=== PATIENT | male | born 1940 | race Caucasian/White ===

== ENCOUNTER → 2017-03-30 | Outpatient (CLI) | payer OTHER ==
[~2017-03-30] MED LIST: AMR2 PO; ANSHCCR PR; CHOL100010 PO; CYAN10005 PO; DOCU-94 PO; ERGO500011 PO; HYDR-5688 PO; IBUP600T44 PO; INSDGIPEN SC; LISI-729 PO; METF1000 PO; ROSU5TAB PO; SULF-183 PO; WARF10TA PO; [UNRECOGNIZED DRUG - OTHER] TOP
[2017-03-30 13:08] LABS: INR 1.6 (0.9-1.1); PROTHROMBIN TIME (PATIENT) 17.9 SECONDS (9.0-12.0)
[2017-03-30 13:33] LABS: ESTIMATED AVERAGE GLUCOSE 306 mg/dl; HA1C FLAG Normal (Normal)
[2017-03-30 15:03] LABS: ALT/SGPT 21 U/L (12-78); AST/SGOT 14 U/L (15-37); BLOOD UREA NITROGEN 19 mg/dl (7-18); CALCIUM 9.4 mg/dl (8.5-10.1); CARBON DIOXIDE 25 mmol/L (21-32); CHLORIDE 106 mmol/L (98-107); CHOLESTEROL 139 mg/dl (0-200); GLUCOSE 157 mg/dl (70-99); SODIUM 139 mmol/L (136-145); TRIGLYCERIDES 167 mg/dl (0-150); VERY LOW DENSITY LIPOPROT CALC 33 mg/dl
[2017-03-30 15:17] LABS: ALKALINE PHOSPHATASE 99 U/L (45-117); CHOLESTEROL/HDL RATIO 2.5; HDL CHOLESTEROL 56 mg/dl; LDL CHOLESTEROL CALCULATED 50 mg/dl
--- NOTE | 2017-04-07 13:10 | CODING QUERY MEDICAL NECESSITY ---
CQSUPPORTING DIAGNOSIS NEEDED A supporting diagnosis is required for the test/procedure performed on this patient in order for us to be reimbursed by the patient's insurance. Please provide a supporting diagnosis for the following test/procedure listed below next to the test name along with your signature. *If there is no additional diagnosis for this patient that would support the following test/procedure please document that below next to the test/procedure. Test(s)/Procedure(s) that require a supporting diagnosis: DOS 03/30/17 VITAMIN D TEST Provider Signature: Date: Thank you Soraya Vallecillo Health Information Management Once completed, please kindly fax back to [phone] For questions please call [phone]
== END | disposition home or self-care (01) ==
LOC: C.LABPVFM 09:03
PROVIDERS: ATTEND Nurse Practitioner
DX: D68.61 Antiphospholipid syndrome (principal); E78.5 Hyperlipidemia, unspecified; E11.9 Type 2 diabetes mellitus without complications; R80.9 Proteinuria, unspecified; E55.9 Vitamin D deficiency, unspecified

== ENCOUNTER → 2017-04-02 | Outpatient (CLI) | payer OTHER ==
[~2017-04-02] MED LIST changes: +ERGO1CAP41 PO; -ERGO500011 PO
--- NOTE | 2017-04-02 10:55 | DIAGNOSTIC IMAGING REPORT ---
ABDOMEN FOR HERNIA CLINICAL HISTORY: Abdominal wall bulge. Evaluate for hernia. COMPARISON STUDY: No previous studies for comparison. TECHNIQUE: Sonography of the anterior abdominal wall was performed at site of bulge. FINDINGS: Note was made of a probable fat containing nonreducible supraumbilical hernia. This is midline in location. IMPRESSION: Probable nonreducible fat-containing supraumbilical hernia. Electronically signed by: Bayron Rodríguez M.D. 04/02/2017 10:53 AM Dictated Date/Time: 04/02/2017 10:52 AM
== END | disposition home or self-care (01) ==
LOC: C.ULTR 10:23
PROVIDERS: ATTEND Nurse Practitioner
DX: R19.00 Intra-abdominal and pelvic swelling, mass and lump, unspecified site (principal)

== ENCOUNTER → 2017-04-27 | Outpatient (CLI) | payer OTHER | END | disposition home or self-care (01) | LOC: C.PATHSPEC 11:44 | PROVIDERS: ATTEND Surgery | DX: K64.5 Perianal venous thrombosis (principal); K62.89 Other specified diseases of anus and rectum ==

== ENCOUNTER 2017-06-03 04:54 | Day surgery (SDC) | payer OTHER ==
[2017-05-20 08:10] VITALS: BMI 32.0
--- NOTE | 2017-05-20 08:45 | PAT Medication Instructions ---
Service Date May 20, 2017. Current Home Medication List Cholecalciferol (Vitamin D), 1 TAB PO QAM Cyanocobalamin (Vitamin B-12), 1,000 MCG PO QAM Ergocalciferol (Vitamin D 92289 Unit), 1 TAB PO WK Glimepiride (Glimepiride), 4 MG PO QAM Hydrocortisone (Proctosol Hc), Unknown Dose IA UD PRN for PRN Insulin Glargine (Lantus Solostar), 30 SC HS Lisinopril (Zestril), 2.5 MG PO QPM Metformin Hcl (Glucophage), 1,000 MG PO BID Rosuvastatin Calcium (Crestor), 20 MG PO QPM Warfarin Sodium (Coumadin), 10-12.5 MG PO SEE NOTES [Topical Oils], Unknown Dose TOP UD Medication Instructions For Your Scheduled Surgery - Check with surgeon/family doctor for instructions: Warfarin Sodium (Coumadin), 10-12.5 MG PO SEE NOTES - Hold the following medications 24 hours prior to surgery: [Topical Oils], Unknown Dose TOP UD - Hold the following medications 48 hours prior to surgery: Metformin Hcl (Glucophage), 1,000 MG PO BID - Hold the following medications the morning of surgery: Cholecalciferol (Vitamin D), 1 TAB PO QAM Cyanocobalamin (Vitamin B-12), 1,000 MCG PO QAM Ergocalciferol (Vitamin D 01453 Unit), 1 TAB PO WK Glimepiride (Glimepiride), 4 MG PO QAM Hydrocortisone (Proctosol Hc), Unknown Dose IA UD PRN for PRN - Hold the following medications as scheduled the night before surgery: Lisinopril (Zestril), 2.5 MG PO QPM - Take the following medications as scheduled the night before surgery: Hydrocortisone (Proctosol Hc), Unknown Dose IA UD PRN for PRN Insulin Glargine (Lantus Solostar), 30 SC HS Rosuvastatin Calcium (Crestor), 20 MG PO QPM If you have any questions please call us at [phone] or [phone] or [phone]
[2017-05-20 10:00] LABS: BASO % 0.4 %; BASO ABS # 0.02 K/uL (0-0.2); COMPLETE YES; EOS % 0.6 %; HEMATOCRIT 42.1 % (42-52); IG% 0.2 %; LYMPH % 29.6 %; LYMPH ABS # 1.39 K/uL (1.2-3.4); MEAN CELL VOLUME 90.5 fL (80-100); MEAN CORPUSCULAR HEMOGLOBIN 30.5 pg (25-34); MEAN CORPUSCULAR HGB CONC 33.7 g/dl (32-36); MEAN PLATELET VOLUME 10.3 fL (7.4-10.4); MONO % 6.8 %; NEUT % 62.4 %; PLATELET COUNT 180 K/uL (130-400); RED BLOOD COUNT 4.65 M/uL (4.7-6.1)
[2017-05-20 11:06] LABS: BUN/CREATININE RATIO 22.2 (10-20); CREATININE 0.83 mg/dl (0.60-1.40); POTASSIUM 4.5 mmol/L (3.5-5.1)
[2017-05-20 11:20] LABS: BETA-HYDROXYBUTYRATE 3.22 mg/dL (0.2-2.81)
[~2017-06-03] VITALS: Ht 188 cm; Wt 114.1 kg
[~2017-06-03 04:54] MED LIST changes: -DOCU-94 PO; -HYDR-5688 PO; -IBUP600T44 PO; -SULF-183 PO
[2017-06-03 05:50] VITALS: BP 139/69; PULSE 71; TEMP 36.8; O2SAT 95; Ht 188 cm; Wt 114.1 kg
[2017-06-03] MEDS ORDERED: LACTATED RINGER'S 1000ML 1,000 ML IV SCH ×2 (06:00)
[2017-06-03] MEDS ORDERED: CEFAZOLIN 2000 MG/60 ML D5W IV SCH (06:00)
[2017-06-03 06:12] LABS: PARTIAL THROMBOPLASTIN RATIO 0.8; PROTHROMBIN TIME (PATIENT) 10.4 SECONDS (9.0-12.0)
[2017-06-03] MEDS ORDERED: MIDAZOLAM HCL 1 MG/ML 2ML VIAL ONE (06:44)
[2017-06-03] MEDS ORDERED: FENTANYL CITRATE INJ 50 MCG/1 ML 2 ML VIAL ONE (06:44)
[2017-06-03] MEDS ORDERED: GELATIN SPONGE 12-7MM ONE (06:45)
[2017-06-03] MEDS ORDERED: BUPIVACAINE/EPINEPHRINE 0.5% MPF 1:200,000 10 ML VIAL ONE ×2 (06:45→07:37)
[2017-06-03] MEDS ORDERED: NovoLIN-R INSULIN PER UNIT CHARGE ONE (07:00)
--- NOTE | 2017-06-03 07:03 | History & Physical Bridge Note ---
H&P Re-Evaluation Bridge Note: I have examined the patient, reviewed the History & Physical and in the interval since the performance of the History & Physical I have noted the following changes of clinical significance: No changes noted
[2017-06-03] MEDS ORDERED: LIDOCAINE HCL 2% 2 ML VIAL (20MG/ML) ONE (07:38)
[2017-06-03] MEDS ORDERED: GLYCOPYRROLATE INJ 0.2 MG/ML VIAL ONE (07:38)
[2017-06-03] MEDS ORDERED: ONDANSETRON INJ 2 MG/ML 2 ML VIAL ONE (07:38)
[2017-06-03] MEDS ORDERED: PROPOFOL IV EMULSION 10 MG/ML 20 ML VIAL IV ONE (07:38)
[2017-06-03] MEDS ORDERED: EpHEDrine SULFATE 50MG/5ML SYR ONE (07:38)
[2017-06-03] MEDS ORDERED: NEOSTIGMINE METHYLSULFATE 5 MG/5 ML SYR ONE (07:38)
[2017-06-03] MEDS ORDERED: ROCURONIUM BROMIDE 10 MG/ML 5 ML VIAL IV ONE (07:38)
[2017-06-03] MEDS ORDERED: LIDOCAINE HCL 2% JELLY 30 ML TUBE EXT STA (07:41)
[2017-06-03] MEDS ORDERED: INSULIN HUMAN REGULAR PER UNIT 10 UNITS in SYRINGE 0 ML IV STA (07:56)
[2017-06-03] MEDS ORDERED: ATROPINE SULFATE 0.1 MG/ML 5ML SYR IV PRN (08:00)
[2017-06-03] MEDS ORDERED: PHENYLEPHRINE 100MCG/ML 5ML SYR IV PRN (08:00)
[2017-06-03] MEDS ORDERED: ONDANSETRON INJ 2 MG/ML 2 ML VIAL IV PRN ×2 (08:00→08:15)
[2017-06-03] MEDS ORDERED: EpHEDrine SULFATE INJ 50 MG/ML AMP IV PRN (08:00)
[2017-06-03] MEDS ORDERED: HYDROmorphone INJ 2 MG/ML SYR/VIAL IV PRN (08:00)
--- NOTE | 2017-06-03 08:04 | Medical Student: [facility] ---
Immediate Operative Summary Operative Date Jun 03, 2017. Pre-Operative Diagnosis Rectal polyp Post-Operative Diagnosis same Procedure(s) Performed Excision of rectal polyp Surgeon Dr. Parmar Mechanical Design Drafter Surgeon(s) Michael Ayala Estimated Blood Loss 10cc Findings Normal appearing colon with large polyp Specimens Rectal polyp Drains none Anesthesia general Complication(s) None Disposition Recovery Room / PACU
[2017-06-03] MEDS ORDERED: SODIUM CHLORIDE 0.9% 1000ML 1,000 ML IV SCH (08:08)
--- NOTE | 2017-06-03 08:08 | [facility] Operative Report ---
Operative Report Operative Date Jun 03, 2017. Pre-Operative Diagnosis Rectal Polyp Post-Operative Diagnosis Rectal Polyp Procedure(s) Performed Excision of Rectal Polyp / Mass Surgeon Dr Maurilio Parmar Social Services Coordinator Surgeon(s) Michael Ayala PA-C Estimated Blood Loss 10cc Findings large pedunculated rectal mass Specimens As per Surgeon A. Rectal Polyp Anesthesia LMA Complication(s) None Disposition Recovery Room / PACU Description of Procedure After informed consent was obtained the patient was taken the operating suite placed in supine position. After successful placement of a laryngeal mask airway the patient was placed in high lithotomy position. Rectal area was sterilely prepped and draped in usual fashion. There was a large pedunculated exophytic type of mass protruding around the anoderm. We began by using Marcaine with epinephrine to localize it at its base. Once we did this we took a 15 blade scalpel made an elliptical incision around it and excise it in its entirety. Was sent to pathology. Several small bleeding points were controlled using electrocautery. We then used #3 Prolene in simple interrupted fashion to close the anoderm. We injected some additional local anesthetic into the region. I did do a digital rectal exam and did not identify any additional abnormalities. There was some slightly abnormal appearing anoderm at the 11 o'clock position as well however it did not have similar appearance to the mass and did not warrant excision at this time. We irrigated the area. I used lidocaine jelly impregnated on Gelfoam and placed this into the rectal area. A dressing was applied. The patient was awaken extubated and transferred recovery in stable condition I attest to the content of the Intraoperative Record and any orders documented therein. Any exceptions are noted below.
[2017-06-03] MEDS ORDERED: HYDR-5688 PO (08:12)
[2017-06-03] MEDS ORDERED: DOCU-94 PO (08:12)
[2017-06-03] MEDS ORDERED: IBUP600T44 PO (08:12)
[2017-06-03] MEDS ORDERED: HYDROCODONE/ACETAMOPHEN 5/325MG TAB PO PRN ×2 (08:15)
[2017-06-03] MEDS ORDERED: IBUPROFEN 600 MG TAB PO PRN (08:15)
--- NOTE | 2017-06-03 08:15 | Discharge Instructions ---
Discharge Instructions Date of Service Jun 03, 2017. Visit Reason for Visit: Rectal Polyp/Mass, Diabetes Discharge Discharge Diagnosis / Problem: excision rectal mass Discharge Goals Goal(s): Decrease discomfort Activity Recommendations Activity Limitations: as noted below Shower/Bathe: no limitations Driving or Machine Use: do not drive if taking Talala Anesthesia . Post Anesthesia Instructions: If you have had General Anesthesia or IV Sedation: * Do not drive today. * Resume driving when surgeon permits. * Do not make important decisions or sign legal documents today. * Call surgeon for: 1. Temperature elevations greater than 101 degrees F. 2. Uncontrollable pain. 3. Excessive bleeding. 4. Persistent nausea and vomiting. 5. Medication intolerance (nausea, vomiting or rash). * For nausea and vomiting use only clear liquids such as: tea, soda, bouillon until nausea subsides, then gradually increase diet as tolerated. * If you have any concerns or questions, call your surgeon's office. If physician is unavailable and it is an emergency, call 911 or go to the nearest emergency room. . Instructions / Follow-Up Instructions / Follow-Up Dr. Parmar in 2 weeks, call [phone] for any questions Begin sitz baths tomorrow 3-4 times daily Diet Recommendations Recommended Home Diet: no limitations Procedures Procedures Performed: Excision of Rectal Polyp / Mass Pending Studies Studies pending at discharge: no Medical Emergencies . Who to Call and When: Medical Emergencies: If at any time you feel your situation is an emergency, please call 911 immediately. . Non-Emergent Contact Non-Emergency issues call your: Surgeon Call Non-Emergent contact if: you have a fever, temperature is above 101.5, your pain is not controlled, wound has increased pain, you have any medication questions . . "Provider Documentation" section prepared by Elio Ayala. .
--- NOTE | 2017-06-03 08:35 | Anesthesiology Progress Note ---
Anesthesia Post Op Note Date & Time Jun 03, 2017 at 08:35 Vital Signs Pain Intensity: 0 Vital Signs Past 12 Hours Date Time Temp Pulse Resp B/P (MAP) Pulse Ox O2 Delivery O2 Flow Rate FiO2 06/03/17 08:25 72 19 158/79 96 Room Air 06/03/17 08:15 71 19 152/78 99 Oxymask 10 06/03/17 08:05 82 19 158/81 100 Oxymask 10 06/03/17 07:58 36.7 76 16 167/78 99 Oxymask 10 06/03/17 05:50 36.8 71 18 139/69 (92) 95 Room Air Notes Mental Status: alert / awake / arousable, participated in evaluation Pt Amnestic to Procedure: Yes Nausea / Vomiting: adequately controlled Pain: adequately controlled Airway Patency, RR, SpO2: stable & adequate BP & HR: stable & adequate Hydration State: stable & adequate Anesthetic Complications: no major complications apparent
[2017-06-03 08:45] VITALS: BP 153/74; PULSE 66; TEMP 36.1; O2SAT 96
== END 2017-06-03 09:56 | disposition home or self-care (01) ==
LOC: C.ACU 04:54
PROVIDERS: ATTEND Surgery
DX: K62.1 Rectal polyp (principal); D68.61 Antiphospholipid syndrome; E11.9 Type 2 diabetes mellitus without complications; K43.9 Ventral hernia without obstruction or gangrene; E78.5 Hyperlipidemia, unspecified; D68.62 Lupus anticoagulant syndrome; E55.9 Vitamin D deficiency, unspecified; E66.3 Overweight; Z83.3 Family history of diabetes mellitus; Z82.49 Family history of ischemic heart disease and other diseases of the circulatory system; Z80.3 Family history of malignant neoplasm of breast; Z79.4 Long term (current) use of insulin; Z79.84 Long term (current) use of oral hypoglycemic drugs; Z79.899 Other long term (current) drug therapy; Z79.01 Long term (current) use of anticoagulants

== ENCOUNTER → 2017-11-30 | Outpatient (CLI) | payer OTHER ==
[~2017-11-30] MED LIST changes: +DOCU-94 PO; -ERGO1CAP41 PO; +ERGO500011 PO; +HYDR-5688 PO; +IBUP600T44 PO
[2017-11-30 12:38] LABS: INR 1.3 (0.9-1.1)
[2017-11-30 12:59] LABS: HEMOGLOBIN A1C 10.6 % (4.5-5.6)
[2017-11-30 13:14] LABS: BLOOD UREA NITROGEN 25 mg/dl (7-18); CALCIUM 9.1 mg/dl (8.5-10.1); CARBON DIOXIDE 26 mmol/L (21-32); CREATININE 0.97 mg/dl (0.60-1.40); GLUCOSE 265 mg/dl (70-99); POTASSIUM 4.3 mmol/L (3.5-5.1); SODIUM 136 mmol/L (136-145)
== END | disposition home or self-care (01) ==
LOC: C.LABPVFM 11:23
PROVIDERS: ATTEND Nurse Practitioner
DX: R80.9 Proteinuria, unspecified (principal); E11.65 Type 2 diabetes mellitus with hyperglycemia; D68.61 Antiphospholipid syndrome

== ENCOUNTER 2021-10-27 14:12 | Inpatient (IN) ==
[2021-10-27 18:34] LABS: Basophils # (auto) 0.01 K/uL (0-0.2); Basophils % (auto) 0.2 %; Eosinophils # (auto) 0.04 K/uL (0-0.5); Eosinophils % (auto) 0.7 %; Hemoglobin 9.7 g/dL (14.0-18.0); Immature Granulocytes # (auto) 0.01 K/uL (0.00-0.02); Immature Granulocytes % (auto) 0.2 %; Lymphocytes # (auto) 1.37 K/uL (1.2-3.4); Lymphocytes % (auto) 24.8 %; Mean Corpuscular Hemoglobin 25.9 pg (25-34); Mean Corpuscular Hgb Conc 31.3 g/dL (32-36); Mean Corpuscular Volume 82.7 fL (80-100); Monocytes # (auto) 0.49 K/uL (0.11-0.59); Monocytes % (auto) 8.9 %; Neutrophils % (auto) 65.2 %; Platelet Count 279 K/uL (130-400); RDW Coefficient of Variation 16.6 % (11.5-14.5); RDW Standard Deviation 50.2 fL (36.4-46.3); Red Blood Count 3.75 M/uL (4.7-6.1); White Blood Count 5.52 K/uL (4.8-10.8)
[2021-10-27] MEDS: SODIUM CHLORIDE 0.9% 1000ML 1,000 ML IV SCH (18:39)
[2021-10-27 18:44] LABS: INR 1.1 (0.9-1.1)
--- NOTE | 2021-10-27 18:44 | Emergency Department Note ---
History of Present Illness General Chief complaint: Fall Stated complaint: FALL WEDNESDAY, ARM PAIN, BACK PAIN, DIARRHEA Time Seen by Provider: 10/27/21 18:00 Source: patient Mode of arrival: ambulatory Limitations: no limitations History of Present Illness Provider complaint: Fall, dizziness, high blood sugar Onset (ago): day(s) 4 Maximum Pain Intensity: 2 Relieved By: + none Exacerbated By: + none Associated symptoms: + loss of appetite, + malaise and + nausea/vomiting; no chest pain, no cough, no fever/chills, no headaches or no shortness of breath Treatments prior to arrival: none This is a 81-year-old male presents emergency department complaining of dizziness and high blood sugar. Patient states that he had an accidental mechanical fall on Wednesday of last week, tripping over something in their house. Patient is uncertain how he landed, is uncertain if he struck his head, but does not believe he lost consciousness. Patient is anticoagulated due to history of blood clots per his report. He states his last INR check was 2.3. Patient states he is a diabetic, and he does not check his blood sugar regularly. He states he does take his medications as prescribed though. He states he does not always follow a diabetic diet. He states his sugars have been running in the upper 200s. He states on Wednesday at the time of the fall, when they had to call EMS to come help him stand up, they checked his blood sugar and found it to be in the upper 300s. He states he does not come to the hospital at that time. He states over the course of the weekend he had intermittent dizziness, but otherwise felt as though he was improving. He states he has had generalized soreness and achiness since the fall, particularly at his elbows and knees which he believes he hit in the fall also. He states he has an abrasion to his right knee and left elbow. Patient denies vision changes, fevers or chills, nausea or vomiting, chest pain or trouble breathing. He denies any recent change in medication. is also concerned about ongoing diarrhea over the last 2 m [facility]. She states he has 2-3 episodes a day, that to her appear bloody. Patient denies any coming abdominal pain although does states he is intermittently nauseated on almost a daily basis. No prior history of IBS or IBD. Patient states he has never had a colonoscopy. Pt seen during a time of high acuity and national emergency pandemic while wearing PPE. Home Medications Medication Instructions Recorded Confirmed Type blood sugar diagnostic (FreeStyle #10 ea 03/25/19 09/04/21 History Lite Strips) lancets 28 gauge (FreeStyle ea 09/20/19 09/04/21 History Lancets) cholecalciferol (vitamin D3) 50 2,000 units PO DAILY #30 cap 02/20/20 10/27/21 Rx mcg (2,000 unit) capsule Novolog Mix 70-30 FlexPen U-100 See Rx Instructions SQ QAM #4 box 03/21/21 10/27/21 Rx Insulin 100 unit/mL subcutaneous NS pen (insulin asp prt-insulin aspart) pen needle, diabetic 32 gauge x #200 ea 05/29/21 09/04/21 Rx 5/32" (BD Donna 2nd Gen Pen Needle) warfarin 5 mg tablet 10 mg PO DAILY #180 tab 07/10/21 10/27/21 Rx rosuvastatin 20 mg tablet (Crestor) 20 mg PO DAILY #90 tab 08/21/21 10/27/21 Rx lisinopril 2.5 mg tablet 2.5 mg PO DAILY #90 tab 10/09/21 10/27/21 Rx metformin 500 mg tablet,extended 1,000 mg PO BID #360 tab 10/10/21 10/27/21 Rx release 24 hr Allergies Allergy/AdvReac Type Severity Reaction Status Date / Time cat dander Allergy Unknown EYES WATER Verified 10/27/21 19:55 sitagliptin Allergy Unknown ? Verified 10/27/21 19:55 Dgithel-CUF-YnC Reductase Allergy Unknown LEG CRAMPS Verified 10/27/21 19:55 Inhibitor [Ochwfjo-Bne-Wdf Reductase Inhibitor] januvia tabs Allergy Hives Uncoded 10/27/21 19:55 Past Med/Surg History Medical History (Updated 10/28/21 @ 02:33 by Tali Seymour DO) Albuminuria Glaucoma Long-term (current) use of anticoagulants, INR goal 2.0-3.0 Vitamin D deficiency Surgical History History of dental surgery History of elbow surgery History of knee surgery History of rectal polypectomy Family History Father Myocardial infarction Denies family history of Ovarian cancer Prostate cancer Breast cancer Colorectal cancer Social History Smoking Status: Never smoker Second Hand Exposure: No; Hx Alcohol Use: Yes Alcohol type: wine Alcohol Intake Frequency: 2-4 x/Month Alcohol Intake Frequency Comment: Once a week Hx Substance Use: No Beliefs That Will Affect Care: None marital status: Current Living Situation: Spouse and Family current occupational status: retired Feels Safe at Home: Yes caffeine: Yes Dental Care, Regularly: Yes Physical Activity Frequency: Does not Exercise Seatbelt Use: always Sunscreen Use: Yes Review of Systems A total of 10 systems reviewed and were otherwise negative All systems reviewed & are unremarkable except as noted in HPI & below Physical Exam Vital Signs Vital Signs - 24 hr 10/27/21 14:18 10/27/21 18:18 10/27/21 21:47 Temperature 36.4 C L Temperature Source Oral Pulse Rate 91 H Pulse Rate [Left Apical] 83 85 Pulse Rhythm [Left Apical] Regular Regular Pulse Strength [Left Apical] Normal Normal Respiratory Rate 20 16 16 Respiratory Effort / Characteristics Non-Labored Non-Labored Spontaneous Respiratory Depth Normal Normal Respiratory Pattern Regular Blood Pressure 150/79 H Blood Pressure [Left Arm] 156/77 H 148/81 H Blood Pressure Mean 102 Blood Pressure Mean [Left Arm] 103 103 Blood Pressure Position [Left Arm] Lying Semi-fowlers Pulse Oximetry 94 97 98 Oxygen Delivery Method Room Air Room Air Room Air Sepsis Recent Fever Within 48 Hours No Sepsis New/Unexplained Change in Mental Status N/A Sepsis Action Taken by Nursing No Action Required 10/28/21 00:05 10/28/21 02:00 Temperature Temperature Source Pulse Rate Pulse Rate [Left Apical] 89 76 Pulse Rhythm [Left Apical] Regular Regular Pulse Strength [Left Apical] Normal Normal Respiratory Rate 18 18 Respiratory Effort / Characteristics Non-Labored Spontaneous Non-Labored Spontaneous Respiratory Depth Normal Normal Respiratory Pattern Regular Regular Blood Pressure Blood Pressure [Left Arm] 159/84 H 148/72 H Blood Pressure Mean Blood Pressure Mean [Left Arm] 109 97 Blood Pressure Position [Left Arm] Semi-fowlers Lying Pulse Oximetry 96 96 Oxygen Delivery Method Room Air Room Air Sepsis Recent Fever Within 48 Hours Sepsis New/Unexplained Change in Mental Status Sepsis Action Taken by Nursing GENERAL: alert, disheveledappearing, well nourished, no distress, non-toxic EYE EXAM: normal conjunctiva, PERRL and EOM's grossly intact OROPHARYNX: no exudate, no erythema, lips, buccal mucosa, and tongue normal and mucous membranes are moist NECK: supple, no nuchal rigidity, no adenopathy, non-tender LUNGS: Clear to auscultation. Normal chest wall mechanics, no w/r/r HEART: no murmurs, S1 normal and S2 normal ABDOMEN: abdomen soft, non-tender, normo-active bowel sounds, no masses, no rebound or guarding. BACK: Back is symmetrical on inspection and there is no deformity, no midline tenderness, no CVA tenderness. SKIN: no rashes and no bruising UPPER EXTREMITIES: upper extremities are grossly normal. FROM, nml pulses b/l. Contusion noted to left elbow and proximal forearm, no bony tenderness, full range of motion noted during testing, no crepitus, compartments soft, sensation intact. LOWER EXTREMITIES: 3+ b/l pitting edema. FROM, nml pulses b/l. Abrasion noted to the right prepatellar region, appears superficial, patient placed a Band-Aid over this area. No surrounding erythema. Patient with chronic appearing skin changes related to ongoing edema as well as persistent hyperglycemia noted bilaterally to the distal lower extremities. NEURO EXAM: Normal sensorium, cranial nerves II-XII grossly intact, normal speech, no gross weakness of arms, no gross weakness of legs. Gross sensation intact. Course Administered Medications Sodium Chloride (Nss 1000ml) 1,000 mls @ 125 mls/hr IV .Q8H MITESH Stop: 11/26/21 18:29 Last Infusion: 10/28/21 01:42 Dose: 0 mls/hr Documented by: [id number] Admin: 10/27/21 18:39 Dose: 125 mls/hr Documented by: [id number] Discontinued Medications Ioversol (Optiray 320 100ml) 93 ml IV ONCE ONE Stop: 10/27/21 19:31 Last Admin: 10/27/21 19:31 Dose: 93 ml Documented by: [id number] Medical Decision Making Differential Diagnosis Differential diagnoses include major intracranial, cervical, spinal, thoracic, abdominal, pelvic and neurologic injury. Fracture, contusion, sprain, strain, laceration, abrasions included as well. Medical Records Attestation: I reviewed the patient's medical records. Home Medications Current Medication List: was personally reviewed by me Laboratory Data Attestation: I reviewed the patient's lab results. Result diagrams: 10/27/21 18:26 10/27/21 18:26 Lab Results 10/27/21 10/27/21 10/27/21 Range/Units 14:25 14:26 18:26 WBC 5.52 (4.8-10.8) K/uL RBC 3.75 L (4.7-6.1) M/uL Hgb 9.7 L (14.0-18.0) g/dL Hct 31.0 L (42-52) % MCV 82.7 (80-100) fL MCH 25.9 (25-34) pg MCHC 31.3 L (32-36) g/dL RDW Std Deviation 50.2 H (36.4-46.3) fL RDW Coeff of Cleo 16.6 H (11.5-14.5) % Plt Count 279 (130-400) K/uL MPV 9.0 (7.4-10.4) fL Immature Gran % (Auto) 0.2 % Neut % (Auto) 65.2 % Lymph % (Auto) 24.8 % Posey % (Auto) 8.9 % Eos % (Auto) 0.7 % Baso % (Auto) 0.2 % Neut # (Auto) 3.60 (1.4-6.5) K/uL Lymph # (Auto) 1.37 (1.2-3.4) K/uL Posey # (Auto) 0.49 (0.11-0.59) K/uL Eos # (Auto) 0.04 (0-0.5) K/uL Baso # (Auto) 0.01 (0-0.2) K/uL Immature Gran # (Auto) 0.01 (0.00-0.02) K/uL PT (9.0-12.0) Seconds INR (0.9-1.1) Sodium (136-145) mmol/L Potassium (3.5-5.1) mmol/L Chloride (98-107) mmol/L Carbon Dioxide (21-32) mmol/L Anion Gap (3-11) BUN (6-23) mg/dl Creatinine (0.6-1.4) mg/dl Est Cr Clr Drug Dosing ml/min Est GFR ( Amer) ml/min Est GFR (Non-Af Amer) ml/min BUN/Creatinine Ratio (10-20) Glucose (70-99(Fasting)) mg/dl POC Glucose 325 H* 288 H (70-99) mg/dl Calcium (8.5-10.1) mg/dl Magnesium (1.7-2.4) mg/dl Total Bilirubin (0.2-1.0) mg/dl AST (13-39) U/L ALT (7-52) U/L Alkaline Phosphatase (34-104) U/L Troponin I (0-0.04) ng/ml B-Natriuretic Peptide (0-100) pg/ml Total Protein (6.0-8.3) gm/dl Albumin (3.4-5.0) gm/dl Globulin (2.5-4.0) gm/dl Albumin/Globulin Ratio (0.9-2) TSH (0.300-4.500) uIu/ml Urine Color Urine Appearance (Clear) Urine pH (4.5-7.5) Ur Specific [place] (1.000-1.030) Urine Protein (Negative) Urine Glucose (UA) (Negative) Urine Ketones (Negative) Urine Blood (Negative) Urine Nitrite (Negative) Urine Bilirubin (Negative) Urine Urobilinogen (Negative) Ur Leukocyte Esterase (Negative) Urine WBC (Auto) (0-5) /hpf Urine RBC (Auto) (0-4) /hpf U Hyaline Cast (Auto) (0-5) /lpf U Epithel Cells (Auto) (0-5) /lpf Urine Bacteria (Auto) (Negative) Ur Renal Epithelial Cell (0-5) /lpf SARS-CoV-2, RNA, NAAT (NEGATIVE) 10/27/21 10/27/21 10/27/21 Range/Units 18:26 18:26 18:26 WBC (4.8-10.8) K/uL RBC (4.7-6.1) M/uL Hgb (14.0-18.0) g/dL Hct (42-52) % MCV (80-100) fL MCH (25-34) pg MCHC (32-36) g/dL RDW Std Deviation (36.4-46.3) fL RDW Coeff of Cleo (11.5-14.5) % Plt Count (130-400) K/uL MPV (7.4-10.4) fL Immature Gran % (Auto) % Neut % (Auto) % Lymph % (Auto) % Posey % (Auto) % Eos % (Auto) % Baso % (Auto) % Neut # (Auto) (1.4-6.5) K/uL Lymph # (Auto) (1.2-3.4) K/uL Posey # (Auto) (0.11-0.59) K/uL Eos # (Auto) (0-0.5) K/uL Baso # (Auto) (0-0.2) K/uL Immature Gran # (Auto) (0.00-0.02) K/uL PT 11.0 (9.0-12.0) Seconds INR 1.1 (0.9-1.1) Sodium 137 (136-145) mmol/L Potassium 4.0 (3.5-5.1) mmol/L Chloride 104 (98-107) mmol/L Carbon Dioxide 27 (21-32) mmol/L Anion Gap 6 (3-11) BUN 22 (6-23) mg/dl Creatinine 0.79 (0.6-1.4) mg/dl Est Cr Clr Drug Dosing 104.2 ml/min Est GFR ( Amer) 99.0 ml/min Est GFR (Non-Af Amer) 85.4 ml/min BUN/Creatinine Ratio 27.8 H (10-20) Glucose 248 H (70-99(Fasting)) mg/dl POC Glucose (70-99) mg/dl Calcium 9.6 (8.5-10.1) mg/dl Magnesium 1.9 (1.7-2.4) mg/dl Total Bilirubin 0.5 (0.2-1.0) mg/dl AST 10 L (13-39) U/L ALT 11 (7-52) U/L Alkaline Phosphatase 98 (34-104) U/L Troponin I < 0.03 (0-0.04) ng/ml B-Natriuretic Peptide (0-100) pg/ml Total Protein 6.9 (6.0-8.3) gm/dl Albumin 3.8 (3.4-5.0) gm/dl Globulin 3.1 (2.5-4.0) gm/dl Albumin/Globulin Ratio 1.2 (0.9-2) TSH 1.639 (0.300-4.500) uIu/ml Urine Color Urine Appearance (Clear) Urine pH (4.5-7.5) Ur Specific [place] (1.000-1.030) Urine Protein (Negative) Urine Glucose (UA) (Negative) Urine Ketones (Negative) Urine Blood (Negative) Urine Nitrite (Negative) Urine Bilirubin (Negative) Urine Urobilinogen (Negative) Ur Leukocyte Esterase (Negative) Urine WBC (Auto) (0-5) /hpf Urine RBC (Auto) (0-4) /hpf U Hyaline Cast (Auto) (0-5) /lpf U Epithel Cells (Auto) (0-5) /lpf Urine Bacteria (Auto) (Negative) Ur Renal Epithelial Cell (0-5) /lpf SARS-CoV-2, RNA, NAAT (NEGATIVE) 10/27/21 10/27/21 10/28/21 Range/Units 19:48 20:12 00:28 WBC (4.8-10.8) K/uL RBC (4.7-6.1) M/uL Hgb (14.0-18.0) g/dL Hct (42-52) % MCV (80-100) fL MCH (25-34) pg MCHC (32-36) g/dL RDW Std Deviation (36.4-46.3) fL RDW Coeff of Cleo (11.5-14.5) % Plt Count (130-400) K/uL MPV (7.4-10.4) fL Immature Gran % (Auto) % Neut % (Auto) % Lymph % (Auto) % Posey % (Auto) % Eos % (Auto) % Baso % (Auto) % Neut # (Auto) (1.4-6.5) K/uL Lymph # (Auto) (1.2-3.4) K/uL Posey # (Auto) (0.11-0.59) K/uL Eos # (Auto) (0-0.5) K/uL Baso # (Auto) (0-0.2) K/uL Immature Gran # (Auto) (0.00-0.02) K/uL PT (9.0-12.0) Seconds INR (0.9-1.1) Sodium (136-145) mmol/L Potassium (3.5-5.1) mmol/L Chloride (98-107) mmol/L Carbon Dioxide (21-32) mmol/L Anion Gap (3-11) BUN (6-23) mg/dl Creatinine (0.6-1.4) mg/dl Est Cr Clr Drug Dosing ml/min Est GFR ( Amer) ml/min Est GFR (Non-Af Amer) ml/min BUN/Creatinine Ratio (10-20) Glucose (70-99(Fasting)) mg/dl POC Glucose (70-99) mg/dl Calcium (8.5-10.1) mg/dl Magnesium (1.7-2.4) mg/dl Total Bilirubin (0.2-1.0) mg/dl AST (13-39) U/L ALT (7-52) U/L Alkaline Phosphatase (34-104) U/L Troponin I (0-0.04) ng/ml B-Natriuretic Peptide 41 (0-100) pg/ml Total Protein (6.0-8.3) gm/dl Albumin (3.4-5.0) gm/dl Globulin (2.5-4.0) gm/dl Albumin/Globulin Ratio (0.9-2) TSH (0.300-4.500) uIu/ml Urine Color Yellow Urine Appearance Cloudy A (Clear) Urine pH 5.0 (4.5-7.5) Ur Specific [place] > 1.045 H (1.000-1.030) Urine Protein Negative (Negative) Urine Glucose (UA) 3+ H (Negative) Urine Ketones Trace H (Negative) Urine Blood Negative (Negative) Urine Nitrite Negative (Negative) Urine Bilirubin Negative (Negative) Urine Urobilinogen Negative (Negative) Ur Leukocyte Esterase Negative (Negative) Urine WBC (Auto) 5-10 H (0-5) /hpf Urine RBC (Auto) 0-4 (0-4) /hpf U Hyaline Cast (Auto) 1-5 (0-5) /lpf U Epithel Cells (Auto) >30 H (0-5) /lpf Urine Bacteria (Auto) Negative (Negative) Ur Renal Epithelial Cell 5-10 H (0-5) /lpf SARS-CoV-2, RNA, NAAT NEGATIVE (NEGATIVE) Imaging Data Radiologist's Impression: Abdomen/Pelvis CT 10/27/21 18:22 CT abd pelvis IV con only CLINICAL HISTORY: trauma, diarrhea/blood thinners TECHNIQUE: Helical axial images of the abdomen and pelvis were obtained and displayed. Automated dose lowering techniques and/or adjustment according to patient size were utilized for this exam. This exam was performed with intravenous contrast. COMPARISON: None available at the time of this dictation. FINDINGS: Lower chest: Bibasilar atelectasis versus scarring is seen. Liver: Unremarkable. No focal lesions are seen. Gallbladder and biliary tree: A large gallstone is seen. No gallbladder wall thickening is seen. No intra- or extrahepatic biliary ductal dilation. Pancreas: Unremarkable, no focal lesions. Spleen: Unremarkable. Adrenals: Unremarkable. Kidneys and ureters: Multiple cysts are seen bilaterally. Nonobstructive nephrolithiasis is seen. Bladder: Innumerable stones are seen in the bladder. Bladder wall thickening is seen. Reproductive organs: Prostatomegaly is seen. Bowel: Marked colonic wall thickening and narrowing is seen in the splenic flexure. There is increased surrounding vascularity. The appendix is normal. Lymph nodes Retroperitoneal: Unremarkable. Mesenteric: Unremarkable. Pelvic: Unremarkable. Peritoneum: Normal. Vessels: Unremarkable. Abdominal wall: Unremarkable. Bones: Sclerotic focus in the right femoral neck. Degenerative changes are seen in the spine. IMPRESSION: 1. No acute abnormalities and in particular no evidence of fracture. 2. There is wall thickening and luminal narrowing of the colon at the splenic flexure with surrounding increased vascularity. This finding is suspicious for malignancy and colonoscopy should be performed if finding this has not been previously characterized on outside imaging/endoscopy. 3. Innumerable stones in the bladder. Bladder wall thickening is likely secondary to chronic obstruction this patient with mild prostatomegaly. ACT 112: Negative or not required by law. Electronically signed by: Finn Morel M.D. 10/27/2021 8:[address] 10/27/21 18:22 CT cervical spine wo con CLINICAL HISTORY: trauma TECHNIQUE: Multidetector row helical CT of the cervical spine was performed without administration of intravenous contrast. Coronal and sagittal reformations were obtained. Automated dose lowering techniques and/or adjustment according to patient size were utilized for this exam. Comparison: None available at the time of this dictation. FINDINGS: No acute fractures or subluxations are identified. Degenerative changes are seen in the visualized spine. The alignment is normal. Soft tissues are unremarkable. IMPRESSION: Degenerative changes without evidence of acute bony injury. ACT 112: Negative or not required by law. Electronically signed by: Finn Morel M.D. 10/27/2021 7:55 PM Chest X-Ray 10/27/21 18:22 XR chest 1V portable CLINICAL HISTORY: trauma TECHNIQUE: Single frontal radiograph of the chest was obtained. Comparison: None available at the time of this dictation. FINDINGS: No lines and tubes are seen. The cardiomediastinal silhouette is normal. The lungs are clear. No evidence of pleural effusion or pneumothorax. IMPRESSION: No acute chest disease. ACT 112: Negative or not required by law. Electronically signed by: Finn Morel M.D. 10/27/2021 6:[address] 10/27/21 18:22 CT head/brain wo con CLINICAL HISTORY: trauma Technique: Contiguous axial CT images of the head were acquired from the base of the skull to the vertex without intravenous contrast administration. Images were viewed in brain, subdural and bone windows. Automated dose lowering techniques and/or adjustment according to patient size were utilized for this exam. Comparison: None available at the time of this dictation. Findings: Areas of decreased attenuation are present in the periventricular and subcortical white matter bilaterally consistent with small vessel ischemic d isease. Generalized cerebral atrophy with commensurate enlargement of the ventricles, sulci, and cisterns is also present. There is no acute intracranial hemorrhage or evidence of acute territorial infarction. No shift of the midline structures, mass effect, or extra-axial abnormalities are shown. Atherosclerotic calcifications are present in the intracranial segments of the internal carotid arteries. Imaged portions of the paranasal sinuses and mastoid air cells are clear. The orbits appear normal. There are no acute fractures of the calvaria or scalp swelling. Impression: No acute intracranial hemorrhage, no evidence of acute territorial infarction or other acute intracranial disease process. ACT 112: Negative or not required by law. Electronically signed by: Finn Morel M.D. 10/27/2021 7:56 PM Pelvis X-Ray 10/27/21 18:22 XR pelvis 1-2V routine CLINICAL HISTORY: trauma TECHNIQUE: A single frontal view of the pelvis was obtained. Comparison: None available at the time of this dictation. FINDINGS: There is no evidence of acute fracture or dislocation. The bones are anatomically aligned. Degenerative changes are seen in the pelvis and hip joints. The soft tissues are unremarkable. IMPRESSION: Degenerative changes without evidence of acute bony injury. ACT 112: Negative or not required by law. Electronically signed by: Finn Morel M.D. 10/27/2021 7:02 PM Ultrasound venous bilateral lower extremities: Negative bilateral lower extremity venous duplex ultrasound. There is no evidence of DVT. Radiologist: Elvin Feliciano MD ECG Data Attestation: I personally reviewed and interpreted this ECG as follows: Indication: + weakness Rate (beats per minute): 82 Rhythm: + normal sinus ECG Intervals/blocks: + IVCD and + Normal QT ECG Bandon: + Left axis deviation ECG ST segments: + Nonspecific ST abnormalities MDM Narrative This is a 81-year-old male who presents due to concern for weakness and dizziness following a fall on Wednesday. Patient is anticoagulated, initial concern for occult traumatic injury despite delayed presentation. Patient was afebrile and hemodynamically stable on exam. Labs drawn and sent and patient sent for CT and x-ray imaging. Patient found to have anemia, new compared to prior. Patient denied noticing any blood loss, denied melena. Patient did ad cody to the diarrhea over the last 2 months. at bedside states she believes there is blood as she states she has intermittently seen a brown/red tint when cleaning the bathroom or helping the patient clean himself up. Patient's also concerned about worsening lower extremity edema, decreasing ambulation, and hyperglycemia recently. Patient does admit to ongoing hyperglycemia and states some of it may be from not checking his sugar regularly. No evidence of DKA despite hyperglycemia noted here. CT of the abdomen pelvis was added to initial trauma studies and patient found to have colonic mass which I feel likely explains the diarrhea, and given use of anticoagulation even if intermittently could have had accompanying bleeding which may explain the new anemia. Patient's anemia likely contributing to his weakness and dizziness even in light of the recent fall. I did discuss all results at bedside with the patient. His INR was subtherapeutic, after additional bedside discussion he was sent for lower extremity Dopplers which were negative for DVT. Given no reported chest pain, palpitations, shortness of breath, I did not pursue CT angiography to rule out PE. Additional anticoagulation deferred to hospitalist team. I did spend extensive time at bedside with the patient and his discussing all results and need for additional monitoring and treatment. Patient initially declined additional inpatient management however after additional discussion he was in agreement. Patient remained hemodynamically stable while in the ER. An order was placed for continuous cardiac monitoring. The monitor shows a rate of _80_ with _normal sinus__ rhythm. Impression & Plan Generalized weakness, CHI (closed head injury), Anemia, Colonic mass, Diarrhea, Noncompliance, Dizziness, Hyperglycemia Discharge Plan Visit Data Chief Complaint: Fall Stated Complaint: fall, ARM PAIN, BACK PAIN, DIARRHEA ED Provider: Tali Seymour Discharge Problem: Generalized weakness, CHI (closed head injury), Anemia, Colonic mass, Diarrhea, Noncompliance, Dizziness, Hyperglycemia Forms Stand Alone Forms: [facility] Prescriptions Prescriptions: No Action cholecalciferol (vitamin D3) 50 mcg (2,000 unit) capsule 2,000 units PO DAILY Qty: 30 RF: 5 Novolog Mix 70-30FlexPen U-100 100 unit/mL (70-30) insulin pen See Rx Instructions SQ QAM Qty: 4 RF: 4 (DME) pen needle, diabetic [BD Donna 2nd Gen Pen Needle] 32 gauge x 5/32" needle See Dose Instructions .ROUTE .MEDSUPPLY Qty: 200 RF: 3 warfarin 5 mg tablet 10 mg PO DAILY Qty: 180 RF: 3 rosuvastatin [Crestor] 20 mg tablet 20 mg PO DAILY Qty: 90 RF: 3 lisinopril 2.5 mg tablet 2.5 mg PO DAILY Qty: 90 RF: 3 metformin 500 mg tablet extended release 24 hr 1,000 mg PO BID Qty: 360 RF: 3 (DME) lancets [FreeStyle Lancets] 28 gauge misc See Dose Instructions .ROUTE .MEDSUPPLY RF: 0 (DME) FreeStyle Lite Strips strip See Dose Instructions .ROUTE .MEDSUPPLY Qty: 10 RF: 0 Referrals Referrals: Elizabeth Alvarenga CRNP [Primary Care Provider] -
[2021-10-27 18:59] LABS: Alanine Aminotransferase 11 U/L (7-52); Albumin Globulin Ratio 1.2 (0.9-2); Albumin Level 3.8 gm/dl (3.4-5.0); Alkaline Phosphatase 98 U/L (34-104); Anion Gap 6 (3-11); Aspartate Aminotransferase 10 U/L (13-39); BUN Creatinine Ratio 27.8 (10-20); Bilirubin,Total 0.5 mg/dl (0.2-1.0); Blood Urea Nitrogen 22 mg/dl (6-23); Calcium 9.6 mg/dl (8.5-10.1); Carbon Dioxide 27 mmol/L (21-32); Chloride 104 mmol/L (98-107); Creatinine Clr Calc Pharmacy 104.2 ml/min; Est GFR (Non-African American) 85.4 ml/min; Globulin 3.1 gm/dl (2.5-4.0); Glucose 248 mg/dl (70-99(Fasting)); Magnesium 1.9 mg/dl (1.7-2.4); Sodium 137 mmol/L (136-145); Total Protein 6.9 gm/dl (6.0-8.3)
--- NOTE | 2021-10-27 19:00 | XRay Report ---
XR chest 1V portable CLINICAL HISTORY: trauma TECHNIQUE: Single frontal radiograph of the chest was obtained. Comparison: None available at the time of this dictation. FINDINGS: No lines and tubes are seen. The cardiomediastinal silhouette is normal. The lungs are clear. No evid ence of pleural effusion or pneumothorax. IMPRESSION: No acute chest disease. ACT 112: Negative or not required by law. Electronically signed by: Finn Morel M.D. 10/27/2021 6:58 PM
[2021-10-27 19:01] LABS: Troponin I < 0.03 ng/ml (0-0.04)
--- NOTE | 2021-10-27 19:04 | XRay Report ---
XR pelvis 1-2V routine CLINICAL HISTORY: trauma TECHNIQUE: A single frontal view of the pelvis was obtained. Comparison: None available at the time of this dictation. FINDINGS: There is no evidence of acute fracture or dislocation. The bones are anatomically aligned. Degenerati ve changes are seen in the pelvis and hip joints. The soft tissues are unremarkable. IMPRESSION: Degenerative changes without evidence of acute bony injury. ACT 112: Negative or not required by law. Electronically signed by: Finn Morel M.D. 10/27/2021 7:02 PM
[2021-10-27] MEDS ORDERED: OPTIRAY 320 100ml IV ONE (19:30)
--- NOTE | 2021-10-27 19:56 | CT Scan Report ---
CT cervical spine wo con CLINICAL HISTORY: trauma TECHNIQUE: Multidetector row helical CT of the cervical spine was performed without administration of intravenous contrast. Coronal and sagittal reformations were obtained. Automated dose lowering techn iques and/or adjustment according to patient size were utilized for this exam. Comparison: None available at the time of this dictation. FINDINGS: No acute fractures or subluxations are identified. Degenerative changes are seen in the visualized sp ine. The alignment is normal. Soft tissues are unremarkable. IMPRESSION: Degenerative changes without evidence of acute bony injury. ACT 112: Negative or not required by law. Electronically signed by: Finn Morel M.D. 10/27/2021 7:55 PM
--- NOTE | 2021-10-27 19:58 | CT Scan Report ---
CT head/brain wo con CLINICAL HISTORY: trauma Technique: Contiguous axial CT images of the head were acquired from the base of the skull to the maxwell my without intravenous contrast administration. Images were viewed in brain, subdural and bone [facility]. Automated dose lowering techniques and/or adjustment according to patient size were utilized for this exam. Comparison: None available at the time of this dictation. Findings: Areas of decreased attenuation are present in the periventricular and subcortical white matter bilate rally consistent with small vessel ischemic disease. Generalized cerebral atrophy with commensurate e nlargement of the ventricles, sulci, and cisterns is also present. There is no acute intracranial hem orrhage or evidence of acute territorial infarction. No shift of the midline structures, mass effect, or extra-axial abnormalities are shown. Atherosclerotic calcifications are present in the intracran ial segments of the internal carotid arteries. Imaged portions of the paranasal sinuses and mastoid air cells are clear. The orbits appear normal. There are no acute fractures of the calvaria or scalp swelling. Impression: No acute intracranial hemorrhage, no evidence of acute territorial infarction or other acute intracra nial disease process. ACT 112: Negative or not required by law. Electronically signed by: Finn Morel M.D. 10/27/2021 7:56 PM
[2021-10-27 20:25] LABS: Appearance Urine Cloudy (Clear); Bacteria Urine Automated Negative (Negative); Bilirubin Urine Negative (Negative); Blood Urine Negative (Negative); Color Urine Yellow; Epithelial Cell Urine Auto >30 /lpf (0-5); Glucose Urine UA 3+ (Negative); Ketones Urine Trace (Negative); Leukocyte Esterase Urine Negative (Negative); Nitrite Urine Negative (Negative); Protein Urine Negative (Negative); RBC Urine Automated 0-4 /hpf (0-4); Specific Gravity Urine > 1.045 (1.000-1.030); Urobilinogen Urine Negative (Negative)
--- NOTE | 2021-10-27 20:29 | CT Scan Report ---
CT abd pelvis IV con only CLINICAL HISTORY: trauma, diarrhea/blood thinners TECHNIQUE: Helical axial images of the abdomen and pelvis were obtained and displayed. Automated dose lowering techniques and/or adjustment according to patient size were utilized for this exam. This e xam was performed with intravenous contrast. COMPARISON: None available at the time of this dictation. FINDINGS: Lower chest: Bibasilar atelectasis versus scarring is seen. Liver: Unremarkable. No focal lesions are seen. Gallbladder and biliary tree: A large gallstone is seen. No gallbladder wall thickening is seen. No i ntra- or extrahepatic biliary ductal dilation. Pancreas: Unremarkable, no focal lesions. Spleen: Unremarkable. Adrenals: Unremarkable. Kidneys and ureters: Multiple cysts are seen bilaterally. Nonobstructive nephrolithiasis is seen. Bladder: Innumerable stones are seen in the bladder. Bladder wall thickening is seen. Reproductive organs: Prostatomegaly is seen. Bowel: Marked colonic wall thickening and narrowing is seen in the splenic flexure. There is increase d surrounding vascularity. The appendix is normal. Lymph nodes Retroperitoneal: Unremarkable. Mesenteric: Unremarkable. Pelvic: Unremarkable. Peritoneum: Normal. Vessels: Unremarkable. Abdominal wall: Unremarkable. Bones: Sclerotic focus in the right femoral neck. Degenerative changes are seen in the spine. IMPRESSION: 1. No acute abnormalities and in particular no evidence of fracture. 2. There is wall thickening and luminal narrowing of the colon at the splenic flexure with surroundi ng increased vascularity. This finding is suspicious for malignancy and colonoscopy should be perform ed if finding this has not been previously characterized on outside imaging/endoscopy. 3. Innumerable stones in the bladder. Bladder wall thickening is likely secondary to chronic obstruc tion this patient with mild prostatomegaly. ACT 112: Negative or not required by law. Electronically signed by: Finn Morel M.D. 10/27/2021 8:27 PM
--- NOTE | 2021-10-27 23:40 | History & Physical Report ---
Date of Service October 27, 2021 Assessment & Plan (1) Fall: Plan: 81 y/o M w/ PMHx of DM2, venous insufficiency, BPH, HLD, antiphospholipid ab syndrome on Coumadin, noncompliant w/ INRs who presents w/p fall 3 days ago in context of weeks of weakness/fatigue likely secondary to blood loss anemia (Hb 13s->9s in 1 year). Considered near-syncope vs ambulatory disfunction. Does not fit triad of NPH. No gross focal abnormalities on neuro exam. - XR pelvis, CT head and neck w/o acute findings - Monitor on telemetry. Check orthostatics. Most likely has generalized weakness/fatigue from the anemia 2/2 possible colon malignancy. "There is wall thickening and luminal narrowing of the colon at the splenic flexure with surrounding increased vascularity. This finding is suspicious for malignancy and colonoscopy should be performed if finding this has not been previously characterized on outside imaging/endoscopy." Consult GI PT/OT evals (2) Type II diabetes mellitus, uncontrolled: Plan: Check A1c in AM. Lantus + SSI. (3) BPH (benign prostatic hyperplasia): Plan: Not on medication (4) Hypertension: Plan: Continue home lisinopril (5) Hyperlipidemia: Plan: Continue home regimen (6) Antiphospholipid syndrome: Plan: Hold home warfarin. INR 1.1 at admission. Plan: FEN: NPO ppx: hold home warfarin code: conditional. No cpr/defib. Yes to pressors and intubation. 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 States that his baseline health is decent. He usually takes his dog out on walks. He has had more difficulty keeping up and has been more wobbly. Uses walker and crutches at baseline. Decreased appetite x 2 wks. He slipped and ran into an indoor pet gate, knocking it over. He was unable to get up after. His and daughter were in the other room. His last fall was 6 months ago. He endorses gait instability and imbalance x months. Denies room spinning or near syncope. Denies unintentional wt loss. Denies bloody or black stool. Denies family hx of colon cancer. Father had leukemia. Mother had thyroid problems. States forgets to take his warfarin every few days. Lives w/ and daughter. He had dental last work, stopped 2 days a week ago. States he resume it after. Denies incontinence. Just has difficulty getting to bathroom on time w/ decreased mobility. Denies hx of stroke or [place]. Never smoker. 1 glass of wine a night. Has had covid. Allergies Allergy/AdvReac Type Severity Reaction Status Date / Time sitagliptin Allergy Unknown Hives - Verified 10/28/21 11:37 Januvia cat dander AdvReac Mild EYES WATER Verified 10/28/21 11:37 Zzshagl-BRE-QuD Reductase AdvReac Mild LEG CRAMPS Verified 10/28/21 11:37 Inhibitor [Eonsebw-Jly-Cew Reductase Inhibitor] Home Medications Medication Instructions Recorded Confirmed Type blood sugar diagnostic (FreeStyle #10 ea 03/25/19 09/04/21 History Lite Strips) lancets 28 gauge (FreeStyle ea 09/20/19 09/04/21 History Lancets) cholecalciferol (vitamin D3) 50 2,000 units PO DAILY #30 cap 02/20/20 10/27/21 Rx mcg (2,000 unit) capsule Novolog Mix 70-30 FlexPen U-100 See Rx Instructions SQ QAM #4 box 03/21/21 10/27/21 Rx Insulin 100 unit/mL subcutaneous NS pen (insulin asp prt-insulin aspart) pen needle, diabetic 32 gauge x #200 ea 05/29/21 09/04/21 Rx 5/32" (BD Donna 2nd Gen Pen Needle) warfarin 5 mg tablet 10 mg PO DAILY #180 tab 07/10/21 10/27/21 Rx rosuvastatin 20 mg tablet (Crestor) 20 mg PO DAILY #90 tab 08/21/21 10/27/21 Rx lisinopril 2.5 mg tablet 2.5 mg PO DAILY #90 tab 10/09/21 10/27/21 Rx metformin 500 mg tablet,extended 1,000 mg PO BID #360 tab 10/10/21 10/27/21 Rx release 24 hr Past Med/Surg History Medical History Abnormal CT scan, colon Albuminuria Anemia Antiphospholipid syndrome on coumadin, not compliant with INR CHI (closed head injury) Colonic mass Diabetic ulcer of right great toe Generalized weakness Glaucoma Hyperlipidemia Hypertension Long-term (current) use of anticoagulants, INR goal 2.0-3.0 Lower extremity edema Noncompliance Type II diabetes mellitus, uncontrolled Venous ulcer Vitamin D deficiency Surgical History History of dental surgery History of elbow surgery History of knee surgery History of rectal polypectomy Family History Father Myocardial infarction Denies family history of Ovarian cancer Prostate cancer Breast cancer Colorectal cancer Social History Smoking Status: Never smoker Second Hand Exposure: No; Do You Dip or Chew Tobacco: No; Hx Alcohol Use: Yes Alcohol type: beer, wine and hard liquor Alcohol Intake Frequency: 2-4 x/Month Alcohol Intake Frequency Comment: Once a week Hx Substance Use: No Preferred Language: Lao Communication Ability: Effective [place] Required: No Beliefs That Will Affect Care: None marital status: Current Living Situation: Spouse current occupational status: retired Feels Safe at Home: Yes Safety Concerns: Feels Safe At This Time caffeine: Yes Dental Care, Regularly: Yes Physical Activity Frequency: Does not Exercise Seatbelt Use: always Sunscreen Use: Yes Assistive Devices: Walker Review of Systems Review of Systems: All systems reviewed & are unremarkable except as noted in HPI & below Constitutional: Denies fever, chills, weight change Eyes: Denies blurry vision, vision changes ENT: Denies sore throat, Cardiovascular: Denies chest pain, palpitations Respiratory: Denies shortness of breath, cough Gastrointestinal: Denies abdominal pain, nausea, vomiting, constipation, diarrhea, bloody/black stool Genitourinary: Denies urinary symptoms including dysuria Musculoskeletal: Denies weakness. + chronic knee pains Neurological: Denies headache, numbness, tingling, focal weakness Physical Exam Physical Exam: General: Grossly A&O. NAD. Cooperative. HEENT: Atraumatic, normocephalic. EOMI. PERRL. MMM. Oropharynx wnl. Pulm: CTAB. -wheezes, -rales, -rhonchi. No respiratory distress. Cardiac: RRR, -mrg. Radial pulses intact and symmetrical. Abdominal: Nontender, soft, obese. Integ: Bilat LE venous stasis, lymphadematous appearing lower extrem Results & Data Results & Data ([facility]) Vital Signs (Past 12 Hours) Vital Signs vitals reviewed Temp Pulse Pulse Resp BP BP Pulse Ox 10/27/21 21:47 85 16 148/81 H 98 10/27/21 18:18 83 16 156/77 H 97 10/27/21 14:18 36.4 C L 91 H 20 150/79 H 94 Laboratory Results Wbc 5.52. Hb (11/2020) 13.6->9.7. INR 3.7 (03/2021) -> 1.5 (09/18/21) -> 1.1. CMP reviewed. BSG 288. Trop <0.03x1. UA w/ SG >1.045, 3+ glucose, trace ketones, 5- 10 wbc, >30 epithelial cells, 5-10 renal epithelial cells. 10/27/21 18:26 10/27/21 18:26 Cardiac Enzymes 10/27/21 10/27/21 Range/Units 18:26 19:48 AST 10 L (13-39) U/L Troponin I < 0.03 (0-0.04) ng/ml B-Natriuretic Peptide 41 (0-100) pg/ml Coagulation 10/27/21 10/27/21 Range/Units 18:26 19:48 PT 11.0 (9.0-12.0) Seconds B-Natriuretic Peptide 41 (0-100) pg/ml CBC 10/27/21 Range/Units 18:26 WBC 5.52 (4.8-10.8) K/uL RBC 3.75 L (4.7-6.1) M/uL Hgb 9.7 L (14.0-18.0) g/dL Hct 31.0 L (42-52) % Plt Count 279 (130-400) K/uL Neut # (Auto) 3.60 (1.4-6.5) K/uL Lymph # (Auto) 1.37 (1.2-3.4) K/uL [place]ee # (Auto) 0.49 (0.11-0.59) K/uL Eos # (Auto) 0.04 (0-0.5) K/uL Baso # (Auto) 0.01 (0-0.2) K/uL Comprehensive Metabolic Panel 10/27/21 Range/Units 18:26 Sodium 137 (136-145) mmol/L Potassium 4.0 (3.5-5.1) mmol/L Chloride 104 (98-107) mmol/L Carbon Dioxide 27 (21-32) mmol/L BUN 22 (6-23) mg/dl Creatinine 0.79 (0.6-1.4) mg/dl Glucose 248 H (70-99(Fasting)) mg/dl Calcium 9.6 (8.5-10.1) mg/dl AST 10 L (13-39) U/L ALT 11 (7-52) U/L Alkaline Phosphatase 98 (34-104) U/L Total Protein 6.9 (6.0-8.3) gm/dl Albumin 3.8 (3.4-5.0) gm/dl Intake and Output 10/27/21 10/27/21 10/28/21 14:59 22:59 06:59 Other: Weight 119.6 kg Weight Measurement Method Built in [facility] Patient Weight 10/28/21 06:59 Weight 119.6 kg Diagnostic Findings Abdomen/Pelvis CT 10/27/21 18:22 CT abd pelvis IV con only CLINICAL HISTORY: trauma, diarrhea/blood thinners TECHNIQUE: Helical axial images of the abdomen and pelvis were obtained and displayed. Automated dose lowering techniques and/or adjustment according to patient size were utilized for this exam. This exam was performed with intravenous contrast. COMPARISON: None available at the time of this dictation. FINDINGS: Lower chest: Bibasilar atelectasis versus scarring is seen. Liver: Unremarkable. No focal lesions are seen. Gallbladder and biliary tree: A large gallstone is seen. No gallbladder wall thickening is seen. No intra- or extrahepatic biliary ductal dilation. Pancreas: Unremarkable, no focal lesions. Spleen: Unremarkable. Adrenals: Unremarkable. Kidneys and ureters: Multiple cysts are seen bilaterally. Nonobstructive nephrolithiasis is seen. Bladder: Innumerable stones are seen in the bladder. Bladder wall thickening is seen. Reproductive organs: Prostatomegaly is seen. Bowel: Marked colonic wall thickening and narrowing is seen in the splenic flexure. There is increased surrounding vascularity. The appendix is normal. Lymph nodes Retroperitoneal: Unremarkable. Mesenteric: Unremarkable. Pelvic: Unremarkable. Peritoneum: Normal. Vessels: Unremarkable. Abdominal wall: Unremarkable. Bones: Sclerotic focus in the right femoral neck. Degenerative changes are seen in the spine. IMPRESSION: 1. No acute abnormalities and in particular no evidence of fracture. 2. There is wall thickening and luminal narrowing of the colon at the splenic flexure with surrounding increased vascularity. This finding is suspicious for malignancy and colonoscopy should be performed if finding this has not been previously characterized on outside imaging/endoscopy. 3. Innumerable stones in the bladder. Bladder wall thickening is likely secondary to chronic obstruction this patient with mild prostatomegaly. ACT 112: Negative or not required by law. Electronically signed by: Finn Morel M.D. 10/27/2021 8:[address] 10/27/21 18:22 CT cervical spine wo con CLINICAL HISTORY: trauma TECHNIQUE: Multidetector row helical CT of the cervical spine was performed without administration of intravenous contrast. Coronal and sagittal reformations were obtained. Automated dose lowering techniques and/or adjustment according to patient size were utilized for this exam. Comparison: None available at the time of this dictation. FINDINGS: No acute fractures or subluxations are identified. Degenerative changes are seen in the visualized spine. The alignment is normal. Soft tissues are unremarkable. IMPRESSION: Degenerative changes without evidence of acute bony injury. ACT 112: Negative or not required by law. Electronically signed by: Finn Morel M.D. 10/27/2021 7:55 PM Chest X-Ray 10/27/21 18:22 XR chest 1V portable CLINICAL HISTORY: trauma TECHNIQUE: Single frontal radiograph of the chest was obtained. Comparison: None available at the time of this dictation. FINDINGS: No lines and tubes are seen. The cardiomediastinal silhouette is normal. The lungs are clear. No evidence of pleural effusion or pneumothorax. IMPRESSION: No acute chest disease. ACT 112: Negative or not required by law. Electronically signed by: Finn Morel M.D. 10/27/2021 6:[address] 10/27/21 18:22 CT head/brain wo con CLINICAL HISTORY: trauma Technique: Contiguous axial CT images of the head were acquired from the base of the skull to the vertex without intravenous contrast administration. Images were viewed in brain, subdural and bone windows. Automated dose lowering techniques and/or adjustment according to patient size were utilized for this exam. Comparison: None available at the time of this dictation. Findings: Areas of decreased attenuation are present in the periventricular and subcortical white matter bilaterally consistent with small vessel ischemic disease. Generalized cerebral atrophy with commensurate enlargement of the ventricles, sulci, and cisterns is also present. There is no acute intracranial hemorrhage or evidence of acute territorial infarction. No shift of the midline structures, mass effect, or extra-axial abnormalities are shown. Atherosclerotic calcifications are present in the intracranial segments of the internal carotid arteries. Imaged portions of the paranasal sinuses and mastoid air cells are clear. The orbits appear normal. There are no acute fractures of the calvaria or scalp swelling. Impression: No acute intracranial hemorrhage, no evidence of acute territorial infarction or other acute intracranial disease process. ACT 112: Negative or not required by law. Electronically signed by: Finn Morel M.D. 10/27/2021 7:56 PM Pelvis X-Ray 10/27/21 18:22 XR pelvis 1-2V routine CLINICAL HISTORY: trauma TECHNIQUE: A single frontal view of the pelvis was obtained. Comparison: None available at the time of this dictation. FINDINGS: There is no evidence of acute fracture or dislocation. The bones are anatomically aligned. Degenerative changes are seen in the pelvis and hip joints. The soft tissues are unremarkable. IMPRESSION: Degenerative changes without evidence of acute bony injury. ACT 112: Negative or not required by law. Electronically signed by: Finn Morel M.D. 10/27/2021 7:02 PM ECG Additional Comments: ecg per my interpretation. NSR 82. When compared 05/20/17 ecg, LAFB and LVH not new. Code Status & VTE Plan Code Status conditional. No CPR/defib. VTE Prophylaxis Plan VTE Prophylaxis will be ordered: Yes Supervising Physician Co-Signing Physician Notes During face to face encounter with patient, I obtained a history and physical examination. I discussed plan of care with Dr. Velasquez and patient. Patient had a fall and is found to be anemia with a possible GI mass. Patient will be seen by GI for a possible scope. will monitor hemoglobin Resident Activity Tracking Resident Involvement: Resident Care Provided Care Provided: Adult Hospital Medicine
[2021-10-28] MEDS ORDERED: INSULIN GLARGINE SOLOSTAR 100 UNITS/ML 3 ML PEN SC STA (01:47)
[2021-10-28] MEDS ORDERED: GLUCOSE 40% GEL 15 GM TUBE PO PRN ×2 (02:00→03:36)
[2021-10-28] MEDS ORDERED: GLUCAGON FOR INJ 1 MG VIAL IM PRN (02:00)
[2021-10-28] MEDS ORDERED: DEXTROSE 50% 50 ML SYRINGE IV PRN ×2 (02:00→03:36)
[2021-10-28] MEDS ORDERED: GLUCOSE 10 TABS/TUBE PO PRN ×2 (02:00→03:36)
[2021-10-28] MEDS ORDERED: CARBOHYDRATES FOR HYPOGLYCEMIA PO PRN ×2 (02:00→03:36)
[2021-10-28] MEDS: SODIUM CHLORIDE 0.9% 1000ML 1,000 ML IV SCH (03:15)
[2021-10-28] MEDS ORDERED: ONDANSETRON INJ 2 MG/ML 2 ML VIAL IV PRN (03:36)
[2021-10-28] MEDS ORDERED: ACETAMINOPHEN 325 MG TAB PO PRN (03:36)
[2021-10-28] MEDS ORDERED: POLYETHYLENE (MIRALAX) 17 GM PACK PO PRN (03:36)
[2021-10-28] MEDS ORDERED: MELATONIN 3 MG TAB PO PRN (03:36)
[2021-10-28] MEDS ORDERED: GLUCAGON FOR INJ 1 MG VIAL SQ PRN (03:36)
[2021-10-28 06:14] LABS: Basophils # (auto) 0.01 K/uL (0-0.2); Basophils % (auto) 0.2 %; Eosinophils # (auto) 0.05 K/uL (0-0.5); Eosinophils % (auto) 1.1 %; Hematocrit (blood only) 29.2 % (42-52); Hemoglobin 9.2 g/dL (14.0-18.0); Immature Granulocytes # (auto) 0.01 K/uL (0.00-0.02); Immature Granulocytes % (auto) 0.2 %; Lymphocytes # (auto) 1.48 K/uL (1.2-3.4); Mean Corpuscular Hgb Conc 31.5 g/dL (32-36); Mean Corpuscular Volume 82.5 fL (80-100); Monocytes # (auto) 0.49 K/uL (0.11-0.59); Monocytes % (auto) 10.6 %; Neutrophils # (auto) 2.58 K/uL (1.4-6.5); Neutrophils % (auto) 55.9 %; Platelet Count 249 K/uL (130-400); RDW Coefficient of Variation 16.4 % (11.5-14.5); RDW Standard Deviation 49.5 fL (36.4-46.3); Red Blood Count 3.54 M/uL (4.7-6.1); White Blood Count 4.62 K/uL (4.8-10.8)
[2021-10-28 06:32] LABS: Albumin Globulin Ratio 1.2 (0.9-2); Albumin Level 3.2 gm/dl (3.4-5.0); BUN Creatinine Ratio 23.9 (10-20); Bilirubin,Total 0.6 mg/dl (0.2-1.0); Calcium 8.8 mg/dl (8.5-10.1); Creatinine Clr Calc Pharmacy 122.9 ml/min; Est GFR (African American) 105.9 ml/min; Est GFR (Non-African American) 91.4 ml/min; Globulin 2.7 gm/dl (2.5-4.0); Magnesium 1.7 mg/dl (1.7-2.4); Potassium 3.6 mmol/L (3.5-5.1); Total Protein 5.9 gm/dl (6.0-8.3)
--- NOTE | 2021-10-28 07:25 | Ultrasound Report ---
ULTRASOUND BILATERAL LOWER EXTREMITY VENOUS CLINICAL HISTORY: Lower extremity edema. COMPARISON STUDY: No priors. TECHNIQUE: Real-time, grayscale, and color Doppler sonography of the deep veins of the right and left lower extremity was performed from the inguinal crease to the calf. Compression and augmentation wer e utilized. FINDINGS: There is no sonographic evidence of deep venous thrombosis identified in the right or left lower extremity. The common femoral, superficial femoral, and popliteal veins are patent and normally compressible bilaterally. The greater saphenous vein and the profunda femoris vein at the junction w ith the common femoral vein are clear in both legs. The visualized calf veins are patent bilaterally. IMPRESSION: There is no sonographic evidence of deep venous thrombosis identified in the right or lef t lower extremity. ACT 112: Negative or not required by law. Electronically signed by: Frank Weeks M.D. 10/28/2021 7:24 AM
[2021-10-28] MEDS ORDERED: INSULIN ASPART PER UNIT SC SCH ×2 (07:30→12:00)
[2021-10-28] MEDS ORDERED: Nursing to Pharmacy Communication SCH (08:45)
[2021-10-28] MEDS: INSULIN GLARGINE SOLOSTAR 100 UNITS/ML 3 ML PEN SC SCH ×2 (09:56→21:05)
--- NOTE | 2021-10-28 10:50 | Gastrointestinal Consultation ---
Date of Consultation October 28, 2021 Assessment & Plan (1) Abnormal CT scan, colon: (2) Anemia: -Liquid diet today. -Bowel prep ordered. Keep NPO after midnight with exception of bowel prep. -Colonoscopy tomorrow. -Continue to monitor H/H. 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 He presented to the ED after falling 3 days ago but acknowledges a progression of weakness over several weeks. He notes that 3 months ago, he developed an abrupt change in his bowel habits and began experiencing diarrhea. He notes that he has diarrhea 1-2 times daily. he denies gross bleeding. He reports lack of appetite. He denies a personal history of GI issues. He has never had an EGD or colonoscopy. He notes that he is unaware of any family history of GI malignancy. He has not experienced any unintentional weight loss. In the ED, he was noted to be anemic. H/H is 9.2/29.2. A CT scan of the abdomen pelvis shows wall thickening and luminal narrowing of the colon at the splenic flexure with surrounding increased vascularity concerning for malignancy. Allergies Allergy/AdvReac Type Severity Reaction Status Date / Time sitagliptin Allergy Unknown Hives - Verified 10/28/21 11:37 Januvia cat dander AdvReac Mild EYES WATER Verified 10/28/21 11:37 Tqurjfg-KOQ-RmM Reductase AdvReac Mild LEG CRAMPS Verified 10/28/21 11:37 Inhibitor [Icrpczv-Ndz-Bvt Reductase Inhibitor] Home Medications Medication Instructions Recorded Confirmed Type blood sugar diagnostic (FreeStyle #10 ea 03/25/19 09/04/21 History Lite Strips) lancets 28 gauge (FreeStyle ea 09/20/19 09/04/21 History Lancets) cholecalciferol (vitamin D3) 50 2,000 units PO DAILY #30 cap 02/20/20 10/27/21 Rx mcg (2,000 unit) capsule Novolog Mix 70-30 FlexPen U-100 See Rx Instructions SQ QAM #4 box 03/21/21 10/27/21 Rx Insulin 100 unit/mL subcutaneous NS pen (insulin asp prt-insulin aspart) pen needle, diabetic 32 gauge x #200 ea 05/29/21 09/04/21 Rx 5/32" (BD Donna 2nd Gen Pen Needle) warfarin 5 mg tablet 10 mg PO DAILY #180 tab 07/10/21 10/27/21 Rx rosuvastatin 20 mg tablet (Crestor) 20 mg PO DAILY #90 tab 08/21/21 10/27/21 Rx lisinopril 2.5 mg tablet 2.5 mg PO DAILY #90 tab 10/09/21 10/27/21 Rx metformin 500 mg tablet,extended 1,000 mg PO BID #360 tab 10/10/21 10/27/21 Rx release 24 hr Patient History Medical History (Updated 10/29/21 @ 14:17 by Serina Jones MD) Abnormal CT scan, colon Albuminuria Anemia Antiphospholipid syndrome on coumadin, not compliant with INR CHI (closed head injury) Colonic mass Diabetic ulcer of right great toe Generalized weakness Glaucoma Hyperlipidemia Hypertension Long-term (current) use of anticoagulants, INR goal 2.0-3.0 Lower extremity edema Noncompliance Type II diabetes mellitus, uncontrolled Venous ulcer Vitamin D deficiency Surgical History History of dental surgery History of elbow surgery History of knee surgery History of rectal polypectomy Family History Father Myocardial infarction Denies family history of Ovarian cancer Prostate cancer Breast cancer Colorectal cancer Social History Smoking Status: Never smoker Second Hand Exposure: No; Do You Dip or Chew Tobacco: No; Hx Alcohol Use: Yes Alcohol type: beer, wine and hard liquor Alcohol Intake Frequency: 2-4 x/Month Alcohol Intake Frequency Comment: Once a week Hx Substance Use: No Preferred Language: Italian Communication Ability: Effective Barrel Builder Required: No Beliefs That Will Affect Care: None marital status: Current Living Situation: Spouse current occupational status: retired Feels Safe at Home: Yes Safety Concerns: Feels Safe At This Time caffeine: Yes Dental Care, Regularly: Yes Physical Activity Frequency: Does not Exercise Seatbelt Use: always Sunscreen Use: Yes Assistive Devices: Glasses and Walker Review of Systems Constitutional: + weakness; no fever, no chills and no weight loss Respiratory: no cough and no dyspnea Cardiovascular: no chest pain Gastrointestinal: + change in bowel habits and + diarrhea/loose stools; no abdominal pain and no blood in stools Integumentary: no problem reported Psychiatric: no problem reported Physical Exam Constitutional: well developed Respiratory: normal respiratory effort Cardiovascular: Rate/Rhythm: regular rate and regular rhythm Gastrointestinal (Abdomen): normal bowel sounds, soft, nontender, no he patosplenomegaly Musculoskeletal: Head/Neck/Chest: normocephalic Psychiatric: Orientation: alert and oriented x 3 Results & Data ([facility]) Vital Signs (Past 12 Hours) Vital Signs Temp Pulse Pulse Resp BP BP Pulse Ox 10/28/21 09:12 36.4 C L 76 13 145/69 H 96 10/28/21 07:41 36.4 C L 76 20 145/69 H 97 10/28/21 04:38 83 18 144/65 H 96 10/28/21 04:04 10/28/21 04:03 73 18 144/65 H 96 10/28/21 02:00 76 18 148/72 H 96 10/28/21 00:05 89 18 159/84 H 96 Pulse Ox 10/28/21 09:12 10/28/21 07:41 10/28/21 04:38 10/28/21 04:04 96 10/28/21 04:03 10/28/21 02:00 10/28/21 00:05 PG Care Time/CCT Total # of Minutes Spent Total Time Spent with Patient: Total time spent is greater than 50% in coordination of care (as documented) at patient's floor/unit and/or counseling patient: Coding Level of Care Code 71618 Initial Inpt Care Lvl [address] scan, colon R93.3 Anemia D64.9 Anemia type: unspecified type (1) Anemia Anemia type: unspecified type Qualified Code(s): D64.9 - Anemia, unspecified
--- NOTE | 2021-10-28 12:12 | Electrocardiogram Report ---
Test Reason : Blood Pressure : / mmHG Vent. Rate : 082 BPM Atrial Rate : 082 BPM P-R Int : 182 ms QRS Dur : 124 ms QT Int : 376 ms P-R-T Axes : 026 -52 073 degrees QTc Int : 439 ms Normal sinus rhythm Left anterior fascicular block Left ventricular hypertrophy with QRS widening Abnormal ECG When compared with ECG of 20-MAY-2017 08:56, Minimal criteria for Septal infarct are no longer Present Confirmed by Han Dorman ([id number]) on 10/28/2021 12:12:07 PM Referred By: REFERRED SELF Confirmed By:Seth Dorman
[2021-10-28] MEDS: lisinopril 2.5 MG TAB PO SCH (12:29)
[2021-10-28] MEDS: ROSUVASTATIN CALCIUM 20 MG TAB PO SCH (12:30)
[2021-10-28 13:20] LABS: Estimated Average Glucose 243 mg/dl; Hemoglobin A1C 10.1 % (4.5-5.6)
[2021-10-28] MEDS ORDERED: SODIUM CHLORIDE 0.9% 1000ML 1,000 ML IV SCH (14:30)
--- NOTE | 2021-10-28 17:05 | Hospitalist Progress Note ---
Date of Service October 28, 2021 Assessment & Plan (1) Fall: Plan: 81 y/o M w/ PMHx of DM2, venous insufficiency, BPH, HLD, antiphospholipid ab syndrome on Coumadin, noncompliant w/ INRs who presents w/p fall 3 days ago in context of weeks of weakness/fatigue likely secondary to blood loss anemia (Hb 13s->9s in 1 year). Fall -Neuro exam normal, pelvic x-ray, CT head/neck without acute findings -Etiology unclear at this time. Orthostatic versus arrhythmia versus decompensation versus blood loss anemia secondary to colonic malignancy (found on imaging prior to admission) * Admitted to [facility] telemetry, will monitor for arrhythmia/atrial fibrillation * Colonoscopy scheduled for tomorrow; patient already made n.p.o. at midnight. Await report, follow recs Type 2 diabetes -A1c of 10.2, suggesting poorly controlled diabetes * Lantus for basal, plus sliding scale bolus insulin at mealtime * Trend daily BMP, monitor sugars Hypertension * Home lisinopril Antiphospholipid syndrome -Patient INR on admission 1.1 (therapeutic range of 2-3); patient admitted to holding warfarin due to upcoming dental procedure in 2 days time * In light of impending colonoscopy, continue to hold warfarin until after colonoscopy (no need for heparin drip) Dispo: [facility] telemetry Code: Conditional code (no chest compressions or cardiac defibrillation; otherwise open to resuscitation including use of pressors FEN/GI: N.p.o. at midnight DVT Prophylaxis: Holding warfarin due to INR 1.1 on admission (2) Type II diabetes mellitus, uncontrolled: (3) BPH (benign prostatic hyperplasia): (4) Hypertension: (5) Hyperlipidemia: (6) Antiphospholipid syndrome: Admission and Anticipated Discharge Date Admission Date: October 27, 2021 Supervising Physician Co-Signing Physician Notes Patient seen and examined with PGY-1 Dr. Coon. Agree with history, exam findings, assessment, and plan of care as outlined. In brief, Mr. Fernandez is a 81 year old male with history of DM2, HLD, antiphospholipid syndrome with history of prior PE admitted with weakness resulting in a fall. is at the bedside this afternoon. He is overall feeling a bit better. No chest pain or dyspnea. No dizziness. VS and nursing notes reviewed. Well appearing. Heart with regular rate and rhythm. +1 pitting edema to the mid-kumar. Lungs are clear to auscultation. Skin of the lower extremities with chronic venous stasis changes and mild erythema over the anterior shins that is slightly tender. Tender in the bilateral calves. Labs and imaging reviewed. 1. Weakness, fall. Unclear etiology, but possibly due to dehydration, orthostasis, new anemia. PT/OT. 2. New colon malignancy seen on CT Abd/Pelvis. Plan for colonoscopy tomorrow. 3. DM. Lantus 10U + ssi. A1C 10.1%. 4. Antiphospholipid syndrome with hx of PE. Anticoagulated with coumadin. INR on admission 1.1. Historically non-adherent with anticoagulation. 5. Anemia, normocytic. Hgb 9.2. Given colon mass, will check iron studies to evaluate for iron deficiency. 6. HTN. Continue home lisinopril. Dispo: pending colonoscopy and PT/OT evalShawna Tee is a 81-year-old male with a history of type 2 diabetes, venous insufficiency (managed foot and ankle clinic), BPH not on medication, hyperlipidemia, antiphospholipid syndrome currently on Coumadin. He presents to the emergency room following a fall. According to the patient, he was walking in the kitchen when his legs gave out. ROS + lightheadedness (which had increased over the past couple of weeks), leg weakness. After falling, he called EMS but then declined to come to the emergency room. After some time it passed, he then decided to come in. Neuro exam was normal, pelvic x-ray, CT head neck without acute findings. Patient also has history of noncompliance with warfarin medication. He stopped taking his warfarin prior to dental procedure , 10/30/2021 because he was advised by his dentist to do so. He did not seek or receive any input from his PCP. Review of Systems Review of Systems: All systems reviewed & are unremarkable except as noted in HPI & below Physical Exam Constitutional: WD/WN, vitals as above Respiratory: normal respiratory effort, lungs clear to auscultation Cardiovascular: RRR, no murmur, no edema Gastrointestinal (Abdomen): normal bowel sounds, soft, nontender, no hepatosplenomegaly Skin: Bilateral venous stasis skin changes of lower extremities. No open ulcers seen on exam. Pitting edema observed in patient's left lower extremity (greater than right) Results & Data Results & Data ([facility]) Vital Signs (Past 12 Hours) Vital Signs Temp Pulse Pulse Resp BP Pulse Ox 10/28/21 15:30 36.6 C 88 18 151/69 H 98 10/28/21 11:02 36.6 C 71 17 146/65 H 95 10/28/21 09:12 36.4 C L 76 13 145/69 H 96 10/28/21 07:41 36.4 C L 76 20 145/69 H 97 Resident Activity Tracking Resident Involvement: Resident Care Provided Care Provided: Adult Hospital Medicine
[2021-10-28] MEDS: INSULIN ASPART PER UNIT SC SCH ×2 (17:24→21:04)
[2021-10-28] MEDS: LAVAGE SOLUTION 4000ML PO SCH (19:30)
[2021-10-29] MEDS: LAVAGE SOLUTION 4000ML PO SCH (02:46)
--- NOTE | 2021-10-29 06:57 | Hospitalist Progress Note ---
Date of Service October 29, 2021 Assessment & Plan (1) Fall: Plan: 81 y/o M w/ PMHx of DM2, BPH, HLD, antiphospholipid syndrome on Coumadin, admitted for weakness and fall, and suspected GI bleed with suspicion for colon cancer on CT. Colon mass, anemia: - Admission CTAP showed bowel wall thickening and narrowing at the splenic flexure with increased vascularity consistent with malignancy. - Hgb on admission 9.7, relatively significant drop from 13.6 on labwork in 11/2020. Has been relatively stable since admission. - Suspect that patient's colon malignancy may have been leading to small amount of bleeding for quite some time, precipitating anemia. - Also noted on labwork this admission to have low iron and ferritin levels. Venofer 400mg IV x1 given 10/29 for iron deficiency, also likely due to blood loss. - Unfortunately despite bowel prep overnight, patient's colonoscopy was unable to be completed today due to poor visualization. Biopsies of polypoid rectal mass were collected. - Will again be on clear liquid diet today, NPO at midnight, with repeat prep this evening. Colonoscopy tomorrow. Fall: - Presented following fall at home after several days of progressive weakness, with no recollection of fall from patient, therefore unclear if he had syncopal event vs. mechanical fall. - Fall suspected to be secondary to blood loss vs. deconditioning and poor PO intake vs. orthostatic. - Neuro exam normal, pelvic x-ray, CT head/neck without acute findings. - No labwork to suggest a metabolic encephalopathy or infection leading to confusion and fall. - No evidence on telemetry of arrhythmia as cause of fall. - Echo performed this admission without significant valvular pathology, no evidence of CHF. DM2: - A1c 10.1. Patient is on 70-30 insulin and metformin 1000mg BID at home. - Defer home medications in favor of basal/bolus insulin. - Patient admits to dietary indiscretion leading to poorly controlled diabetes. - Diabetic education to be performed while patient admitted, with further discussion with PCP when discharged. - DM2 diet when not NPO. Antiphospholipid syndrome: - History of, on warfarin. - INR 1.1 on admission; patient had been holding for several days due to upcoming dental procedure. - Continue to hold warfarin in the setting of colonoscopy tomorrow. Will resume anticoagulation as able based on results of colonoscopy. Hypertension: - Continue home lisinopril. Code Status: Conditional Code; amenable to intubation and mechanical ventilation, use of pressure support, but refuses chest compressions or defibrillation FEN: NPO at midnight DVT ppx: Heparin 5000u SQ now, then hold for procedure in AM. Revisit anticoagulation following procedure tomorrow. Holding warfarin at this time. Dispo: Med/Surg with Telemetry (2) Type II diabetes mellitus, uncontrolled: (3) BPH (benign prostatic hyperplasia): (4) Hypertension: (5) Hyperlipidemia: (6) Antiphospholipid syndrome: Admission and Anticipated Discharge Date Admission Date: October 27, 2021 Supervising Physician Co-Signing Physician Notes Patient seen and examined with PGY-3 Dr. Thakkar. Agree with history, exam findings, assessment, and plan of care as outlined. In brief, Mr. Fernandez is a 81 year old male with history of DM2, HLD, antiphospholipid syndrome with history of prior PE admitted with weakness resulting in a fall. Was having clear bowel movements overnight after drinking the prep. There is still some liquid left in the GoLytely bottle. Otherwise feeling well. VS and nursing notes reviewed. Well appearing. Heart with regular rate and rhythm. +1 pitting edema to the mid-kumar. Lungs are clear to auscultation. Skin of the lower extremities with chronic venous stasis changes and mild erythema over the anterior shins that is slightly tender. Tender in the bilateral calves. Labs and imaging reviewed. 1. Weakness, fall. Unclear etiology, but possibly due to dehydration, orth ostasis, new anemia. PT/OT. 2. New colon malignancy seen on CT Abd/Pelvis. Inadequate prep for colonoscopy today resulting in poor visualizations. There was a polypoid lesion seen in the rectum today. Repeat prep tonight and will try again for colonoscopy tomorrow. 3. DM. Lantus 10U + ssi. A1C 10.1%. Appreciate DM educator recommendations. 4. Antiphospholipid syndrome with hx of PE. Anticoagulated with coumadin. INR on admission 1.1. Historically non-adherent with anticoagulation. 5. Anemia, normocytic. Hgb 9.2. Given colon mass, will check iron studies to evaluate for iron deficiency. 6. HTN. Continue home lisinopril. Dispo: pending repeat colonoscopy and PT/OT eval. Subjective Patient with several bowel movements overnight on bowel prep. Was able to finish most of the bowel prep (about 1.5 inches of liquid left in container). No abdominal pain. No fevers or chills. No other complaints. Review of Systems Review of Systems: All systems reviewed & are unremarkable except as noted in HPI & below Constitutional: no fever, no chills and no malaise Respiratory: no cough and no dyspnea Cardiovascular: no chest pain, no palpitations and no edema Gastrointestinal: + diarrhea/loose stools; no abdominal pain and no constipation Physical Exam Constitutional: WD/WN, vitals as above Respiratory: normal respiratory effort, lungs clear to auscultation Cardiovascular: RRR, no murmur, no edema Gastrointestinal (Abdomen): normal bowel sounds, soft, nontender, no hepatosplenomegaly Skin: Bilateral venous stasis skin changes of lower extremities Some erythema bilaterall lower extremities but not suggestive of cellulitis No open wounds Results & Data Results & Data ([facility]) Vital Signs (Past 12 Hours) Vital Signs Temp Pulse Pulse Resp BP BP Pulse Ox 10/29/21 02:42 36.7 C 94 H 18 185/88 H 96 10/29/21 00:40 81 10/28/21 23:08 36.7 C 75 18 157/91 H 96 Resident Activity Tracking Resident Involvement: Resident Care Provided Care Provided: Adult Hospital Medicine
[2021-10-29 06:58] LABS: Basophils # (auto) 0.02 K/uL (0-0.2); Basophils % (auto) 0.5 %; Eosinophils # (auto) 0.04 K/uL (0-0.5); Hematocrit (blood only) 29.5 % (42-52); Lymphocytes # (auto) 1.13 K/uL (1.2-3.4); Lymphocytes % (auto) 28.6 %; Mean Corpuscular Hemoglobin 25.4 pg (25-34); Mean Corpuscular Hgb Conc 30.5 g/dL (32-36); Mean Corpuscular Volume 83.3 fL (80-100); Mean Platelet Volume 9.2 fL (7.4-10.4); Monocytes # (auto) 0.36 K/uL (0.11-0.59); Monocytes % (auto) 9.1 %; Neutrophils % (auto) 60.8 %; Platelet Count 263 K/uL (130-400); RDW Coefficient of Variation 16.6 % (11.5-14.5); RDW Standard Deviation 50.5 fL (36.4-46.3); Red Blood Count 3.54 M/uL (4.7-6.1); White Blood Count 3.95 K/uL (4.8-10.8)
[2021-10-29] MEDS ORDERED: Nursing to Pharmacy Communication SCH ×2 (07:15→16:30)
[2021-10-29 07:22] LABS: BUN Creatinine Ratio 12.3 (10-20); Calcium 8.6 mg/dl (8.5-10.1); Creatinine Clr Calc Pharmacy 126.9 ml/min; Est GFR (African American) 107.2 ml/min; Est GFR (Non-African American) 92.5 ml/min; Potassium 4.2 mmol/L (3.5-5.1)
[2021-10-29 07:34] LABS: Ferritin 6.7 ng/ml (8-388)
[2021-10-29] MEDS: INSULIN GLARGINE SOLOSTAR 100 UNITS/ML 3 ML PEN SC SCH ×2 (08:27→20:39)
[2021-10-29] MEDS: ROSUVASTATIN CALCIUM 20 MG TAB PO SCH (08:28)
[2021-10-29] MEDS: lisinopril 2.5 MG TAB PO SCH (08:28)
[2021-10-29] MEDS ORDERED: IRON SUCROSE 400 MG in SODIUM CHLORIDE 0.9% 250 ML IV ONE (08:30)
--- NOTE | 2021-10-29 09:28 | XCELERA ---
[id number]
[2021-10-29] MEDS ORDERED: INSULIN ASPART PER UNIT SC SCH (12:00)
--- NOTE | 2021-10-29 12:35 | Anesthesiology Consultation ---
Date of Service October 29, 2021 Assessment & Plan (1) Encounter for pre-operative examination: History Surgery Operation Date: 10/29/21 15:30 Proposed Procedures p Colonoscopy Dr. Glenroy Askew Case, Height/Weight Height: 6 ft 2 in Weight: 120.1 kg Allergies Allergy/AdvReac Type Severity Reaction Status Date / Time sitagliptin Allergy Unknown Hives - Verified 10/28/21 11:37 Januvia cat dander AdvReac Mild EYES WATER Verified 10/28/21 11:37 Pexkrzt-DTG-IoL Reductase AdvReac Mild LEG CRAMPS Verified 10/28/21 11:37 Inhibitor [Erchqtd-Jzz-Ubh Reductase Inhibitor] Medications Home Medications Medication Instructions Recorded Confirmed Last Taken blood sugar diagnostic (FreeStyle #10 ea 03/25/19 09/04/21 Unknown Lite Strips) lancets 28 gauge (FreeStyle ea 09/20/19 09/04/21 Unknown Lancets) cholecalciferol (vitamin D3) 50 2,000 units PO DAILY #30 cap 02/20/20 10/27/21 Unknown mcg (2,000 unit) capsule Novolog Mix 70-30 FlexPen U-100 See Rx Instructions SQ QAM #4 box 03/21/21 10/27/21 Unknown Insulin 100 unit/mL subcutaneous NS pen (insulin asp prt-insulin aspart) pen needle, diabetic 32 gauge x #200 ea 05/29/21 09/04/21 Unknown 5/32" (BD Donna 2nd Gen Pen Needle) warfarin 5 mg tablet 10 mg PO DAILY #180 tab 07/10/21 10/27/21 Unknown rosuvastatin 20 mg tablet (Crestor) 20 mg PO DAILY #90 tab 08/21/21 10/27/21 Unknown lisinopril 2.5 mg tablet 2.5 mg PO DAILY #90 tab 10/09/21 10/27/21 Unknown metformin 500 mg tablet,extended 1,000 mg PO BID #360 tab 10/10/21 10/27/21 Unknown release 24 hr Active Medications Generic Name Dose Route Start Last Admin Trade Name Freq PRN Reason Stop Dose Admin Insulin Aspart 0 units 10/29/21 12:00 10/29/21 12:02 Insulin Aspart Per Unit SC 11/28/21 11:59 2 units Q6 MITESH Administration Insulin Glargine 10 units 10/28/21 09:00 10/29/21 08:27 Insulin Glargine Solostar 100 Units/Ml 3 Ml Pen SC 11/27/21 08:59 5 units BID MITESH Administration Lisinopril 2.5 mg 10/28/21 09:00 10/29/21 08:28 Lisinopril 2.5 Mg Tab PO 11/27/21 08:59 2.5 mg DAILY MITESH Administration Rosuvastatin Calcium 20 mg 10/28/21 09:00 10/29/21 08:28 Rosuvastatin Calcium 20 Mg Tab PO 11/27/21 08:59 20 mg DAILY MITESH Administration Past Medical History Medical History (Updated 10/29/21 @ 14:17 by Serina Jones MD) Abnormal CT scan, colon Albuminuria Anemia Antiphospholipid syndrome on coumadin, not compliant with INR CHI (closed head injury) Colonic mass Diabetic ulcer of right great toe Generalized weakness Glaucoma Hyperlipidemia Hypertension Long-term (current) use of anticoagulants, INR goal 2.0-3.0 Lower extremity edema Noncompliance Type II diabetes mellitus, uncontrolled Venous ulcer Vitamin D deficiency Past Family History Family History Father Myocardial infarction Denies family history of Ovarian cancer Prostate cancer Breast cancer Colorectal cancer Past Surgical History Surgical History History of dental surgery History of elbow surgery History of knee surgery History of rectal polypectomy Social History Smoking Status: Never smoker Do You Dip or Chew Tobacco: No Hx Alcohol Use: Yes Alcohol type: beer, wine and hard liquor alcohol intake frequency: holidays/special occasions only Hx Substance Use: No Physical Exam Vital Signs Last Vital Signs Temp 36.6 C 10/29/21 10:00 Pulse 74 10/29/21 11:09 Resp 20 10/29/21 10:00 BP 161/71 H 10/29/21 10:00 Pulse Ox 96 10/29/21 10:00 Testing Laboratory Results 10/29/21 06:23 10/29/21 06:23 PT 11.0 Seconds (9.0-12.0) 10/27/21 18:26 INR 1.1 (0.9-1.1) 10/27/21 18:26 Hemoglobin A1c 10.1 % (4.5-5.6) H 10/28/21 05:54 Urine Color Yellow 10/27/21 20:12 Urine Appearance Cloudy (Clear) A 10/27/21 20:12 Urine pH 5.0 (4.5-7.5) 10/27/21 20:12 Ur Specific Perry > 1.045 (1.000-1.030) H 10/27/21 20:12 Urine Protein Negative (Negative) 10/27/21 20:12 Urine Glucose (UA) 3+ (Negative) H 10/27/21 20:12 Urine Ketones Trace (Negative) H 10/27/21 20:12 Urine Nitrite Negative (Negative) 10/27/21 20:12 Ur Leukocyte Esterase Negative (Negative) 10/27/21 20:12 Urine WBC (Auto) 5-10 /hpf (0-5) H 10/27/21 20:12 Urine RBC (Auto) 0-4 /hpf (0-4) 10/27/21 20:12 U Hyaline Cast (Auto) 1-5 /lpf (0-5) 10/27/21 20:12 U Epithel Cells (Auto) >30 /lpf (0-5) H 10/27/21 20:12 Urine Bacteria (Auto) Negative (Negative) 10/27/21 20:12 10/29/21 10/29/21 11:22 07:31 POC Glucose 182 H 171 H Electrocardiogram Date: 10/27/21 Normal sinus rhythm Left anterior fascicular block Left ventricular hypertrophy with QRS widening Abnormal ECG When compared with ECG of 20-MAY-2017 08:56, Minimal criteria for Septal infarct are no longer Present Confirmed by Han Dorman ([id number]) on 10/28/2021 12:12:07 PM
[2021-10-29] MEDS ORDERED: LIDOCAINE 2% 2 ML VIAL/AMP(20MG/ML) INFIL ONE (14:50)
[2021-10-29] MEDS ORDERED: PROPOFOL IV EMULSION 10 MG/ML 20 ML VIAL IV ONE (14:50)
--- NOTE | 2021-10-29 15:34 | Gastroenterology Progress Note ---
Date of Service October 29, 2021 Assessment & Plan (1) Abnormal CT of the abdomen: (2) Anemia: Plan: Proceed with colonoscopy Admission and Anticipated Discharge Date Admission Date: October 27, 2021 Subjective Doing "OK" at present. Did not take all of his bowel prep, however, nursing reports he is having clear BM's. He denies any fevers, chills, nausea, vomiting, or abdominal pain. He tolerated clear liquids overnight. Review of Systems Constitutional: as per Subjective / HPI Eyes: as per Subjective / HPI Ear, Nose, Mouth, Throat: as per Subjective / HPI Respiratory: as per Subjective / HPI Cardiovascular: as per Subjective / HPI Gastrointestinal: as per Subjective / HPI Musculoskeletal: as per Subjective / HPI Integumentary: as per Subjective / HPI Neurologic: as per Subjective / HPI Psychiatric: as per Subjective / HPI Endocrine: as per Subjective / HPI Hematologic / Lymphatic: as per Subjective / HPI Allergy / Immunological: as per Subjective / HPI Physical Exam Constitutional: WD/WN, vitals as above Respiratory: normal respiratory effort, lungs clear to auscultation Cardiovascular: RRR, no murmur, no edema Gastrointestinal (Abdomen): normal bowel sounds, soft, nontender, no hepatosplenomegaly Results & Data Results & Data ([facility]) Vital Signs (Past 12 Hours) Vital Signs Temp Pulse Pulse Resp BP Pulse Ox 10/29/21 11:09 74 10/29/21 10:00 36.6 C 70 20 161/71 H 96 10/29/21 07:00 36.3 C L 76 20 153/66 H 98 PG Care Time/CCT Total # of Minutes Spent Total Time Spent with Patient: Total time spent is greater than 50% in coordination of care (as documented) at patient's floor/unit and/or counseling patient: Coding Level of Care Code None Diagnoses Abnormal CT of the abdomen R93.5 Anemia D64.9 Anemia type: unspecified type (1) Anemia Anemia type: unspecified type Qualified Code(s): D64.9 - Anemia, unspecified
--- NOTE | 2021-10-29 16:10 | GI REPORT ---
Patient Name: Randal Fernandez Procedure Date: 10/29/2021 3:04 PM Date of : 1940 Admit Type: Inpatient Age: 81 Gender: Male Attending MD: Ibrahima Tim DO Procedure: Colonoscopy Providers: Ibrahima Tim DO Referring MD: Mekhi Thrasher M.D. Indications: Abnormal CT of the GI tract Medicines: Monitored Anesthesia Care Complications: No immediate complications. Estimated Blood Loss: Estimated blood loss: none. Procedure: Pre-Anesthesia Assessment: - Prior to the procedure, a History and Physical was performed, and patient medications and allergies were reviewed. The patient's tolerance of previous anesthesia was also reviewed. The risks and benefits of the procedure and the sedation options and risks were discussed with the patient. All questions were answered, and informed consent was obtained. Prior Anticoagulants: The patient has taken Coumadin (warfarin), last dose was 2 days prior to procedure. ASA Grade Assessment: III - A patient with severe systemic disease. After reviewing the risks and benefits, the patient was deemed in satisfactory condition to undergo the procedure. After I obtained informed consent, the scope was passed under direct vision. Throughout the procedure, the patient's blood pressure, pulse, and oxygen saturations were monitored continuously. The Colonoscope was introduced through the anus with the intention of advancing to the ileum. The scope was advanced to the descending colon before the procedure was aborted. Medications were given. The colonoscopy was performed without difficulty. The patient tolerated the procedure well. The quality of the bowel preparation was inadequate. No anatomical landmarks were photographed. Findings: The perianal and digital rectal examinations were normal. Copious quantities of semi-solid stool was found in the rectum, in the sigmoid colon and in the descending colon, precluding visualization. Lavage of the area was performed using copious amounts of normal saline, resulting in incomplete clearance with continued poor visualization. A polypoid lesion was found in the rectum. The lesion was polypoid. No bleeding was present. Impression: - Preparation of the colon was inadequate. - Stool in the rectum, in the sigmoid colon and in the descending colon. - Polypoid lesion in the rectum. - No specimens collected. Recommendation: - [facility] care. - Clear liquid diet today. - NPO after bowel prep tonight. - Repeat colonoscopy tomorrow because the bowel preparation was poor. Ibrahima Askew Case, DO 10/29/2021 4:10:14 PM This report has been signed electronically. Note Initiated On: 10/29/2021 3:04 PM Number of Addenda: 0 I attest to the content of the Intraoperative Record and orders documented therein, exceptions below {[id number]}
--- NOTE | 2021-10-29 16:24 | Anesthesiology Progress Note ---
Date of Service October 29, 2021 Anesthesia Post Procedure Vital Signs Vital Signs: Temp Pulse Pulse Resp BP BP Pulse Ox 10/29/21 16:15 67 16 139/65 98 10/29/21 16:00 68 16 123/67 98 10/29/21 11:09 74 10/29/21 10:00 97.9 F 70 20 161/71 H 96 10/29/21 07:00 97.3 F L 76 20 153/66 H 98 10/29/21 02:42 98.1 F 94 H 18 185/88 H 96 10/29/21 00:40 81 10/28/21 23:08 98.1 F 75 18 157/91 H 96 10/28/21 18:39 98.4 F 79 20 152/62 H 94 10/28/21 17:39 72 Transfer of Care Handoff Completed per policy Notes Mental Status: alert / awake / arousable and participated in evaluation Patient Amnestic to Procedure: Yes Nausea / Vomiting: adequately controlled Pain: adequately controlled Airway Patency, RR, SpO2: stable & adequate BP & HR: stable & adequate Hydration State: stable & adequate Anesthetic Complications: no major complications apparent and Pt Satisfied with anesthetic care
[2021-10-29] MEDS ORDERED: HEPARIN SOD 5,000 UNIT/0.5 ML VIAL SQ ONE (17:00)
[2021-10-29] MEDS: INSULIN ASPART PER UNIT SC SCH ×2 (17:45→20:39)
[2021-10-29] MEDS ORDERED: POLYETHYLENE (MIRALAX) 17 GM PACK PO ONE (19:00)
[2021-10-30 06:13] LABS: Hematocrit (blood only) 30.6 % (42-52); Hemoglobin 9.5 g/dL (14.0-18.0)
[2021-10-30 06:47] LABS: BUN Creatinine Ratio 5.9 (10-20); Calcium 8.7 mg/dl (8.5-10.1); Est GFR (African American) 105.3 ml/min; Est GFR (Non-African American) 90.8 ml/min; Potassium 3.4 mmol/L (3.5-5.1)
--- NOTE | 2021-10-30 06:58 | Hospitalist Progress Note ---
Date of Service October 30, 2021 Assessment & Plan (1) Fall: Plan: 81 y/o M w/ PMHx of DM2, BPH, HLD, antiphospholipid syndrome on Coumadin, admitted for weakness and fall, and suspected GI bleed with suspicion for colon cancer on CT. Colon mass, anemia: - Admission CTAP showed bowel wall thickening and narrowing at the splenic flexure with increased vascularity consistent with malignancy. - Hgb on admission 9.7, relatively significant drop from 13.6 on labwork in 11/2020. Has been relatively stable since admission. - Suspect that patient's colon malignancy may have been leading to small amount of bleeding for quite some time, precipitating anemia. - Also noted on labwork this admission to have low iron and ferritin levels. Venofer 400mg IV x1 given 10/29 for iron deficiency, also likely due to blood loss. - Colonoscopy performed 10/29; inadequate prep. Rectal mass biopsied. Repeat colonoscopy 10/30 showed partially obstructive circumferential splenic flexure mass with area of oozing. Recommendation by GI made for colorectal surgery at tertiary center. - [facility] center physician Dr. Balbuena (colorectal surgery) recommended evaluation first by general surgeons here, and if continues to be stable can discharge with close follow up by [facility] physician Dr. Martinez here in [place]. Will place consult to Dr. Gutierrez with general surgery, and further clarify plan with GI. Fall: - Presented following fall at home after several days of progressive weakness, with no recollection of fall from patient, therefore unclear if he had syncopal event vs. mechanical fall. - Fall suspected to be secondary to blood loss vs. deconditioning and poor PO intake. - Neuro exam normal, pelvic x-ray, CT head/neck without acute findings. - No labwork to suggest a metabolic encephalopathy or infection leading to confusion and fall. - No evidence on telemetry of arrhythmia as cause of fall. - Echo performed this admission without significant valvular pathology, no evidence of CHF. - PT/OT to evaluate patient while admitted. DM2: - A1c 10.1. Patient is on 70-30 insulin and metformin 1000mg BID at home. - Defer home medications in favor of basal/bolus insulin. - Patient admits to dietary indiscretion leading to poorly controlled diabetes. - Diabetic education to be performed while patient admitted, with further discussion with PCP when ultimately discharged. - DM2 diet when not NPO. Antiphospholipid syndrome: - History of, on warfarin. - INR 1.1 on admission; patient had been holding for several days due to upcoming dental procedure. - Continue to hold warfarin in the setting of colonoscopy. Heparin 5000u SQ q12h. Hypertension: - Continue home lisinopril. Code Status: Conditional Code; amenable to intubation and mechanical ventilation, use of pressure support, but refuses chest compressions or defibrillation FEN: clear liquid diet, DM2 appropriate DVT ppx: Heparin 5000u SQ q12h Dispo: Med/Surg with Telemetry (2) Type II diabetes mellitus, uncontrolled: (3) BPH (benign prostatic hyperplasia): (4) Hypertension: (5) Hyperlipidemia: (6) Antiphospholipid syndrome: Admission and Anticipated Discharge Date Admission Date: October 27, 2021 Supervising Physician Co-Signing Physician Notes Patient seen and examined with PGY-3 Dr. Thakkar. Agree with history, exam findings, assessment, and plan of care as outlined. In brief, Mr. Fernandez is a 81 year old male with history of DM2, HLD, antiphospholipid syndrome with history of prior PE admitted with weakness resulting in a fall. Did repeat GoLytely, but reports that stools still had solid pieces to it last night and into this morning; however clear bowel movements prior to colonoscopy this afternoon. After colonoscopy, we visited with the patient and his at the bedside to discuss the colonoscopy results. Discussed that the mass is obstructing and causing stricture of the large intestine. No abdominal pain. No nausea or vomiting. VS and nursing notes reviewed. Well appearing. Heart with regular rate and rhythm. +1 pitting edema to the mid-kumar. Lungs are clear to auscultation. Skin of the lower extremities with chronic venous stasis changes and mild erythema over the anterior shins that is slightly tender. Labs and imaging reviewed. 1. Weakness, fall. Unclear etiology, but possibly due to dehydration, orthostasis, new anemia. PT/OT. 2. New colon malignancy seen on CT Abd/Pelvis. Inadequate prep for colonoscopy yesterday. Todays colonoscopy showing infiltrative, partially obstructing mass at the splenic flexure; circumferential mass causing stenosis of the large intestine. Also noted to have a 60mm polypoid lesion in the rectum. Dr. Thakkar discussed the case with Dr. Balbuena as GI had indicated that patient needed to be transferred to tertiary facility with colorectal NOW. Suggested that if patient is not acutely obstructed that general surgery here can evaluate the patient. Referral placed to general surgery. Appreciate recommendations. If patient can be seen as an outpatient, he can follow up with Dr. Martinez when he is here on Fridays at the [facility] colonnade office. 3. DM. Lantus 10U + ssi. A1C 10.1%. Appreciate DM educator recommendations. 4. Antiphospholipid syndrome with hx of PE. Anticoagulated with coumadin. INR on admission 1.1. Historically non-adherent with anticoagulation. 5. Iron deficiency anemia, normocytic. Hgb 9.2. Likely secondary to slow bleed from colon mass. Ferritin 6; iron 23. S/p Venofer yesterday. 6. HTN. Continue home lisinopril. Dispo: Pending transfer to tertiary facility. Subjective Patient with several episodes of diarrhea overnight, becoming clearer in the late morning. For colonoscopy later today. No complaints of abdominal pain, shortness of breath, chest pain. Feels that his lower extremities are less swollen today. Review of Systems Constitutional: no fever, no chills and no malaise Respiratory: no cough and no dyspnea Cardiovascular: no chest pain, no palpitations and no edema Gastrointestinal: + diarrhea/loose stools; no abdominal pain and no constipation Physical Exam Constitutional: WD/WN, vitals as above Respiratory: normal respiratory effort, lungs clear to auscultation Cardiovascular: RRR, no murmur, no edema Gastrointestinal (Abdomen): normal bowel sounds, soft, nontender, no hepatosplenomegaly Results & Data Results & Data ([facility]) Vital Signs (Past 12 Hours) Vital Signs Temp Pulse Pulse Resp BP Pulse Ox 10/30/21 03:32 36.7 C 93 H 16 183/83 H 97 10/29/21 23:41 36.8 C 83 18 167/73 H 95 10/29/21 22:20 82 Resident Activity Tracking Resident Involvement: Resident Care Provided Care Provided: Adult Hospital Medicine
--- NOTE | 2021-10-30 07:00 | Anesthesiology Consultation ---
Date of Service October 30, 2021 Assessment & Plan (1) Encounter for pre-operative examination: Chart Review Chart Review: towel sewer initiated History Surgery Operation Date: 10/29/21 15:30 Proposed Procedures p Colonoscopy Dr. [place] Askew Case, DO Operation Date: 10/30/21 16:00 Proposed Procedures p Colonoscopy Dr. [place] Askew Case, DO Height/Weight Height: 6 ft 2 in Weight: 117.4 kg Allergies Allergy/AdvReac Type Severity Reaction Status Date / Time sitagliptin Allergy Unknown Hives - Verified 10/28/21 11:37 Januvia cat dander AdvReac Mild EYES WATER Verified 10/28/21 11:37 Hurvinq-XRD-YzB Reductase AdvReac Mild LEG CRAMPS Verified 10/28/21 11:37 Inhibitor [Ywxdemo-Zef-Ltb Reductase Inhibitor] Medications Home Medications Medication Instructions Recorded Confirmed Last Taken blood sugar diagnostic (FreeStyle #10 ea 03/25/19 09/04/21 Unknown Lite Strips) lancets 28 gauge (FreeStyle ea 09/20/19 09/04/21 Unknown Lancets) cholecalciferol (vitamin D3) 50 2,000 units PO DAILY #30 cap 02/20/20 10/27/21 Unknown mcg (2,000 unit) capsule Novolog Mix 70-30 FlexPen U-100 See Rx Instructions SQ QAM #4 box 03/21/21 10/27/21 Unknown Insulin 100 unit/mL subcutaneous NS pen (insulin asp prt-insulin aspart) pen needle, diabetic 32 gauge x #200 ea 05/29/21 09/04/21 Unknown 32" (BD Donna 2nd Gen Pen Needle) warfarin 5 mg tablet 10 mg PO DAILY #180 tab 07/10/21 10/27/21 Unknown rosuvastatin 20 mg tablet (Crestor) 20 mg PO DAILY #90 tab 08/21/21 10/27/21 Unknown lisinopril 2.5 mg tablet 2.5 mg PO DAILY #90 tab 10/09/21 10/27/21 Unknown metformin 500 mg tablet,extended 1,000 mg PO BID #360 tab 10/10/21 10/27/21 Unknown release 24 hr Active Medications Generic Name Dose Route Start Last Admin Trade Name Freq PRN Reason Stop Dose Admin Insulin Aspart 0 units 10/29/21 16:30 10/29/21 20:39 Insulin Aspart Per Unit SC 11/28/21 16:29 2 units ACHS MITESH Administration Insulin Glargine 10 units 10/28/21 09:00 10/29/21 20:39 Insulin Glargine Solostar 100 Units/Ml 3 Ml Pen SC 11/27/21 08:59 10 units BID MITESH Administration Lisinopril 2.5 mg 10/28/21 09:00 10/29/21 08:28 Lisinopril 2.5 Mg Tab PO 11/27/21 08:59 2.5 mg DAILY MITESH Administration Rosuvastatin Calcium 20 mg 10/28/21 09:00 10/29/21 08:28 Rosuvastatin Calcium 20 Mg Tab PO 11/27/21 08:59 20 mg DAILY MITESH Administration NPO Date Last Intake of Fluids: 10/29/21 Time Last Intake of Fluids: 13:30 Last Intake of Fluids Comment: Sip of prep Date Last Intake of Solids: 10/28/21 Time Last Intake of Solids: 22:00 Past Medical History Medical History Abnormal CT scan, colon Albuminuria Anemia Antiphospholipid syndrome on coumadin, not compliant with INR CHI (closed head injury) Colonic mass Diabetic ulcer of right great toe Generalized weakness Glaucoma Hyperlipidemia Hypertension Long-term (current) use of anticoagulants, INR goal 2.0-3.0 Lower extremity edema Noncompliance Type II diabetes mellitus, uncontrolled Venous ulcer Vitamin D deficiency Past Family History Family History Father Myocardial infarction Denies family history of Ovarian cancer Prostate cancer Breast cancer Colorectal cancer Past Surgical History Surgical History History of dental surgery History of elbow surgery History of knee surgery History of rectal polypectomy Social History Smoking Status: Never smoker Do You Dip or Chew Tobacco: No Hx Alcohol Use: Yes Alcohol type: beer, wine and hard liquor alcohol intake frequency: holidays/special occasions only Hx Substance Use: No Physical Exam Vital Signs Last Vital Signs Temp 98.1 F 10/30/21 03:32 Pulse 93 H 10/30/21 03:32 Resp 16 10/30/21 03:32 BP 183/83 H 10/30/21 03:32 Pulse Ox 97 10/30/21 03:32 Testing Laboratory Results 10/30/21 05:56 10/30/21 05:56 PT 11.0 Seconds (9.0-12.0) 10/27/21 18: INR 1.1 (0.9-1.1) 10/27/21 18: Hemoglobin A1c 10.1 % (4.5-5.6) H 10/28/21 05:54 Urine Color Yellow 10/27/21 20:12 Urine Appearance Cloudy (Clear) A 10/27/21 20:12 Urine pH 5.0 (4.5-7.5) 10/27/21 20:12 Ur Specific [place] > 1.045 (1.000-1.030) H 10/27/21 20:12 Urine Protein Negative (Negative) 10/27/21 20:12 Urine Glucose (UA) 3+ (Negative) H 10/27/21 20:12 Urine Ketones Trace (Negative) H 10/27/21 20:12 Urine Nitrite Negative (Negative) 10/27/21 20:12 Ur Leukocyte Esterase Negative (Negative) 10/27/21 20:12 Urine WBC (Auto) 5-10 /hpf (0-5) H 10/27/21 20:12 Urine RBC (Auto) 0-4 /hpf (0-4) 10/27/21 20:12 U Hyaline Cast (Auto) 1-5 /lpf (0-5) 10/27/21 20:12 U Epithel Cells (Auto) >30 /lpf (0-5) H 10/27/21 20:12 Urine Bacteria (Auto) Negative (Negative) 10/27/21 20:12 10/30/21 10/30/21 10/29/21 05:33 00:30 20:07 POC Glucose 105 H 110 H 188 H Electrocardiogram Date: 10/27/21 Normal sinus rhythm Left anterior fascicular block Left ventricular hypertrophy with QRS widening Abnormal ECG When compared with ECG of 20-MAY-2017 08:56, Minimal criteria for Septal infarct are no longer Present Confirmed by Han Dorman ([id number]) on 10/28/2021 12:12:07 PM
[2021-10-30] MEDS ORDERED: Nursing to Pharmacy Communication SCH ×2 (07:15→17:15)
[2021-10-30] MEDS: INSULIN GLARGINE SOLOSTAR 100 UNITS/ML 3 ML PEN SC SCH ×2 (08:38→20:24)
[2021-10-30] MEDS: lisinopril 2.5 MG TAB PO SCH (08:39)
[2021-10-30] MEDS: ROSUVASTATIN CALCIUM 20 MG TAB PO SCH (08:39)
--- NOTE | 2021-10-30 11:19 | History & Physical Bridge Note ---
Date of Service October 30, 2021 History & Physical Bridge Note I have examined the patient, reviewed the History & Physical and in the interval since the performance of the History & Physical I have noted the following changes of clinical significance: no changes noted with the exception that patient and RN report he is having clear-yellow bowel movements without formed stools. Keep NPO & Proceed with colonoscopy second attempt today in effort to evaluate abnormal findings on abdominal CT scan. Supervising Physician Co-Signing Physician Notes Agree with OWEN Walls as above Abd: Soft, NT, ND, +BS Proceed with colonoscopy today Further recommendations to follow
--- NOTE | 2021-10-30 11:35 | Billing Data ---
Date of Service October 27, 2021 Coding Level of Care Code 15438 Initial Inpt Care Lvl 3
[2021-10-30] MEDS ORDERED: INSULIN ASPART PER UNIT SC SCH (12:00)
[2021-10-30] MEDS ORDERED: LIDOCAINE 2% 2 ML VIAL/AMP(20MG/ML) INFIL ONE (16:22)
[2021-10-30] MEDS ORDERED: ENDOSCOPIC MARKER 5 ML SYR TOP ONE (16:22)
[2021-10-30] MEDS ORDERED: PROPOFOL IV EMULSION 10 MG/ML 20 ML VIAL IV ONE (16:22)
--- NOTE | 2021-10-30 16:34 | GI REPORT ---
Patient Name: Randal Fernandez Procedure Date: 10/30/2021 3:58 PM Date of : 1940 Admit Type: Inpatient Age: 81 Gender: Male Attending MD: Ibrahima Tim DO Procedure: Colonoscopy Providers: Ibrahima Tim DO Referring MD: Danyel Castrejon Indications: Abnormal CT of the GI tract Medicines: Monitored Anesthesia Care Complications: No immediate complications. Estimated Blood Loss: Estimated blood loss: none. Procedure: Pre-Anesthesia Assessment: - Prior to the procedure, a History and Physical was performed, and patient medications and allergies were reviewed. The patient's tolerance of previous anesthesia was also reviewed. The risks and benefits of the procedure and the sedation options and risks were discussed with the patient. All questions were answered, and informed consent was obtained. Prior Anticoagulants: The patient has taken Coumadin (warfarin), last dose was 3 days prior to procedure. ASA Grade Assessment: III - A patient with severe systemic disease. After reviewing the risks and benefits, the patient was deemed in satisfactory condition to undergo the procedure. After I obtained informed consent, the scope was passed under direct vision. Throughout the procedure, the patient's blood pressure, pulse, and oxygen saturations were monitored continuously. The Colonoscope was introduced through the anus with the intention of advancing to the ileum. The scope was advanced to the hepatic flexure before the procedure was aborted. Medications were given. The colonoscopy was performed without difficulty. The patient tolerated the procedure well. The quality of the bowel preparation was poor. The rectum was photographed. Findings: The perianal and digital rectal examinations were normal. An infiltrative partially obstructing large mass was found at the splenic flexure. The mass was circumferential and stenosis limited passage of scope beyond this lesion. Oozing was present. Biopsies were taken with a cold forceps for histology. Area was tattooed with an injection of 5 mL of Jennifer ink at the distal margin. A 60 mm polypoid lesion was found in the rectum. The lesion was multi-lobulated. No bleeding was present. Biopsies were taken with a cold forceps for histology. Non-bleeding internal hemorrhoids were found during retroflexion. The hemorrhoids were small. Impression: - Preparation of the colon was poor. 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 Biopsied. Tattooed. - Likely benign polypoid lesion in the rectum. Biopsied. - Non-bleeding internal hemorrhoids. Recommendation: - [facility] to [facility] for [facility] care. - Clear liquid diet. - Recommend Transfer to facility with a colo-rectal surgeon now. - Await pathology results. Ibrahima GShawna Tim, DO 10/30/2021 4:33:52 PM This report has been signed electronically. Note Initiated On: 10/30/2021 3:58 PM Number of Addenda: 0 I attest to the content of the Intraoperative Record and orders documented therein, exceptions below {[id number]}
--- NOTE | 2021-10-30 16:46 | Anesthesiology Progress Note ---
Date of Service October 30, 2021 Anesthesia Post Procedure Vital Signs Vital Signs: Temp Pulse Pulse Resp BP BP Pulse Ox 10/30/21 16:32 76 12 144/64 H 99 10/30/21 15:41 36.4 C L 82 18 182/91 H 97 10/30/21 15:00 36.5 C 80 20 167/75 H 98 10/30/21 11:00 36.6 C 80 20 157/69 H 96 10/30/21 08:00 80 10/30/21 07:00 36.7 C 108 H 20 125/72 95 10/30/21 03:32 36.7 C 93 H 16 183/83 H 97 10/29/21 23:41 36.8 C 83 18 167/73 H 95 10/29/21 22:20 82 Transfer of Care Handoff Completed per policy Notes Mental Status: alert / awake / arousable Patient Amnestic to Procedure: Yes Nausea / Vomiting: adequately controlled Pain: adequately controlled Airway Patency, RR, SpO2: stable & adequate BP & HR: stable & adequate Hydration State: stable & adequate Anesthetic Complications: no major complications apparent
[2021-10-30] MEDS: INSULIN ASPART PER UNIT SC SCH ×2 (17:57→20:29)
[2021-10-30] MEDS: HEPARIN SOD 5,000 UNIT/0.5 ML VIAL SQ SCH (20:25)
--- NOTE | 2021-10-31 01:18 | Communication Note ---
Date of Service: October 31, 2021 Informed about new fever to 38.8C. No previous fever this admission. I examined patient. Subjectively denies all complaints. Lung exam CTAB. Chronic stasis dermattitis of BLE does not appear erythematous. Ordering cbc, cxr, cxr, UA, blood cultures. No hypoxia or tachypnea at this time. DVT on differential but less likely given neg venous dopplers on 10/27/21.
[2021-10-31 02:25] LABS: Basophils # (auto) 0.01 K/uL (0-0.2); Basophils % (auto) 0.2 %; Eosinophils # (auto) 0.01 K/uL (0-0.5); Eosinophils % (auto) 0.2 %; Hematocrit (blood only) 28.8 % (42-52); Hemoglobin 9.1 g/dL (14.0-18.0); Immature Granulocytes # (auto) 0.01 K/uL (0.00-0.02); Immature Granulocytes % (auto) 0.2 %; Lymphocytes # (auto) 0.62 K/uL (1.2-3.4); Mean Corpuscular Hemoglobin 26.1 pg (25-34); Mean Corpuscular Hgb Conc 31.6 g/dL (32-36); Mean Corpuscular Volume 82.5 fL (80-100); Monocytes # (auto) 0.25 K/uL (0.11-0.59); Monocytes % (auto) 5.2 %; Neutrophils # (auto) 3.87 K/uL (1.4-6.5); Neutrophils % (auto) 81.2 %; Platelet Count 246 K/uL (130-400); RDW Standard Deviation 50.9 fL (36.4-46.3); Red Blood Count 3.49 M/uL (4.7-6.1); White Blood Count 4.77 K/uL (4.8-10.8)
[2021-10-31 02:44] LABS: Albumin Globulin Ratio 1.2 (0.9-2); Albumin Level 3.1 gm/dl (3.4-5.0); BUN Creatinine Ratio 6.6 (10-20); Bilirubin,Total 0.7 mg/dl (0.2-1.0); Calcium 8.4 mg/dl (8.5-10.1); Creatinine Clr Calc Pharmacy 133.7 ml/min; Est GFR (African American) 110.1 ml/min; Globulin 2.5 gm/dl (2.5-4.0); Total Protein 5.6 gm/dl (6.0-8.3)
[2021-10-31] MEDS ORDERED: POTASSIUM CHLORIDE CRTAB 20 MEQ TABCR PO STA (03:59)
--- NOTE | 2021-10-31 06:55 | XRay Report ---
XR chest 1V portable HISTORY: 81 years-old Male r/o source of infection for fever acute fever COMPARISON: Chest radiograph 10/27/2021 TECHNIQUE: Portable AP view of the chest FINDINGS: The cardiomediastinal and hilar silhouettes are within normal limits. No pneumothorax, large pleural effusion or overt pulmonary edema. Degenerative changes of the shoulders and spine. Minimal subsegmen maya bibasilar atelectasis. IMPRESSION: No acute process. ACT 112: Negative or not required by law. The above report was generated using voice recognition software. It may contain grammatical, syntax o r spelling errors. Electronically signed by: Moreno Nettles M.D. 10/31/2021 6:53 AM
--- NOTE | 2021-10-31 06:59 | Hospitalist Progress Note ---
Date of Service October 31, 2021 Assessment & Plan (1) Fall: Plan: 81 y/o M w/ PMHx of DM2, BPH, HLD, antiphospholipid syndrome on Coumadin, admitted for weakness and fall, and suspected GI bleed with suspicion for colon cancer on CT. Colon mass, anemia: - Admission CTAP showed bowel wall thickening and narrowing at the splenic flexure with increased vascularity consistent with malignancy. - Hgb on admission 9.7, relatively significant drop from 13.6 on labwork in 11/2020. Has been relatively stable since admission. - Suspect that patient's colon malignancy may have been leading to small amount of bleeding for quite some time, precipitating anemia. - Also noted on labwork this admission to have low iron and ferritin levels. Venofer 400mg IV x1 given 10/29 for iron deficiency, also likely due to blood loss. - Colonoscopy performed 10/29; inadequate prep. Rectal mass biopsied. Repeat colonoscopy 10/30 showed partially obstructive circumferential splenic flexure mass with area of oozing. Recommendation by GI made for colorectal surgery at tertiary center. - [facility] physician Dr. Balbuena (colorectal surgery) recommended evaluation first by general surgeons here, and if continues to be stable can discharge with close follow up by [facility] physician Dr. Martinez here in [place]. Will place consult to Dr. Gutierrez with general surgery, and further clarify plan with GI. - Transfer to [facility] colorectal surgery initiated; bed available at [facility], patient to be transferred tomorrow morning via ambulance. Fall: - Presented following fall at home after several days of progressive weakness, with no recollection of fall from patient, therefore unclear if he had syncopal event vs. mechanical fall. - Fall suspected to be secondary to blood loss vs. deconditioning and poor PO intake. - Neuro exam normal, pelvic x-ray, CT head/neck without acute findings. - No labwork to suggest a metabolic encephalopathy or infection leading to confusion and fall. - No evidence on telemetry of arrhythmia as cause of fall. - Echo performed this admission without significant valvular pathology, no evidence of CHF. - PT/OT to evaluate patient while admitted. DM2: - A1c 10.1. Patient is on 70-30 insulin and metformin 1000mg BID at home. - Defer home medications in favor of basal/bolus insulin. - Patient admits to dietary indiscretion leading to poorly controlled diabetes. - Diabetic education to be performed while patient admitted, with further discussion with PCP when ultimately discharged. - DM2 diet when not NPO. Antiphospholipid syndrome: - History of, on warfarin. - INR 1.1 on admission; patient had been holding for several days due to upcoming dental procedure. - Continue to hold warfarin in the setting of colonoscopy. Heparin 5000u SQ q12h. Hypertension: - Continue home lisinopril. Code Status: Conditional Code; amenable to intubation and mechanical ventilation, use of pressure support, but refuses chest compressions or defibrillation FEN: clear liquid diet, DM2 appropriate DVT ppx: Heparin 5000u SQ q12h Dispo: Med/Surg with Telemetry (2) Type II diabetes mellitus, uncontrolled: (3) BPH (benign prostatic hyperplasia): (4) Hypertension: (5) Hyperlipidemia: (6) Antiphospholipid syndrome: Admission and Anticipated Discharge Date Admission Date: October 27, 2021 Supervising Physician Co-Signing Physician Notes Attending attestation Pt seen and examined in concert with Dr. Coon. In agreement with the documented findings as noted in the resident documentation with any exceptions or additions as noted here. Patient resting comfortably in chair at bedside with decrease in overall weakness. On examination, S1/S2 nl RRR no MCG. CTAB. Abd mildly TTP diffusely without guarding w/ nl BS. VS, nursing notes, labs and imaging reviewed. Multiple colon masses concerning for malignancy - GI & surgery consultation - colonoscopy results concerning for malignancy and rec'd transition to tertiary service for further management. 40 minutes spent in coversation with the attending (Dr. Sepulveda) regarding further evaluation and management for transfer. On request, obtain repeat CT abd/pelv and follow up for transfer. Febrile - culture obtained overnight and pending. Start pip/tazo for coverage and follow up CT for ?perforation. Else see resident documentation as noted. Subjective Patient had 2 febrile episodes overnight, at 38.8, 38.5 C. Patient has been afebrile since then. Patient was unaware. Has no subjective complaints. Archie simpson is aware that he will likely be transferred over to either [facility] or another tertiary center for continued care. Review of Systems Review of Systems: All systems reviewed & are unremarkable except as noted in HPI & below Physical Exam Constitutional: WD/WN, vitals as above Respiratory: normal respiratory effort, lungs clear to auscultation Cardiovascular: RRR, no murmur, no edema Gastrointestinal (Abdomen): normal bowel sounds, soft, nontender, no hepatosplenomegaly Skin: Bilateral, advanced stage venous stasis changes observable at patient's lower extremities. No open ulcers or oozing. Results & Data Results & Data ([facility]) Vital Signs (Past 12 Hours) Vital Signs Temp Pulse Pulse Resp BP Pulse Ox 10/31/21 03:20 37.7 C H 85 18 127/60 94 10/30/21 23:48 38.8 C H 10/30/21 23:14 85 10/30/21 22:32 38.5 C H 89 18 158/73 H 96 10/30/21 20:02 178/71 H 10/30/21 19:23 37.1 C 81 18 171/72 H 96 Resident Activity Tracking Resident Involvement: Resident Care Provided Care Provided: Adult Hospital Medicine
[2021-10-31 07:38] LABS: Appearance Urine Clear (Clear); Bacteria Urine Automated Negative (Negative); Bilirubin Urine Negative (Negative); Blood Urine 1+ (Negative); Cast Urine Automated 0 /lpf (0-5); Color Urine Yellow; Epithelial Cell Urine Auto 20-30 /lpf (0-5); Glucose Urine UA Trace (Negative); Ketones Urine 3+ (Negative); Leukocyte Esterase Urine Negative (Negative); Nitrite Urine Negative (Negative); Protein Urine Negative (Negative); Specific Gravity Urine 1.015 (1.000-1.030); Urobilinogen Urine Negative (Negative); pH Urine 5.5 (4.5-7.5)
[2021-10-31] MEDS: lisinopril 2.5 MG TAB PO SCH (08:46)
[2021-10-31] MEDS: INSULIN GLARGINE SOLOSTAR 100 UNITS/ML 3 ML PEN SC SCH ×2 (08:47→22:34)
[2021-10-31] MEDS: ROSUVASTATIN CALCIUM 20 MG TAB PO SCH (08:47)
[2021-10-31] MEDS: INSULIN ASPART PER UNIT SC SCH ×4 (08:54→22:32)
[2021-10-31] MEDS: HEPARIN SOD 5,000 UNIT/0.5 ML VIAL SQ SCH ×2 (09:00→22:33)
[2021-10-31] MEDS ORDERED: OPTIRAY 320 100ml IV ONE (09:38)
--- NOTE | 2021-10-31 09:56 | CT Scan Report ---
CT SCAN OF THE CHEST WITH IV CONTRAST CLINICAL HISTORY: Colonic mass COMPARISON STUDY: Chest x-ray dated 10/31/2021. TECHNIQUE: Following the IV administration of 95 cc of Optiray 320, CT scan of the thorax was perform ed from the thoracic inlet to the upper abdomen. Images are reviewed in the axial, sagittal, and nigel nal planes. IV contrast was administered without complication. A dose lowering technique was utilize d adhering to the principles of ALARA. CT DOSE: 538.51 mGy.cm FINDINGS: Thyroid: Imaged portions of the thyroid gland are normal in size and attenuation. Thoracic aorta: The thoracic aorta is normal in caliber and demonstrates 4-vessel variant arch anatom y. No dissection is seen. Pulmonary vasculature: The pulmonary trunk is dilated, measuring 3.8 cm in diameter. This suggests pu lmonary artery hypertension. There are no filling defects identified in the central pulmonary vessels to indicate pulmonary embolus. Note that this examination was not protocoled for evaluation of the p ulmonary arteries. Heart: The heart is top normal in size noting trace pericardial effusion. The coronary arteries are d ensely calcified. Lungs and pleural spaces: There is no airspace consolidation typical for pneumonia or pleural effusio n. The trachea and central airways are clear. Scattered calcified granulomas are observed. There is b ibasilar scarring/atelectasis Mediastinum: There is no mediastinal lymphadenopathy. Estrella: Clear. Axillae: There is no axillary lymphadenopathy. Upper abdomen: Partially visualized upper abdominal viscera is within normal limits. Skeletal structures: The skeletal structures are osteopenic. Mild degenerative change is seen through out the thoracic spine. Arthritic change is noted in the shoulders. No lytic or blastic bony lesions are identified. There are healed left-sided rib fractures. IMPRESSION: 1. There is no evidence of intrathoracic metastatic disease. 2. No airspace consolidation or pleural effusion is identified. 3. Additional findings as above. ACT 112: Negative or not required by law. Electronically signed by: Frank Weeks M.D. 10/31/2021 9:55 AM
[2021-10-31] MEDS ORDERED: PIPERACILL/TAZOBAC CONSULT ACTIVE PRN (11:12)
--- NOTE | 2021-10-31 11:16 | Surgery Consultation ---
Date of Consultation October 31, 2021 Assessment & Plan (1) Abnormal CT of the abdomen: (2) Anemia: (3) Colonic mass: 81 myke-old male who presented to hospital s/p fall and found to be anemic with abnormal CT scan of abdomen and pelvis showing possible splenic flexure mass. Underwent colonoscopy which showed partially obstructing splenic flexure mass as well as rectal polyp/mass. Biopsies are pending. CEA elevated at [address] of chest showing no evidence of metastatic disease. Plan: Dr. Gutierrez discussed colonoscopy findings showing mass in splenic flexure as well as rectal mass . Discussed once biopsies are resulted, can develop a course of action/treatment plan. Given that he has two separate areas of concern (splenic flexure and rectum) he would likely require intervention by colorectal surgeon. He could follow-up with [facility] as an outpatient in next week or two. Advance diet as tolerated Continue current medical management Thank you for the consultation, please call with any questions/concerns. Dr. Gutierrez has seen and examined pt, agrees with above. Supervising Physician Co-Signing Physician Notes I have seen and examined the patient personally. I agree with the history, physical, assessment and plan. In brief at this is a 81-year-old gentleman who presents after a fall. He was noted on CT scan to have a thickening and possible mass in his splenic flexure. Colonoscopy demonstrates a large mass/ polyp in his rectum as well as a partially obstructing lesion in his splenic flexure. He has never had a colonoscopy in the past. He is having bowel movements. Pathology is pending on the 2 lesions. He is not obstructed at this time. We will plan for discharge and follow-up as an outpatient with colorectal surgery given the presence of 2 synchronous lesions including a very low rectal lesion. History of Present Illness Reason for Consultation: Splenix flexure mass Requesting Physician: Cate Garcia DO Attending Physician: Matteo Crandall MD History of Present Illness Randal is a 81 year-old male who presented to hospital s/p [facility] and was found to be anemic with a CT scan showing concern for a splenic flexure mass. He u nderwent colonoscopy yesterday by Dr. Tim which showed partially obstructing splenic flexure mass as well as rectal polyp/mass. Biopsies are pending. CT scan of the chest was ordered this am as well as CEA. Colorectal surgery at [facility] was consulted however recommended general surgery evaluation now and if stable, close outpatient follow-up. Randal states he has had liquid stools for some time prior to admission. States he did not notice any blood in stools or black stools. No unintentional weight loss, fever, chills, abdominal pain. Never had a colonoscopy before. States he is feeling well this am. Had a bowel movement and tolerated diet. No abdominal pain today. No nausea or vomiting. Allergies Allergy/AdvReac Type Severity Reaction Status Date / Time sitagliptin Allergy Unknown Hives - Verified 10/30/21 15:45 Januvia cat dander AdvReac Mild EYES WATER Verified 10/30/21 15:45 [id number] Reductase AdvReac Mild LEG CRAMPS Verified 10/30/21 15:45 Inhibitor [Dhicylf-Pqz-Vkd Reductase Inhibitor] Home Medications Medication Instructions Recorded Confirmed Type blood sugar diagnostic (FreeStyle #10 ea 03/25/19 09/04/21 History Lite Strips) lancets 28 gauge (FreeStyle ea 09/20/19 09/04/21 History Lancets) cholecalciferol (vitamin D3) 50 2,000 units PO DAILY #30 cap 02/20/20 10/27/21 Rx mcg (2,000 unit) capsule Novolog Mix 70-30 FlexPen U-100 See Rx Instructions SQ QAM #4 box 03/21/21 10/27/21 Rx Insulin 100 unit/mL subcutaneous NS pen (insulin asp prt-insulin aspart) pen needle, diabetic 32 gauge x #200 ea 05/29/21 09/04/21 Rx 5/32" (BD Donna 2nd Gen Pen Needle) warfarin 5 mg tablet 10 mg PO DAILY #180 tab 07/10/21 10/27/21 Rx rosuvastatin 20 mg tablet (Crestor) 20 mg PO DAILY #90 tab 08/21/21 10/27/21 Rx lisinopril 2.5 mg tablet 2.5 mg PO DAILY #90 tab 10/09/21 10/27/21 Rx metformin 500 mg tablet,extended 1,000 mg PO BID #360 tab 10/10/21 10/27/21 Rx release 24 hr Patient History Medical History (Updated 10/31/21 @ 11:22 by Elma Healy PA-C) Abnormal CT scan, colon Albuminuria Anemia Antiphospholipid syndrome on coumadin, not compliant with INR CHI (closed head injury) Colonic mass Diabetic ulcer of right great toe Generalized weakness Glaucoma Hyperlipidemia Hypertension Long-term (current) use of anticoagulants, INR goal 2.0-3.0 Lower extremity edema Noncompliance Type II diabetes mellitus, uncontrolled Venous ulcer Vitamin D deficiency Surgical History History of dental surgery History of elbow surgery History of knee surgery History of rectal polypectomy Family History Father Myocardial infarction Denies family history of Ovarian cancer Prostate cancer Breast cancer Colorectal cancer Social History Smoking Status: Never smoker Second Hand Exposure: No; Do You Dip or Chew Tobacco: No; Hx Alcohol Use: Yes Alcohol type: beer, wine and hard liquor Alcohol Intake Frequency: 2-4 x/Month Alcohol Intake Frequency Comment: Once a week Hx Substance Use: No Preferred Language: Swazi Communication Ability: Effective Cyber Security Required: No Beliefs That Will Affect Care: None marital status: Current Living Situation: Spouse current occupational status: retired Feels Safe at Home: Yes Safety Concerns: Feels Safe At This Time caffeine: Yes Dental Care, Regularly: Yes Physical Activity Frequency: Does not Exercise Seatbelt Use: always Sunscreen Use: Yes Assistive Devices: Walker Review of Systems Review of Systems: All systems reviewed & are unremarkable except as noted in HPI & below Physical Exam Constitutional: WD/WN, vitals as above no acute distress and not ill appearing Neck: normal visual inspection and trachea midline Respiratory: normal respiratory effort, lungs clear to auscultation Cardiovascular: RRR, no murmur, no edema Gastrointestinal (Abdomen): Inspection/Auscultation: abdomen normal to inspe ction; abdomen not distended Percussion/Palpation: abdomen soft and + hernia (umbilical hernia, reducible); abdomen nontender, no guarding and abdomen not rigid Skin: no rashes, warm and dry Psychiatric: A+Ox3, euthymic affect Results & Data ([facility]) Vital Signs (Past 12 Hours) Vital Signs Temp Pulse Pulse Resp BP BP Pulse Ox 10/31/21 11:00 36.8 C 76 20 104/65 95 10/31/21 07:50 73 10/31/21 07:00 36.8 C 71 20 130/64 96 10/31/21 03:20 37.7 C H 85 18 127/60 94 10/30/21 23:48 38.8 C H Laboratory Results 10/31/21 10/31/21 10/31/21 Range/Units 08:28 07:38 07:25 WBC (4.8-10.8) K/uL RBC (4.7-6.1) M/uL Hgb (14.0-18.0) g/dL Hct (42-52) % MCV (80-100) fL MCH (25-34) pg MCHC (32-36) g/dL RDW Std Deviation (36.4-46.3) fL RDW Coeff of Cleo (11.5-14.5) % Plt Count (130-400) K/uL MPV (7.4-10.4) fL Immature Gran % (Auto) % Neut % (Auto) % Lymph % (Auto) % [place] % (Auto) % Eos % (Auto) % Baso % (Auto) % Neut # (Auto) (1.4-6.5) K/uL Lymph # (Auto) (1.2-3.4) K/uL [place] # (Auto) (0.11-0.59) K/uL Eos # (Auto) (0-0.5) K/uL Baso # (Auto) (0-0.2) K/uL Immature Gran # (Auto) (0.00-0.02) K/uL Sodium (136-145) mmol/L Potassium (3.5-5.1) mmol/L Chloride (98-107) mmol/L Carbon Dioxide (21-32) mmol/L Anion Gap (3-11) BUN (6-23) mg/dl Creatinine (0.6-1.4) mg/dl Est Cr Clr Drug Dosing ml/min Est GFR ( Amer) ml/min Est GFR (Non-Af Amer) ml/min BUN/Creatinine Ratio (10-20) Glucose (70-99(Fasting)) mg/dl POC Glucose 138 H (70-99) mg/dl Calcium (8.5-10.1) mg/dl Total Bilirubin (0.2-1.0) mg/dl AST (13-39) U/L ALT (7-52) U/L Alkaline Phosphatase (34-104) U/L Total Protein (6.0-8.3) gm/dl Albumin (3.4-5.0) gm/dl Globulin (2.5-4.0) gm/dl Albumin/Globulin Ratio (0.9-2) Carcinoembryonic Ag 4.6 H (0-2.5) ng/ml Urine Color Yellow Urine Appearance Clear (Clear) Urine pH 5.5 (4.5-7.5) Ur Specific Henry 1.015 (1.000-1.030) Urine Protein Negative (Negative) Urine Glucose (UA) Trace H (Negative) Urine Ketones 3+ H (Negative) Urine Blood 1+ H (Negative) Urine Nitrite Negative (Negative) Urine Bilirubin Negative (Negative) Urine Urobilinogen Negative (Negative) Ur Leukocyte Esterase Negative (Negative) Urine WBC (Auto) 1-5 (0-5) /hpf Urine RBC (Auto) 10-30 H (0-4) /hpf U Hyaline Cast (Auto) 0 (0-5) /lpf U Epithel Cells (Auto) 20-30 H (0-5) /lpf Urine Bacteria (Auto) Negative (Negative) Urine Crystals Not Reportable 10/31/21 10/31/21 10/30/21 Range/Units 02:10 02:10 20:00 WBC 4.77 L (4.8-10.8) K/uL RBC 3.49 L (4.7-6.1) M/uL Hgb 9.1 L (14.0-18.0) g/dL Hct 28.8 L (42-52) % MCV 82.5 (80-100) fL MCH 26.1 (25-34) pg MCHC 31.6 L (32-36) g/dL RDW Std Deviation 50.9 H (36.4-46.3) fL RDW Coeff of Cleo 17.0 H (11.5-14.5) % Plt Count 246 (130-400) K/uL MPV 9.0 (7.4-10.4) fL Immature Gran % (Auto) 0.2 % Neut % (Auto) 81.2 % Lymph % (Auto) 13.0 % [place] % (Auto) 5.2 % Eos % (Auto) 0.2 % Baso % (Auto) 0.2 % Neut # (Auto) 3.87 (1.4-6.5) K/uL Lymph # (Auto) 0.62 L (1.2-3.4) K/uL [place] # (Auto) 0.25 (0.11-0.59) K/uL Eos # (Auto) 0.01 (0-0.5) K/uL Baso # (Auto) 0.01 (0-0.2) K/uL Immature Gran # (Auto) 0.01 (0.00-0.02) K/uL Sodium 138 (136-145) mmol/L Potassium 3.0 L (3.5-5.1) mmol/L Chloride 107 (98-107) mmol/L Carbon Dioxide 24 (21-32) mmol/L Anion Gap 7 (3-11) BUN 4 L (6-23) mg/dl Creatinine 0.61 (0.6-1.4) mg/dl Est Cr Clr Drug Dosing 133.7 ml/min Est GFR ( Amer) 110.1 ml/min Est GFR (Non-Af Amer) 95.0 ml/min BUN/Creatinine Ratio 6.6 L (10-20) Glucose 146 H (70-99(Fasting)) mg/dl POC Glucose 186 H (70-99) mg/dl Calcium 8.4 L (8.5-10.1) mg/dl Total Bilirubin 0.7 (0.2-1.0) mg/dl AST 10 L (13-39) U/L ALT 8 (7-52) U/L Alkaline Phosphatase 90 (34-104) U/L Total Protein 5.6 L (6.0-8.3) gm/dl Albumin 3.1 L (3.4-5.0) gm/dl Globulin 2.5 (2.5-4.0) gm/dl Albumin/Globulin Ratio 1.2 (0.9-2) Carcinoembryonic Ag (0-2.5) ng/ml Urine Color Urine Appearance (Clear) Urine pH (4.5-7.5) Ur Specific Henry (1.000-1.030) Urine Protein (Negative) Urine Glucose (UA) (Negative) Urine Ketones (Negative) Urine Blood (Negative) Urine Nitrite (Negative) Urine Bilirubin (Negative) Urine Urobilinogen (Negative) Ur Leukocyte Esterase (Negative) Urine WBC (Auto) (0-5) /hpf Urine RBC (Auto) (0-4) /hpf U Hyaline Cast (Auto) (0-5) /lpf U Epithel Cells (Auto) (0-5) /lpf Urine Bacteria (Auto) (Negative) Urine Crystals 10/30/21 10/30/21 Range/Units 17:48 11:26 WBC (4.8-10.8) K/uL RBC (4.7-6.1) M/uL Hgb (14.0-18.0) g/dL Hct (42-52) % MCV (80-100) fL MCH (25-34) pg MCHC (32-36) g/dL RDW Std Deviation (36.4-46.3) fL RDW Coeff of Cleo (11.5-14.5) % Plt Count (130-400) K/uL MPV (7.4-10.4) fL Immature Gran % (Auto) % Neut % (Auto) % Lymph % (Auto) % [place] % (Auto) % Eos % (Auto) % Baso % (Auto) % Neut # (Auto) (1.4-6.5) K/uL Lymph # (Auto) (1.2-3.4) K/uL [place] # (Auto) (0.11-0.59) K/uL Eos # (Auto) (0-0.5) K/uL Baso # (Auto) (0-0.2) K/uL Immature Gran # (Auto) (0.00-0.02) K/uL Sodium (136-145) mmol/L Potassium (3.5-5.1) mmol/L Chloride (98-107) mmol/L Carbon Dioxide (21-32) mmol/L Anion Gap (3-11) BUN (6-23) mg/dl Creatinine (0.6-1.4) mg/dl Est Cr Clr Drug Dosing ml/min Est GFR ( Amer) ml/min Est GFR (Non-Af Amer) ml/min BUN/Creatinine Ratio (10-20) Glucose (70-99(Fasting)) mg/dl POC Glucose 135 H 127 H (70-99) mg/dl Calcium (8.5-10.1) mg/dl Total Bilirubin (0.2-1.0) mg/dl AST (13-39) U/L ALT (7-52) U/L Alkaline Phosphatase (34-104) U/L Total Protein (6.0-8.3) gm/dl Albumin (3.4-5.0) gm/dl Globulin (2.5-4.0) gm/dl Albumin/Globulin Ratio (0.9-2) Carcinoembryonic Ag (0-2.5) ng/ml Urine Color Urine Appearance (Clear) Urine pH (4.5-7.5) Ur Specific Henry (1.000-1.030) Urine Protein (Negative) Urine Glucose (UA) (Negative) Urine Ketones (Negative) Urine Blood (Negative) Urine Nitrite (Negative) Urine Bilirubin (Negative) Urine Urobilinogen (Negative) Ur Leukocyte Esterase (Negative) Urine WBC (Auto) (0-5) /hpf Urine RBC (Auto) (0-4) /hpf U Hyaline Cast (Auto) (0-5) /lpf U Epithel Cells (Auto) (0-5) /lpf Urine Bacteria (Auto) (Negative) Urine Crystals Diagnostic Findings CT abd pelvis IV con only CLINICAL HISTORY: trauma, diarrhea/blood thinners TECHNIQUE: Helical axial images of the abdomen and pelvis were obtained and displayed. Automated dose lowering techniques and/or adjustment according to patient size were utilized for this exam. This exam was performed with intravenous contrast. COMPARISON: None available at the time of this dictation. FINDINGS: Lower chest: Bibasilar atelectasis versus scarring is seen. Liver: Unremarkable. No focal lesions are seen. Gallbladder and biliary tree: A large gallstone is seen. No gallbladder wall thickening is seen. No intra- or extrahepatic biliary ductal dilation. Pancreas: Unremarkable, no focal lesions. Spleen: Unremarkable. Adrenals: Unremarkable. Kidneys and ureters: Multiple cysts are seen bilaterally. Nonobstructive nephrolithiasis is seen. Bladder: Innumerable stones are seen in the bladder. Bladder wall thickening is seen. Reproductive organs: Prostatomegaly is seen. Bowel: Marked colonic wall thickening and narrowing is seen in the splenic flexure. There is increased surrounding vascularity. The appendix is normal. Lymph nodes Retroperitoneal: Unremarkable. Mesenteric: Unremarkable. Pelvic: Unremarkable. Peritoneum: Normal. Vessels: Unremarkable. Abdominal wall: Unremarkable. Bones: Sclerotic focus in the right femoral neck. Degenerative changes are seen in the spine. IMPRESSION: 1. No acute abnormalities and in particular no evidence of fracture. 2. There is wall thickening and luminal narrowing of the colon at the splenic flexure with surrounding increased vascularity. This finding is suspicious for malignancy and colonoscopy should be performed if finding this has not been previously characterized on outside imaging/endoscopy. 3. Innumerable stones in the bladder. Bladder wall thickening is likely secondary to chronic obstruction this patient with mild prostatomegaly. T SCAN OF THE CHEST WITH IV CONTRAST CLINICAL HISTORY: Colonic mass COMPARISON STUDY: Chest x-ray dated 10/31/2021. TECHNIQUE: Following the IV administration of 95 cc of Optiray 320, CT scan of the thorax was performed from the thoracic inlet to the upper abdomen. Images are reviewed in the axial, sagittal, and coronal planes. IV contrast was admin istered without complication. A dose lowering technique was utilized adhering to the principles of ALARA. CT DOSE: 538.51 mGy.cm FINDINGS: Thyroid: Imaged portions of the thyroid gland are normal in size and attenuation. Thoracic aorta: The thoracic aorta is normal in caliber and demonstrates 4- vessel variant arch anatomy. No dissection is seen. Pulmonary vasculature: The pulmonary trunk is dilated, measuring 3.8 cm in diameter. This suggests pulmonary artery hypertension. There are no filling defects identified in the central pulmonary vessels to indicate pulmonary embolus. Note that this examination was not protocoled for evaluation of the pulmonary arteries. Heart: The heart is top normal in size noting trace pericardial effusion. The coronary arteries are densely calcified. Lungs and pleural spaces: There is no airspace consolidation typical for pneumonia or pleural effusion. The trachea and central airways are clear. Scattered calcified granulomas are observed. There is bibasilar scarring/atelectasis Mediastinum: There is no mediastinal lymphadenopathy. Estrella: Clear. Axillae: There is no axillary lymphadenopathy. Upper abdomen: Partially visualized upper abdominal viscera is within normal limits. Skeletal structures: The skeletal structures are osteopenic. Mild degenerative change is seen throughout the thoracic spine. Arthritic change is noted in the shoulders. No lytic or blastic bony lesions are identified. There are healed left-sided rib fractures. IMPRESSION: 1. There is no evidence of intrathoracic metastatic disease. 2. No airspace consolidation or pleural effusion is identified. 3. Additional findings as above. Addendum October 31, 2021 11:55 (1) Anemia Anemia type: unspecified type Qualified Code(s): D64.9 - Anemia, unspecified
[2021-10-31] MEDS ORDERED: PIPERACILLIN/TAZOBACTAM 4.5 GM in DEXTROSE 5% 100 ML IV ONE (11:30)
[2021-10-31] MEDS ORDERED: POTASSIUM CHLORIDE CRTAB 20 MEQ TABCR PO ONE (12:00)
--- NOTE | 2021-10-31 16:27 | CT Scan Report ---
CT abd pelvis wo con CLINICAL HISTORY: rectal mass, eval for bowel perf TECHNIQUE: Helical axial images of the abdomen and pelvis were obtained. Automated dose lowering tech niques and/or adjustment according to patient size were utilized for this exam. This exam was perfor med without intravenous contrast. COMPARISON: Comparison is made to CT abdomen pelvis 10/27/2019 FINDINGS: Lower chest: Bibasilar atelectasis versus scarring is seen. Liver: Unremarkable. No focal lesions are seen. Gallbladder and biliary tree: A large gallstone is seen without evidence of cholecystitis. No intra- or extrahepatic biliary ductal dilation. Pancreas: Unremarkable, no focal lesions. Spleen: Splenule is incidentally noted. Adrenals: Unremarkable. Kidneys and ureters: Previously noted renal cysts are stable. Bladder: Numerous bladder diverticula are seen. Reproductive organs: Prostatomegaly is seen. Bowel: Soft tissue density is seen in the mid rectum. Again noted is narrowing and bowel wall thicken ing in the splenic flexure with increased vascularity. Lymph nodes Retroperitoneal: Unremarkable. Mesenteric: Unremarkable. Pelvic: Unremarkable. Peritoneum: Normal. Vessels: Atherosclerotic calcifications are seen. Abdominal wall: Unremarkable. Bones: Degenerative changes in the visualized spine. IMPRESSION: 1. No evidence of pneumoperitoneum. 2. Wall thickening and luminal narrowing of the colon at the splenic flexure with increased surround ing vascularity. Finding is suspicious for malignancy. 3. Rectal soft tissue density is seen concerning for malignancy. 4. Bladder trabeculations likely due to chronic outlet obstruction. ACT 112: Negative or not required by law. Electronically signed by: Finn Morel M.D. 10/31/2021 4:26 PM
[2021-10-31] MEDS: PIPERACILLIN/TAZOBACTAM 3.375 GM in DEXTROSE 5% 100 ML IV SCH (17:23)
[2021-11-01] MEDS: PIPERACILLIN/TAZOBACTAM 3.375 GM in DEXTROSE 5% 100 ML IV SCH ×2 (01:59→09:42)
--- NOTE | 2021-11-01 07:44 | Discharge Summary ---
Date of Service November 01, 2021 Admission HPI Per Admitting Provider 81 y/o M w/ PMHx of DM2 (metformin and insulin 40u BID 70/30), venous insuficiency, BPH, HLD, antiphospholipid ab syndrome w/ DVTs and PEs on Coumadin, noncomplaint w/ INRs who presents w/ fall 3 days ago in context of weeks of increased weakness/fatigue. States that his baseline health is decent. He usually takes his dog out on walks. He has had more difficulty keeping up and has been more wobbly. Uses walker and crutches at baseline. Decreased appetite x 2 wks. He slipped and ran into an indoor pet gate, knocking it over. He was unable to get up after. His and daughter were in the other room. His last f all was 6 months ago. He endorses gait instability and imbalance x months. Denies room spinning or near syncope. Denies unintentional wt loss. Denies bloody or black stool. Denies family hx of colon cancer. Father had leukemia. Mother had thyroid problems. States forgets to take his warfarin every few days. Lives w/ and daughter. He had dental last work, stopped 2 days a week ago. States he resume it after. Denies incontinence. Just has difficulty getting to bathroom on time w/ decreased mobility. Denies hx of stroke or AL. Never smoker. 1 glass of wine a night. Has had covid. Admission Exam Per Admitting Provider General: Grossly A&O. NAD. Cooperative. HEENT: Atraumatic, normocephalic. EOMI. PERRL. MMM. Oropharynx wnl. Pulm: CTAB. -wheezes, -rales, -rhonchi. No respiratory distress. Cardiac: RRR, -mrg. Radial pulses intact and symmetrical. Abdominal: Nontender, soft, obese. Integ: Bilat LE venous stasis, lymphadematous appearing lower extrem Principal Diagnosis Colon Mass with Anemia Discharge Exam Constitutional WD/WN, vitals as above + obese, cooperative and comfortable Eyes PERRL, conjunctivae normal, anicteric sclerae ENMT external ear and nose normal, oropharynx normal Neck trachea midline, no thyromegaly Respiratory normal respiratory effort, lungs clear to auscultation Cardiovascular Rate/Rhythm: regular rate and regular rhythm Heart Sounds: normal S1 and normal S2; no gallop, no murmur and no cardiac rub Extremities: + edema (+1 pitting edema up to knees b/l, improved) Chest (Breasts) Chest: normal inspection of chest Gastrointestinal (Abdomen) Inspection/Auscultation: abdomen normal to inspection, + abdomen distended and normal bowel sounds Percussion/Palpation: abdomen soft; abdomen nontender Musculoskeletal no cyanosis or clubbing, extremities motor strength 5/5 Skin no rashes, warm and dry Psychiatric A+Ox3, euthymic affect Discharge Data Allergies Allergy/AdvReac Type Severity Reaction Status Date / Time sitagliptin Allergy Unknown Hives - Verified 10/30/21 15:45 Januvia cat dander AdvReac Mild EYES WATER Verified 10/30/21 15:45 [id number] Reductase AdvReac Mild LEG CRAMPS Verified 10/30/21 15:45 Inhibitor [Wjomzve-Zrr-Syk Reductase Inhibitor] Consultations 10/27/21 23:42 ED Decision to Admit Stat 10/28/21 07:51 Consult Gastroenterology Routine 10/30/21 18:10 Consult General Surgery Routine 10/31/21 18:04 Burn CD for patient Routine Procedures Performed Operation Date: 10/29/21 15:30 Actual Procedures p Colonoscopy - Ibrahima Celine. Case, DO Operation Date: 10/30/21 16:00 Actual Procedures p Colonoscopy Biopsy Cytology - Birahima G. Case, DO Ordered Studies 10/27/21 18:22 CT abd pelvis IV con only Stat CT cervical spine wo con Stat CT head/brain wo con Stat 10/27/21 20:02 US venous doppler LE BI Urgent 10/31/21 08:21 CT chest diagnostic w con Routine 10/31/21 15:56 CT abd pelvis wo con Stat Diabetes Follow up Diabetes Follow-up Needed for HgbA1c >9% Hospital Course (1) Fall: 81 y/o M w/ PMHx of DM2, BPH, HLD, antiphospholipid syndrome on Coumadin, admitted for weakness and fall, and suspected GI bleed with suspicion for colon cancer on CT. Colon mass, anemia: - Admission CTAP showed bowel wall thickening and narrowing at the splenic flexure with increased vascularity consistent with malignancy. - Hgb on admission 9.7, relatively significant drop from 13.6 on labwork in 11/2020. Has been relatively stable since admission. - Suspect that patient's colon malignancy may have been leading to small amount of bleeding for quite some time, precipitating anemia. - Also noted on labwork this admission to have low iron and ferritin levels. Venofer 400mg IV x1 given 10/29 for iron deficiency, also likely due to blood loss. - Colonoscopy performed 10/29; inadequate prep. Rectal mass biopsied. Repeat colonoscopy 10/30 showed partially obstructive circumferential splenic flexure mass with area of oozing. Recommendation by GI made for colorectal surgery at tertiary center. - [facility] physician Dr. Balbuena (colorectal surgery) recommended evaluation first by general surgeons here, and if continues to be stable can discharge with close follow up by [facility] physician Dr. Martinez here in [place]. Will place consult to Dr. Gutierrez with general surgery, and further clarify plan with GI. Fall: - Presented following fall at home after several days of progressive weakness, with no recollection of fall from patient, therefore unclear if he had syncopal event vs. mechanical fall. - Fall suspected to be secondary to blood loss vs. deconditioning and poor PO intake. - Neuro exam normal, pelvic x-ray, CT head/neck without acute findings. - No labwork to suggest a metabolic encephalopathy or infection leading to confusion and fall. - No evidence on telemetry of arrhythmia as cause of fall. - Echo performed this admission without significant valvular pathology, no evidence of CHF. - PT/OT to evaluate patient while admitted. DM2: - A1c 10.1. Patient is on 70-30 insulin and metformin 1000mg BID at home. - Defer home medications in favor of basal/bolus insulin. - Patient admits to dietary indiscretion leading to poorly controlled diabetes. - Diabetic education to be performed while patient admitted, with further discussion with PCP when ultimately discharged. - DM2 diet when not NPO. Antiphospholipid syndrome: - History of, on warfarin. - INR 1.1 on admission; patient had been holding for several days due to upcoming dental procedure. - Continue to hold warfarin in the setting of colonoscopy. Heparin 5000u SQ q12h. Hypertension: - Continuehome lisinopril. (2) Type II diabetes mellitus, uncontrolled: (3) BPH (benign prostatic hyperplasia): (4) Hypertension: (5) Hyperlipidemia: (6) Antiphospholipid syndrome: Total Time Total Time Spent Total Time Spent (In Minutes): see attending attestation Discharge Plan Discharge Items Patient Disposition: Transfer Acute Care Hospital Reason For Visit: ANEMIA / FALL Discharge Diagnosis: Colon Mass with Anemia Activity: Per Instructions section Non-emergency contact: Primary Care Provider Call non-emergency contact if: you have any medication questions, your symptoms worsen and you have a fever Follow-up/Referrals: Elizabeth Alvarenga CRNP [Primary Care Provider] - Diet: Carb Consistent or DM2 Addtl Attending Provider Instructions: 81 y/o M w/ PMHx of DM2, BPH, HLD, antiphospholipid syndrome on Coumadin, admitted for weakness and fall, and suspected GI bleed with suspicion for colon cancer on CT. Colon mass, anemia: - Admission CTAP showed bowel wall thickening and narrowing at the splenic flexure with increased vascularity consistent with malignancy. - Hgb on admission 9.7, relatively significant drop from 13.6 on labwork in 11/2020. Has been relatively stable since admission. - Suspect that patient's colon malignancy may have been leading to small amount of bleeding for quite some time, precipitating anemia. - Also noted on labwork this admission to have low iron and ferritin levels. Venofer 400mg IV x1 given 10/29 for iron deficiency, also likely due to blood loss. - Colonoscopy performed 10/29; inadequate prep. Rectal mass biopsied. Repeat colonoscopy 10/30 showed partially obstructive circumferential splenic flexure mass with area of oozing. Recommendation by GI made for colorectal surgery at tertiary center. - [facility] [facility] physician Dr. Balbuena (colorectal surgery) recommended evaluation first by general surgeons here, and if continues to be stable can discharge with close follow up by [facility] physician Dr. Martinez here in [place]. Will place consult to Dr. Gutierrez with general surgery, and further clarify plan with GI. Fall: - Presented following fall at home after several days of progressive weakness, with no recollection of fall from patient, therefore unclear if he had syncopal event vs. mechanical fall. - Fall suspected to be secondary to blood loss vs. deconditioning and poor PO intake. - Neuro exam normal, pelvic x-ray, CT head/neck without acute findings. - No labwork to suggest a metabolic encephalopathy or infection leading to confusion and fall. - No evidence on telemetry of arrhythmia as cause of fall. - Echo performed this admission without significant valvular pathology, no evidence of CHF. - PT/OT to evaluate patient while admitted. DM2: - A1c 10.1. Patient is on 70-30 insulin and metformin 1000mg BID at home. - Defer home medications in favor of basal/bolus insulin. - Patient admits to dietary indiscretion leading to poorly controlled diabetes. - Diabetic education to be performed while patient admitted, with further discussion with PCP when ultimately discharged. - DM2 diet when not NPO. Antiphospholipid syndrome: - History of, on warfarin. - INR 1.1 on admission; patient had been holding for several days due to upcoming dental procedure. - Continue to hold warfarin in the setting of colonoscopy. Heparin 5000u SQ q12h. Hypertension: - Continuehome lisinopril. Pending Studies at Discharge: Yes (colon mass pathology) Stand-Alone Forms: My [facility] Skilled Items Patient informed of condition?: Yes DNR: No Discharge Level of Care: Other Communicable Disease: No Discharge Prognosis: Stable Lines: None Urinary Catheter: No Medications and DC Order Prescriptions: Continued cholecalciferol (vitamin D3) 50 mcg (2,000 unit) capsule 2,000 units PO DAILY Qty: 30 RF: 5 Novolog Mix 70-30FlexPen U-100 100 unit/mL (70-30) insulin pen See Rx Instructions SQ QAM Qty: 4 RF: 4 (DME) pen needle, diabetic [BD Donna 2nd Gen Pen Needle] 32 gauge x 5/32" needle See Dose Instructions .ROUTE .MEDSUPPLY Qty: 200 RF: 3 warfarin 5 mg tablet 10 mg PO DAILY Qty: 180 RF: 3 rosuvastatin [Crestor] 20 mg tablet 20 mg PO DAILY Qty: 90 RF: 3 lisinopril 2.5 mg tablet 2.5 mg PO DAILY Qty: 90 RF: 3 metformin 500 mg tablet extended release 24 hr 1,000 mg PO BID Qty: 360 RF: 3 (DME) lancets [FreeStyle Lancets] 28 gauge misc See Dose Instructions .ROUTE .MEDSUPPLY RF: 0 (DME) FreeStyle Lite Strips strip See Dose Instructions .ROUTE .MEDSUPPLY Qty: 10 RF: 0 Discharge Orders: Discharge Order (Routine); Ordered 11/01/21 Ordered By: Annabella Melton/Other Patient Handouts: High Blood Sugar (Hyperglycemia), Hypoglycemia (Low Blood Sugar), Managing Type 2 Diabetes Admission Data Admit Date/Time: 10/27/21 23:56 Attending Provider: Matteo Crandall Admit Provider: Mekhi Thrasher Primary Care Provider: Elizabeth Alvarenga Other Providers: Mekhi Thrasher ; Samy Cervantes ; [facility] ; Chris Gutierrez Supervising Physician Co-Signing Physician Notes Attending attestation Pt seen and examined in concert with Dr. Azevedo. In agreement with the documented findings as noted in the resident documentation with any exceptions or additions as noted here. Continued improvement in abdominal fullness and weakness. Afebrile overnight. On examination, S1/S2 nl RRR no MCG. CTAB. Abd mildly TTP more on the left upper and lower quadrants without guarding w/ nl BS. VS, nursing notes, labs and imaging reviewed. Multiple colon masses concerning for malignancy - GI & surgery consultation - colonoscopy results concerning for malignancy and rec'd transition to tertiary service for further management. Repeat CT without perforation apparent. CEA as noted. Continue IV abx and monitoring for fevers, cultures pending from 10/31 at time of transfer handed over to accepting facility. Continue zofran Else see resident documentation as noted. Total attending time spent on this patient's case on the day of transfer: 35 minutes. Resident Activity Tracking Resident Involvement: Resident Care Provided Care Provided: Adult Hospital Medicine
[2021-11-01 08:03] LABS: BUN Creatinine Ratio 8.1 (10-20); Calcium 8.4 mg/dl (8.5-10.1); Creatinine Clr Calc Pharmacy 109.1 ml/min; Est GFR (African American) 101.7 ml/min; Est GFR (Non-African American) 87.7 ml/min; Potassium 3.3 mmol/L (3.5-5.1)
[2021-11-01] MEDS: INSULIN GLARGINE SOLOSTAR 100 UNITS/ML 3 ML PEN SC SCH (08:39)
[2021-11-01] MEDS: INSULIN ASPART PER UNIT SC SCH (08:39)
[2021-11-01] MEDS: ROSUVASTATIN CALCIUM 20 MG TAB PO SCH (08:40)
[2021-11-01] MEDS: lisinopril 2.5 MG TAB PO SCH (08:40)
[2021-11-01] MEDS: HEPARIN SOD 5,000 UNIT/0.5 ML VIAL SQ SCH (08:40)
== END 2021-11-01 11:21 | disposition short-term general hospital (02) | DRG 375 ==
LOC: ED 14:12 → SUATTDRO 23:56 → EDINP 23:56 → 2N 10-28 14:58
DX: D50.9 Iron deficiency anemia, unspecified; Z86.718 Personal history of other venous thrombosis and embolism; I87.2 Venous insufficiency (chronic) (peripheral); Y92.009 Unspecified place in unspecified non-institutional (private) residence as the place of occurrence of the external cause; Z79.4 Long term (current) use of insulin; W19.XXXA Unspecified fall, initial encounter; C18.5 Malignant neoplasm of splenic flexure; K92.2 Gastrointestinal hemorrhage, unspecified; Z86.711 Personal history of pulmonary embolism; I10 Essential (primary) hypertension; Z88.8 Allergy status to other drugs, medicaments and biological substances; N40.0 Benign prostatic hyperplasia without lower urinary tract symptoms; E78.5 Hyperlipidemia, unspecified; E11.9 Type 2 diabetes mellitus without complications; Z79.01 Long term (current) use of anticoagulants; D68.61 Antiphospholipid syndrome

== ENCOUNTER 2022-08-25 09:51 | Inpatient (IN) ==
[2022-08-25 10:21] LABS: Basophils # (auto) 0.01 K/uL (0-0.2); Basophils % (auto) 0.2 %; Hematocrit (blood only) 34.7 % (40.1-51.0); Hemoglobin 11.8 g/dl (14.0-18.0); Immature Granulocytes # (auto) 0.01 K/uL (0.00-0.02); Immature Granulocytes % (auto) 0.2 %; Lymphocytes # (auto) 0.32 K/uL (1.2-3.4); Lymphocytes % (auto) 7.6 %; Mean Platelet Volume 9.4 fL (9.4-12.4); Monocytes # (auto) 0.39 K/uL (0.24-0.82); Monocytes % (auto) 9.2 %; Neutrophils % (auto) 82.8 %; Platelet Count 128 K/uL (130-400); White Blood Count 4.23 K/ul (4.8-10.8)
--- NOTE | 2022-08-25 10:22 | Emergency Department Note ---
Impression & Plan COVID-19, Long-term (current) use of anticoagulants, INR goal 2.0-3.0, Type II diabetes mellitus, uncontrolled, Weakness, Breathlessness, Leg swelling ED Provider Note Provider: Elvin Pate MD DATE OF SERVICE: 08/25/2022 CHIEF COMPLAINT: Leg swelling, shortness of breath HISTORY OF PRESENT ILLNESS: Patient is a 82-year-old gentleman past medical history of type 2 diabetes, hypertension, hyperlipidemia, colon cancer with ostomy, PAD, PE currently on anticoagulation, and UTI presenting here today via ambulance from his home. Reports that for some time at least a year or 2 is had some swelling in his legs. Reported this morning increased shortness of breath. Not significant hypoxic upon arrival. Denies any chest pain or abdominal pain. Patient states he does have some resolving bruising on his left arm he believes from a fall several weeks ago. Patient denies new falls. Patient states he does have a little bit of runny nose and slight cough. Patient denies any significant danyelle pain and states his ostomy seems to be working okay. REVIEW OF SYSTEMS: A total of 10 review of systems was obtained and negative except as stated above in the HPI. PAST MEDICAL HISTORY: As noted above MEDICATIONS: Reviewed home medications SOCIAL HISTORY: Non-smoker, lives at home with PHYSICAL EXAM: GENERAL: alert and oriented in no acute distress on stretcher Head: normocephalic and atraumatic EYES: No injection, discharge or icterus. NECK: Trachea midline. Supple. ENT: Mucous membranes pink and moist. LUNGS: Airway patent. No retractions. Breath sounds clear with diminished bases. HEART: Regular rate and rhythm. Left upper chest port present. ABDOMEN: Soft and non-tender, without guarding or rebound. SKIN: Acyanotic, warm, dry some healing contusion noted to left upper arm. EXTREMITIES: 1-2+ swelling of the lower extremities with compression stockings i n place upon arrival. NEUROLOGICAL: No aphasia. No facial droop or slurred speech. EK bpm sinus rhythm with right bundle branch block and left anterior fascicular block. No acute ST segment elevation with a QTC of 448. CONTINUOUS CARDIAC MONITORING: was ordered and showed a heart rate of 70s-80s bpm in sinus rhythm with right bundle branch Patient's laboratory studies and imaging reviewed. Differential includes Reactive airway disease, pneumonia, pneumothorax, COPD, CHF, infections, cardiac ischemia, pulmonary embolism, musculoskeletal, gastrointestinal, as well as other pathologies. IMPRESSION/MEDICAL DECISION MAKING: Patient reports some chronic swelling of his lower legs. Is anticoagulated with history of VTE thus lower suspicion for recurrence of this today. Not signifi cant hypoxic or tachycardic upon arrival. Does report some shortness of breath as well as some mild cold symptoms. COVID influenza RSV test sent. Chest x-ray obtained. Labs including BNP to be sent. Blood work with minimal anemia and slight leukopenia. No severe electrolyte abnormality with a normal creatinine however slightly low magnesium at 1.6. Troponin not elevated but slightly increased from previous at 16.9 today still in the normal range. No significant evidence of bilirubin or AST ALT elevation and doubt hepatitis. BNP is elevated today at 242. Chest x-ray per radiology shows cardiomegaly but no significant pulmonary edema/effusion/pneumonia/pneumothorax. Negative for influenza and RSV but positive for COVID likely explains his symptoms. Discussed with the patient. A ttempted to contact his at listed phone numbers without answer. Patient states has been feeling more short of breath and weak with ambulation. Prior vaccination for COVID reported. Not significantly hypoxic at this point but in shared decision-making will trial a small dose of Lasix to see if this may help given some of the swelling but he feels that he would not do well at home feeling as short of breath as he gets with movement and his weakness. Discussed with hospitalist. DIAGNOSIS: COVID-19, leg swelling, shortness of breath, weakness DISPOSITION: Hospitalist will evaluate Patient was agreeable with this plan. Past Med/Surg History Medical History Adenocarcinoma, colon hx Anemia iron deficiency-on po supplementation by PCP, 01/2022 pre-op H&H: Antiphospholipid syndrome on anticoagulation, follows with [facility] BPH (benign prostatic hyperplasia) Carotid artery calcification 10/[address] Coronary artery calcification dense calcification per 10/[address] Glaucoma hx History of transesophageal echocardiography ([facility]) Hyperlipidemia Lower extremity edema Lung granuloma scattered calcified granulomas on 10/[address] Lymphedema Pulmonary embolism 1994 > Lovenox Type II diabetes mellitus, uncontrolled A1c 6.1% 01/23/22 UTI symptoms c/o foul odor, cloudy urine. PCP aware and ordered UA. Pt plans to provide urine sample 08/18/22 @ [facility]. Surgical History H/O colectomy History of colonoscopy History of colostomy present History of dental surgery History of elbow surgery right History of knee surgery bilat > arthroscopic History of rectal polypectomy Hx of lymph node biopsy Port-A-Cath in place (01/27/22) Insertion Access Port with Fluoro, Left Subclavian (Left) - Junior Bae, Family History Father Myocardial infarction Diabetes Aunt Breast cancer Mother Cancer Diabetes Denies family history of Ovarian cancer Prostate cancer Colorectal cancer Social History Smoking Status: Never smoker Second Hand Exposure: Yes (as a child); Hx Alcohol Use: Yes Alcohol type: wine Alcohol Intake Frequency: 2-4 x/Month Alcohol Intake Frequency Comment: Once a week Hx Substance Use: No Preferred Language: Jamaican Communication Ability: Effective Visual Impairment: No Limitations [employer] Maintenance Required: No Beliefs That Will Affect Care: None marital status: Current Living Situation: Spouse current occupational status: retired How many Children do You have: 3 Feels Safe at Home: Yes caffeine: Yes during the past year weight has: remained stable Dental Care, Regularly: Yes Physical Activity Frequency: Does not Exercise Seatbelt Use: always Sunscreen Use: Yes Assistive Devices: Glasses and Walker Allergies Allergies Allergy/AdvReac Type Severity Reaction Status Date / Time sitagliptin Allergy Intermediate Hives - Verified 08/20/22 08:28 Januvia cat dander Allergy Mild EYES WATER Verified 08/20/22 08:28 [id number]-[id number] Reductase AdvReac Intermediate LEG CRAMPS Verified 08/20/22 08:28 Inhibitor [Vibyfgl-Gko-Lej Reductase Inhibitor] Home Meds Home Medications Medication Instructions Recorded Confirmed lancets 28 gauge (FreeStyle 09/20/19 08/13/22 Lancets) multivitamin (Daily Multi-Vitamin 1 tab PO QAM 12/11/21 08/20/22 tablet) calcium carb-magnesium oxide-vit 1 tab PO QAM 01/23/22 08/20/22 D3 400 mg-167 mg-133 unit tablet (Calcium Magnesium + D) metformin 500 mg tablet,extended 1,000 mg PO BID 01/23/22 08/20/22 release 24 hr rosuvastatin 20 mg tablet (Crestor) 20 mg PO QAM 01/23/22 08/20/22 ferrous sulfate 325 mg (65 mg 325 mg PO BID 04/14/22 08/20/22 iron) tablet (Feosol) filgrastim-sndz 480 mcg/0.8 mL See Rx Instructions .Route .COMPLEX 05/11/22 injection syringe (Zarxio) insulin aspar prot-insulin aspart See Rx Instructions .Route .COMPLEX 08/13/22 08/20/22 100 unit/mL (70-30) subcutaneous pen (Novolog Mix 70-30FlexPen U-100) Previous Rx's Medication Instructions Recorded pen needle, diabetic 32 gauge x #200 ea 05/29/2132" (BD Donna 2nd Gen Pen Needle) miscellaneous medical supply #3,840 mL 12/12/21 blood sugar diagnostic (FreeStyle #100 ea 01/01/22 Lite Strips) enoxaparin 40 mg/0.4 mL 40 mg (0.4 mL) subcut QAM #30 08/19/22 subcutaneous syringe (Lovenox) syringes nitrofurantoin 100 mg PO BID #14 caps 08/19/22 monohydrate/macrocrystals 100 mg capsule (Macrobid) Results & Data (ED) Vital Signs Vital Signs - 24 hr 08/25/22 10:27 08/25/22 10:27 08/25/22 10:27 Temperature 37.4 C Temperature Source Oral Pulse Rate 82 Pulse Rate from SpO2 Sensor Respiratory Rate 18 Respiratory Effort / Characteristics Non-Labored Spontaneous Non-Labored Spontaneous Respiratory Depth Normal Normal Respiratory Pattern Regular Blood Pressure 165/71 H Blood Pressure Mean 102 Pulse Oximetry 94 96 Oxygen Delivery Method Room Air Room Air Room Air Sepsis Recent Fever Within 48 Hours No Sepsis New/Unexplained Change in Mental Status N/A Sepsis Action Taken by Nursing No Action Required 08/25/22 10:03 08/25/22 10:30 08/25/22 11:00 Temperature Temperature Source Pulse Rate 86 83 79 Pulse Rate from SpO2 Sensor 87 84 80 Respiratory Rate 19 21 17 Respiratory Effort / Characteristics Respiratory Depth Respiratory Pattern Blood Pressure Blood Pressure Mean Pulse Oximetry 95 96 86 L Oxygen Delivery Method Sepsis Recent Fever Within 48 Hours Sepsis New/Unexplained Change in Mental Status Sepsis Action Taken by Nursing 08/25/22 11:30 08/25/22 10:11 Temperature Temperature Source Pulse Rate 79 Pulse Rate from SpO2 Sensor Respiratory Rate 18 Respiratory Effort / Characteristics Respiratory Depth Respiratory Pattern Blood Pressure 165/71 H Blood Pressure Mean 102 Pulse Oximetry 94 95 Oxygen Delivery Method Room Air Sepsis Recent Fever Within 48 Hours Sepsis New/Unexplained Change in Mental Status Sepsis Action Taken by Nursing Laboratory Data Result diagrams: 08/25/22 10:10 08/25/22 10:10 Lab Results 08/25/22 08/25/22 08/25/22 Range/Units 10:10 10:10 10:10 WBC 4.23 L (4.8-10.8) K/ul RBC 3.52 L (4.63-6.08) M/uL Hgb 11.8 L (14.0-18.0) g/dl Hct 34.7 L (40.1-51.0) % MCV 98.6 (80.0-100.0) fL MCH 33.5 (25.0-34.0) pg MCHC 34.0 (32.0-36.0) g/dL RDW Std Deviation 46.5 H (36.4-46.3) fL RDW Coeff of Cleo 12.9 (11.5-14.5) % Plt Count 128 L (130-400) K/uL MPV 9.4 (9.4-12.4) fL Immature Gran % (Auto) 0.2 % Neut % (Auto) 82.8 % Lymph % (Auto) 7.6 % Bowman % (Auto) 9.2 % Eos % (Auto) 0.0 % Baso % (Auto) 0.2 % Neut # (Auto) 3.50 (1.4-6.5) K/uL Lymph # (Auto) 0.32 L (1.2-3.4) K/uL Bowman # (Auto) 0.39 (0.24-0.82) K/uL Eos # (Auto) 0.00 (0-0.50) K/uL Baso # (Auto) 0.01 (0-0.2) K/uL Immature Gran # (Auto) 0.01 (0.00-0.02) K/uL PT 11.4 (9.0-12.0) Seconds INR 1.1 (0.9-1.1) APTT 26.2 (21.0-31.0) Seconds PTT Ratio 1.0 Sodium 135 L (136-145) mmol/L Potassium 4.0 (3.5-5.1) mmol/L Chloride 102 (98-107) mmol/L Carbon Dioxide 25 (21-32) mmol/L Anion Gap 8 (3-11) BUN 17 (6-23) mg/dl Creatinine 0.80 (0.6-1.4) mg/dl Est Cr Clr Drug Dosing 97.7 ml/min Est GFR ( Amer) 97.8 ml/min Est GFR (Non-Af Amer) 84.4 ml/min BUN/Creatinine Ratio 21.3 H (10-20) Glucose 288 H (70-99(Fasting)) mg/dl Calcium 9.7 (8.5-10.1) mg/dl Magnesium 1.6 L (1.7-2.4) mg/dl Total Bilirubin 0.9 (0.2-1.0) mg/dl AST 14 (13-39) U/L ALT 11 (7-52) U/L Alkaline Phosphatase 151 H (34-104) U/L Troponin I High Sens 16.9 D (0-20) pg/ml C-Reactive Protein (0-0.5) mg/dl B-Natriuretic Peptide (0-100) pg/ml Total Protein 6.7 (6.0-8.3) gm/dl Albumin 3.6 (3.4-5.0) gm/dl Globulin 3.1 (2.5-4.0) gm/dl Albumin/Globulin Ratio 1.2 (0.9-2) SARS-CoV-2 (PCR) (Negative) Influenza Type A (PCR) (Neg) Influenza Type B (PCR) (Neg) RSV (RT-PCR) (Neg) 08/25/22 08/25/22 08/25/22 Range/Units 10:10 10:10 10:10 WBC (4.8-10.8) K/ul RBC (4.63-6.08) M/uL Hgb (14.0-18.0) g/dl Hct (40.1-51.0) % MCV (80.0-100.0) fL MCH (25.0-34.0) pg MCHC (32.0-36.0) g/dL RDW Std Deviation (36.4-46.3) fL RDW Coeff of Cleo (11.5-14.5) % Plt Count (130-400) K/uL MPV (9.4-12.4) fL Immature Gran % (Auto) % Neut % (Auto) % Lymph % (Auto) % Bowman % (Auto) % Eos % (Auto) % Baso % (Auto) % Neut # (Auto) (1.4-6.5) K/uL Lymph # (Auto) (1.2-3.4) K/uL Bowman # (Auto) (0.24-0.82) K/uL Eos # (Auto) (0-0.50) K/uL Baso # (Auto) (0-0.2) K/uL Immature Gran # (Auto) (0.00-0.02) K/uL PT (9.0-12.0) Seconds INR (0.9-1.1) APTT (21.0-31.0) Seconds PTT Ratio Sodium (136-145) mmol/L Potassium (3.5-5.1) mmol/L Chloride (98-107) mmol/L Carbon Dioxide (21-32) mmol/L Anion Gap (3-11) BUN (6-23) mg/dl Creatinine (0.6-1.4) mg/dl Est Cr Clr Drug Dosing ml/min Est GFR ( Amer) ml/min Est GFR (Non-Af Amer) ml/min BUN/Creatinine Ratio (10-20) Glucose (70-99(Fasting)) mg/dl Calcium (8.5-10.1) mg/dl Magnesium (1.7-2.4) mg/dl Total Bilirubin (0.2-1.0) mg/dl AST (13-39) U/L ALT (7-52) U/L Alkaline Phosphatase (34-104) U/L Troponin I High Sens (0-20) pg/ml C-Reactive Protein 1.40 H (0-0.5) mg/dl B-Natriuretic Peptide 242 H (0-100) pg/ml Total Protein (6.0-8.3) gm/dl Albumin (3.4-5.0) gm/dl Globulin (2.5-4.0) gm/dl Albumin/Globulin Ratio (0.9-2) SARS-CoV-2 (PCR) POSITIVE A* (Negative) Influenza Type A (PCR) Negative (Neg) Influenza Type B (PCR) Negative (Neg) RSV (RT-PCR) Negative (Neg) Administered Medications Discontinued Medications Furosemide (Furosemide Inj 20 Mg/2 Ml Vial) 20 mg IV ONE ONE Stop: 08/25/22 11:40 Last Admin: 08/25/22 11:58 Dose: 20 mg Documented By: [facility] Imaging Data Radiologist's Impression: Chest X-Ray 08/25/22 10:11 SINGLE VIEW CHEST CLINICAL HISTORY: Dyspnea. FINDINGS: 2 AP, portable, upright chest radiographs are compared to chest x-ray and chest CT dated 08/10/2022. The examination is degraded by portable technique and patient rotation. A left subclavian central venous infusion port is unchanged in position. The heart is enlarged noting atherosclerotic calcification of the thoracic aorta. The pulmonary vasculature is noncongested. There is bibasilar scarring/atelectasis. No airspace consolidation or large pleural effusion is identified. No pneumothorax is seen. The skeletal structures are osteopenic. The bony thorax is grossly intact. IMPRESSION: Cardiomegaly with no acute cardiopulmonary abnormality. ACT 112: Negative or not required by law. Electronically signed by: Frank Weeks M.D. 08/25/2022 10:52 AM Discharge Plan Visit Data Chief Complaint: Shortness of Breath/Dyspnea Stated Complaint: SOB, LOWER LEG EDEMA ED Provider: Elvin Pate Discharge Problem: COVID-19, Long-term (current) use of anticoagulants, INR goal 2.0-3.0, Type II diabetes mellitus, uncontrolled, Weakness, Breathlessness, Leg swelling Patient Disposition: Being Evaluated by Hospitalist Forms Stand Alone Forms: My [facility] Prescriptions Prescriptions: No Action Zarxio 480 mcg/0.8 mL syringe See Rx Instructions .ROUTE .COMPLEX Rx Instructions: Receives at [facility] PRN blood counts; (DME) pen needle, diabetic [BD Donna 2nd Gen Pen Needle] 32 gauge x 5/32" needle See Dose Instructions .ROUTE .MEDSUPPLY Qty: 200 3RF Dose Instruction: As directed Rx Instructions: use 2 daily (DME) miscellaneous medical supply Liquid See Rx Instructions .Route Qty: 3840 0RF Rx Instructions: Ca 600 mg, Mag 300 mg, D3 500- 1 teaspoon daily (DME) FreeStyle Lite Strips Strip See Dose Instructions .ROUTE .MEDSUPPLY Qty: 100 5RF Rx Instructions: TEST THREE TIMES DAILY; DX CODE- E11.8 ferrous sulfate [Feosol] 325 mg (65 mg iron) tablet 325 mg PO BID nitrofurantoin monohyd/m-cryst [Macrobid] 100 mg capsule 100 mg PO BID Qty: 14 0RF Rx Instructions: must administer with a meal/food enoxaparin [Lovenox] 40 mg/0.4 mL syringe 40 mg subcut QAM Qty: 30 2RF Rx Instructions: 40mg sq per [facility] subcut daily (DME) lancets [FreeStyle Lancets] 28 gauge misc See Dose Instructions .ROUTE .MEDSUPPLY Dose Instruction: As directed Rx Instructions: test BID insulin asp prt-insulin aspart [Novolog Mix 70-30FlexPen U-100] 100 unit/mL (70-30) insulin pen See Rx Instructions .ROUTE .COMPLEX Label Comments: 15 units Rx Instructions: TAKES 40 UNITS QAM, THEN 35 UNITS QPM. multivitamin [Daily Multi-Vitamin] Tablet 1 tab PO QAM metformin 500 mg tablet extended release 24 hr 1,000 mg PO BID rosuvastatin [Crestor] 20 mg tablet 20 mg PO QAM Calcium Magnesium + D 400-167-133 mg-mg-unit Tablet 1 tab PO QAM Referrals Referrals: Elizabeth Alvarenga CRNP [Primary Care Provider] -
[2022-08-25 10:38] LABS: Mean Corpuscular Hemoglobin 33.5 pg (25.0-34.0); Mean Corpuscular Volume 98.6 fL (80.0-100.0); RDW Coefficient of Variation 12.9 % (11.5-14.5); RDW Standard Deviation 46.5 fL (36.4-46.3); Red Blood Count 3.52 M/uL (4.63-6.08)
[2022-08-25 10:39] LABS: INR 1.1 (0.9-1.1); Partial Thromboplastin Time 26.2 Seconds (21.0-31.0); Prothrombin Time 11.4 Seconds (9.0-12.0)
[2022-08-25 10:48] LABS: Albumin Globulin Ratio 1.2 (0.9-2); Albumin Level 3.6 gm/dl (3.4-5.0); BUN Creatinine Ratio 21.3 (10-20); Bilirubin,Total 0.9 mg/dl (0.2-1.0); Calcium 9.7 mg/dl (8.5-10.1); Creatinine Clr Calc Pharmacy 97.7 ml/min; Est GFR (African American) 97.8 ml/min; Est GFR (Non-African American) 84.4 ml/min; Globulin 3.1 gm/dl (2.5-4.0); Magnesium 1.6 mg/dl (1.7-2.4); Total Protein 6.7 gm/dl (6.0-8.3)
[2022-08-25 10:53] LABS: Troponin I High Sensitivity 16.9 pg/ml (0-20)
--- NOTE | 2022-08-25 10:54 | XRay Report ---
SINGLE VIEW CHEST CLINICAL HISTORY: Dyspnea. FINDINGS: 2 AP, portable, upright chest radiographs are compared to chest x-ray and chest CT dated . The examination is degraded by portable technique and patient rotation. A left subclavian c entral venous infusion port is unchanged in position. The heart is enlarged noting atherosclerotic ca lcification of the thoracic aorta. The pulmonary vasculature is noncongested. There is bibasilar scar ring/atelectasis. No airspace consolidation or large pleural effusion is identified. No pneumothorax is seen. The skeletal structures are osteopenic. The bony thorax is grossly intact. IMPRESSION: Cardiomegaly with no acute cardiopulmonary abnormality. ACT 112: Negative or not required by law. Electronically signed by: Frank Weeks M.D. 08/25/2022 10:52 AM
[2022-08-25 11:03] LABS: Influenza A virus by PCR Negative (Neg); Influenza B virus by PCR Negative (Neg); RSV by PCR Negative (Neg)
[2022-08-25 11:09] LABS: SARS CoV2 RNA(COVID-19)Cepheid POSITIVE (Negative)
[2022-08-25] MEDS ORDERED: FUROSEMIDE INJ 20 MG/2 ML VIAL IV ONE (11:39)
--- NOTE | 2022-08-25 12:06 | History & Physical Report ---
Date of Service August 25, 2022 Assessment & Plan (1) COVID-19: Plan: - Day # 3 of weakness and fatigue with SANCHEZ developing this morning. - Has received vaccinations plus boosters. - 86% on RA with activity, otherwise has been > 92% on RA, therefore will start IV steroids daily, however will hold off on remdesivir on admit but can add on during admission if felt to be warranted. - Supportive care. - Isolation precautions. 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 - Weight based basal/bolus insulin ordered with [employer] [facility]. - Will consult pharmacy for glycemic management assistance while he is on IV steroids for COVID. (3) Anemia: Plan: - Continue iron supplementation. (4) Antiphospholipid syndrome: Plan: - History of, however per heme/onc his workup is negative. - On Lovenox 40 mg daily, to eventually be placed back on Coumadin after chemo is finished. - Reaching out to [facility] clinic regarding need to increase Lovenox dose--> continue Lovenox 40mg daily. (5) History of colon cancer: Plan: - Diagnosed October of this year, s/p resection and chemo. (6) Venous insufficiency: Plan: - Legs minimally swollen, equal b/l; continue elevating legs and encouraging compression stockings. History of Present Illness Chief Complaint: weakness, shortness of breath x 1 day Primary Care Provider: TORO Devlin Randal Fernandez is an 82-year-old male with a past medical history significant for colon cancer s/p ostomy and chemo, antiphospholipid syndrome, DM2, BPH, hyperlipidemia, as well as iron deficiency anemia who presents from home due to weakness and shortness of breath. 3 days ago, he noted feeling more fatigued and generally weak than usual, and this morning he noticed with minimal activity he was feeling significantly short of breath. He is feeling so weak that he has fallen once and has had several near episodes of falling due to bilateral lower extremity weakness. No reported fever, chills, or cough. Upon presentation to the ED, he has been moderately hypertensive, initially SPO2 >95% on room air, however he did desat to 86% on room air while ambulating the room. He is COVID-positive. Labs remarkable for pancytopenia secondary to likely to both COVID and chemotherapy. CRP 1.40, BNP 242. Magnesium 1.6. Allergies Allergy/AdvReac Type Severity Reaction Status Date / Time sitagliptin Allergy Intermediate Hives - Verified 08/20/22 08:28 Januvia cat dander Allergy Mild EYES WATER Verified 08/20/22 08:28 Vfratxw-REU-PqB Reductase AdvReac Intermediate LEG CRAMPS Verified 08/20/22 08:28 Inhibitor [Xzzalzm-Wlw-Lor Reductase Inhibitor] Home Medications Medication Instructions Recorded Confirmed Type lancets 28 gauge (FreeStyle 09/20/19 08/13/22 History Lancets) pen needle, diabetic 32 gauge x #200 ea 05/29/21 08/13/22 Rx 5/32" (BD Donna 2nd Gen Pen Needle) multivitamin (Daily Multi-Vitamin 1 tab PO QAM 12/11/21 08/20/22 History tablet) miscellaneous medical supply #3,840 mL 12/12/21 08/13/22 Rx blood sugar diagnostic (FreeStyle #100 ea 01/01/22 08/13/22 Rx Lite Strips) calcium carb-magnesium oxide-vit 1 tab PO QAM 01/23/22 08/20/22 History D3 400 mg-167 mg-133 unit tablet (Calcium Magnesium + D) metformin 500 mg tablet,extended 1,000 mg PO BID 01/23/22 08/20/22 History release 24 hr rosuvastatin 20 mg tablet (Crestor) 20 mg PO QAM 01/23/22 08/20/22 History ferrous sulfate 325 mg (65 mg 325 mg PO BID 04/14/22 08/20/22 History iron) tablet (Feosol) filgrastim-sndz 480 mcg/0.8 mL See Rx Instructions .Route .COMPLEX 05/11/22 08/20/22 History injection syringe (Zarxio) insulin aspar prot-insulin aspart See Rx Instructions .Route .COMPLEX 08/13/22 08/20/22 History 100 unit/mL (70-30) subcutaneous pen (Novolog Mix 70-30FlexPen U-100) enoxaparin 40 mg/0.4 mL 40 mg (0.4 mL) subcut QAM #30 08/19/22 08/20/22 Rx subcutaneous syringe (Lovenox) syringes nitrofurantoin 100 mg PO BID #14 caps 08/19/22 08/20/22 Rx monohydrate/macrocrystals 100 mg capsule (Macrobid) Past Med/Surg History Medical History Adenocarcinoma, colon hx Anemia iron deficiency-on po supplementation by PCP, 01/2022 pre-op H&H: Antiphospholipid syndrome on anticoagulation, follows with [facility] BPH (benign prostatic hyperplasia) Carotid artery calcification 10/[address] Coronary artery calcification dense calcification per 10/[address] Glaucoma hx History of transesophageal echocardiography ([facility]) Hyperlipidemia Lower extremity edema Lung granuloma scattered calcified granulomas on 10/[address] Lymphedema Pulmonary embolism 1994 > Lovenox Type II diabetes mellitus, uncontrolled A1c 6.1% 01/23/22 UTI symptoms c/o foul odor, cloudy urine. PCP aware and ordered UA. Pt plans to provide urine sample 08/18/22 @ [facility]. Surgical History H/O colectomy History of colonoscopy History of colostomy present History of dental surgery History of elbow surgery right History of knee surgery bilat > arthroscopic History of rectal polypectomy Hx of lymph node biopsy Port-A-Cath in place (01/27/22) Insertion Access Port with Fluoro, Left Subclavian (Left) - Junior Bae, DO Family History Father Myocardial infarction Diabetes Aunt Breast cancer Mother Cancer Diabetes Denies family history of Ovarian cancer Prostate cancer Colorectal cancer Social History Smoking Status: Never smoker Second Hand Exposure: No; Do You Dip or Chew Tobacco: No; Hx Alcohol Use: Yes Alcohol type: wine Alcohol Intake Frequency: 2-4 x/Month Alcohol Intake Frequency Comment: Once a week Hx Substance Use: No Preferred Language: Botswanan Communication Ability: Effective Visual Impairment: No 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: No Beliefs That Will Affect Care: None marital status: Current Living Situation: Spouse and Family Current Living Situation Comment: lives with and daughter current occupational status: retired How many Children do You have: 3 Other Information That Helps Us Care for You: No Feels Safe at Home: Yes Safety Concerns: Feels Safe At This Time caffeine: Yes during the past year weight has: remained stable Dental Care, Regularly: Yes Physical Activity Frequency: Does not Exercise Seatbelt Use: always Sunscreen Use: Yes Assistive Devices: Glasses and Walker Review of Systems Review of Systems: Constitutional: weakness, fatigue x 3 days; No fever/chills, myalgias, anorexia, night sweats Eyes: No diplopia, no worsening or blurred vision ENT: normal hearing, no trouble swallowing Respiratory: sob with exertion x 1 day; no cough, dyspnea at rest Cardiovascular: No chest pain, tightness or palpitations Abdomen: No pain, nausea, vomiting, diarrhea or constipation : Denies dysuria, hematuria, increased urgency/frequency, urinary retention Musculoskeletal: No joint pain, calf pain, swelling Neurologic: No weakness, numbness/tingling, or balance problems Psychiatric: No anxiety or depression Skin: No rash or itch Physical Exam Physical Exam: General: awake, alert, no apparent distress Head: Normocephalic, atraumatic ENT: PERRL, EOMI, no pharyngeal exudate, mucous membranes moist Chest: Clear to auscultation, on room air, no adventitious breath sounds Cardiac: Regular rate and rhythm, no murmur, no JVD, normal peripheral pulses, good capillary refill Abdominal: NABS x 4 quadrants, soft, nontender to palpation, no rebound, guarding or tenderness Extremities: Normal inspection, no peripheral edema or erythema, calfs nontender to palpation Psych: Normal mood and affect Neuro: AAO x 3, strength intact bilaterally and rated 5/5, no motor deficits, speech is clear, no peripheral sensory deficits Skin: no rash or erythema Results & Data Results & Data ([facility]) Vital Signs (Past 12 Hours) Vital Signs Temp Pulse Resp BP Pulse Ox O2 Del Method 08/25/22 10:11 95 Room Air 08/25/22 11:30 79 18 165/71 H 94 08/25/22 11:00 79 17 86 L 08/25/22 10:30 83 21 96 08/25/22 10:03 86 19 95 08/25/22 10:27 96 Room Air 08/25/22 10:27 Room Air 08/25/22 10:27 37.4 C 82 18 165/71 H 94 Room Air Laboratory Results Abnormal lab results 11/22/22 11/22/22 11/22/22 Range/Units 10:10 10:10 10:10 WBC 4.23 L (4.8-10.8) K/ul RBC 3.52 L (4.63-6.08) M/uL Hgb 11.8 L (14.0-18.0) g/dl Hct 34.7 L (40.1-51.0) % RDW Std Deviation 46.5 H (36.4-46.3) fL Plt Count 128 L (130-400) K/uL Lymph # (Auto) 0.32 L (1.2-3.4) K/uL Sodium 135 L (136-145) mmol/L BUN/Creatinine Ratio 21.3 H (10-20) Glucose 288 H (70-99(Fasting)) mg/dl Magnesium 1.6 L (1.7-2.4) mg/dl Alkaline Phosphatase 151 H (34-104) U/L B-Natriuretic Peptide 242 H (0-100) pg/ml SARS-CoV-2 (PCR) (Negative) 08/25/22 Range/Units 10:10 WBC (4.8-10.8) K/ul RBC (4.63-6.08) M/uL Hgb (14.0-18.0) g/dl Hct (40.1-51.0) % RDW Std Deviation (36.4-46.3) fL Plt Count (130-400) K/uL Lymph # (Auto) (1.2-3.4) K/uL Sodium (136-145) mmol/L BUN/Creatinine Ratio (10-20) Glucose (70-99(Fasting)) mg/dl Magnesium (1.7-2.4) mg/dl Alkaline Phosphatase (34-104) U/L B-Natriuretic Peptide (0-100) pg/ml SARS-CoV-2 (PCR) POSITIVE A* (Negative) Diagnostic Findings Chest X-Ray 08/25/22 10:11 SINGLE VIEW CHEST CLINICAL HISTORY: Dyspnea. FINDINGS: 2 AP, portable, upright chest radiographs are compared to chest x-ray and chest CT dated 08/10/2022. The examination is degraded by portable technique and patient rotation. A left subclavian central venous infusion port is unchanged in position. The heart is enlarged noting atherosclerotic calcification of the thoracic aorta. The pulmonary vasculature is noncongested. There is bibasilar scarring/atelectasis. No airspace consolidation or large pleural effusion is identified. No pneumothorax is seen. The skeletal structures are osteopenic. The bony thorax is grossly intact. IMPRESSION: Cardiomegaly with no acute cardiopulmonary abnormality. ACT 112: Negative or not required by law. Electronically signed by: Frank Weeks M.D. 08/25/2022 10:52 AM Code Status & VTE Plan Code Status DNR/DNI. Supervising Physician Co-Signing Physician Notes Patient seen and examined, chart reviewed, case discussed with Mey Ozuna and I agree with the assessment and plan as above except as otherwise noted Labs and images reviewed Randal is a 82-year-old male with past medical history of hyperlipidemia, colon cancer s/p revision with ostomy, type 2 diabetes, PAD, PE on Lovenox anticoagulation, recurrent UTI who presented with shortness of breath, fatigue, sinus congestion, cough, and inability to ambulate at home. In ER he desats easily to mid 80s with exertion, then gradually returns to 90s with rest. is initially recommended for admission due to comorbidity and hypoxia. CXR shows no acute findings, no leukocytosis, hemoglobin 11.8 from baseline of 12.7, sodium 135, potassium 4.0, magnesium 1.6, normal high- sensitivity troponin, elevated BNP of 242, and a positive COVID test. EKG is normal sinus rhythm, QTC 448. At bedside patient feels that he is fatigued and very weak, is not comfortable with return home as he cannot ambulate and is very weak and easily short of breath. At time of bedside assessment 9094 on room air, symmetrical chest rise without wheezing, pulses regular. Discussed steroid/remdesivir. Patient with desaturation with activity, normal on room air borderline oxygen requirements. We will start steroids at this time. If patient develops hypoxia at rest/nasal cannula oxygen requirement start remdesivir at that time, creatinine 0.8/creatinine clearance 97 without transaminitis on admission. PT/OT consulted, CM consulted. BNP mildly elevated, Lasix 20 mg daily to promote dry status. Patient with history of PE and cancer undergoing chemotherapy. Warfarin was switched to Lovenox due to interactions with chemotherapy. He is not a DOAC candidate due to equivocal antiphospholipid syndrome testing. Of note has been on 40 mg of Lovenox daily rather than a 1-1.5mpk dose, review of last heme-onc anticoagulation notes reference the intention to switch back to warfarin after chemo with INR of 23. Will verify dosing with coagulation clinic. Otherwise management of chronic medical issues as above, pharmacy consulted for glycemic management with type 2 diabetes and additional steroid use PG Care Time/CCT Total # of Minutes Spent Total Time Spent with Patient: Total time spent is greater than 50% in coordination of care (as documented) at patient's floor/unit and/or counseling patient: Coding Level of Care Code 12308 Initial Inpt Care Lvl 3 Diagnoses COVID-19 U07.1 Type II diabetes mellitus, uncontrolled E11.65 Anemia D64.9 Anemia type: unspecified type Antiphospholipid syndrome D68.61 History of colon cancer Z85.038 Venous insufficiency I87.2 (1) Anemia Anemia type: unspecified type Qualified Code(s): D64.9 - Anemia, unspecified
[2022-08-25] MEDS ORDERED: dexAMETHasone 6 MG in SYRINGE 0 ML IV ONE (13:30)
[2022-08-25] MEDS ORDERED: POLYETHYLENE (MIRALAX) 17 GM PACK PO PRN (15:07)
[2022-08-25] MEDS ORDERED: DEXTROSE 50% 50 ML SYRINGE IV PRN (15:07)
[2022-08-25] MEDS ORDERED: GLUCAGON FOR INJ 1 MG VIAL SQ PRN (15:07)
[2022-08-25] MEDS ORDERED: GLUCOSE 40% GEL 15 GM TUBE PO PRN (15:07)
[2022-08-25] MEDS ORDERED: PHARMACY GLYCEMIC MGMT CONSULT PRN (15:07)
[2022-08-25] MEDS ORDERED: CARBOHYDRATES FOR HYPOGLYCEMIA PO PRN (15:07)
[2022-08-25] MEDS ORDERED: GLUCOSE 10 TAB/TUBE PO PRN (15:07)
[2022-08-25] MEDS ORDERED: ONDANSETRON INJ 2 MG/ML 2 ML VIAL IV PRN (15:07)
[2022-08-25] MEDS ORDERED: ACETAMINOPHEN 325 MG TAB PO PRN (15:07)
[2022-08-25] MEDS: INSULIN ASPART PER UNIT SC SCH ×3 (17:28→23:41)
[2022-08-25 17:30] LABS: Appearance Urine Clear (Clear); Bacteria Urine Automated Negative (Negative); Bilirubin Urine Negative (Negative); Blood Urine 1+ (Negative); Color Urine Yellow; Glucose Urine UA 1+ (Negative); Ketones Urine Negative (Negative); Leukocyte Esterase Urine Negative (Negative); Nitrite Urine Negative (Negative); Protein Urine Negative (Negative); RBC Urine Automated 0-4 /hpf (0-4); Specific Gravity Urine 1.013 (1.000-1.030); Urobilinogen Urine Negative (Negative)
[2022-08-25] MEDS: MAGNESIUM SULFATE / D5W 1 GM/100 ML BAG IV SCH ×2 (18:52→21:19)
[2022-08-25] MEDS ORDERED: LANTUS PER UNIT CHARGE SQ SCH ×2 (21:00)
[2022-08-25] MEDS: FERROUS SULFATE 325 MG TAB PO SCH (21:23)
[2022-08-26] MEDS: INSULIN ASPART PER UNIT SC SCH ×5 (04:21→21:07)
[2022-08-26 07:47] LABS: Basophils # (auto) 0.01 K/uL (0-0.2); Basophils % (auto) 0.3 %; Hematocrit (blood only) 34.7 % (40.1-51.0); Hemoglobin 11.9 g/dl (14.0-18.0); Immature Granulocytes # (auto) 0.01 K/uL (0.00-0.02); Immature Granulocytes % (auto) 0.3 %; Lymphocytes # (auto) 0.64 K/uL (1.2-3.4); Lymphocytes % (auto) 21.1 %; Mean Corpuscular Hemoglobin 33.3 pg (25.0-34.0); Mean Corpuscular Hgb Conc 34.3 g/dL (32.0-36.0); Mean Corpuscular Volume 97.2 fL (80.0-100.0); Mean Platelet Volume 9.4 fL (9.4-12.4); Monocytes # (auto) 0.48 K/uL (0.24-0.82); Monocytes % (auto) 15.8 %; Neutrophils % (auto) 62.5 %; Platelet Count 138 K/uL (130-400); RDW Coefficient of Variation 12.6 % (11.5-14.5); RDW Standard Deviation 45.4 fL (36.4-46.3); Red Blood Count 3.57 M/uL (4.63-6.08); White Blood Count 3.04 K/ul (4.8-10.8)
[2022-08-26 08:03] LABS: Prothrombin Time 10.7 Seconds (9.0-12.0)
[2022-08-26 08:04] LABS: Estimated Average Glucose 214 mg/dl; Hemoglobin A1C 9.1 % (4.5-5.6)
[2022-08-26 08:09] LABS: BUN Creatinine Ratio 23.9 (10-20); Calcium 9.6 mg/dl (8.5-10.1); Creatinine Clr Calc Pharmacy 112.9 ml/min; Est GFR (African American) 105.2 ml/min; Est GFR (Non-African American) 90.8 ml/min; Magnesium 2.1 mg/dl (1.7-2.4); Potassium 3.5 mmol/L (3.5-5.1)
--- NOTE | 2022-08-26 08:41 | Pharmacy Report ---
Pharmacy Glycemic Short Note 2 - Date of Service August 26, 2022 - Glycemic Short BSG Results (Last 24 hours): 08/25/22 08/25/22 08/25/22 10:10 17:00 17:02 Glucose 288 H POC Glucose 269 H 280 H 08/25/22 08/25/22 08/25/22 20:34 20:36 23:35 Glucose POC Glucose 312 H* 307 H* 294 H 08/26/22 08/26/22 08/26/22 04:16 06:46 07:50 Glucose 155 H POC Glucose 199 H 146 H OUTPATIENT ANTIDIABETIC REGIMEN: * Novolog 70/30 - 40 units SC qAM, 35 units SC qPM * Metformin 1000 mg PO BIDM HbA1c: 9.3% (08/18/22) ASSESSMENT: * DF is a 82 year old male with uncontrolled T2DM, admitted for worsening weakness/fatigue secondary to COVID-19 * Ordered dexamethasone 6 mg IV daily * BSGs elevated last evening, likely related to IV steroids in ED * Trended down nicely overnight (294 -> 199 ->146 mg/dL) * Will give basal to cover steroids and tighten Novolog parameters further PLAN FOR INPATIENT GLYCEMIC CONTROL: * Hold outpatient oral diabetes medications * Basal insulin * Lantus 35 units SQ daily with dexamethasone today * Lantus 0-15 units SC HS (see protocol text) * Bolus insulin * NovoLog per scale ACHS or Q6hrs while NPO * Goal Range: Low 110 mg/dL - High 140 mg/dL * Correction Factor: 15 mg/dL/unit * Nutritional / Prandial insulin per carb ratio of 1 unit per 5 grams CHO consumed
[2022-08-26] MEDS: FERROUS SULFATE 325 MG TAB PO SCH ×2 (08:50→19:45)
[2022-08-26] MEDS: ENOXAPARIN INJ 40 MG/0.4 ML SYR SQ SCH (08:50)
[2022-08-26] MEDS: ROSUVASTATIN CALCIUM 20 MG TAB PO SCH (08:50)
[2022-08-26] MEDS: FUROSEMIDE INJ 20 MG/2 ML VIAL IV SCH (08:51)
[2022-08-26] MEDS: dexAMETHasone 6 MG in SYRINGE 0 ML IV SCH (08:52)
[2022-08-26] MEDS ORDERED: [UNRECOGNIZED DRUG - OTHER] PO SCH (09:00)
[2022-08-26] MEDS ORDERED: LANTUS PER UNIT CHARGE SQ SCH ×2 (09:00→21:00)
--- NOTE | 2022-08-26 22:06 | Hospitalist Progress Note ---
Date of Service August 26, 2022 Assessment & Plan (1) COVID-19: Plan: - Day # 4 of weakness and fatigue with SANCHEZ developing on morning of admission. - Has received vaccinations plus boosters. - 86% on RA with activity, otherwise has been > 92% on RA, therefore will start IV steroids daily, however will hold off on remdesivir on admit but can add on during admission if felt to be warranted. -Will monitor inflammatory markers, patient does feel better on 08/26 -will have PT?OT re-eval tomorrow. - Supportive care. - Isolation precautions. 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 - Weight based basal/bolus insulin ordered with [employer]. - Will consult pharmacy for glycemic management assistance while he is on IV steroids for COVID. (3) Anemia: Plan: - Continue iron supplementation. (4) Antiphospholipid syndrome: Plan: - History of, however per heme/onc his workup is negative. - On Lovenox 40 mg daily, to eventually be placed back on Coumadin after chemo is finished. - Reaching out to AC clinic regarding need to increase Lovenox dose--> continue Lovenox 40mg daily. (5) History of colon cancer: Plan: - Diagnosed October of this year, s/p resection and chemo. (6) Venous insufficiency: Plan: - Legs minimally swollen, equal b/l; continue elevating legs and encouraging compression stockings. Admission and Anticipated Discharge Date Admission Date: August 25, 2022 Subjective 82 yo male reports feeling better. He continues to feel weak in his lower extremities, however he states that he is feeling stronger. Review of Systems Review of Systems: All systems reviewed & are unremarkable except as noted in HPI & below Physical Exam Physical Exam: General: awake, alert, no apparent distress Head: Normocephalic, atraumatic ENT: PERRL, EOMI, no pharyngeal exudate, mucous membranes moist Chest: Clear to auscultation, on room air, no adventitious breath sounds Cardiac: Regular rate and rhythm, no murmur, no JVD, normal peripheral pulses, good capillary refill Abdominal: NABS x 4 quadrants, soft, nontender to palpation, no rebound, guarding or tenderness Extremities: Normal inspection, no peripheral edema or erythema, calfs nontender to palpation Psych: Normal mood and affect Neuro: AAO x 3, strength intact bilaterally and rated 5/5, no motor deficits, speech is clear, no peripheral sensory deficits Skin: no rash or erythema Results & Data Results & Data ([facility]) Vital Signs (Past 12 Hours) Vital Signs Temp Pulse Resp BP Pulse Ox Pulse Ox Pulse Ox 08/26/22 20:00 08/26/22 19:46 36.5 C 61 18 172/73 H 97 08/26/22 16:30 36.5 C 77 20 149/78 H 97 08/26/22 10:27 96 98 O2 Del Method 08/26/22 20:00 Room Air 08/26/22 19:46 Room Air 08/26/22 16:30 Room Air 08/26/22 10:27 PG Care Time/CCT Total # of Minutes Spent Total Time Spent with Patient: Total time spent is greater than 50% in coordination of care (as documented) at patient's floor/unit and/or counseling patient: Coding Level of Care Code 79612 Subseq Hosp Care Lvl 3 Diagnoses COVID-19 U07.1 Type II diabetes mellitus, uncontrolled E11.65 Anemia D64.9 Anemia type: unspecified type Antiphospholipid syndrome D68.61 History of colon cancer Z85.038 Venous insufficiency I87.2 (1) Anemia Anemia type: unspecified type Qualified Code(s): D64.9 - Anemia, unspecified
--- NOTE | 2022-08-26 23:55 | Electrocardiogram Report ---
Test Reason : Blood Pressure : / mmHG Vent. Rate : 082 BPM Atrial Rate : 082 BPM P-R Int : 190 ms QRS Dur : 132 ms QT Int : 384 ms P-R-T Axes : 050 -52 063 degrees QTc Int : 448 ms Normal sinus rhythm Right bundle branch block Left anterior fascicular block Bifascicular block Cannot rule out Septal infarct , age undetermined Abnormal ECG When compared with ECG of 25-AUG-2022 10:20, Premature ventricular complexes are no longer Present Confirmed by Marcos Shoemaker ([id number]) on 08/26/2022 11:55:18 PM Referred By: REFERRED SELF Confirmed By:Marcos Shoemaker
[2022-08-27 06:25] LABS: Hematocrit (blood only) 35.3 % (40.1-51.0); Hemoglobin 12.2 g/dl (14.0-18.0); Mean Corpuscular Hemoglobin 33.4 pg (25.0-34.0); Mean Corpuscular Hgb Conc 34.6 g/dL (32.0-36.0); Mean Corpuscular Volume 96.7 fL (80.0-100.0); Mean Platelet Volume 9.4 fL (9.4-12.4); Platelet Count 144 K/uL (130-400); RDW Coefficient of Variation 12.3 % (11.5-14.5); RDW Standard Deviation 44.2 fL (36.4-46.3); Red Blood Count 3.65 M/uL (4.63-6.08); White Blood Count 3.83 K/ul (4.8-10.8)
[2022-08-27 06:45] LABS: BUN Creatinine Ratio 28.4 (10-20); C Reactive Protein 0.99 mg/dl (0-0.5); Calcium 9.4 mg/dl (8.5-10.1); Creatinine Clr Calc Pharmacy 111.9 ml/min; Est GFR (African American) 105.2 ml/min; Est GFR (Non-African American) 90.8 ml/min; Potassium 3.4 mmol/L (3.5-5.1)
[2022-08-27] MEDS: INSULIN ASPART PER UNIT SC SCH ×4 (08:52→20:16)
[2022-08-27] MEDS: LANTUS PER UNIT CHARGE SQ SCH (08:53)
[2022-08-27] MEDS: dexAMETHasone 6 MG in SYRINGE 0 ML IV SCH (09:02)
[2022-08-27] MEDS: FUROSEMIDE INJ 20 MG/2 ML VIAL IV SCH (09:04)
[2022-08-27] MEDS: ENOXAPARIN INJ 40 MG/0.4 ML SYR SQ SCH (09:07)
[2022-08-27] MEDS: ROSUVASTATIN CALCIUM 20 MG TAB PO SCH (09:07)
[2022-08-27] MEDS: FERROUS SULFATE 325 MG TAB PO SCH ×2 (09:07→20:24)
[2022-08-27] MEDS ORDERED: LANTUS PER UNIT CHARGE SQ SCH (21:00)
--- NOTE | 2022-08-27 21:40 | Hospitalist Progress Note ---
Date of Service August 27, 2022 Assessment & Plan (1) COVID-19: Plan: - Day # 5 of weakness and fatigue with SANCHEZ developing on morning of admission. - Has received vaccinations plus boosters. - 86% on RA with activity, otherwise has been > 92% on RA, therefore will start IV steroids daily, however will hold off on remdesivir on admit but can add on during admission if felt to be warranted. -Will monitor inflammatory markers, patient does feel better on 08/27 -slightly stronger, has no new complaints. -PT?OT seeing patient, still is relatively weak. - Supportive care. - Isolation precautions. 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 - Weight based basal/bolus insulin ordered with [facility]. - Will consult pharmacy for glycemic management assistance while he is on IV steroids for COVID. (3) Anemia: Plan: - Continue iron supplementation. (4) Antiphospholipid syndrome: Plan: - History of, however per heme/onc his workup is negative. - On Lovenox 40 mg daily, to eventually be placed back on Coumadin after chemo is finished. - Reaching out to AC clinic regarding need to increase Lovenox dose--> continue Lovenox 40mg daily. (5) History of colon cancer: Plan: - Diagnosed October of this year, s/p resection and chemo. (6) Venous insufficiency: Plan: - Legs minimally swollen, equal b/l; continue elevating legs and encouraging compression stockings. Admission and Anticipated Discharge Date Admission Date: August 25, 2022 Subjective 82 yo male reports feeling slightly stronger. He has no new complaints. He has no new complaints. Review of Systems Review of Systems: All systems reviewed & are unremarkable except as noted in HPI & below Physical Exam Physical Exam: General: awake, alert, no apparent distress Head: Normocephalic, atraumatic ENT: PERRL, EOMI, no pharyngeal exudate, mucous membranes moist Chest: Clear to auscultation, on room air, no adventitious breath sounds Cardiac: Regular rate and rhythm, no murmur, no JVD, normal peripheral pulses, good capillary refill Abdominal: NABS x 4 quadrants, soft, nontender to palpation, no rebound, guarding or tenderness Extremities: Normal inspection, no peripheral edema or erythema, calfs nontender to palpation Psych: Normal mood and affect Neuro: AAO x 3, strength intact bilaterally and rated 5/5, no motor deficits, speech is clear, no peripheral sensory deficits Skin: no rash or erythema Results & Data Results & Data ([facility]) Vital Signs (Past 12 Hours) Vital Signs Temp Pulse Resp BP Pulse Ox O2 Del Method 08/27/22 20:48 Room Air 08/27/22 16:34 36.5 C 55 L 18 142/64 H 94 Room Air PG Care Time/CCT Total # of Minutes Spent Total Time Spent with Patient: Total time spent is greater than 50% in coordination of care (as documented) at patient's floor/unit and/or counseling patient: Coding Level of Care Code 47838 Subseq Hosp Care Lvl 2 Diagnoses COVID-19 U07.1 Type II diabetes mellitus, uncontrolled E11.65 Anemia D64.9 Anemia type: unspecified type Antiphospholipid syndrome D68.61 History of colon cancer Z85.038 Venous insufficiency I87.2 Time Spent (min) 25 (1) Anemia Anemia type: unspecified type Qualified Code(s): D64.9 - Anemia, unspecified
[2022-08-28] MEDS: INSULIN ASPART PER UNIT SC SCH ×4 (09:11→21:14)
[2022-08-28] MEDS: FERROUS SULFATE 325 MG TAB PO SCH ×2 (09:17→21:19)
[2022-08-28] MEDS: ROSUVASTATIN CALCIUM 20 MG TAB PO SCH (09:17)
[2022-08-28] MEDS: dexAMETHasone 6 MG in SYRINGE 0 ML IV SCH (09:18)
[2022-08-28] MEDS: ENOXAPARIN INJ 40 MG/0.4 ML SYR SQ SCH (09:18)
[2022-08-28] MEDS: FUROSEMIDE INJ 20 MG/2 ML VIAL IV SCH (09:20)
[2022-08-28] MEDS: LANTUS PER UNIT CHARGE SQ SCH (09:32)
[2022-08-28] MEDS: HEPARIN 100 UNIT/ML 5ML FLUSH FLUSH PRN (09:40)
[2022-08-28 11:44] LABS: BUN Creatinine Ratio 23.5 (10-20); Calcium 9.6 mg/dl (8.5-10.1); Creatinine Clr Calc Pharmacy 92.6 ml/min; Est GFR (African American) 97.3 ml/min; Est GFR (Non-African American) 83.9 ml/min; Magnesium 1.7 mg/dl (1.7-2.4); Potassium 3.1 mmol/L (3.5-5.1)
--- NOTE | 2022-08-28 12:19 | Pharmacy Report ---
Pharmacy Glycemic Short Note 2 - Date of Service August 28, 2022 - Glycemic Short BSG Results (Last 24 hours): 08/27/22 08/27/22 08/28/22 16:07 20:13 08:26 Glucose POC Glucose 139 H 116 H 112 H 08/28/22 10:47 Glucose 178 H POC Glucose OUTPATIENT ANTIDIABETIC REGIMEN: * Novolog 70/30 - 40 units SC qAM, 35 units SC qPM * Metformin 1000 mg PO BIDM * HbA1c: 9.3% (08/18/22) ASSESSMENT: 08/28: * Randal received a total of 90 units of insulin yesterday, 40 units of basal + 50 units of bolus. BSGs were: [phone] mg/dL. * Fasting BSG was 112 mg/dL this AM. * No changes necessary today. 08/26: * LEE is a 82 year old male with uncontrolled T2DM, admitted for worsening weakness/fatigue secondary to COVID-19 * Ordered dexamethasone 6 mg IV daily * BSGs elevated last evening, likely related to IV steroids in ED * Trended down nicely overnight (294 -> 199 ->146 mg/dL) * Will give basal to cover steroids and tighten Novolog parameters further PLAN FOR INPATIENT GLYCEMIC CONTROL: * Hold outpatient oral diabetes medications * Basal insulin * Lantus 40 units SC daily (to be given with dexamethasone) * Bolus insulin * NovoLog per scale ACHS or Q6hrs while NPO * Goal Range: Low 110 mg/dL - High 140 mg/dL * Correction Factor: 10 mg/dL/unit * Nutritional / Prandial insulin per carb ratio of 1 unit per 3 grams CHO consumed
[2022-08-28] MEDS ORDERED: POTASSIUM CHLORIDE CRTAB 20 MEQ TABCR PO STA (19:23)
--- NOTE | 2022-08-28 21:44 | Hospitalist Progress Note ---
Date of Service August 28, 2022 Assessment & Plan (1) COVID-19: Plan: - Day # 6 of weakness and fatigue with SANCHEZ developing on morning of admission. - Has received vaccinations plus boosters. - 86% on RA with activity, otherwise has been > 92% on RA, therefore will start IV steroids daily, however will hold off on remdesivir on admit but can add on during admission if felt to be warranted. -Will monitor inflammatory markers, patient does feel better on 08/27 -slightly stronger, has no new complaints. -PTOT seeing patient, still is relatively weak, appears to require rehab. - Supportive care. - Isolation precautions. 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 - Weight based basal/bolus insulin ordered with [employer] ACHS. - Will consult pharmacy for glycemic management assistance while he is on IV steroids for COVID. (3) Anemia: Plan: - Continue iron supplementation. (4) Antiphospholipid syndrome: Plan: - History of, however per heme/onc his workup is negative. - On Lovenox 40 mg daily, to eventually be placed back on Coumadin after chemo is finished. - Reaching out to [facility] clinic regarding need to increase Lovenox dose--> continue Lovenox 40mg daily. (5) History of colon cancer: Plan: - Diagnosed October of this year, s/p resection and chemo. (6) Venous insufficiency: Plan: - Legs minimally swollen, equal b/l; continue elevating legs and encouraging compression stockings. Admission and Anticipated Discharge Date Admission Date: August 25, 2022 Subjective Patient reports feeling slightly stronger but still not back to his baseline. Review of Systems Review of Systems: All systems reviewed & are unremarkable except as noted in HPI & below Physical Exam Physical Exam: General: awake, alert, no apparent distress Head: Normocephalic, atraumatic ENT: PERRL, EOMI, no pharyngeal exudate, mucous membranes moist Chest: Clear to auscultation, on room air, no adventitious breath sounds Cardiac: Regular rate and rhythm, no murmur, no JVD, normal peripheral pulses, good capillary refill Abdominal: NABS x 4 quadrants, soft, nontender to palpation, no rebound, guarding or tenderness Extremities: Normal inspection, no peripheral edema or erythema, calfs nontender to palpation Psych: Normal mood and affect Neuro: AAO x 3, strength intact bilaterally and rated 5/5, no motor deficits, speech is clear, no peripheral sensory deficits Skin: no rash or erythema Results & Data Results & Data ([facility]) Vital Signs (Past 12 Hours) Vital Signs Temp Pulse Resp BP Pulse Ox O2 Del Method 08/28/22 21:10 36.5 C 58 L 18 163/83 H 96 Room Air 08/28/22 20:00 Room Air 08/28/22 16:32 36.5 C 62 18 134/74 96 Room Air PG Care Time/CCT Total # of Minutes Spent Total Time Spent with Patient: Total time spent is greater than 50% in coordination of care (as documented) at patient's floor/unit and/or counseling patient: Coding Level of Care Code 29992 Subseq Hosp Care Lvl 2 Diagnoses COVID-19 U07.1 Type II diabetes mellitus, uncontrolled E11.65 Anemia D64.9 Anemia type: unspecified type Antiphospholipid syndrome D68.61 History of colon cancer Z85.038 Venous insufficiency I87.2 (1) Anemia Anemia type: unspecified type Qualified Code(s): D64.9 - Anemia, unspecified
[2022-08-29] MEDS: LANTUS PER UNIT CHARGE SQ SCH (09:19)
[2022-08-29] MEDS: INSULIN ASPART PER UNIT SC SCH ×4 (09:19→21:25)
[2022-08-29] MEDS: ENOXAPARIN INJ 40 MG/0.4 ML SYR SQ SCH (09:28)
[2022-08-29] MEDS: dexAMETHasone 6 MG in SYRINGE 0 ML IV SCH (09:30)
[2022-08-29] MEDS: ROSUVASTATIN CALCIUM 20 MG TAB PO SCH (09:30)
[2022-08-29] MEDS: FERROUS SULFATE 325 MG TAB PO SCH ×2 (09:30→21:35)
[2022-08-29] MEDS: FUROSEMIDE INJ 20 MG/2 ML VIAL IV SCH (09:50)
[2022-08-29] MEDS: HEPARIN 100 UNIT/ML 5ML FLUSH FLUSH PRN (09:51)
[2022-08-29] MEDS ORDERED: POTASSIUM CHLORIDE CRTAB 20 MEQ TABCR PO STA (15:29)
--- NOTE | 2022-08-29 22:18 | Hospitalist Progress Note ---
Date of Service August 29, 2022 Assessment & Plan (1) COVID-19: Plan: - Day # 6 of weakness and fatigue with SANCHEZ developing on morning of admission. - Has received vaccinations plus boosters. - 86% on RA with activity, otherwise has been > 92% on RA, therefore will start IV steroids daily, however will hold off on remdesivir on admit but can add on during admission if felt to be warranted. -Will monitor inflammatory markers, patient does feel better on 08/27 -slightly stronger, has no new complaints. -PTOT seeing patient, still is relatively weak, appears to require rehab, awaiting placement. - Supportive care. - Isolation precautions. 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 - Weight based basal/bolus insulin ordered with [employer] ACHS. - Will consult pharmacy for glycemic management assistance while he is on IV steroids for COVID. (3) Anemia: Plan: - Continue iron supplementation. (4) Antiphospholipid syndrome: Plan: - History of, however per heme/onc his workup is negative. - On Lovenox 40 mg daily, to eventually be placed back on Coumadin after chemo is finished. - Reaching out to [facility] clinic regarding need to increase Lovenox dose--> continue Lovenox 40mg daily. (5) History of colon cancer: Plan: - Diagnosed October of this year, s/p resection and chemo. (6) Venous insufficiency: Plan: - Legs minimally swollen, equal b/l; continue elevating legs and encouraging compression stockings. Admission and Anticipated Discharge Date Admission Date: August 25, 2022 Subjective 82 yo male reports no new symptoms. Still feels weak. at bedside and updated. Review of Systems Review of Systems: All systems reviewed & are unremarkable except as noted in HPI & below Physical Exam Physical Exam: General: awake, alert, no apparent distress Head: Normocephalic, atraumatic ENT: PERRL, EOMI, no pharyngeal exudate, mucous membranes moist Chest: Clear to auscultation, on room air, no adventitious breath sounds Cardiac: Regular rate and rhythm, no murmur, no JVD, normal peripheral pulses, good capillary refill Abdominal: NABS x 4 quadrants, soft, nontender to palpation, no rebound, guarding or tenderness Extremities: Normal inspection, no peripheral edema or erythema, calfs nontender to palpation Psych: Normal mood and affect Neuro: AAO x 3, strength intact bilaterally and rated 5/5, no motor deficits, speech is clear, no peripheral sensory deficits Skin: no rash or erythema Results & Data Results & Data ([facility] [place]) Vital Signs (Past 12 Hours) Vital Signs Temp Pulse Resp BP Pulse Ox O2 Del Method 08/29/22 21:04 36.6 C 61 18 120/69 95 Room Air 08/29/22 17:19 36.3 C L 62 16 147/73 H 97 Room Air PG Care Time/CCT Total # of Minutes Spent Total Time Spent with Patient: Total time spent is greater than 50% in coordination of care (as documented) at patient's floor/unit and/or counseling patient: Coding Level of Care Code 71258 Subseq Hosp Care Lvl 2 Diagnoses COVID-19 U07.1 Type II diabetes mellitus, uncontrolled E11.65 Anemia D64.9 Anemia type: unspecified type Antiphospholipid syndrome D68.61 History of colon cancer Z85.038 Venous insufficiency I87.2 Time Spent (min) 25 (1) Anemia Anemia type: unspecified type Qualified Code(s): D64.9 - Anemia, unspecified
[2022-08-30 06:16] LABS: Hematocrit (blood only) 36.5 % (40.1-51.0); Hemoglobin 12.4 g/dl (14.0-18.0); Mean Corpuscular Volume 97.1 fL (80.0-100.0); Mean Platelet Volume 9.5 fL (9.4-12.4); Platelet Count 160 K/uL (130-400); RDW Coefficient of Variation 12.3 % (11.5-14.5); RDW Standard Deviation 43.6 fL (36.4-46.3); Red Blood Count 3.76 M/uL (4.63-6.08); White Blood Count 5.33 K/ul (4.8-10.8)
[2022-08-30 06:35] LABS: Anion Gap 5 (3-11); BUN Creatinine Ratio 24.4 (10-20); Blood Urea Nitrogen 19 mg/dl (6-23); C Reactive Protein < 0.50 mg/dl (0-0.5); Calcium 9.3 mg/dl (8.5-10.1); Carbon Dioxide 28 mmol/L (21-32); Chloride 103 mmol/L (98-107); Creatinine Clr Calc Pharmacy 96.2 ml/min; Est GFR (African American) 98.8 ml/min; Est GFR (Non-African American) 85.3 ml/min; Glucose 92 mg/dl (70-99(Fasting)); Potassium 3.8 mmol/L (3.5-5.1); Sodium 136 mmol/L (136-145)
[2022-08-30] MEDS: INSULIN ASPART PER UNIT SC SCH ×4 (09:44→20:55)
[2022-08-30] MEDS: LANTUS PER UNIT CHARGE SQ SCH (09:45)
[2022-08-30] MEDS: dexAMETHasone 6 MG in SYRINGE 0 ML IV SCH (09:51)
[2022-08-30] MEDS: ENOXAPARIN INJ 40 MG/0.4 ML SYR SQ SCH (09:52)
[2022-08-30] MEDS: FERROUS SULFATE 325 MG TAB PO SCH ×2 (09:52→20:36)
[2022-08-30] MEDS: FUROSEMIDE INJ 20 MG/2 ML VIAL IV SCH (09:53)
[2022-08-30] MEDS: ROSUVASTATIN CALCIUM 20 MG TAB PO SCH (09:53)
[2022-08-30] MEDS: HEPARIN 100 UNIT/ML 5ML FLUSH FLUSH PRN (10:07)
--- NOTE | 2022-08-30 18:55 | Hospitalist Progress Note ---
Date of Service August 30, 2022 Assessment & Plan (1) COVID-19: Plan: - Day # 6 of weakness and fatigue with shortness of breath on exertion developing on admission. - Has received vaccinations plus boosters. - 86% on RA with activity, otherwise has been > 92% on RA, therefore IV dexamethasone initially given, however will hold off on remdesivir on admit but can add on during admission if felt to be warranted. - Supportive care. - Isolation precautions. Due to negative chest x-ray, CRP and oxygen saturations of 96% on room air the risk of dexamethasone outweighs benefit for continued administration. He is already had his dose for today. We will discontinue dexamethasone tomorrow. 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 - Appreciate pharmacy glycemic management -updated pharmacy that he will be coming off dexamethasone tomorrow. (3) Anemia: Plan: - Continue iron supplementation. (4) Antiphospholipid syndrome: Plan: - History of, however per heme/onc his workup is negative. - On Lovenox 40 mg daily, to eventually be placed back on Coumadin after chemo is finished. (5) History of colon cancer: Plan: - Diagnosed October of this year, s/p resection and chemo. (6) Venous insufficiency: Plan: - Legs minimally swollen, equal b/l; continue elevating legs and encouraging compression stockings. Plan VTE prophylaxis -Lovenox 40 mg subcu daily Diet - type 2 diabetes Disposition - medically stable for discharge pending placement at this time Admission and Anticipated Discharge Date Admission Date: August 25, 2022 Subjective Dry cough persists. No loss of taste or smell. Eating and drinking well. He reports normal bowel movements. No shortness of breath. Medically stable for discharge awaiting placement this time. Called his for routine update around 7pm but no answer at this time. Review of Systems 2 Review of Systems: All systems reviewed & are unremarkable except as noted in Subjective Physical Exam Constitutional: WD/WN, vitals as above Respiratory: normal respiratory effort, lungs clear to auscultation Cardiovascular: Rate/Rhythm: regular rate and regular rhythm Extremities: + pedal edema (1+ pitting pre-tibial) Gastrointestinal (Abdomen): normal bowel sounds, soft, nontender, no hepatosplenomegaly Skin: no rashes, warm and dry Psychiatric: A+Ox3, euthymic affect Results & Data Results & Data ([facility]) Vital Signs (Past 12 Hours) Vital Signs Temp Pulse Resp BP Pulse Ox O2 Del Method 08/30/22 15:36 36.4 C L 67 18 117/70 96 Room Air 08/30/22 07:15 Room Air 08/30/22 07:19 36.5 C 57 L 18 159/77 H 96 Room Air PG Care Time/CCT Total # of Minutes Spent Total Time Spent with Patient: Total time spent is greater than 50% in coordination of care (as documented) at patient's floor/unit and/or counseling patient: Coding Level of Care Code 32697 Subseq Hosp Care Lvl 2 Diagnoses COVID-19 U07.1 Type II diabetes mellitus, uncontrolled E11.65 Anemia D64.9 Anemia type: unspecified type Antiphospholipid syndrome D68.61 History of colon cancer Z85.038 Venous insufficiency I87.2 (1) Anemia Anemia type: unspecified type Qualified Code(s): D64.9 - Anemia, unspecified
[2022-08-31] MEDS: ROSUVASTATIN CALCIUM 20 MG TAB PO SCH (09:52)
[2022-08-31] MEDS: ENOXAPARIN INJ 40 MG/0.4 ML SYR SQ SCH (09:52)
[2022-08-31] MEDS: FUROSEMIDE 20 MG TAB PO SCH (09:53)
[2022-08-31] MEDS: FERROUS SULFATE 325 MG TAB PO SCH ×2 (09:53→20:45)
[2022-08-31] MEDS: INSULIN ASPART PER UNIT SC SCH ×4 (10:12→21:03)
[2022-08-31] MEDS: LANTUS PER UNIT CHARGE SQ SCH (10:13)
--- NOTE | 2022-08-31 10:31 | Pharmacy Report ---
Pharmacy Glycemic Short Note 2 - Date of Service August 31, 2022 - Glycemic Short BSG Results (Last 24 hours): 08/30/22 08/30/22 08/30/22 12:51 17:48 20:34 POC Glucose 185 H 177 H 219 H 08/31/22 08:55 POC Glucose 87 OUTPATIENT ANTIDIABETIC REGIMEN: * Novolog 70/30 - 40 units SC qAM, 35 units SC qPM * Metformin 1000 mg PO BIDM * HbA1c: 9.3% (08/18/22) ASSESSMENT: 08/31: * Patient received total of 87 units of insulin yesterday, of which 35 units were basal * Fasting BSG 87 mg/dL, dexamethasone discontinued yesterday. Last dose yesterday AM. Anticipate effects of steroid to be wearing off today therefore will scale back on insulin * Plan to decrease basal ~30-40% and loosen CF/Cr this AM 08/28: * Randal received a total of 90 units of insulin yesterday, 40 units of basal + 50 units of bolus. BSGs were: [phone] mg/dL. * Fasting BSG was 112 mg/dL this AM. * No changes necessary today. 08/26: * DF is a 82 year old male with uncontrolled T2DM, admitted for worsening weakness/fatigue secondary to COVID-19 * Ordered dexamethasone 6 mg IV daily * BSGs elevated last evening, likely related to IV steroids in ED * Trended down nicely overnight (294 -> 199 ->146 mg/dL) * Will give basal to cover steroids and tighten Novolog parameters further PLAN FOR INPATIENT GLYCEMIC CONTROL: * Hold outpatient oral diabetes medications * Basal insulin * Lantus 20-25 units daily depending on BSG value * Bolus insulin * NovoLog per scale ACHS or Q6hrs while NPO * Goal Range: Low 110 mg/dL - High 140 mg/dL * Correction Factor: 15 mg/dL/unit * Nutritional / Prandial insulin per carb ratio of 1 unit per 5 grams CHO consumed
--- NOTE | 2022-08-31 19:35 | Hospitalist Progress Note ---
Date of Service August 31, 2022 Assessment & Plan (1) COVID-19: Plan: - Day # 6 of weakness and fatigue with shortness of breath on exertion developing on admission. - Has received vaccinations plus boosters. - 86% on RA with activity, otherwise has been > 92% on RA, therefore IV dexamethasone initially given, however will hold off on remdesivir on admit but can add on during admission if felt to be warranted. - Supportive care. - Isolation precautions. Due to negative chest x-ray, CRP and oxygen saturations of 96% on room air the risk of dexamethasone outweighs benefit for continued administration. Dexamethasone now discontinued and appears to be doing well of this. 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 - Appreciate pharmacy glycemic management (3) Anemia: Plan: - Continue iron supplementation. (4) Antiphospholipid syndrome: Plan: - History of, however per heme/onc his workup is negative. - On Lovenox 40 mg daily, to eventually be placed back on Coumadin after chemo is finished. (5) History of colon cancer: Plan: - Diagnosed October of this year, s/p resection and chemo. (6) Venous insufficiency: Plan: - Legs minimally swollen, equal b/l; continue elevating legs and encouraging compression stockings. Plan VTE prophylaxis -Lovenox 40 mg subcu daily Diet - type 2 diabetes Disposition - medically stable for discharge pending placement at this time Admission and Anticipated Discharge Date Admission Date: August 25, 2022 Subjective No significant change in symptoms. He reports doing well off the dexamethasone. Medically stable for discharge pending insurance authorization and Review of Systems Review of Systems: All systems reviewed & are unremarkable except as noted in Subjective Physical Exam Constitutional: WD/WN, vitals as above Respiratory: normal respiratory effort Cardiovascular: Extremities: + pedal edema (1+ pitting pre-tibial) Gastrointestinal (Abdomen): normal bowel sounds, soft, nontender, no hepatosplenomegaly Skin: no rashes, warm and dry Psychiatric: A+Ox3, euthymic affect Results & Data Results & Data ([facility]) Vital Signs (Past 12 Hours) Vital Signs Temp Pulse Resp BP Pulse Ox O2 Del Method 08/31/22 18:07 36.4 C L 68 16 138/71 98 Room Air 08/31/22 09:35 Room Air 08/31/22 09:31 36.3 C L 62 16 144/71 H 98 Room Air PG Care Time/CCT Total # of Minutes Spent Total Time Spent with Patient: Total time spent is greater than 50% in coordination of care (as documented) at patient's floor/unit and/or counseling patient: Coding Level of Care Code 45333 Subseq Hosp Care Lvl 1 Diagnoses COVID-19 U07.1 Type II diabetes mellitus, uncontrolled E11.65 Anemia D64.9 Anemia type: unspecified type Antiphospholipid syndrome D68.61 History of colon cancer Z85.038 Venous insufficiency I87.2 (1) Anemia Anemia type: unspecified type Qualified Code(s): D64.9 - Anemia, unspecified
[2022-09-01] MEDS: FUROSEMIDE 20 MG TAB PO SCH (09:03)
[2022-09-01] MEDS: ROSUVASTATIN CALCIUM 20 MG TAB PO SCH (09:03)
[2022-09-01] MEDS: FERROUS SULFATE 325 MG TAB PO SCH ×2 (09:04→20:15)
[2022-09-01] MEDS: ENOXAPARIN INJ 40 MG/0.4 ML SYR SQ SCH (09:05)
[2022-09-01] MEDS: LANTUS PER UNIT CHARGE SQ SCH (09:16)
[2022-09-01] MEDS: INSULIN ASPART PER UNIT SC SCH ×4 (09:16→21:16)
--- NOTE | 2022-09-01 12:52 | Pharmacy Report ---
Pharmacy Glycemic Short Note 2 - Date of Service September 01, 2022 - Glycemic Short BSG Results (Last 24 hours): 08/31/22 08/31/22 08/31/22 12:59 18:03 20:28 POC Glucose 142 H 105 H 153 H 09/01/22 09/01/22 08:09 12:32 POC Glucose 104 H 181 H OUTPATIENT ANTIDIABETIC REGIMEN: * Novolog 70/30 - 40 units SC qAM, 35 units SC qPM * Metformin 1000 mg PO BIDM * HbA1c: 9.3% (08/18/22) ASSESSMENT: 09/01: * BSGs [phone]/dL. Fasting BSG below goal range this AM. Patient received 20 units of basal and 26 units of bolus insulin yesterday. * Tolerating diet and steroids discontinued. * Will reduce Lantus ~10% starting tomorrow AM. Novolog loosened to 20/7. 08/31: * Patient received total of 87 units of insulin yesterday, of which 35 units were basal * Fasting BSG 87 mg/dL, dexamethasone discontinued yesterday. Last dose yesterday AM. Anticipate effects of steroid to be wearing off today therefore will scale back on insulin * Plan to decrease basal ~30-40% and loosen CF/Cr this AM 08/28: * Randal received a total of 90 units of insulin yesterday, 40 units of basal + 50 units of bolus. BSGs were: [phone] mg/dL. * Fasting BSG was 112 mg/dL this AM. * No changes necessary today. 08/26: * DF is a 82 year old male with uncontrolled T2DM, admitted for worsening weakness/fatigue secondary to COVID-19 * Ordered dexamethasone 6 mg IV daily * BSGs elevated last evening, likely related to IV steroids in ED * Trended down nicely overnight (294 -> 199 ->146 mg/dL) * Will give basal to cover steroids and tighten Novolog parameters further PLAN FOR INPATIENT GLYCEMIC CONTROL: * Hold outpatient oral diabetes medications * Basal insulin * Lantus 18 units daily * Bolus insulin * NovoLog per scale ACHS or Q6hrs while NPO * Goal Range: Low 110 mg/dL - High 140 mg/dL * Correction Factor: 20 mg/dL/unit * Nutritional / Prandial insulin per carb ratio of 1 unit per 7 grams CHO consumed
--- NOTE | 2022-09-01 18:29 | Hospitalist Progress Note ---
Date of Service September 01, 2022 Assessment & Plan (1) COVID-19: Plan: - Day # 6 of weakness and fatigue with shortness of breath on exertion developing on admission. - Has received vaccinations plus boosters. - 86% on RA with activity, otherwise has been > 92% on RA, therefore IV dexamethasone initially given - Supportive care. - Isolation precautions. Due to negative chest x-ray, CRP and oxygen saturations of 96% on room air the risk of dexamethasone outweighs benefit for continued administration. Dexamethasone now discontinued and appears to be doing well of this. Stop Lasix as I suspect this is what is causing his dizziness. B12 with a.m. labs since he has anemia, peripheral neuropathy and difficulty balancing. 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 - Appreciate pharmacy glycemic management (3) Anemia: Plan: - Continue iron supplementation. (4) Antiphospholipid syndrome: Plan: - History of, however per heme/onc his workup is negative. - On Lovenox 40 mg daily, to eventually be placed back on Coumadin after chemo is finished. (5) History of colon cancer: Plan: - Diagnosed October of this year, s/p resection and chemo. (6) Venous insufficiency: Plan: - Legs minimally swollen, equal b/l; continue elevating legs and encouraging compression stockings. Plan VTE prophylaxis -Lovenox 40 mg subcu daily Diet - type 2 diabetes Disposition - medically stable for discharge pending placement at this time Admission and Anticipated Discharge Date Admission Date: August 25, 2022 Subjective Reports feeling dizzy today. He describes this as a lightheadedness on standing. He did not have this prior to COVID. He is also having difficulty with his balance but no vertigo. Review of Systems Review of Systems: All systems reviewed & are unremarkable except as noted in Subjective Physical Exam Constitutional: WD/WN, vitals as above Respiratory: normal respiratory effort, lungs clear to auscultation normal respiratory effort Cardiovascular: Rate/Rhythm: regular rate and regular rhythm Extremities: + pedal edema (1+ pitting pre-tibial) Gastrointestinal (Abdomen): normal bowel sounds, soft, nontender, no hepatosplenomegaly Skin: no rashes, warm and dry Psychiatric: A+Ox3, euthymic affect Results & Data Results & Data ([facility]) Vital Signs (Past 12 Hours) Vital Signs Temp Pulse Resp BP Pulse Ox O2 Del Method O2 Flow Rate 09/01/22 14:50 36.9 C 70 16 107/65 92 Nasal Cannula 3 09/01/22 09:00 Room Air 09/01/22 08:11 36.6 C 64 16 137/71 98 Room Air PG Care Time/CCT Total # of Minutes Spent Total Time Spent with Patient: Total time spent is greater than 50% in coordination of care (as documented) at patient's floor/unit and/or counseling patient: Coding Level of Care Code 32975 Subseq Hosp Care Lvl 1 Diagnoses COVID-19 U07.1 Type II diabetes mellitus, uncontrolled E11.65 Anemia D64.9 Anemia type: unspecified type Antiphospholipid syndrome D68.61 History of colon cancer Z85.038 Venous insufficiency I87.2 (1) Anemia Anemia type: unspecified type Qualified Code(s): D64.9 - Anemia, unspecified
[2022-09-02] MEDS ORDERED: LANTUS PER UNIT CHARGE SQ SCH (09:00)
[2022-09-02] MEDS: INSULIN ASPART PER UNIT SC SCH ×4 (09:45→21:36)
[2022-09-02] MEDS: FERROUS SULFATE 325 MG TAB PO SCH ×2 (09:57→21:36)
[2022-09-02] MEDS: ROSUVASTATIN CALCIUM 20 MG TAB PO SCH (09:57)
[2022-09-02] MEDS: ENOXAPARIN INJ 40 MG/0.4 ML SYR SQ SCH (09:57)
--- NOTE | 2022-09-02 11:18 | Pharmacy Report ---
Pharmacy Glycemic Short Note 2 - Date of Service September 02, 2022 - Glycemic Short BSG Results (Last 24 hours): 09/01/22 09/01/22 09/01/22 12:32 17:27 20:22 POC Glucose 181 H 164 H 217 H 09/02/22 08:27 POC Glucose 133 H OUTPATIENT ANTIDIABETIC REGIMEN: * Novolog 70/30 - 40 units SC qAM, 35 units SC qPM * Metformin 1000 mg PO BIDM * HbA1c: 9.3% (08/18/22) ASSESSMENT: 09/02: * BSGs 164-217mg/dL and fasting BSG 133mg/dL this AM. Patient received 20units of basal and 26units of bolus insulin yesterday. * Tolerating diet, other stressors stable * Novolog tightened for improved prandial coverage. 09/01: * BSGs [phone]/dL. Fasting BSG below goal range this AM. Patient received 20 units of basal and 26 units of bolus insulin yesterday. * Tolerating diet and steroids discontinued. * Will reduce Lantus ~10% starting tomorrow AM. Novolog loosened to 20/7. 08/31: * Patient received total of 87 units of insulin yesterday, of which 35 units were basal * Fasting BSG 87 mg/dL, dexamethasone discontinued yesterday. Last dose yesterday AM. Anticipate effects of steroid to be wearing off today therefore will scale back on insulin * Plan to decrease basal ~30-40% and loosen CF/Cr this AM 08/28: * Randal received a total of 90 units of insulin yesterday, 40 units of basal + 50 units of bolus. BSGs were: 099-560-007-116 mg/dL. * Fasting BSG was 112 mg/dL this AM. * No changes necessary today. 08/26: * DF is a 82 year old male with uncontrolled T2DM, admitted for worsening weakness/fatigue secondary to COVID-19 * Ordered dexamethasone 6 mg IV daily * BSGs elevated last evening, likely related to IV steroids in ED * Trended down nicely overnight (294 -> 199 ->146 mg/dL) * Will give basal to cover steroids and tighten Novolog parameters further PLAN FOR INPATIENT GLYCEMIC CONTROL: * Hold outpatient oral diabetes medications * Basal insulin * Lantus 20 units daily * Bolus insulin * NovoLog per scale ACHS or Q6hrs while NPO * Goal Range: Low 110 mg/dL - High 140 mg/dL * Correction Factor: 15 mg/dL/unit * Nutritional / Prandial insulin per carb ratio of 1 unit per 5 grams CHO consumed
[2022-09-02 13:49] LABS: BUN Creatinine Ratio 24.4 (10-20); Calcium 9.4 mg/dl (8.5-10.1); Creatinine Clr Calc Pharmacy 91.5 ml/min; Est GFR (African American) 96.8 ml/min; Est GFR (Non-African American) 83.5 ml/min
[2022-09-02] MEDS: HEPARIN 100 UNIT/ML 5ML FLUSH FLUSH PRN (14:03)
--- NOTE | 2022-09-02 18:15 | Hospitalist Progress Note ---
Date of Service September 02, 2022 Assessment & Plan (1) COVID-19: Plan: - Day # 6 of weakness and fatigue with shortness of breath on exertion developing on admission. - Has received vaccinations plus boosters. - 86% on RA with activity, otherwise has been > 92% on RA, therefore IV dexamethasone initially given - Supportive care. - Isolation precautions. Due to negative chest x-ray, CRP and oxygen saturations of 96% on room air the risk of dexamethasone outweighs benefit for continued administration. Dexamethasone now discontinued and appears to be doing well of this. Lasix discontinued which has resolved his dizziness. B12 with a.m. 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 - Appreciate pharmacy glycemic management (3) Anemia: Plan: - Continue iron supplementation. (4) Antiphospholipid syndrome: Plan: - History of, however per heme/onc his workup is negative. - On Lovenox 40 mg daily, to eventually be placed back on Coumadin after chemo is finished. (5) History of colon cancer: Plan: - Diagnosed October of this year, s/p resection and chemo. (6) Venous insufficiency: Plan: - Legs minimally swollen, equal b/l; continue elevating legs and encouraging compression stockings. Plan VTE prophylaxis -Lovenox 40 mg subcu daily Diet - type 2 diabetes Disposition - medically stable for discharge pending placement at this time Admission and Anticipated Discharge Date Admission Date: August 25, 2022 Subjective Dizziness resolved after stopping Lasix. No other acute concerns or questions at this time. Review of Systems Review of Systems: All systems reviewed & are unremarkable except as noted in Subjective Physical Exam Constitutional: WD/WN, vitals as above Respiratory: normal respiratory effort, lungs clear to auscultation normal respiratory effort Cardiovascular: Rate/Rhythm: regular rate and regular rhythm Extremities: + pedal edema (1+ pitting pre-tibial) Gastrointestinal (Abdomen): normal bowel sounds, soft, nontender, no hepatosplenomegaly Psychiatric: A+Ox3, euthymic affect Results & Data Results & Data ([facility]) Vital Signs (Past 12 Hours) Vital Signs Temp Pulse Resp BP Pulse Ox O2 Del Method 09/02/22 16:00 36.4 C L 69 16 125/74 98 Room Air 09/02/22 09:45 Room Air 09/02/22 08:30 36.6 C 66 16 143/80 H 96 Room Air PG Care Time/CCT Total # of Minutes Spent Total Time Spent with Patient: Total time spent is greater than 50% in coordination of care (as documented) at patient's floor/unit and/or counseling patient: Coding Level of Care Code 25455 Subseq Hosp Care Lvl 1 Diagnoses COVID-19 U07.1 Type II diabetes mellitus, uncontrolled E11.65 Anemia D64.9 Anemia type: unspecified type Antiphospholipid syndrome D68.61 History of colon cancer Z85.038 Venous insufficiency I87.2 (1) Anemia Anemia type: unspecified type Qualified Code(s): D64.9 - Anemia, unspecified
[2022-09-03] MEDS: FERROUS SULFATE 325 MG TAB PO SCH ×2 (09:29→20:23)
[2022-09-03] MEDS: ENOXAPARIN INJ 40 MG/0.4 ML SYR SQ SCH (09:29)
[2022-09-03] MEDS: ROSUVASTATIN CALCIUM 20 MG TAB PO SCH (09:29)
[2022-09-03] MEDS: INSULIN ASPART PER UNIT SC SCH ×4 (09:36→20:33)
[2022-09-03] MEDS: LANTUS PER UNIT CHARGE SQ SCH (09:37)
--- NOTE | 2022-09-03 19:49 | Hospitalist Progress Note ---
Date of Service September 03, 2022 Assessment & Plan (1) COVID-19: Plan: - Day # 6 of weakness and fatigue with shortness of breath on exertion developing on admission. - Has received vaccinations plus boosters. - 86% on RA with activity, otherwise has been > 92% on RA, therefore IV dexamethasone initially given - Supportive care. - Isolation precautions. Due to negative chest x-ray, CRP and oxygen saturations of 96% on room air the risk of dexamethasone outweighs benefit for continued administration. Dexamethasone now discontinued and appears to be doing well of this. Lasix discontinued which has resolved his dizziness. B12 is not low Tested since he has anemia, peripheral neuropathy and difficulty balancing awaiting placement. 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 - Appreciate pharmacy glycemic management (3) Anemia: Plan: - Continue iron supplementation. (4) Antiphospholipid syndrome: Plan: - History of, however per heme/onc his workup is negative. - On Lovenox 40 mg daily, to eventually be placed back on Coumadin after chemo is finished. (5) History of colon cancer: Plan: - Diagnosed October of this year, s/p resection and chemo. (6) Venous insufficiency: Plan: - Legs minimally swollen, equal b/l; continue elevating legs and encouraging compression stockings. Plan VTE prophylaxis -Lovenox 40 mg subcu daily Diet - type 2 diabetes Disposition - medically stable for discharge pending placement at this time Admission and Anticipated Discharge Date Admission Date: August 25, 2022 Subjective 82 yo male reports no new symptoms. Review of Systems Review of Systems: All systems reviewed & are unremarkable except as noted in HPI & below Physical Exam Physical Exam: General: awake, alert, no apparent distress Head: Normocephalic, atraumatic ENT: PERRL, EOMI, no pharyngeal exudate, mucous membranes moist Chest: Clear to auscultation, on room air, no adventitious breath sounds Cardiac: Regular rate and rhythm, no murmur, no JVD, normal peripheral pulses, good capillary refill Abdominal: NABS x 4 quadrants, soft, nontender to palpation, no rebound, guarding or tenderness Extremities: Normal inspection, no peripheral edema or erythema, calfs nontender to palpation Psych: Normal mood and affect Neuro: AAO x 3, strength intact bilaterally and rated 5/5, no motor deficits, speech is clear, no peripheral sensory deficits Skin: no rash or erythema Results & Data Results & Data ([facility]) Vital Signs (Past 12 Hours) Vital Signs Temp Pulse Resp BP Pulse Ox O2 Del Method 09/03/22 09:26 36.6 C 66 18 154/70 H 97 Room Air PG Care Time/CCT Total # of Minutes Spent Total Time Spent with Patient: Total time spent is greater than 50% in coordination of care (as documented) at patient's floor/unit and/or counseling patient: Coding Level of Care Code 51062 Subseq Hosp Care Lvl 2 Diagnoses COVID-19 U07.1 Type II diabetes mellitus, uncontrolled E11.65 Anemia D64.9 Anemia type: unspecified type Antiphospholipid syndrome D68.61 History of colon cancer Z85.038 Venous insufficiency I87.2 Time Spent (min) 25 (1) Anemia Anemia type: unspecified type Qualified Code(s): D64.9 - Anemia, unspecified
[2022-09-04] MEDS: FERROUS SULFATE 325 MG TAB PO SCH (08:49)
[2022-09-04] MEDS: ENOXAPARIN INJ 40 MG/0.4 ML SYR SQ SCH (08:49)
[2022-09-04] MEDS: ROSUVASTATIN CALCIUM 20 MG TAB PO SCH (08:49)
[2022-09-04 09:05] LABS: Hemoglobin 13.2 g/dl (14.0-18.0); Mean Corpuscular Hemoglobin 33.2 pg (25.0-34.0); Mean Corpuscular Hgb Conc 33.8 g/dL (32.0-36.0); Mean Corpuscular Volume 98.2 fL (80.0-100.0); Platelet Count 140 K/uL (130-400); RDW Coefficient of Variation 12.6 % (11.5-14.5); RDW Standard Deviation 45.7 fL (36.4-46.3); Red Blood Count 3.97 M/uL (4.63-6.08)
[2022-09-04] MEDS: INSULIN ASPART PER UNIT SC SCH (09:14)
[2022-09-04] MEDS: LANTUS PER UNIT CHARGE SQ SCH (09:14)
[2022-09-04 09:33] LABS: BUN Creatinine Ratio 18.8 (10-20); Calcium 9.7 mg/dl (8.5-10.1); Creatinine Clr Calc Pharmacy 93.8 ml/min; Est GFR (African American) 97.8 ml/min; Est GFR (Non-African American) 84.4 ml/min; Potassium 4.1 mmol/L (3.5-5.1)
--- NOTE | 2022-09-10 16:26 | Coding Query ---
CODING QUERY FOR UNCONTROLLED DIABETES To promote full compliance with coding requirements relating to patient care, provider participation is requested in all cases of streetcar starter uncertainty. Please assist us with the question(s) below: Coding Question: The term uncontrolled Diabetes was used throughout the record. To be able to code this diagnosis properly, could you please clarify the diagnosis below: ( ) Uncontrolled Diabetes meaning hypoglycemia (x ) Uncontrolled Diabetes meaning hyperglycemia ( ) Other (please specify) Principal Diagnosis: "that condition established after study, to be chiefly responsible for occasioning the admission of the patient to the hospital for care." Co-Existing Principal Diagnosis: "when two or more diagnoses equally meet the criteria for principal diagnosis as determined by the circumstances of admission, diagnostic work up, and/or therapy provided, and the Alphabetic Index, Tabular List, or another coding guideline does not provide sequencing direction, any one of the diagnoses may be sequenced first." "When the physician has documented what appears to be a current diagnosis in the body of the record, but has not included the diagnosis in the final diagnostic statement, the physician should be asked whether the diagnosis should be added." (Source Coding Clinic 2 QTR90. p3-4) CIELO
--- NOTE | 2022-09-10 21:57 | Discharge Summary ---
Date of Service September 04, 2022 Admission HPI Per Admitting Provider Randal Fernandez is an 82-year-old male with a past medical history significant for colon cancer s/p ostomy and chemo, antiphospholipid syndrome, DM2, BPH, hyperlipidemia, as well as iron deficiency anemia who presents from home due to weakness and shortness of breath. 3 days ago, he noted feeling more fatigued and generally weak than usual, and this morning he noticed with minimal activity he was feeling significantly short of breath. He is feeling so weak that he has fallen once and has had several near episodes of falling due to bilateral lower extremity weakness. No reported fever, chills, or cough. Upon presentation to the ED, he has been moderately hypertensive, initially SPO2 >95% on room air, however he did desat to 86% on room air while ambulating the room. He is COVID-positive. Labs remarkable for pancytopenia secondary to likely to both COVID and chemotherapy. CRP 1.40, BNP 242. Magnesium 1.6. Principal Diagnosis COVID 19 Discharge Exam General: awake, alert, no apparent distress Head: Normocephalic, atraumatic ENT: PERRL, EOMI, no pharyngeal exudate, mucous membranes moist Chest: Clear to auscultation, on room air, no adventitious breath sounds Cardiac: Regular rate and rhythm, no murmur, no JVD, normal peripheral pulses, good capillary refill Abdominal: NABS x 4 quadrants, soft, nontender to palpation, no rebound, guarding or tenderness Extremities: Normal inspection, no peripheral edema or erythema, calfs nontender to palpation Psych: Normal mood and affect Neuro: AAO x 3, strength intact bilaterally and rated 5/5, no motor deficits, speech is clear, no peripheral sensory deficits Skin: no rash or erythema Discharge Data Allergies Allergy/AdvReac Type Severity Reaction Status Date / Time sitagliptin Allergy Intermediate Hives - Verified 08/20/22 08:28 Januvia cat dander Allergy Mild EYES WATER Verified 08/20/22 08:28 Vrsvkch-XVL-MfJ Reductase AdvReac Intermediate LEG CRAMPS Verified 08/20/22 08:28 Inhibitor [Mqtjalg-Sdx-Ekg Reductase Inhibitor] Consultations 08/25/22 11:56 ED Decision to Admit Stat Diabetes Follow up Diabetes Follow-up Needed for HgbA1c >9% Hospital Course (1) COVID-19: - admitted with weakness and fatigue with shortness of breath on exertion developing on admission. - Has received vaccinations plus boosters. - 86% on RA with activity, otherwise has been > 92% on RA, therefore IV dexamethasone initially given - Supportive care. - Isolation precautions. Due to negative chest x-ray, CRP and oxygen saturations of 96% on room air the risk of dexamethasone outweighs benefit for continued administration. Dexamethasone now discontinued and appears to be doing well of this. Lasix discontinued which has resolved his dizziness. 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 - Appreciate pharmacy glycemic management (3) Anemia: - Continue iron supplementation. (4) Antiphospholipid syndrome: - History of, however per heme/onc his workup is negative. - On Lovenox 40 mg daily, to eventually be placed back on Coumadin after chemo is finished. (5) History of colon cancer: - Diagnosed October of this year, s/p resection and chemo. (6) Venous insufficiency: - Legs minimally swollen, equal b/l; continue elevating legs and encouraging compression stockings. Plan VTE prophylaxis -Lovenox 40 mg subcu daily Diet - type 2 diabetes Disposition - medically stable for discharge pending placement at this time Total Time Total Time Spent Total Time Spent (In Minutes): 35 Discharge Plan Discharge Items Patient Disposition: Transfer Jail Fac Reason For Visit: COVID Discharge Diagnosis: COVID Activity: Resume your previous activity Non-emergency contact: Primary Care Provider Call non-emergency contact if: you have any medication questions Follow-up/Referrals: Elizabeth Alvarenga CRNP [Primary Care Provider] - Diet: Carb Consistent or DM2 Addtl Attending Provider Instructions: You were diagnosed with wekaness after having COVID 19. Will recommend rehab to get your strength back up. If no improvement, may consider stopping rosuvastatin Pending Studies at Discharge: No Stand-Alone Forms: My [facility] Skilled Items Patient informed of condition?: Yes DNR: Yes Discharge Level of Care: Acute rehab Communicable Disease: No Discharge Prognosis: Stable Lines: None Urinary Catheter: No Medications and DC Order Prescriptions: Continued Zarxio 480 mcg/0.8 mL syringe See Rx Instructions .ROUTE .COMPLEX Rx Instructions: Receives at [facility] PRN blood counts; (DME) pen needle, diabetic [BD Donna 2nd Gen Pen Needle] 32 gauge x 5/32" needle See Dose Instructions .ROUTE .MEDSUPPLY Qty: 200 3RF Dose Instruction: As directed Rx Instructions: use 2 daily (DME) miscellaneous medical supply Liquid See Rx Instructions .Route Qty: 3840 0RF Rx Instructions: Ca 600 mg, Mag 300 mg, D3 500- 1 teaspoon daily (DME) FreeStyle Lite Strips Strip See Dose Instructions .ROUTE .MEDSUPPLY Qty: 100 5RF Rx Instructions: TEST THREE TIMES DAILY; DX CODE- E11.8 ferrous sulfate [Feosol] 325 mg (65 mg iron) tablet 325 mg PO BID enoxaparin [Lovenox] 40 mg/0.4 mL syringe 40 mg subcut QAM Qty: 30 2RF Rx Instructions: 40mg sq per [facility] subcut daily (DME) lancets [FreeStyle Lancets] 28 gauge misc See Dose Instructions .ROUTE .MEDSUPPLY Dose Instruction: As directed Rx Instructions: test BID insulin asp prt-insulin aspart [Novolog Mix 70-30FlexPen U-100] 100 unit/mL (70-30) insulin pen See Rx Instructions .ROUTE .COMPLEX Label Comments: 15 units Rx Instructions: TAKES 40 UNITS QAM, THEN 35 UNITS QPM. multivitamin [Daily Multi-Vitamin] Tablet 1 tab PO QAM metformin 500 mg tablet extended release 24 hr 1,000 mg PO BID rosuvastatin [Crestor] 20 mg tablet 20 mg PO QAM Calcium Magnesium + D 400-167-133 mg-mg-unit Tablet 1 tab PO QAM Discontinued nitrofurantoin monohyd/m-cryst [Macrobid] 100 mg capsule 100 mg PO BID Qty: 14 0RF Rx Instructions: must administer with a meal/food Discharge Orders: Discharge Order (Routine); Ordered 09/04/22 Ordered By: Mekhi Thrasher Admission Data Admit Date/Time: 08/25/22 12:40 Attending Provider: Mekhi Thrasher Admit Provider: Chacorta Malloy Primary Care Provider: Elizabeth Alvarenga Other Providers: Arielle Duke Other Interventions: Discharge Summary Assessment (RN) Last Done: 09/04/22 11:38 Coding Level of Care Code D/C DAY MANAGEMENT >30 MINS Diagnoses COVID-19 U07.1 Type II diabetes mellitus, uncontrolled E11.65 Anemia D64.9 Anemia type: unspecified type Antiphospholipid syndrome D68.61 History of colon cancer Z85.038 Venous insufficiency I87.2
== END 2022-09-04 13:15 | DRG 177 ==
LOC: ED 09:51 → SUATTDRO 12:40 → 2S 12:40 → 3N 08-27 22:38

== ENCOUNTER 2024-03-24 11:13 | Inpatient (IN) ==
[2024-03-24 12:33] LABS: Basophils # (auto) 0.04 K/uL (0.00-0.20); Basophils % (auto) 0.6 %; Eosinophils # (auto) 0.05 K/uL (0.00-0.50); Eosinophils % (auto) 0.8 %; Hematocrit (blood only) 33.2 % (42.0-52.0); Hemoglobin 10.9 g/dl (14.0-18.0); Immature Granulocytes # (auto) 0.01 K/uL (0.01-0.20); Immature Granulocytes % (auto) 0.2 %; Lymphocytes # (auto) 1.23 K/uL (1.20-3.40); Mean Corpuscular Hemoglobin 30.3 pg (25.0-34.0); Mean Corpuscular Hgb Conc 32.8 g/dL (32.0-36.0); Mean Corpuscular Volume 92.2 fL (80.0-100.0); Mean Platelet Volume 9.5 fL (9.4-12.4); Monocytes # (auto) 0.49 K/uL (0.11-0.59); Monocytes % (auto) 7.6 %; Neutrophils # (auto) 4.65 K/uL (1.40-6.50); Neutrophils % (auto) 71.8 %; Platelet Count 205 K/uL (130-400); RDW Coefficient of Variation 14.6 % (11.5-14.5); RDW Standard Deviation 49.2 fL (36.4-46.3); White Blood Count 6.47 K/ul (4.8-10.8)
[2024-03-24 13:30] LABS: Anion Gap 6 (3-11); Calcium 9.8 mg/dl (8.6-10.3); Carbon Dioxide 28 mmol/L (21-32); Chloride 104 mmol/L (98-107); Sodium 138 mmol/L (136-145)
[2024-03-24 13:36] LABS: BUN Creatinine Ratio 22.2 (10-20); Blood Urea Nitrogen 20 mg/dl (6-23); Est GFR (African American) 91.9 ml/min; Est GFR (Non-African American) 79.3 ml/min; Glucose 127 mg/dl (70-99(Fasting))
--- NOTE | 2024-03-24 14:10 | History & Physical Report ---
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 Significant asymmetric left leg swelling, erythema extending past previously marked borders, and small amount of streaking which does not extend past the knee. Anterior small laceration with clear/slightly cloudy discharge. S ignificantly tender to palpation, warm to touch. CBC daily. CRP added and trended Does not appear septic at bedside MRSA nares pending -Transitioned to Rocephin/Flagyl/daptomycin on admission. No history of pseudomonal or resistant infections. Hold statin while on daptomycin. Surface culture at laceration with cloudy discharge taken at time of admission CRP trended Doppler negative for DVT (2) Type II diabetes mellitus, uncontrolled: Plan: Type II DM Metformin held Goal BSG 197668 Type II DM diet Patient is on 70/30 insulin at home, transitioned to Lantus/aspart basal bolus while inpatient (3) Antiphospholipid syndrome: Plan: History of antiphospholipid syndrome and past VTE Continue warfarin, goal INR 23. INR trended daily. INR ordered on admission Patient was scheduled to transition to Lovenox bridge in 5 days in anti cipation of his polyp removal (4) BPH (benign prostatic hyperplasia): Plan: BPH with LUTS Continue Flomax (5) History of rectal polypectomy: Plan: Pending precancerous polyp removal - Hx of prior malignant polyp removal. Patient is pending a rectal precancerous polyp removal at tertiary care 04/03. This has been delayed twice, and patient hopes that his cellulitis that this will not further delay this appointment. No acute change in management Plan DVT prophylaxis: Anticoagulated Diet: DM Disposition: Medical surgical CODE STATUS: Full code History of Present Illness Primary Care Provider: TORO Devlin seen at the bedside with his family present. He has a history of chronic venous stasis but has had increasing throbbing left lower extremity leg discomfort, swelling, and spreading erythema of his left lower extremity.He did see his PCP 2 days ago, erythema started spreading and worsening after his walker slipped and he had a large contusion on his left anterior kumar. He is anticoagulated on warfarin. He reports his pain is 24/10 and increases rapidly even with soft touch or any palpation. Has had some clear/mixed cloudy fluid like drainage from the laceration. He was prescribed Bactrim/Keflex as an outpatient, has been taking this in the last day but has had expansion of the erythema past is marked borders and increased pain so returned to the ER. He denies fever/chills/sweats. Has some neuropathy at baseline but otherwise has not had sensory change. No chest pain or chest pressure. Left lower leg does not have a throbbing painful sensation for the last day. Medical History: Reviewed Medications: Reviewed Surgical History: Reviewed Family history: Reviewed Allergies: Reviewed Social History: REviewed Code Status: Full Allergies Allergy/AdvReac Type Severity Reaction Status Date / Time sitagliptin Allergy Intermediate Hives - Verified 03/23/24 15:02 Januvia cat dander Allergy Mild EYES WATER Verified 03/23/24 15:02 Lkvzfvl-GYS-YsW Reductase AdvReac Intermediate LEG CRAMPS Verified 03/23/24 15:02 Inhibitor [Gurwhnw-Ewo-Tip Reductase Inhibitor] Home Medications Medication Instructions Recorded Confirmed Type multivitamin (Daily Multi-Vitamin 1 tab PO QAM 12/11/21 03/23/24 History tablet) miscellaneous medical supply #3,840 mL 12/12/21 03/23/24 Rx ferrous sulfate 325 mg (65 mg 325 mg PO BID 04/14/22 03/23/24 History iron) tablet (Feosol) magnesium citrate 100 mg tablet 100 mg PO DAILY 09/30/22 03/23/24 History miscellaneous medical supply 1 ea miscellaneous .COMPLEX #1 ea 12/18/22 03/23/24 Rx rosuvastatin 20 mg tablet (Crestor) 20 mg PO QAM #90 tabs 10/13/23 03/23/24 Rx metformin 500 mg tablet,extended 1,000 mg (2 x 500 mg) PO BID #360 11/15/23 Rx release 24 hr tabs pen needle, diabetic 32 gauge x #200 ea 11/18/23 03/23/24 Rx 5/32" (BD Donna 2nd Gen Pen Needle) insulin aspar prot-insulin aspart 25 - 30 unit subcut BID 12/08/23 03/23/24 History 100 unit/mL (70-30) subcutaneous pen (Novolog Mix 70-30FlexPen U-100) [facility] 12/23/23 03/23/24 Rx Ultra Test strips) blood-glucose meter (OneTouch #1 ea 12/23/23 03/23/24 Rx Ultra2 Meter) tamsulosin 0.4 mg capsule (Flomax) 0.4 mg PO QAM #90 caps 02/17/24 03/23/24 Rx lancets 33 gauge (OneTouch Delica #100 ea 02/21/24 03/23/24 Rx Plus Lancet) enoxaparin 40 mg/0.4 mL 40 mg subcut QAM 02/22/24 03/23/24 History subcutaneous syringe (Lovenox) warfarin 5 mg tablet See Rx Instructions PO UD #180 tabs 02/22/24 03/23/24 Rx cephalexin 500 mg capsule 500 mg PO QID 10 days #40 caps 03/23/24 03/23/24 Rx furosemide 20 mg tablet 20 mg PO DAILY #30 tabs 03/23/24 03/23/24 Rx sulfamethoxazole 800 1 tab PO BID #14 tabs 03/23/24 03/23/24 Rx mg-trimethoprim 160 mg tablet (Bactrim DS) Past Med/Surg History Problem List (Updated 03/24/24 @ 14:09 by Chacorta Malloy MD) History of [place]pect[place] [facility] [place]monary [place] 1994>currently on warfarin Cellulitis in diabetic foot Fall (Acute) Epistaxis due to trauma (Acute) Contusion of left lower extremity (Acute) Serum calcium elevated Adequate anticoagulation on anticoagulant therapy Leg swelling (Acute) Weakness (Acute) Leg weakness, bilateral History of colon cancer 10/25, L colectomy [facility] [place] Antithrombotic therapy prescribed during current visit Arthritis H/O colectomy 11/25 Dizziness (Acute) Type II diabetes mellitus, uncontrolled (Acute) Arthritis of knee, right Obese Vitamin D deficiency (Chronic) Port-A-Cath in place (01/27/22) Insertion Access Port with Fluoro, Left Subclavian (Left) - Junior Bae, DO Unsteady gait Venous insufficiency BPH (benign prostatic hyperplasia) Hypertension denies Diabetic peripheral neuropathy (Chronic) Long-term (current) use of anticoagulants, INR goal 2.0-3.0 (Chronic) Adenocarcinoma, colon hx- s/p colostomy Lymphedema Antiphospholipid syndrome (Chronic) on warfarin, follows with [facility] Hyperlipidemia Anemia iron deficiency-on po supplementation Glaucoma (Acute) hx Medical History Hx of insect bite Type II diabetes mellitus Lung granuloma Carotid artery calcification Coronary artery calcification Pulmonary embolism Lower extremity edema Surgical History Hx of left cataract extraction History of removal of Port-a-Cath (10/19/23) Hx of tooth extraction History of transesophageal echocardiography (ASHLEY) History of colostomy History of colonoscopy Hx of lymph node biopsy H/O colectomy History of rectal polypectomy History of knee surgery History of elbow surgery History of dental surgery Family History Father Myocardial infarction Diabetes Aunt Breast cancer Mother Cancer Diabetes Denies family history of Ovarian cancer Prostate cancer Colorectal cancer Social History (Updated 03/23/24 @ 15:06 by Kylee Sommers LPN) Smoking Status: Never smoker Second Hand Exposure: Yes (hx as child); Do You Dip or Chew Tobacco: No; Hx Alcohol Use: Yes Alcohol type: wine Alcohol Intake Frequency: 2-4 x/Month Alcohol Intake Frequency Comment: Once a week Hx Substance Use: No Preferred Language: Tuvaluan Communication Ability: Effective Visual Impairment: No Limitations Hearing Ability: Normal Financial Manager Required: No Beliefs That Will Affect Care: None marital status: Current Living Situation: Spouse and Family Current Living Situation Comment: lives with and daughter current occupational status: retired How many Children do You have: 3 Feels Safe at Home: Yes Childhood Exposure to Second-Hand Smoke: Yes Diet: diabetic and regular caffeine: Yes during the past year weight has: remained stable Dental Care, Regularly: Yes Physical Activity Frequency: Does not Exercise Seatbelt Use: always Sunscreen Use: Yes Do you think of yourself as: straight/heterosexual Gender Identity: Male Assistive Devices: Glasses and Walker Physical Exam Physical Exam: General: A&Ox3. NAD. Cooperative. HEENT: Atraumatic, normocephalic. Pulm: CTAB A&P. -wheezes, -rales, -rhonchi. Symmetrical chest rise. No increased work of breathing. No respiratory distress. Cardiac: RRR, -mrg. Radial pulses intact and symmetrical. 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 Significant asymmetric left leg swelling, erythema extending past previously marked borders, and small amount of streaking which does not extend past the knee. Anterior small laceration with clear/slightly cloudy discharge. Significantly tender to palpation, warm to touch. Results & Data Results & Data Vital Signs (Past 12 Hours) Vital Signs Temp Pulse Pulse Resp BP BP Pulse Ox 03/24/24 13:00 74 20 140/68 96 03/24/24 11:17 36.5 C 82 20 118/63 96 O2 Del Method 03/24/24 13:00 Room Air 03/24/24 11:17 Room Air PG Care Time/CCT Total # of Minutes Spent Total Time Spent with Patient: Total time spent is greater than 50% in coordination of care (as documented) at patient's floor/unit and/or counseling patient: Coding Level of Care Code 44550 INT INP/OBS CARE 3/75MIN Diagnoses Cellulitis in diabetic foot E11.628; L03.119 Uncontrolled type 2 diabetes mellitus with hyperglycemia E11.65 Glycemic state: with hyperglycemia Antiphospholipid syndrome D68.61 BPH (benign prostatic hyperplasia) N40.0 History of rectal polypectomy Z98.890; Z87.19 (2) Type II diabetes mellitus, uncontrolled Glycemic state: with hyperglycemia Qualified Code(s): E11.65 - Type 2 diabetes mellitus with hyperglycemia
[2024-03-24] MEDS ORDERED: GLUCAGON FOR INJ 1 MG VIAL SQ PRN (14:20)
[2024-03-24] MEDS ORDERED: GLUCOSE 40% GEL 15 GM TUBE PO PRN (14:20)
[2024-03-24] MEDS ORDERED: DEXTROSE 50% 50 ML SYRINGE IV PRN (14:20)
[2024-03-24] MEDS ORDERED: GLUCOSE 10 TAB/TUBE PO PRN (14:20)
[2024-03-24] MEDS ORDERED: CARBOHYDRATES FOR HYPOGLYCEMIA PO PRN (14:20)
--- NOTE | 2024-03-24 14:39 | Emergency Department Note ---
Impression & Plan Diabetic foot ulcer, Type II diabetes mellitus, uncontrolled, Lymphedema ED Provider Note NAME: KATE CORTES AGE: 84 SEX: M : 1940 ARRIVES VIA: Walk-In INFORMANT: Patient, ED PROVIDER(S): Mikaela Dawn MD CHIEF COMPLAINT: Left lower extremity infection HPI: This is a 84-year-old male with history of diabetes, lymphedema presenting for left lower extremity infection. Patient was seen by his PCP and given antibiotics. Patient took 1 dose and then presented to the ER for suspected worsening infection. Patient woke up with a new darker streak to his lateral left lower extremity. He had DVT studies done yesterday which revealed no DVT. Otherwise no new fevers, chills, nausea or vomiting. Patient's leg has been weeping clear fluid as well as yellow/green as well. ROS: See above HPI for pertinent positives & negatives. A total of 10 systems reviewed and were otherwise negative. PHYSICAL EXAMINATION: General: resting comfortably in no acute distress Head: Normocephalic and atraumatic Eyes: Normal inspection, extraocular muscles intact Ear, nose, throat: Normal external exam Neck: Normal range of motion Respiratory: lungs clear to auscultation bilaterally Cardiovascular: Regular rate/rhythm, no murmur GI: soft, nontender, no guarding or rebound Extremities: Chronic lymphedema, right excoriation/swelling to the anterior kumar, lateral lower extremity Neuro: The patient awake and alert, appropriately conversive, no focal deficits, symmetric faces Skin: Warm, dry, and intact MEDICAL DECISION MAKING: This is an 84-year-old male history of diabetes and lymphedema presents for lower extremity swelling. Concern for infection clinically. Patient does have a marking from PCPs office. His redness is generally within the borders with somewhat outside of this as well. He is only 1 dose of antibiotics. He does have significant lymphedema, weeping. -Blood reviewed showing leukocytosis, slight anemia. No significant electrolyte disturbances. -Due to extensive wounds, the patient may benefit from inpatient admission with IV antibiotics. -Discussed care with Dr. Malloy for admission Differential diagnosis: Lymphedema, cellulitis, DVT, CHF Past Med/Surg History Problem List (Updated 03/25/24 @ 15:03 by Mikaela Dawn MD) Lymphedema (Acute) Diabetic foot ulcer (Acute) History of rectal polypectomy [facility] Pulmonary embolism 1994>currently on warfarin Cellulitis in diabetic foot Fall (Acute) Epistaxis due to trauma (Acute) Contusion of left lower extremity (Acute) Serum calcium elevated Adequate anticoagulation on anticoagulant therapy Leg swelling (Acute) Weakness (Acute) Leg weakness, bilateral History of colon cancer 10/25, L colectomy [facility] [place] 11/25 Antithrombotic therapy prescribed during current visit Arthritis H/O colectomy 11/25 Dizziness (Acute) Type II diabetes mellitus, uncontrolled (Acute) Arthritis of knee, right Obese Vitamin D deficiency (Chronic) Port-A-Cath in place (01/27/22) Insertion Access Port with Fluoro, Left Subclavian (Left) - Junior Bae, DO Unsteady gait Venous insufficiency BPH (benign prostatic hyperplasia) Hypertension denies Diabetic peripheral neuropathy (Chronic) Long-term (current) use of anticoagulants, INR goal 2.0-3.0 (Chronic) Adenocarcinoma, colon hx- s/p colostomy Lymphedema Antiphospholipid syndrome (Chronic) on warfarin, follows with [facility] Hyperlipidemia Anemia iron deficiency-on po supplementation Glaucoma (Acute) hx Medical History Hx of insect bite Type II diabetes mellitus Lung granuloma Carotid artery calcification Coronary artery calcification Pulmonary embolism Lower extremity edema Surgical History Hx of left cataract extraction History of removal of Port-a-Cath (10/19/23) Hx of tooth extraction History of transesophageal echocardiography (ASHLEY) History of colostomy History of colonoscopy Hx of lymph node biopsy H/O colectomy History of rectal polypectomy History of knee surgery History of elbow surgery History of dental surgery Family History Father Myocardial infarction Diabetes Aunt Breast cancer Mother Cancer Diabetes Denies family history of Ovarian cancer Prostate cancer Colorectal cancer Social History (Updated 03/23/24 @ 15:06 by Kylee Sommers LPN) Smoking Status: Never smoker Second Hand Exposure: Yes (hx as child); Do You Dip or Chew Tobacco: No; Hx Alcohol Use: Yes Alcohol type: wine Alcohol Intake Frequency: 2-4 x/Month Alcohol Intake Frequency Comment: Once a week Hx Substance Use: No Preferred Language: Vietnamese Communication Ability: Effective Visual Impairment: No Limitations Hearing Ability: Normal Carry Out Clerk Required: No Beliefs That Will Affect Care: None marital status: Current Living Situation: Spouse and Family Current Living Situation Comment: lives with and daughter current occupational status: retired How many Children do You have: 3 Feels Safe at Home: Yes Childhood Exposure to Second-Hand Smoke: Yes Diet: diabetic and regular caffeine: Yes during the past year weight has: remained stable Dental Care, Regularly: Yes Physical Activity Frequency: Does not Exercise Seatbelt Use: always Sunscreen Use: Yes Do you think of yourself as: straight/heterosexual Gender Identity: Male Assistive Devices: Glasses and Walker Allergies Allergies Allergy/AdvReac Type Severity Reaction Status Date / Time sitagliptin Allergy Intermediate Hives - Verified 03/23/24 15:02 Januvia cat dander Allergy Mild EYES WATER Verified 03/23/24 15:02 Srulwlj-PZJ-QeW Reductase AdvReac Intermediate LEG CRAMPS Verified 03/23/24 15:02 Inhibitor [Wqcpybe-Oxb-Iyq Reductase Inhibitor] Home Meds Home Medications Medication Instructions Recorded Confirmed multivitamin (Daily Multi-Vitamin 1 tab PO QAM 12/11/21 03/24/24 tablet) ferrous sulfate 325 mg (65 mg 325 mg PO BID 04/14/22 03/24/24 iron) tablet (Feosol) magnesium citrate 100 mg tablet 100 mg PO DAILY 09/30/22 03/24/24 insulin aspar prot-insulin aspart 25 - 30 unit subcut BID 12/08/23 03/24/24 100 unit/mL (70-30) subcutaneous pen (Novolog Mix 70-30FlexPen U-100) enoxaparin 40 mg/0.4 mL 40 mg subcut QAM 02/22/24 03/24/24 subcutaneous syringe (Lovenox) warfarin 5 mg tablet 10 mg PO UD 03/24/24 03/24/24 Previous Rx's Medication Instructions Recorded miscellaneous medical supply #3,840 mL 12/12/21 miscellaneous medical supply 1 ea miscellaneous .COMPLEX #1 ea 12/18/22 rosuvastatin 20 mg tablet (Crestor) 20 mg PO QAM #90 tabs 10/13/23 metformin 500 mg tablet,extended 1,000 mg (2 x 500 mg) PO BID #360 02/12/24 release 24 hr tabs pen needle, diabetic 32 gauge x #200 ea 11/18/23 5/32" (BD Donna 2nd Gen Pen Needle) blood sugar diagnostic (OneTouch #100 ea 12/23/23 Ultra Test strips) blood-glucose meter (OneTouch #1 ea 12/23/23 Ultra2 Meter) tamsulosin 0.4 mg capsule (Flomax) 0.4 mg PO QAM #90 caps 02/17/24 lancets 33 gauge (OneTouch Delica #100 ea 02/21/24 Plus Lancet) cephalexin 500 mg capsule 500 mg PO QID 10 days #40 caps 03/23/24 furosemide 20 mg tablet 20 mg PO DAILY #30 tabs 03/23/24 sulfamethoxazole 800 1 tab PO BID #14 tabs 03/23/24 mg-trimethoprim 160 mg tablet (Bactrim DS) Results & Data (ED) Vital Signs Vital Signs - 24 hr 03/24/24 11:17 03/24/24 13:00 Temperature 36.5 C Temperature Source Temporal Artery Scan Pulse Rate 82 Pulse Rate [Right Finger] 74 Pulse Rhythm Regular Pulse Rhythm [Right Finger] Regular Pulse Strength Normal Pulse Strength [Right Finger] Normal Respiratory Rate 20 20 Respiratory Effort / Characteristics Non-Labored Spontaneous Non-Labored Respiratory Depth Normal Normal Respiratory Pattern Regular Blood Pressure 118/63 Blood Pressure [Right Arm] 140/68 Blood Pressure Mean 81 Blood Pressure Mean [Right Arm] 92 Blood Pressure Position Sitting Blood Pressure Position [Right Arm] Lying Pulse Oximetry 96 96 Oxygen Delivery Method Room Air Room Air Sepsis Recent Fever Within 48 Hours No Sepsis New/Unexplained Change in Mental Status N/A Sepsis Action Taken by Nursing No Action Required Laboratory Data 03/25/24 07:49 03/25/24 07:49 Lab Results 03/24/24 Range/Units 12:15 WBC 6.47 (4.8-10.8) K/ul RBC 3.60 L (4.70-6.10) M/uL Hgb 10.9 L (14.0-18.0) g/dl Hct 33.2 L (42.0-52.0) % MCV 92.2 (80.0-100.0) fL MCH 30.3 (25.0-34.0) pg MCHC 32.8 (32.0-36.0) g/dL RDW Std Deviation 49.2 H (36.4-46.3) fL RDW Coeff of Cleo 14.6 H (11.5-14.5) % Plt Count 205 (130-400) K/uL MPV 9.5 (9.4-12.4) fL Immature Gran % (Auto) 0.2 % Neut % (Auto) 71.8 % Lymph % (Auto) 19.0 % Payette % (Auto) 7.6 % Eos % (Auto) 0.8 % Baso % (Auto) 0.6 % Neut # (Auto) 4.65 (1.40-6.50) K/uL Lymph # (Auto) 1.23 (1.20-3.40) K/uL Payette # (Auto) 0.49 (0.11-0.59) K/uL Eos # (Auto) 0.05 (0.00-0.50) K/uL Baso # (Auto) 0.04 (0.00-0.20) K/uL Immature Gran # (Auto) 0.01 (0.01-0.20) K/uL PT 14.0 H (9.0-12.0) Seconds INR 1.3 H (0.9-1.1) Sodium 138 (136-145) mmol/L Potassium 4.0 (3.5-5.1) mmol/L Chloride 104 (98-107) mmol/L Carbon Dioxide 28 (21-32) mmol/L Anion Gap 6 (3-11) BUN 20 (6-23) mg/dl Creatinine 0.90 (0.6-1.4) mg/dl Est Cr Clr Drug Dosing Not Reportable Est GFR ( Amer) 91.9 ml/min Est GFR (Non-Af Amer) 79.3 ml/min BUN/Creatinine Ratio 22.2 H (10-20) Glucose 127 H (70-99(Fasting)) mg/dl Calcium 9.8 (8.6-10.3) mg/dl C-Reactive Protein 2.91 H (0-0.5) mg/dl Administered Medications Ferrous Sulfate (Ferrous Sulfate 325 Mg Tab) 325 mg PO BID MITESH Stop: 04/23/24 20:59 Last Admin: 03/25/24 08:47 Dose: 325 mg Documented By: MARY LOU Admin: 03/24/24 21:22 Dose: 325 mg Documented By: MINE Furosemide (Furosemide 20 Mg Tab) 20 mg PO DAILY MITESH Stop: 04/24/24 08:59 Last Admin: 03/25/24 08:46 Dose: 20 mg Documented By: MARY LOU Cefepime HCl 2,000 mg/ Syringe 20 mls @ 5 mls/min IV Q12H MITESH; Protocol Stop: 04/01/24 11:59 Last Admin: 03/25/24 13:03 Dose: 5 mls/min Documented By: MARY LOU Insulin Aspart (Insulin Aspart Per Unit Charge) 0 units SC ACHS MITESH Stop: 04/23/24 16:29 Last Admin: 03/25/24 13:02 Dose: 7 units Documented By: MARY LOU Co-signed By: MILLER Admin: 03/25/24 08:52 Dose: 7 units Documented By: MARY LOU Co-signed By: GRETCHEN Admin: 03/24/24 22:22 Dose: 2 units Documented By: MINE Co-signed By: CHRISTIANO Admin: 03/24/24 18:47 Dose: 4 units Documented By: ALTHEA Co-signed By: ABIMBOLA Insulin Glargine (Lantus Per Unit Charge) 15 units SQ BID MITESH Stop: 04/23/24 20:59 Last Admin: 03/25/24 08:52 Dose: 15 units Documented By: MARY LOU Co-signed By: GRETCHEN Admin: 03/24/24 22:23 Dose: 15 units Documented By: MINE Co-signed By: CHRISTIANO Tamsulosin HCl (Tamsulosin Hcl 0.4 Mg Cap) 0.4 mg PO QAM [facility] Stop: 04/24/24 08:59 Last Admin: 03/25/24 08:46 Dose: 0.4 mg Documented By: MARY LOU Discontinued Medications Daptomycin 400 mg/ Syringe 8 mls @ 4 mls/min IV Q24H MITESH; Protocol Stop: 03/31/24 15:59 Last Admin: 03/24/24 16:23 Dose: 4 mls/min Documented By: DESHAWN Ceftriaxone Sodium (Rocephin) 2,000 mg in 50 mls @ 100 mls/hr IV Q24H MITESH Stop: 03/31/24 14:59 Last Infusion: 03/24/24 16:15 Dose: Infused Documented By: Admin: 03/24/24 15:45 Dose: 100 mls/hr Documented By: DESHAWN Metronidazole (Flagyl) 500 mg in 100 mls @ 100 mls/hr IV Q8H [facility]; Protocol Stop: 03/25/24 10:00 Last Infusion: 03/25/24 07:54 Dose: Infused Documented By: MARY LOU Admin: 03/25/24 06:16 Dose: 100 mls/hr Documented By: Infusion: 03/25/24 00:06 Dose: Infused Documented By: Admin: 03/24/24 22:45 Dose: 100 mls/hr Documented By: Infusion: 03/24/24 18:43 Dose: Infused Documented By: Admin: 03/24/24 16:27 Dose: 100 mls/hr Documented By: DESHAWN Warfarin Sodium (Warfarin Sod 2.5 Mg Tab) 12.5 mg PO NOW ONE Stop: 03/24/24 16:01 Last Admin: 03/24/24 16:32 Dose: 12.5 mg Documented By: DESHAWN Discharge Plan Visit Data Chief Complaint: Referred by Doctor Stated Complaint: REF BY PCP, LOWER LEFT LEG INJURY WORSENING ED Provider: Mikaela Dawn Discharge Problem: Diabetic foot ulcer, Type II diabetes mellitus, uncontrolled, Lymphedema Patient Disposition: Admitted As Inpatient Discharge Instructions Interventions: ED Discharge Assessment Last Done: 03/24/24 18:12
[2024-03-24] MEDS ORDERED: Patient's HEIGHT &/or WEIGHT Needed SCH (14:45)
[2024-03-24 15:11] LABS: INR 1.3 (0.9-1.1)
[2024-03-24] MEDS: cefTRIAXone SODIUM 2,000 MG/50 ML BAG IV SCH (15:45)
[2024-03-24] MEDS: DAPTOmycin 400 MG in SYRINGE 0 ML IV SCH (16:23)
[2024-03-24] MEDS: metroNIDAZOLE 500 MG/100 ML BAG IV SCH (16:27)
[2024-03-24] MEDS: WARFARIN SOD 2.5 MG TAB PO ONE (16:32)
[2024-03-24] MEDS ORDERED: WARFARIN SOD 5 MG TAB PO SCH (18:16)
[2024-03-24] MEDS ORDERED: POLYETHYLENE (MIRALAX) 17 GM PACK PO PRN (18:16)
[2024-03-24] MEDS: INSULIN ASPART PER UNIT CHARGE SC SCH (18:47)
[2024-03-24] MEDS: FERROUS SULFATE 325 MG TAB PO SCH (21:22)
[2024-03-24] MEDS: LANTUS PER UNIT CHARGE SQ SCH (22:23)
[2024-03-25 08:30] LABS: Basophils # (auto) 0.03 K/uL (0.00-0.20); Basophils % (auto) 0.5 %; Eosinophils # (auto) 0.04 K/uL (0.00-0.50); Eosinophils % (auto) 0.7 %; Hematocrit (blood only) 31.7 % (42.0-52.0); Hemoglobin 10.4 g/dl (14.0-18.0); Immature Granulocytes # (auto) 0.01 K/uL (0.01-0.20); Immature Granulocytes % (auto) 0.2 %; Lymphocytes # (auto) 1.13 K/uL (1.20-3.40); Lymphocytes % (auto) 20.4 %; Mean Corpuscular Hemoglobin 30.4 pg (25.0-34.0); Mean Corpuscular Hgb Conc 32.8 g/dL (32.0-36.0); Mean Corpuscular Volume 92.7 fL (80.0-100.0); Mean Platelet Volume 9.3 fL (9.4-12.4); Monocytes # (auto) 0.45 K/uL (0.11-0.59); Monocytes % (auto) 8.1 %; Neutrophils # (auto) 3.87 K/uL (1.40-6.50); Neutrophils % (auto) 70.1 %; Platelet Count 191 K/uL (130-400); RDW Coefficient of Variation 14.6 % (11.5-14.5); RDW Standard Deviation 49.4 fL (36.4-46.3); Red Blood Count 3.42 M/uL (4.70-6.10); White Blood Count 5.53 K/ul (4.8-10.8)
[2024-03-25 08:37] LABS: BUN Creatinine Ratio 18.2 (10-20); Calcium 9.2 mg/dl (8.6-10.3); Creatinine Clr Calc Pharmacy 89.9 ml/min; Est GFR (African American) 92.7 ml/min; Potassium 4.1 mmol/L (3.5-5.1)
[2024-03-25 08:45] LABS: INR 1.7 (0.9-1.1); Prothrombin Time 17.7 Seconds (9.0-12.0)
[2024-03-25] MEDS: FUROSEMIDE 20 MG TAB PO SCH (08:46)
[2024-03-25] MEDS: TAMSULOSIN HCL 0.4 MG CAP PO SCH (08:46)
[2024-03-25 09:34] LABS: C Reactive Protein 3.56 mg/dl (0-0.5)
[2024-03-25] MEDS: CEFEPIME 2,000 MG in SYRINGE 0 ML IV SCH (13:03)
[2024-03-25] MEDS: metroNIDAZOLE 500 MG/100 ML BAG IV SCH (15:21)
[2024-03-25] MEDS: WARFARIN SOD 10 MG TAB PO SCH (16:25)
--- NOTE | 2024-03-25 17:50 | Hospitalist Progress Note ---
Date of Service March 25, 2024 Assessment & Plan (1) Cellulitis in diabetic foot: Plan: Left lower extremity diabetic cellulitis. Did not appear septic on admission. Keflex/Bactrim for 1 day prior to admission Bilateral lower extremity swelling/chronic venous stasis with ichthyosis. LLE swelling, erythema improving now within marked borders, weeping, anterior hematoma. Warm to touch, tender to palpation. CRP elevated at 3.56 Doppler negative for DVT MRSA nares negative Antibiotic regimen updated to cefepime and Flagyl. Once ready for discharge, can downgrade to cefdinir. Surface culture LLE - preliminarily negative (2) Type II diabetes mellitus, uncontrolled: Plan: Metformin held Goal BSG 490019 Patient is on 70/30 insulin at home, transitioned to Lantus/aspart basal bolus while inpatient (3) Antiphospholipid syndrome: Plan: History of antiphospholipid syndrome and past VTE Continue warfarin, goal INR 23. INR trended daily. Patient was scheduled to transition to Lovenox bridge in 5 days in anticipation of his polyp removal (4) BPH (benign prostatic hyperplasia): Plan: Continue Flomax (5) History of rectal polypectomy: Plan: Pending precancerous polyp removal - Hx of prior malignant polyp removal. Patient is pending a rectal precancerous polyp removal at [facility] 04/03. This has been delayed twice, and patient hopes that his cellulitis that this will not further delay this appointment. No acute change in management Plan Discontinued daptomycin and ceftriaxone Started cefepime Resumed statin DVT prophylaxis: Anticoagulated CODE STATUS: Full code Admission and Anticipated Discharge Date Admission Date: March 24, 2024 Subjective Patient seen and evaluated at bedside. He reports that his leg feels better compared to yesterday. He reports continued tenderness of the left lower extremity. No additional complaints at this time. Physical Exam Physical Exam: General: No acute distress, nondiaphoretic, well-developed, well-nourished. 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 Asymmetric left leg swelling. LLE warm to touch, weeping, erythematous but within previously marked borders. LLE anterior hematoma. LLE significantly tender to touch. Cardiac: Regular rate and rhythm without murmurs gallops or rubs. Pulm: Clear to auscultation bilaterally without wheezes, rales or rhonchi. No respiratory distress. Neuro: A&O x3. No focal neurological deficits. Results & Data Results & Data Vital Signs (Past 12 Hours) Vital Signs Temp Pulse Resp BP Pulse Ox O2 Del Method 03/25/24 15:00 36.7 C 76 16 142/74 H 95 Room Air 03/25/24 08:15 Room Air 03/25/24 06:22 36.9 C 77 16 148/70 H 95 Room Air Laboratory Results Reviewed CBC Reviewed BMP Reviewed LLE wound culture PG Care Time/CCT Total # of Minutes Spent Total Time Spent with Patient: Total time spent is greater than 50% in coordination of care (as documented) at patient's floor/unit and/or counseling patient: Coding Level of Care Code 22493 SUB INP/OBS CARE 3/50MIN Diagnoses Cellulitis in diabetic foot E11.628; L03.119 Uncontrolled type 2 diabetes mellitus with hyperglycemia E11.65 Antiphospholipid syndrome D68.61 BPH (benign prostatic hyperplasia) N40.0 History of rectal polypectomy Z98.890; Z87.19
[2024-03-25] MEDS: ACETAMINOPHEN 325 MG TAB PO PRN (20:53)
[2024-03-26 07:05] LABS: Basophils # (auto) 0.02 K/uL (0.00-0.20); Basophils % (auto) 0.4 %; Eosinophils # (auto) 0.04 K/uL (0.00-0.50); Eosinophils % (auto) 0.7 %; Hematocrit (blood only) 31.1 % (42.0-52.0); Hemoglobin 10.3 g/dl (14.0-18.0); Immature Granulocytes # (auto) 0.01 K/uL (0.01-0.20); Immature Granulocytes % (auto) 0.2 %; Lymphocytes # (auto) 0.88 K/uL (1.20-3.40); Lymphocytes % (auto) 15.7 %; Mean Corpuscular Hemoglobin 30.6 pg (25.0-34.0); Mean Corpuscular Hgb Conc 33.1 g/dL (32.0-36.0); Mean Corpuscular Volume 92.3 fL (80.0-100.0); Mean Platelet Volume 9.2 fL (9.4-12.4); Monocytes # (auto) 0.52 K/uL (0.11-0.59); Monocytes % (auto) 9.3 %; Neutrophils # (auto) 4.14 K/uL (1.40-6.50); Neutrophils % (auto) 73.7 %; Platelet Count 186 K/uL (130-400); RDW Coefficient of Variation 14.6 % (11.5-14.5); RDW Standard Deviation 49.1 fL (36.4-46.3); Red Blood Count 3.37 M/uL (4.70-6.10); White Blood Count 5.61 K/ul (4.8-10.8)
[2024-03-26 07:22] LABS: BUN Creatinine Ratio 17.3 (10-20); C Reactive Protein 5.58 mg/dl (0-0.5); Creatinine Clr Calc Pharmacy 97.7 ml/min; Est GFR (African American) 95.9 ml/min; Est GFR (Non-African American) 82.8 ml/min; Potassium 4.1 mmol/L (3.5-5.1)
[2024-03-26 07:34] LABS: Prothrombin Time 20.2 Seconds (9.0-12.0)
[2024-03-26] MEDS: ROSUVASTATIN CALCIUM 20 MG TAB PO SCH (08:48)
--- NOTE | 2024-03-26 11:06 | Hospitalist Progress Note ---
Date of Service March 26, 2024 Assessment & Plan (1) Cellulitis in diabetic foot: Plan: Left lower extremity diabetic cellulitis. Did not appear septic on admission. 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 LLE swelling, erythema continues to improve within marked borders, anterior hematoma, anterior medial wound draining discharge. Warm to touch, tender to palpation. LLE no longer weeping. CRP remains elevated at 5.58 Continue cefepime and Flagyl. Once ready for discharge, can downgrade to cefdinir. Wound culture LLE - negative Apply cold compress to LLE Wound care consult placed (2) Type II diabetes mellitus, uncontrolled: Plan: Metformin held Goal BSG [id number] Patient is on 70/30 insulin at home, transitioned to Lantus/aspart basal bolus while inpatient (3) Antiphospholipid syndrome: Plan: History of antiphospholipid syndrome and past VTE Continue warfarin, goal INR 23. INR trended daily. Patient was scheduled to transition to Lovenox bridge in 5 days in anticipation of his polyp removal (4) BPH (benign prostatic hyperplasia): Plan: Continue Flomax (5) History of rectal polypectomy: Plan: Pending precancerous polyp removal - Hx of prior malignant polyp removal. [facility] This has been delayed twice, and patient hopes that his cellulitis that this will not further delay this appointment. No acute change in management Plan Consulted wound care Apply cold compress to LLE DVT prophylaxis: Anticoagulated CODE STATUS: Full code Admission and Anticipated Discharge Date Admission Date: March 24, 2024 Subjective Patient seen and evaluated at bedside. He reports that his left leg is feeling better today. Yesterday he reported 6/10 discomfort, and today is 3/10. His LLE is no longer weeping, but the wound on his anterior medial kumar is still draining discharge. We discussed that the wound care nurse will see him tomorrow to address the wound. He is tolerating his antibiotics well. He denies any complaints at this time. Physical Exam Physical Exam: General: No acute distress, nondiaphoretic, well-developed, well-nourished. 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 Asymmetric left leg swelling. LLE warm to touch, erythema decreasing from within previously marked borders. LLE anterior hematoma with medial wound draining discharge. LLE tender to touch, improving. Cardiac: Regular rate and rhythm without murmurs gallops or rubs. Pulm: Clear to auscultation bilaterally without wheezes, rales or rhonchi. No respiratory distress. Abdominal: Soft, nontender, nondistended. Colostomy bag in place, brown liquid stool. Neuro: A&O x3. No focal neurological deficits. Results & Data Results & Data Vital Signs (Past 12 Hours) Vital Signs Temp Pulse Resp BP Pulse Ox O2 Del Method 03/26/24 07:16 36.7 C 75 18 168/75 H 94 Room Air Laboratory Results Reviewed CBC Reviewed BMP Reviewed wound culture PG Care Time/CCT Total # of Minutes Spent Total Time Spent with Patient: Total time spent is greater than 50% in coordination of care (as documented) at patient's floor/unit and/or counseling patient: Coding Level of Care Code 14892 SUB INP/OBS CARE 2/35MIN Diagnoses Cellulitis in diabetic foot E11.628; L03.119 Uncontrolled type 2 diabetes mellitus with hyperglycemia E11.65 Antiphospholipid syndrome D68.61 BPH (benign prostatic hyperplasia) N40.0 History of rectal polypectomy Z98.890; Z87.19
[2024-03-27 07:09] LABS: Basophils # (auto) 0.02 K/uL (0.00-0.20); Basophils % (auto) 0.4 %; Eosinophils # (auto) 0.09 K/uL (0.00-0.50); Eosinophils % (auto) 1.7 %; Hematocrit (blood only) 31.9 % (42.0-52.0); Hemoglobin 10.4 g/dl (14.0-18.0); Immature Granulocytes # (auto) 0.02 K/uL (0.01-0.20); Immature Granulocytes % (auto) 0.4 %; Lymphocytes # (auto) 1.13 K/uL (1.20-3.40); Lymphocytes % (auto) 21.4 %; Mean Corpuscular Hgb Conc 32.6 g/dL (32.0-36.0); Mean Corpuscular Volume 91.9 fL (80.0-100.0); Mean Platelet Volume 9.4 fL (9.4-12.4); Monocytes # (auto) 0.49 K/uL (0.11-0.59); Monocytes % (auto) 9.3 %; Neutrophils # (auto) 3.54 K/uL (1.40-6.50); Neutrophils % (auto) 66.8 %; Platelet Count 207 K/uL (130-400); RDW Coefficient of Variation 14.7 % (11.5-14.5); RDW Standard Deviation 49.6 fL (36.4-46.3); Red Blood Count 3.47 M/uL (4.70-6.10); White Blood Count 5.29 K/ul (4.8-10.8)
[2024-03-27 07:20] LABS: BUN Creatinine Ratio 15.3 (10-20); Creatinine Clr Calc Pharmacy 93.1 ml/min; Est GFR (Non-African American) 81.1 ml/min; Potassium 4.1 mmol/L (3.5-5.1)
[2024-03-27 08:02] LABS: INR 2.3 (0.9-1.1)
--- NOTE | 2024-03-27 13:13 | Hospitalist Progress Note ---
Date of Service March 27, 2024 Assessment & Plan (1) Cellulitis in diabetic foot: Plan: Left lower extremity diabetic cellulitis. Did not appear septic on admission. 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 LLE swelling, erythema continues to improve within marked borders, anterior hematoma, anterior medial wound draining discharge. Warm to touch, tender to palpation. LLE no longer weeping. CRP remains elevated at 5.58 Continue cefepime and Flagyl. Once ready for discharge, can downgrade to cefdinir. Wound culture LLE - negative Apply cold compress to LLE Wound care consulted: Wash legs with soap and water, rinse and dry. 2 open areas on LLEcleaned with saline. Cover open areas with Aquacel Ag, gauze and secure using large Kerlix. Change 4 times daily and as needed. (2) Type II diabetes mellitus, uncontrolled: Plan: Metformin held Goal BSG [id number] Patient is on 70/30 insulin at home, transitioned to Lantus/aspart basal bolus while inpatient (3) Antiphospholipid syndrome: Plan: History of antiphospholipid syndrome and past VTE Continue warfarin, goal INR 23. INR trended daily. Patient was scheduled to transition to Lovenox bridge in 5 days in anticipation of his polyp removal (4) BPH (benign prostatic hyperplasia): Plan: Continue Flomax (5) History of rectal polypectomy: Plan: Pending precancerous polyp removal - Hx of prior malignant polyp removal. Patient is pending a rectal precancerous polyp removal at [facility] 04/03. This has been delayed twice, and patient hopes that his cellulitis that this will not further delay this appointment. No acute change in management Plan Reviewed wound care consult DVT prophylaxis: Anticoagulated CODE STATUS: Full code Admission and Anticipated Discharge Date Admission Date: March 24, 2024 Supervising Physician Co-Signing Physician Notes Attending Attestation - Chart reviewed, care plan d/w GIGI Rivers. I agree w/ the ajrrett components of her documentation. Elijah German MD Subjective Patient seen and evaluated at bedside. He reports that he feels well, LLE tenderness improving. He is well-tolerating his antibiotics, denies any GI upset. Wound care saw the patient today and his LLE is currently wrapped. Patient does report that the erythema was improved today. We discussed another day inpatient for IV antibiotics and to allow the wound care nurse to see him again tomorrow, with possible discharge on oral antibiotics tomorrow afternoon. Patient is agreeable to this plan. He has no complaints at this time. Physical Exam Physical Exam: General: No acute distress, nondiaphoretic, well-developed, well-nourished. 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 LLE wrapped in dressing, erythema decreasing from within previously marked borders. LLE tender to touch, improving. Cardiac: Regular rate and rhythm without murmurs gallops or rubs. Pulm: Clear to auscultation bilaterally without wheezes, rales or rhonchi. No respiratory distress. Abdominal: Soft, nontender, nondistended. Colostomy bag in place, brown liquid stool. Neuro: A&O x3. No focal neurological deficits. Results & Data Results & Data Vital Signs (Past 12 Hours) Vital Signs Temp Pulse Resp BP Pulse Ox O2 Del Method 03/27/24 08:00 Room Air 03/27/24 07:35 36.8 C 73 18 149/71 H 96 Room Air Laboratory Results Reviewed CBC Reviewed BMP PG Care Time/CCT Total # of Minutes Spent Total Time Spent with Patient: Total time spent is greater than 50% in coordination of care (as documented) at patient's floor/unit and/or counseling patient: Coding Level of Care Code 35448 SUB INP/OBS CARE 2/35MIN Diagnoses Cellulitis in diabetic foot E11.628; L03.119 Uncontrolled type 2 diabetes mellitus with hyperglycemia E11.65 Antiphospholipid syndrome D68.61 BPH (benign prostatic hyperplasia) N40.0 History of rectal polypectomy Z98.890; Z87.19
[2024-03-28 06:25] LABS: Hematocrit (blood only) 33.2 % (42.0-52.0); Hemoglobin 10.9 g/dl (14.0-18.0); Mean Corpuscular Hemoglobin 30.4 pg (25.0-34.0); Mean Corpuscular Hgb Conc 32.8 g/dL (32.0-36.0); Mean Corpuscular Volume 92.5 fL (80.0-100.0); Mean Platelet Volume 9.1 fL (9.4-12.4); Platelet Count 226 K/uL (130-400); RDW Coefficient of Variation 14.5 % (11.5-14.5); RDW Standard Deviation 49.1 fL (36.4-46.3); Red Blood Count 3.59 M/uL (4.70-6.10); White Blood Count 5.09 K/ul (4.8-10.8)
[2024-03-28 06:39] LABS: BUN Creatinine Ratio 18.3 (10-20); C Reactive Protein 7.39 mg/dl (0-0.5); Creatinine Clr Calc Pharmacy 96.5 ml/min; Est GFR (African American) 95.4 ml/min; Est GFR (Non-African American) 82.4 ml/min; Potassium 4.1 mmol/L (3.5-5.1)
--- NOTE | 2024-03-28 17:40 | Hospitalist Progress Note ---
Date of Service March 28, 2024 Assessment & Plan (1) Cellulitis in diabetic foot: Plan: Left lower extremity diabetic cellulitis. Did not appear septic on admission. 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 LLE swelling, erythema continues to improve within marked borders, anterior hematoma, anterior medial wound draining discharge. Warm to touch, tender to palpation. LLE no longer weeping. CRP remains elevated at 7.39 on 03/28. This is most likely due to to inflammatory response from his significant lower extremity swelling. Recommend rechecking CRP 1 week after discharge. Continue cefepime and Flagyl. Once ready for discharge, can downgrade to cefdinir. Last day of antibiotic coverage 03/31/2024. Wound culture LLE - negative Apply cold compress to LLE Wound care consulted: Wash legs with soap and water, rinse and dry. 2 open areas on LLEcleaned with saline. Cover open areas with Aquacel Ag, gauze and secure using large Kerlix. Change 4 times daily and as needed. PT recommending rehab upon discharge. Patient is agreeable. Referrals have been sent to [facility] and [facility]. (2) Type II diabetes mellitus, uncontrolled: Plan: Metformin held Goal BSG [id number] Patient is on 70/30 insulin at home, transitioned to Lantus/aspart basal bolus while inpatient (3) Antiphospholipid syndrome: Plan: History of antiphospholipid syndrome and past VTE Continue warfarin, goal INR 23. INR trended daily. Patient was scheduled to transition to Lovenox bridge in 5 days in anticipation of his polyp removal (4) BPH (benign prostatic hyperplasia): Plan: Continue Flomax (5) History of rectal polypectomy: Plan: Pending precancerous polyp removal - Hx of prior malignant polyp removal. Patient is pending a rectal precancerous polyp removal at [facility] 04/03. This has been delayed twice, and patient hopes that his cellulitis that this will not further delay this appointment. No acute change in management Plan Discussed evaluation and recommendations with physical therapy Discussed discharge plan with case management DVT prophylaxis: Anticoagulated CODE STATUS: Full code Admission and Anticipated Discharge Date Admission Date: March 24, 2024 Subjective Patient seen and evaluated at bedside. He reports that he worked with PT today and they are recommending rehab. He is agreeable to this and thinks it would be beneficial. He notes that he had some left leg pain when moving from his bed to the bedside chair earlier today. He received Tylenol and reports that this relieved his pain. Patient has no complaints at this time. Physical Exam Physical Exam: General: No acute distress, nondiaphoretic, well-developed, well-nourished. 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 LLE wrapped in dressing, erythema decreasing from within previously marked borders. LLE tender to touch, improving. Cardiac: Regular rate and rhythm without murmurs gallops or rubs. Pulm: Clear to auscultation bilaterally without wheezes, rales or rhonchi. No respiratory distress. Abdominal: Soft, nontender, nondistended. Colostomy bag in place, brown liquid stool. Neuro: A&O x3. No focal neurological deficits. Results & Data Results & Data Vital Signs (Past 12 Hours) Vital Signs Temp Pulse Resp BP Pulse Ox O2 Del Method 03/28/24 15:45 36.2 C L 79 18 161/70 H 97 Room Air 03/28/24 08:00 Room Air 03/28/24 07:26 36.5 C 71 18 150/78 H 95 Room Air Laboratory Results Reviewed CBC Reviewed BMP Reviewed left leg wound culture PG Care Time/CCT Total # of Minutes Spent Total Time Spent with Patient: Total time spent is greater than 50% in coordination of care (as documented) at patient's floor/unit and/or counseling patient: Coding Level of Care Code 65748 SUB INP/OBS CARE 2/35MIN Diagnoses Cellulitis in diabetic foot E11.628; L03.119 Uncontrolled type 2 diabetes mellitus with hyperglycemia E11.65 Antiphospholipid syndrome D68.61 BPH (benign prostatic hyperplasia) N40.0 History of rectal polypectomy Z98.890; Z87.19
[2024-03-29 07:56] LABS: Hematocrit (blood only) 32.3 % (42.0-52.0); Hemoglobin 10.6 g/dl (14.0-18.0); Mean Corpuscular Hemoglobin 30.3 pg (25.0-34.0); Mean Corpuscular Hgb Conc 32.8 g/dL (32.0-36.0); Mean Corpuscular Volume 92.3 fL (80.0-100.0); Mean Platelet Volume 9.1 fL (9.4-12.4); Platelet Count 246 K/uL (130-400); RDW Coefficient of Variation 14.4 % (11.5-14.5); RDW Standard Deviation 48.9 fL (36.4-46.3); White Blood Count 5.94 K/ul (4.8-10.8)
[2024-03-29 08:26] LABS: BUN Creatinine Ratio 16.7 (10-20); Calcium 8.8 mg/dl (8.6-10.3); Creatinine Clr Calc Pharmacy 94.2 ml/min; Est GFR (African American) 94.5 ml/min; Est GFR (Non-African American) 81.5 ml/min; Potassium 3.8 mmol/L (3.5-5.1)
[2024-03-29 10:46] LABS: INR 2.7 (0.9-1.1)
--- NOTE | 2024-03-29 18:33 | Hospitalist Progress Note ---
Date of Service March 29, 2024 Assessment & Plan (1) Cellulitis in diabetic foot: Plan: Left lower extremity diabetic cellulitis. Did not appear septic on admission. 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 LLE swelling, erythema continues to improve within marked borders, anterior hematoma, anterior medial wound draining discharge. Warm to touch, tender to palpation. LLE no longer weeping. CRP remains elevated at 5.58 Continue cefepime and Flagyl. Once ready for discharge, can downgrade to cefdinir. Wound culture LLE - negative Apply cold compress to LLE Wound care consulted: Wash legs with soap and water, rinse and dry. 2 open areas on LLEcleaned with saline. Cover open areas with Aquacel Ag, gauze and secure using large Kerlix. Change every other day and as needed. (2) Type II diabetes mellitus, uncontrolled: Plan: Metformin held Goal BSG [id number] Patient is on 70/30 insulin at home, transitioned to Lantus/aspart basal bolus while inpatient (3) Antiphospholipid syndrome: Plan: History of antiphospholipid syndrome and past VTE Continue warfarin, goal INR 23. INR trended daily. Patient was scheduled to transition to Lovenox bridge in 5 days in anticipation of his polyp removal (4) BPH (benign prostatic hyperplasia): Plan: Continue Flomax (5) History of rectal polypectomy: Plan: Pending precancerous polyp removal - Hx of prior malignant polyp removal. Patient is pending a rectal precancerous polyp removal at [facility] 04/03. This has been delayed twice, and patient hopes that his cellulitis that this will not further delay this appointment. No acute change in management Plan Updated patient's and daughter at bedside Discussed discharge planning with case management DVT prophylaxis: Anticoagulated CODE STATUS: Full code Admission and Anticipated Discharge Date Admission Date: March 24, 2024 Subjective Patient seen and evaluated at bedside with and daughter. He reports that his left leg is mildly painful when standing up from bed to transition to bedside chair earlier this morning. He is resting comfortably at the time my evaluation. He reports that that LLE tenderness he was experiencing previously has significantly improved. No complaints at this time. Waiting for bed to become available at rehab facility. Per case management, [facility] first bed available 03/31/2024. Physical Exam Physical Exam: General: No acute distress, nondiaphoretic, well-developed, well-nourished. 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 LLE wrapped in dressing, erythema decreasing from within previously marked borders. LLE tender to touch, continues to improve. Cardiac: Regular rate and rhythm without murmurs gallops or rubs. Pulm: Clear to auscultation bilaterally without wheezes, rales or rhonchi. No respiratory distress. Abdominal: Soft, nontender, nondistended. Colostomy bag in place, dark brown liquid stool. Neuro: A&O x3. No focal neurological deficits. Results & Data Results & Data Vital Signs (Past 12 Hours) Vital Signs Temp Pulse Resp BP Pulse Ox O2 Del Method 03/29/24 14:50 36.6 C 79 16 159/71 H 97 Room Air 03/29/24 14:00 37.0 C 76 16 133/65 96 Room Air 03/29/24 07:50 Room Air 03/29/24 07:03 36.7 C 72 16 150/70 H 96 Room Air Laboratory Results Reviewed CBC Reviewed BMP PG Care Time/CCT Total # of Minutes Spent Total Time Spent with Patient: Total time spent is greater than 50% in coordination of care (as documented) at patient's floor/unit and/or counseling patient: Coding Level of Care Code 61644 SUB INP/OBS CARE 3/50MIN Diagnoses Cellulitis in diabetic foot E11.628; L03.119 Uncontrolled type 2 diabetes mellitus with hyperglycemia E11.65 Antiphospholipid syndrome D68.61 BPH (benign prostatic hyperplasia) N40.0 History of rectal polypectomy Z98.890; Z87.19
[2024-03-30 08:08] LABS: Hematocrit (blood only) 31.6 % (42.0-52.0); Hemoglobin 10.3 g/dl (14.0-18.0); Mean Corpuscular Hemoglobin 29.9 pg (25.0-34.0); Mean Corpuscular Hgb Conc 32.6 g/dL (32.0-36.0); Mean Corpuscular Volume 91.9 fL (80.0-100.0); Platelet Count 248 K/uL (130-400); RDW Coefficient of Variation 14.6 % (11.5-14.5); RDW Standard Deviation 49.5 fL (36.4-46.3); Red Blood Count 3.44 M/uL (4.70-6.10); White Blood Count 5.51 K/ul (4.8-10.8)
--- NOTE | 2024-03-30 08:16 | Hospitalist Progress Note ---
Date of Service March 30, 2024 Assessment & Plan (1) Cellulitis in diabetic foot: Plan: Left lower extremity diabetic cellulitis. Did not appear septic on admission. Venous doppler FUR SEWER by PCP NEGATIVE for DVT but noting LARGE complex nonvascular fluid collection in left kumar measuring 9.2 x 2.1 x 5.0 cm Had been given keflex/bactrim x 1 day prior to admission w/ LLE swelling/erythema progression and came to ER Placed on Cefepime/Flagyl, MRSA nares negative but can consider adding Dapto needed given DM foot infection No blood cultures obtained/procalcitonin on admission CRP elevated to 2.91 on admission --> 5.58 on 03/26 and further elevated to 7.39 on 03/28 WBC wnl. Wound cx surface NEGATIVE Wound RN consult: Wash legs with soap and water, rinse and dry. 2 open areas on LLEcleaned with saline. Cover open areas with Aquacel Ag, gauze and secure using large Kerlix. Change every other day and as needed. Continues on Cefepime/Flagyl, cellulitis appearing improved HOWEVER HEMATOMA LOOKS SIGNIFICANTLY WORSE, warmer to touch/more painful, darker purple and concerns for infection/need for incision and drainage and consult placed for general surgery/messaged Dr Bae and he will eval/get back to me. (Is on coumadin, hx antiphospholipid syndrome, would not want to hold unless needed/surgery) Monitor for need for CT/MRI for further eval or escalation in abx for possible mrsa coverage this time until eval by surgery CRP checked on repeat, is finally trending down, 3.88. Elevation, pain control -- added oxycodone 5mg x 1, making available prn Therapy evals rec for rehab, [facility] planned. Timing TBD pending surgery eval of hematoma (2) Hematoma: Plan: APPEARING WORSE, concerns for not being able to heal as on coumadin as outlined below for hx DVT/PE and antiphosphlipid syndrome, INR in range and no significant elevation on admission Venous doppler FUR SEWER not able to determine sterility ?infected hematoma General surgery consulted as above, appreciate recs/assistance (3) Type II diabetes mellitus, uncontrolled: Plan: Metformin held SSI while inpatient, did have elevation in BSG today to 300, glargine 10ux1 ordered but notably had pancakes w/ syrup this morning and will continue SSI/glargine BID for now and monitor/adjust as needed (4) Antiphospholipid syndrome: Plan: History of antiphospholipid syndrome and past VTE Continue warfarin, goal INR 23. INR 2.6, in range and to monitor Patient was scheduled to transition to Lovenox bridge in 5 days in anticipation of his polyp removal and will need to be rediscussed in f/u as likely need to reschedule procedure (5) BPH (benign prostatic hyperplasia): Plan: Continue Flomax (6) History of rectal polypectomy: Plan: Pending precancerous polyp removal Hx of prior malignant polyp removal. Patient is pending a rectal precancerous polyp removal at [facility] 04/03. This has been delayed twice, and patient hopes that his cellulitis that this will not further delay this appointment. No acute change in management (7) Dizziness: Plan: ongoing issue reported by patient, occuring w/ standing up. nonfocal on exam, not confused asking RN to check orthostatic vitals, monitor for need to hold home lasix/diure tic Plan continued inpatient stay, general surgery consulted Dispo: CM following, [facility] possibly tomorrow vs Wednesday/wednesday pending surgery eval Admission and Anticipated Discharge Date Admission Date: March 24, 2024 Subjective Evaluated after lunch, sitting up in recliner chair, NAD, but reporting occasional dizziness, about once a day when standing. Is on diuretics at baseline, will have nursing check orthostatics/consider holding. Does not appear significantly dry on exam. Would like some aspirin for pain for his leg, is on coumadin and reports history of clotting disorder (hx antiphospholipid syndrome). Hematoma remains painful, surrounding cellulitis improving on IV abx but discussed concerns for needing for drainage of hematoma and consult for general surgery, patient agreeable. No fever, chills, no chest pain/difficulty breathing. Appetite remains fair, no abdominal pain/nausea at present. Anticipating [facility] possibly tomorrow however discussed may change pending eval by general surgery. Questions/concerns addressed at this time. Per nurse who had yesterday, did have increased warmth/swelling today compared to yesterday concerning for slight worsening. Physical Exam Physical Exam: General: 84yo male sitting up in recliner, NAD and eating lunch but reports some increased pain to his LEFT leg/requesting aspirin (giving dose oxycodone) HEENT: head atraumatic, poor dentition, mmm/slightly dry, trachea midline Resp: even/unlabored, no w/c/r, on room air CV: RRR, faint systolic murmur, LLE edema w/ cellulitis (cellulitis improving, hematoma appears worse), pulses present GI: +BS, soft/NT : no chavis MSK/Neuro/Skin: answering questions appropriately, alert/oriented x 3, cooperative with care, nonfocal chronic venous stasis with ichthyosis, scattered abrasions/scabs to b/l knees, significant swelling to LLE, cellulitis within markings/receeding but LLE hematoma appears LARGE, WARMER to touch, +tenderness, shiny appearance and +fluid filled Results & Data Results & Data Vital Signs (Past 12 Hours) Vital Signs Temp Pulse Resp BP Pulse Ox O2 Del Method 03/30/24 07:10 36.8 C 67 18 140/70 95 Room Air Laboratory Results 03/30/24 03/30/24 03/30/24 Range/Units 11:21 11:20 07:38 WBC 5.51 (4.8-10.8) K/ul RBC 3.44 L (4.70-6.10) M/uL Hgb 10.3 L (14.0-18.0) g/dl Hct 31.6 L (42.0-52.0) % MCV 91.9 (80.0-100.0) fL MCH 29.9 (25.0-34.0) pg MCHC 32.6 (32.0-36.0) g/dL RDW Std Deviation 49.5 H (36.4-46.3) fL RDW Coeff of Cleo 14.6 H (11.5-14.5) % Plt Count 248 (130-400) K/uL MPV 9.0 L (9.4-12.4) fL PT 25.9 H (9.0-12.0) Seconds INR 2.6 H (0.9-1.1) Sodium 139 (136-145) mmol/L Potassium 4.2 (3.5-5.1) mmol/L Chloride 108 H (98-107) mmol/L Carbon Dioxide 28 (21-32) mmol/L Anion Gap 3 (3-11) BUN 15 (6-23) mg/dl Creatinine 0.76 (0.6-1.4) mg/dl Est Cr Clr Drug Dosing 104.1 ml/min Est GFR ( Amer) 98.5 ml/min Est GFR (Non-Af Amer) 85.0 ml/min BUN/Creatinine Ratio 19.7 (10-20) Glucose 156 H (70-99(Fasting)) mg/dl POC Glucose 307 H* 328 H* (70-99) mg/dl Calcium 8.8 (8.6-10.3) mg/dl C-Reactive Protein 3.88 H (0-0.5) mg/dl 03/30/24 03/29/24 03/29/24 Range/Units 07:09 20:52 16:49 WBC (4.8-10.8) K/ul RBC (4.70-6.10) M/uL Hgb (14.0-18.0) g/dl Hct (42.0-52.0) % MCV (80.0-100.0) fL MCH (25.0-34.0) pg MCHC (32.0-36.0) g/dL RDW Std Deviation (36.4-46.3) fL RDW Coeff of Cleo (11.5-14.5) % Plt Count (130-400) K/uL MPV (9.4-12.4) fL PT (9.0-12.0) Seconds INR (0.9-1.1) Sodium (136-145) mmol/L Potassium (3.5-5.1) mmol/L Chloride (98-107) mmol/L Carbon Dioxide (21-32) mmol/L Anion Gap (3-11) BUN (6-23) mg/dl Creatinine (0.6-1.4) mg/dl Est Cr Clr Drug Dosing ml/min Est GFR ( Amer) ml/min Est GFR (Non-Af Amer) ml/min BUN/Creatinine Ratio (10-20) Glucose (70-99(Fasting)) mg/dl POC Glucose 150 H 227 H 213 H (70-99) mg/dl Calcium (8.6-10.3) mg/dl C-Reactive Protein (0-0.5) mg/dl PG Care Time/CCT Total # of Minutes Spent Total Time Spent with Patient: Total time spent is greater than 50% in coordination of care (as documented) at patient's floor/unit and/or counseling patient: Coding Level of Care Code 16004 SUB INP/OBS CARE 3/50MIN Diagnoses Cellulitis in diabetic foot E11.628; L03.119 Hematoma T14.8XXA Uncontrolled type 2 diabetes mellitus with hyperglycemia E11.65 Antiphospholipid syndrome D68.61 BPH (benign prostatic hyperplasia) N40.0 History of rectal polypectomy Z98.890; Z87.19 Dizziness R42
[2024-03-30 08:20] LABS: BUN Creatinine Ratio 19.7 (10-20); Calcium 8.8 mg/dl (8.6-10.3); Creatinine Clr Calc Pharmacy 104.1 ml/min; Est GFR (African American) 98.5 ml/min; Potassium 4.2 mmol/L (3.5-5.1)
[2024-03-30 08:28] LABS: INR 2.6 (0.9-1.1); Prothrombin Time 25.9 Seconds (9.0-12.0)
[2024-03-30 09:00] LABS: C Reactive Protein 3.88 mg/dl (0-0.5)
[2024-03-30] MEDS: LANTUS PER UNIT CHARGE SQ ONE (13:05)
[2024-03-30] MEDS: oxyCODONE HCL IR 5 MG TAB (IMMEDIATE RELEASE) PO STA (13:05)
--- NOTE | 2024-03-30 13:35 | Surgery Consultation ---
Date of Consultation March 30, 2024 Assessment & Plan (1) Hematoma: Patient is a 84 yo male with PMH diabetes, PE, colon CA sp colectomy, BPH, HTN, adenocarcinoma colon, lymphedema, HLD, anemia, glaucoma, Antiphospholipid syndrome that reports he had a fall 03/20/24 came to the ER had a work up and was discharged home. He had a follow up with his PCP 03/22/24 and was given oral antibiotics and a venous Doppler study. He presented to the ER 03/24/24 with concerns for left lower leg infection and was admitted to the hospital. General surgery was consulted for possible I +D of hematoma. LLE wrapped in kerlix, will wait to assess wound with Dr. Bae venous Doppler study reading : complex nonvascular fluid collection in the left kumar measures 9.2 x 2.1 x 5.0 cm INR 2.6 No WBC elevation Hold oral Coumadin and start reversal of anticoagulation NPO at RI Will add to OR schedule tomorrow for incision and drainage of hematoma LLE with Dr. Bae Supervising Physician Co-Signing Physician Notes I personally saw and evaluated the patient with Edilberto Middleton CNPAYTON and agree with the assessment and plan. 84 yo male with LLE hematoma, likely with superinfection His US images and results were personally viewed and interpreted by myself He has a large hematoma versus abscess on the anteriolateral aspect of his left leg He is having a fair amount of discomfort due to the pressure Will plan on I&D tomorrow in [place] Hospitalist is reversing INR, appreciate help History of Present Illness Reason for Consultation: Left lower leg Hematoma Requesting Physician: Kasey Prabhakar Attending Physician: Shawn Grissom MD History of Present Illness Patient is a 84 yo male with PMH diabetes, PE, colon CA sp colectomy, BPH, HTN, adenocarcinoma colon, lymphedema, HLD, anemia, glaucoma, Antiphospholipid syndrome that reports he had a fall 03/20/24 came to the ER had a work up and was discharged home. He had a follow up with his PCP 03/22/24 and was given oral antibiotics and a venous Doppler study. He presented to the ER 03/24/24 with concerns for left lower leg infection and was admitted to the hospital. General surgery was consulted for possible I +D of hematoma. Allergies Allergy/AdvReac Type Severity Reaction Status Date / Time sitagliptin Allergy Intermediate Hives - Verified 03/23/24 15:02 Januvia cat dander Allergy Mild EYES WATER Verified 03/23/24 15:02 Fztpquw-NBP-LyG Reductase AdvReac Intermediate LEG CRAMPS Verified 03/23/24 15:02 Inhibitor [Mbgvlen-Cgz-Uxg Reductase Inhibitor] Home Medications Medication Instructions Recorded Confirmed Type multivitamin (Daily Multi-Vitamin 1 tab PO QAM 12/11/21 03/24/24 History tablet) miscellaneous medical supply #3,840 mL 12/12/21 03/23/24 Rx ferrous sulfate 325 mg (65 mg 325 mg PO BID 04/14/22 03/24/24 History iron) tablet (Feosol) magnesium citrate 100 mg tablet 100 mg PO DAILY 09/30/22 03/24/24 History miscellaneous medical supply 1 ea miscellaneous .COMPLEX #1 ea 12/18/22 03/24/24 Rx rosuvastatin 20 mg tablet (Crestor) 20 mg PO QAM #90 tabs 10/13/23 03/24/24 Rx metformin 500 mg tablet,extended 1,000 mg (2 x 500 mg) PO BID #360 11/15/23 03/24/24 Rx release 24 hr tabs pen needle, diabetic 32 gauge x #200 ea 11/18/23 03/23/24 Rx 5/32" (BD Donna 2nd Gen Pen Needle) insulin aspar prot-insulin aspart 25 - 30 unit subcut BID 12/08/23 03/24/24 History 100 unit/mL (70-30) subcutaneous pen (Novolog Mix 70-30FlexPen U-100) blood sugar diagnostic (OneTouch #100 ea 12/23/23 03/23/24 Rx Ultra Test strips) blood-glucose meter (OneTouch #1 ea 12/23/23 03/23/24 Rx Ultra2 Meter) tamsulosin 0.4 mg capsule (Flomax) 0.4 mg PO QAM #90 caps 02/17/24 03/24/24 Rx lancets 33 gauge (OneTouch Delica #100 ea 02/21/24 03/23/24 Rx Plus Lancet) enoxaparin 40 mg/0.4 mL 40 mg subcut QAM 02/22/24 03/24/24 History subcutaneous syringe (Lovenox) cephalexin 500 mg capsule 500 mg PO QID 10 days #40 caps 03/23/24 03/24/24 Rx furosemide 20 mg tablet 20 mg PO DAILY #30 tabs 03/23/24 03/24/24 Rx sulfamethoxazole 800 1 tab PO BID #14 tabs 03/23/24 03/24/24 Rx mg-trimethoprim 160 mg tablet (Bactrim DS) warfarin 5 mg tablet 10 mg PO UD 03/24/24 03/24/24 History Patient History Medical History Hx of insect bite 12/07/22, reported pt has insect bite on his back, over the right side of rib cage. reports they "have been treating it on their own for the past couple days, looking better, but it is still seeping and changing dressing/bandage 2x daily." advised pt to contact PCP regarding the bite. Type II diabetes mellitus Lung granuloma scattered calcified granulomas on 10/[address] Carotid artery calcification Noted incidentally on previous imaging; carotid doppler 08/2023- showed no hemodynamically significant stenosis Coronary artery calcification dense calcification per 09/[address] Lower extremity edema Surgical History Hx of left cataract extraction History of removal of Port-a-Cath (10/19/23) Removal of Access Port(Left) - Junior Bae, Hx of tooth extraction History of transesophageal echocardiography (ASHLEY) History of colostomy present History of colonoscopy Hx of lymph node biopsy H/O colectomy History of knee surgery bilat > arthroscopic History of elbow surgery right History of dental surgery Family History Father Myocardial infarction Diabetes Aunt Breast cancer Mother Cancer Diabetes Denies family history of Ovarian cancer Prostate cancer Colorectal cancer Social History Smoking Status: Never smoker Second Hand Exposure: Yes (hx as child); Do You Dip or Chew Tobacco: No; Hx Alcohol Use: Yes Alcohol type: wine Alcohol Intake Frequency: 2-4 x/Month Alcohol Intake Frequency Comment: Once a week Hx Substance Use: No Preferred Language: Colombian Communication Ability: Effective Visual Impairment: No Limitations Hearing Ability: Normal Residential Specialist Required: No Beliefs That Will Affect Care: None marital status: Current Living Situation: Spouse and Family Current Living Situation Comment: lives with and daughter current occupational status: retired How many Children do You have: 3 Feels Safe at Home: Yes Childhood Exposure to Second-Hand Smoke: Yes Diet: diabetic and regular caffeine: Yes during the past year weight has: remained stable Dental Care, Regularly: Yes Physical Activity Frequency: Does not Exercise Seatbelt Use: always Sunscreen Use: Yes Do you think of yourself as: straight/heterosexual Gender Identity: Male Assistive Devices: Cane, Glasses and Walker Review of Systems Integumentary: + wounds (LLE , wrapped in kerlix ) Physical Exam Constitutional: cooperative and comfortable; no acute distress Respiratory: normal respiratory effort and able to speak in complete sentences; no respiratory distress Skin: + wound wrapped in kerlix Results & Data Vital Signs (Past 12 Hours) Vital Signs Temp Pulse Resp BP Pulse Ox O2 Del Method 03/30/24 07:10 98.2 F 67 18 140/70 95 Room Air 03/30/24 07:00 97.9 F 78 16 121/65 94 Room Air Laboratory Results INR 2.6 Diagnostic Findings [place], [place] [phone] Ultrasound Report Patient: KATE CORTES Admit Date: 03/23/24 MR#: [id number] Address1: [address] [place] [address] Acct ID:[id number] Address2: Date: 1940 [facility] Zip: [place] [address] Age: 84 Location: Sex: M Room/Bed: Att Phy: Melvi Lovell CRNP Diagnosis: M79.605 - Pain in left leg Mary Phy: Elizabeth Alvarenga CRNP Service Date: 03/23/24 Fam Phy: Interpreting Phy: Frank Weeks MDAdmit Phy: Ordering Phy: Melvi Lovell CRNP cc: ~ ULTRASOUND LEFT LOWER EXTREMITY VENOUS CLINICAL HISTORY: Left leg pain. COMPARISON STUDY: Bilateral lower extremity venous ultrasound dated 10/27/2021. TECHNIQUE: Real-time, grayscale, and color Doppler sonography of the deep veins of the left lower extremity was performed from the inguinal crease to the calf. Compression and augmentation were utilized. FINDINGS: There is no sonographic evidence of deep venous thrombosis identified in the left lower extremity. The common femoral, superficial femoral, and popliteal veins are patent and normally compressible. The greater saphenous vein and the profunda femoris vein at the junction with the common femoral vein are clear. The visualized calf veins are patent. Soft tissue edema is noted in the left leg. A complex nonvascular fluid collection in the left kumar measures 9.2 x 2.1 x 5.0 cm. IMPRESSION: 1 There is no sonographic evidence of deep venous thrombosis identified in the left lower extremity. 2. A complex nonvascular fluid collection in the left kumar is typical for a hematoma. The sterility of this fluid cannot be assessed by imaging and clinical correlation will be required. Clinical follow-up to resolution is recommended. ACT 112: Negative or not required by law. Electronically signed by: Frank Weeks M.D. 03/23/2024 6:26 PM Dictated: 03/23/241823 Transcribed: 03/23/241823 PG Care Time/CCT Total # of Minutes Spent Total Time Spent with Patient: Total time spent is greater than 50% in coordination of care (as documented) at patient's floor/unit and/or counseling patient: Coding Level of Care Code 21042 INT INP/OBS CARE 1/40MIN Diagnoses Hematoma T14.8XXA
--- NOTE | 2024-03-30 14:20 | Communication Note ---
Date of Service: March 30, 2024 Discussed w/ surgery CEE this afternoon, surgery will plan to take patient to OR 03/31 Discussed w/ anticoagulation clininc, will provide Vitamin K 5mg IV x 1 now, can give Lovenox 40mg SQ for tonight to cover given his history and would plan to resume his coumadin day following surgery if ok from bleeding standpoint and has done quite well on 10mg coumadin daily prior to admission. Coumadin placed on HOLD, lovenox SQ x 1 ordered for this evening. Will monitor INR in AM, additional Vit K if needed.
[2024-03-30] MEDS: PHYTONADIONE 5 MG in DEXTROSE 5% 50 ML IV ONE (15:10)
[2024-03-30] MEDS: ENOXAPARIN INJ 40 MG/0.4 ML SYR SQ ONE (18:04)
[2024-03-31] MEDS ORDERED: Nursing to Pharmacy Communication SCH ×2 (00:15→19:30)
[2024-03-31] MEDS: INSULIN ASPART PER UNIT CHARGE SC SCH ×2 (05:33→21:08)
[2024-03-31 08:06] LABS: Hematocrit (blood only) 31.6 % (42.0-52.0); Hemoglobin 10.4 g/dl (14.0-18.0); Mean Corpuscular Hemoglobin 30.1 pg (25.0-34.0); Mean Corpuscular Hgb Conc 32.9 g/dL (32.0-36.0); Mean Corpuscular Volume 91.3 fL (80.0-100.0); Mean Platelet Volume 9.1 fL (9.4-12.4); Platelet Count 240 K/uL (130-400); RDW Coefficient of Variation 14.5 % (11.5-14.5); RDW Standard Deviation 48.2 fL (36.4-46.3); Red Blood Count 3.46 M/uL (4.70-6.10); White Blood Count 6.18 K/ul (4.8-10.8)
[2024-03-31 08:25] LABS: INR 1.2 (0.9-1.1); Prothrombin Time 13.3 Seconds (9.0-12.0)
--- NOTE | 2024-03-31 08:34 | Hospitalist Progress Note ---
Date of Service March 31, 2024 Assessment & Plan (1) Cellulitis in diabetic foot: Plan: Left lower extremity diabetic cellulitis. Did not appear septic on admission. Venous doppler [employer]ACITY [employer]NER by PCP NEGATIVE for DVT but noting LARGE complex nonvascular fluid collection in left kumar measuring 9.2 x 2.1 x 5.0 cm Had been given keflex/bactrim x 1 day prior to admission w/ LLE swelling/erythema progression and came to ER Placed on Cefepime/Flagyl, MRSA nares negative but can consider adding Dapto needed given DM foot infection No blood cultures obtained/procalcitonin on admission CRP elevated to 2.91 on admission --> 5.58 on 03/26 and further elevated to 7.39 on 03/28 (did check and finally trending down 3.88 on 03/10) WBC remains wnl, afebrile Wound cx surface NEGATIVE Wound RN consult: Wash legs with soap and water, rinse and dry. 2 open areas on LLEcleaned with saline. Cover open areas with Aquacel Ag, gauze and secure using large Kerlix. Change every other day and as needed. Continues on Cefepime/Flagyl, cellulitis improved HOWEVER, HEMATOMA LOOKED SIGNIFICANTLY WORSE, warmer to touch/more painful, darker purple and concerns for infection/need for incision and drainage and general surgery consulted Discussed w/ general surgery evening 03/30, planning on taking to OR this morning for I&D, is NPO * Discussed anticoagulation w/ clinic provider last evening and provided Vitamin K 5mg IV x 1 for reversal, did give Lovenox 40 SQ to cover given hx and plan to resume his coumadin day following surgery as long as ok w/ surgery/may need additional Lovenox pending. INR stable for surgery at 1.2 this morning, surgery messaged Continue NPO for I&D w/ Dr Bae today LR @80cc/hr while NPO Pain control Therapy evals, wound care pending OR (?wound vac given location) [facility] planned/can accept. Auth received 03/30 and can take on Wednesday if medically stable (2) Hematoma: Plan: APPEARED WORSE as above, ?infected hematoma. NO elevated INR, has been quite stable on 10mg daily per discussion w/ Dr Morrell day prior about reversal for OR -s/p Vitamin K 5mg IV 03/30, Lovenox SQ 40 x 1 and coumadin placed on hold for now -->INR 1.2 on AM labs NPO for OR today, will plan to resume coumadin day following surgery pending course/may need additional lovenox dosing pending (3) Type II diabetes mellitus, uncontrolled: Plan: Metformin held SSI while inpatient, did have elevation in BSG 03/30 but had pancakes with syrup for breakfast, given additional glargine x 1 and continued BID/sliding scale POC 165 most recently, 152 on AM chemistries Rn to provide half glargine dosing this morning while NPO for surgery, monitor for adjustments to sliding scale (4) Antiphospholipid syndrome: Plan: History of antiphospholipid syndrome and past VTE. INR goal 2-3, has been stable on 10mg daily, follows with anticoagulation clinic and pt was scheduled to transition to Lovenox bridge in 5 days in anticipation of his polyp removal and will need to be rediscussed in f/u as likely need to reschedule procedure Continued warfarin however placed on hold 03/30 for above/vitamin K/lovenox as outlined Resume coumadin as outlined above, monitor INR (5) BPH (benign prostatic hyperplasia): Plan: Continue Flomax (6) History of rectal polypectomy: Plan: Pending precancerous polyp removal Hx of prior malignant polyp removal. Patient is pending a rectal precancerous polyp removal at [facility] 04/03. This has been delayed twice, and patient hopes that his cellulitis that this will not further delay this appointment. No acute change in management (7) Dizziness: Plan: ongoing issue reported by patient, occuring w/ standing up but IMPROVED today. orthostatics not obtained but reported improvement today given AM lasix but added IVF while NPO and will place home lasix on hold for now Plan continued inpatient stay, general surgery consulted and NPO for OR today with Dr Bae Dispo: CM following, Wednesday pending OR/status over the weekend Admission and Anticipated Discharge Date Admission Date: March 24, 2024 Supervising Physician Co-Signing Physician Notes The patient was not seen by me. The chart was reviewed. Case discussed with GIGI Drake. Agree with assessment and plan Subjective Evaluated this morning, laying in bed. Appears improved. NPO awaiting OR for I&D today. Pain controlled/improved today. No fever/chills, chest pain/shortness of breath. Ostomy emptied this morning. Darkened color as on iron supplementation. Less dizziness today. Will plan for Wednesday pending OR/status over the weekend. Questions/concerns addressed. Physical Exam Physical Exam: General: 84yo male laying in bed, resting upon entry, NAD HEENT: head atraumatic, poor dentition, mm slightly dry, trachea midline Resp: even/unlabored, no w/c/r, on room air 94% CV: RRR, faint systolic murmur, LLE edema w/ cellulitis (cellulitis improving, hematoma appeared worse03/30, stable on exam today but ongoing tenderness/warmth/fluctuance), pulses present GI: +BS, soft/NT : no chavis MSK/Neuro/Skin: answering questions appropriately, alert/oriented x 3, cooperative with care, nonfocal chronic venous stasis with ichthyosis, scattered abrasions/scabs to b/l knees, significant swelling to LLE, cellulitis within markings/receding but LLE HEMATOMA warm/tender, shiny appearance, fluid filled/fluctuant Results & Data Results & Data Vital Signs (Past 12 Hours) Vital Signs Temp Pulse Resp BP Pulse Ox O2 Del Method 03/31/24 07:04 36.4 C L 70 16 128/60 94 Room Air 03/30/24 22:18 36.8 C 80 16 141/71 H 98 Room Air Laboratory Results 03/31/24 03/31/24 03/30/24 Range/Units 07:43 05:28 20:35 WBC 6.18 (4.8-10.8) K/ul RBC 3.46 L (4.70-6.10) M/uL Hgb 10.4 L (14.0-18.0) g/dl Hct 31.6 L (42.0-52.0) % MCV 91.3 (80.0-100.0) fL MCH 30.1 (25.0-34.0) pg MCHC 32.9 (32.0-36.0) g/dL RDW Std Deviation 48.2 H (36.4-46.3) fL RDW Coeff of Cleo 14.5 (11.5-14.5) % Plt Count 240 (130-400) K/uL MPV 9.1 L (9.4-12.4) fL PT 13.3 H (9.0-12.0) Seconds INR 1.2 H (0.9-1.1) Sodium 137 (136-145) mmol/L Potassium 4.0 (3.5-5.1) mmol/L Chloride 105 (98-107) mmol/L Carbon Dioxide 27 (21-32) mmol/L Anion Gap 5 (3-11) BUN 19 (6-23) mg/dl Creatinine 0.86 (0.6-1.4) mg/dl Est Cr Clr Drug Dosing 90.0 ml/min Est GFR ( Amer) 93.6 ml/min Est GFR (Non-Af Amer) 80.8 ml/min BUN/Creatinine Ratio 22.1 H (10-20) Glucose 152 H (70-99(Fasting)) mg/dl POC Glucose 165 H 194 H (70-99) mg/dl Calcium 8.8 (8.6-10.3) mg/dl Phosphorus 2.3 L (2.5-4.9) mg/dl Magnesium 2.0 (1.7-2.4) mg/dl Vitamin B12 308 (180-914) pg/ml Folate 12.80 (>5.38) ng/ml 03/30/24 03/30/24 03/30/24 Range/Units 16:44 11:21 11:20 WBC (4.8-10.8) K/ul RBC (4.70-6.10) M/uL Hgb (14.0-18.0) g/dl Hct (42.0-52.0) % MCV (80.0-100.0) fL MCH (25.0-34.0) pg MCHC (32.0-36.0) g/dL RDW Std Deviation (36.4-46.3) fL RDW Coeff of Cleo (11.5-14.5) % Plt Count (130-400) K/uL MPV (9.4-12.4) fL PT (9.0-12.0) Seconds INR (0.9-1.1) Sodium (136-145) mmol/L Potassium (3.5-5.1) mmol/L Chloride (98-107) mmol/L Carbon Dioxide (21-32) mmol/L Anion Gap (3-11) BUN (6-23) mg/dl Creatinine (0.6-1.4) mg/dl Est Cr Clr Drug Dosing ml/min Est GFR ( Amer) ml/min Est GFR (Non-Af Amer) ml/min BUN/Creatinine Ratio (10-20) Glucose (70-99(Fasting)) mg/dl POC Glucose 239 H 307 H* 328 H* (70-99) mg/dl Calcium (8.6-10.3) mg/dl Phosphorus (2.5-4.9) mg/dl Magnesium (1.7-2.4) mg/dl Vitamin B12 (180-914) pg/ml Folate (>5.38) ng/ml PG Care Time/CCT Total # of Minutes Spent Total Time Spent with Patient: Total time spent is greater than 50% in coordination of care (as documented) at patient's floor/unit and/or counseling patient: Coding Level of Care Code 88389 SUB INP/OBS CARE 3/50MIN Diagnoses Cellulitis in diabetic foot E11.628; L03.119 Hematoma T14.8XXA Uncontrolled type 2 diabetes mellitus with hyperglycemia E11.65 Antiphospholipid syndrome D68.61 BPH (benign prostatic hyperplasia) N40.0 History of rectal polypectomy Z98.890; Z87.19 Dizziness R42
[2024-03-31 08:39] LABS: BUN Creatinine Ratio 22.1 (10-20); Calcium 8.8 mg/dl (8.6-10.3); Est GFR (African American) 93.6 ml/min; Est GFR (Non-African American) 80.8 ml/min; Phosphorus 2.3 mg/dl (2.5-4.9)
[2024-03-31 09:00] LABS: Folate (Folic Acid),Ser orPlas 12.8 ng/ml (>5.38)
--- NOTE | 2024-03-31 09:43 | Surgery Progress Note ---
Date of Service March 31, 2024 Assessment & Plan (1) Hematoma: Plan: INR is 1.2 Will proceed with I&D of left lower extremity hematoma/abscess today Consent was obtained and risks discussed including bleeding, infection, non- healing wound (2) Abscess of left lower extremity: Admission and Anticipated Discharge Date Admission Date: March 24, 2024 Subjective Pt seen and examined. No acute events overnight. Still with LLE pain Review of Systems Constitutional: no fever and no chills Integumentary: LLE abscess/hematoma Physical Exam Constitutional: WD/WN, vitals as above Skin: 10cm area of fluctuance on left anterior lateral leg with cellulitis, TTP Results & Data Vital Signs (Past 12 Hours) Vital Signs Temp Pulse Resp BP Pulse Ox O2 Del Method 03/31/24 07:04 36.4 C L 70 16 128/60 94 Room Air 03/30/24 22:18 36.8 C 80 16 141/71 H 98 Room Air PG Care Time/CCT Total # of Minutes Spent Total Time Spent with Patient: Total time spent is greater than 50% in coordination of care (as documented) at patient's floor/unit and/or counseling patient: Coding Level of Care Code 65678 SUB INP/OBS CARE 10/28MIN Diagnoses Hematoma T14.8XXA Abscess of left lower extremity L02.416
[2024-03-31] MEDS: LACTATED RINGER'S 1,000 ML IV SCH (09:51)
[2024-03-31] MEDS ORDERED: fentaNYL citrate PF 100 MCG/2 ML VIAL ONE (10:38)
--- NOTE | 2024-03-31 10:56 | Anesthesiology Consultation ---
Date of Service March 31, 2024 Assessment & Plan Chart Review Chart Review: Acceptable Risk for Surgery and Patient NOT seen in Pre Admission Testing Consults Requested none ASA ASA4 Proposed Anesthesia Anesthesia Type: General Risk / Benefits Reviewed With: PT / POA / Parent / Guardian, Accepts Plan and Informed Consent Obtained History Surgery Operation Date: 03/31/24 11:00 Proposed Procedures p Incision and Drainage of Left Lower Extremity - Junior Bae, DO Height/Weight Height: 6 ft 2 in Weight: 117 kg Allergies Allergy/AdvReac Type Severity Reaction Status Date / Time sitagliptin Allergy Intermediate Hives - Verified 03/23/24 15:02 Januvia cat dander Allergy Mild EYES WATER Verified 03/23/24 15:02 Guuavgn-YEC-VsO Reductase AdvReac Intermediate LEG CRAMPS Verified 03/23/24 15:02 Inhibitor [Pntzbir-Lhc-Ptr Reductase Inhibitor] Medications Home Medications Medication Instructions Recorded Confirmed Last Taken multivitamin (Daily Multi-Vitamin 1 tab PO QAM 12/11/21 03/24/24 11/29/23 tablet) miscellaneous medical supply #3,840 mL 12/12/21 03/23/24 Unknown ferrous sulfate 325 mg (65 mg 325 mg PO BID 04/14/22 03/24/24 03/24/24 iron) tablet (Feosol) magnesium citrate 100 mg tablet 100 mg PO DAILY 09/30/22 03/24/24 11/29/23 miscellaneous medical supply 1 ea miscellaneous .COMPLEX #1 ea 12/18/22 03/24/24 08/22/23 rosuvastatin 20 mg tablet (Crestor) 20 mg PO QAM #90 tabs 10/13/23 03/24/24 03/24/24 metformin 500 mg tablet,extended 1,000 mg (2 x 500 mg) PO BID #360 11/15/23 03/24/24 03/24/24 release 24 hr tabs pen needle, diabetic 32 gauge x #200 ea 11/18/23 03/23/24 Unknown " (BD Donna 2nd Gen Pen Needle) insulin aspar prot-insulin aspart 25 - 30 unit subcut BID 12/08/23 03/24/24 03/24/24 100 unit/mL (70-30) subcutaneous pen (Novolog Mix 70-30FlexPen U-100) blood sugar diagnostic (OneTouch #100 ea 12/23/23 03/23/24 Unknown Ultra Test strips) blood-glucose meter (OneTouch #1 ea 12/23/23 03/23/24 Unknown Ultra2 Meter) tamsulosin 0.4 mg capsule (Flomax) 0.4 mg PO QAM #90 caps 02/17/24 03/24/24 03/24/24 lancets 33 gauge ([facility] #100 ea 02/21/24 03/23/24 Unknown Plus Lancet) enoxaparin 40 mg/0.4 mL 40 mg subcut QAM 02/22/24 03/24/24 Unknown subcutaneous syringe (Lovenox) cephalexin 500 mg capsule 500 mg PO QID 10 days #40 caps 03/23/24 03/24/24 Unknown furosemide 20 mg tablet 20 mg PO DAILY #30 tabs 03/23/24 03/24/24 Unknown sulfamethoxazole 800 1 tab PO BID #14 tabs 03/23/24 03/24/24 Unknown mg-trimethoprim 160 mg tablet (Bactrim DS) warfarin 5 mg tablet 10 mg PO UD 03/24/24 03/24/24 Unknown Active Medications Generic Name Dose Route Start Last Admin Trade Name Freq PRN Reason Stop Dose Admin Acetaminophen 650 mg 03/24/24 18:16 03/28/24 10:36 Acetaminophen 325 Mg Tab PO 04/23/24 18:15 650 mg Q4H PRN Administration pain/fever Ferrous Sulfate 325 mg 03/24/24 21:00 03/31/24 08:31 Ferrous Sulfate 325 Mg Tab PO 04/23/24 20:59 Not Given BID MITESH Furosemide 20 mg 03/25/24 09:00 03/31/24 08:31 Furosemide 20 Mg Tab PO 04/24/24 08:59 Not Given DAILY MITESH Metronidazole 500 mg in 100 mls @ 100 mls/hr 03/25/24 15:00 03/31/24 07:27 Flagyl IV 04/01/24 14:59 Infused Q8H MITESH Infusion Cefepime HCl 2,000 mg/ Syringe 20 mls @ 5 mls/min 03/25/24 12:00 03/31/24 00:14 IV 04/01/24 11:59 5 mls/min Q12H MITESH Administration Protocol Lactated Ringer's 1,000 mls @ 80 mls/hr 03/31/24 09:45 03/31/24 09:51 Lr IV 04/30/24 09:44 80 mls/hr .[id number] MITESH Administration Insulin Aspart 0 units 03/31/24 06:00 03/31/24 05:33 Insulin Aspart Per Unit Charge SC 04/30/24 05:59 1 units Q6 MITESH Administration Insulin Glargine 15 units 03/24/24 21:00 03/31/24 08:52 Lantus Per Unit Charge SQ 04/23/24 20:59 7 units BID MITESH Administration Rosuvastatin Calcium 20 mg 03/26/24 09:00 03/31/24 08:31 Rosuvastatin Calcium 20 Mg Tab PO 04/25/24 08:59 Not Given QAM MITESH Tamsulosin HCl 0.4 mg 03/25/24 09:00 03/31/24 08:31 Tamsulosin Hcl 0.4 Mg Cap PO 04/24/24 08:59 Not Given QAM MITESH Warfarin Sodium 10 mg 03/25/24 16:00 03/29/24 15:49 Warfarin Sod 10 Mg Tab PO 04/24/24 15:59 10 mg TODAY@1600 MITESH Administration NPO Date Last Intake of Fluids: 03/30/24 Time Last Intake of Fluids: 22:00 Date Last Intake of Solids: 03/30/24 Time Last Intake of Solids: 19:00 Past Medical History Medical History Hx of insect bite 12/07/22, reported pt has insect bite on his back, over the right side of rib cage. reports they "have been treating it on their own for the past couple days, looking better, but it is still seeping and changing dressing/bandage 2x daily." advised pt to contact PCP regarding the bite. Type II diabetes mellitus Lung granuloma scattered calcified granulomas on 10/[address] Carotid artery calcification Noted incidentally on previous imaging; carotid doppler 08/2023- showed no hemodynamically significant stenosis Coronary artery calcification dense calcification per 09/[address] Lower extremity edema ASCVD HLD HTN Diabetic PN Exercise / Class Metabolic Activity III < 4 Walking/Shop/Light housework Past Family History Family History Father Myocardial infarction Diabetes Aunt Breast cancer Mother Cancer Diabetes Denies family history of Ovarian cancer Prostate cancer Colorectal cancer Past Surgical History Surgical History Hx of left cataract extraction History of removal of Port-a-Cath (10/19/23) Removal of Access Port(Left) - Junior Bae, Hx of tooth extraction History of transesophageal echocardiography (ASHLEY) History of colostomy present History of colonoscopy Hx of lymph node biopsy H/O colectomy History of knee surgery bilat > arthroscopic History of elbow surgery right History of dental surgery Past Anesthesia History No Hx of Anesthesia Complications and No Family Hx of Anesthesia Complications History of PONV No Hx of PONV and No Hx of Motion Sickness Social History Smoking Status: Never smoker Do You Dip or Chew Tobacco: No Hx Alcohol Use: Yes Alcohol type: wine alcohol intake frequency: other Hx Substance Use: No substance use type: does not use Physical Exam Vital Signs Last Vital Signs Temp 37 C 03/31/24 10:07 Pulse 71 03/31/24 10:07 Resp 18 03/31/24 10:07 BP 144/60 H 03/31/24 10:07 Pulse Ox 18 L 03/31/24 10:07 O2 Del Method Room Air 03/31/24 10:07 Constitutional + obese; no acute distress ENMT Mouth: + dentition abnormality, + dental caries, + poor dentition, + chipped teeth and + loose teeth Thyromental Distance: > or= 3.5 Finger Breadths Mallampati Class: II Neck normal visual inspection, trachea midline and + facial hair; neck extension not limited Respiratory normal respiratory effort Auscultation: + diminished lung sounds Cardiovascular Rate/Rhythm: regular rate and regular rhythm Heart Sounds: no murmur Vessels: no carotid bruit Chest (Breasts) Chest: + vascular access device or port Musculoskeletal Spine: normal cervical ROM and no pain with cervical ROM Extremities: + extremities abnormal to inspection (LLE cellulitis) and full ROM of extremities Neurologic moves all extremities Motor/Sensory: no sensory deficit Psychiatric Orientation: alert and oriented x 3 Testing Laboratory Results 03/31/24 07:43 03/31/24 07:43 PT 13.3 Seconds (9.0-12.0) H 03/31/24 07:43 INR 1.2 (0.9-1.1) H 03/31/24 07:43 03/24/24 14:30 Gram Stain - Final Leg,Left Wound Culture - Final No growth 03/31/24 03/31/24 10:18 05:28 POC Glucose 174 H 165 H Electrocardiogram Date: 10/14/23 Findings: + NSR @ (@ 76;LVH)
--- NOTE | 2024-03-31 10:59 | Communication Note ---
Date of Service: March 31, 2024 Echo-10/[id number];EF-60%;NL LV FXN;NL valves
[2024-03-31] MEDS ORDERED: fentaNYL citrate PF 100 MCG/2 ML VIAL IV PRN (11:10)
[2024-03-31] MEDS ORDERED: LABETALOL HCL IV 5 MG/ML 20ML IV PRN (11:10)
[2024-03-31] MEDS ORDERED: ATROPINE SULFATE 0.1 MG/ML 10ML SYR IV PRN (11:10)
[2024-03-31] MEDS ORDERED: PROMETHAZINE HCL 6.25 MG in SODIUM CHLORIDE 0.9% 50 ML IV PRN (11:10)
[2024-03-31] MEDS ORDERED: NALOXONE HCL 0.4 MG/1 ML VIAL/CARP IV PRN (11:10)
[2024-03-31] MEDS ORDERED: HYDROmorphone INJ 1 MG/ML SYRINGE IV PRN (11:10)
[2024-03-31] MEDS ORDERED: ePHEDrine sulfate 50 MG/ML AMP IV PRN (11:10)
[2024-03-31] MEDS ORDERED: ONDANSETRON INJ 2 MG/ML 2 ML VIAL IV PRN (11:10)
[2024-03-31] MEDS ORDERED: FLUMAZENIL 0.1 MG/1 ML 10 ML VIAL IV PRN (11:10)
[2024-03-31] MEDS ORDERED: LIDOCAINE 2% 2 ML VIAL/AMP(20MG/ML) INFIL ONE (11:21)
[2024-03-31] MEDS ORDERED: METOCLOPRAMIDE HCL INJ 5 MG/ML 2 ML VIAL ONE (11:21)
[2024-03-31] MEDS ORDERED: PROPOFOL IV EMULSION 10 MG/ML 20 ML VIAL IV ONE (11:21)
[2024-03-31] MEDS ORDERED: ePHEDrine sulfate 50 MG/5 ML SYR ONE (11:21)
[2024-03-31] MEDS ORDERED: ONDANSETRON INJ 2 MG/ML 2 ML VIAL ONE (11:21)
[2024-03-31] MEDS: BUPIVACAINE/EPINEPHRINE 0.25% 1:200,000 30 ML VIAL ONE (11:28)
[2024-03-31] MEDS: ceFAZolin 330 MG/ML 1 GM VIAL ONE (11:28)
--- NOTE | 2024-03-31 11:29 | Post Operative Brief Note ---
PG Immediate Post Op with CF Date of Surgery March 31, 2024 Pre & Post Diagnosis Operation Date: 03/31/24 11:00 Pre-op diagnosis: Left Lower Extremity hematoma/abscess Post-op diagnosis: Left lower Extremity hematoma I identified the patient and participated in the time-out.: Yes Procedure Operation Date: 03/31/24 11:00 Incision and Drainage of Left Lower Extremity Hematoma Surgeon Junior Bae DO Aeronautics Teacher Amanda Church PA-C Estimated Blood Loss 5 Findings Consistent with Post-Op Diagnosis Specimens Specimen Description: Culture 1: Left Lower Extremity Fluid Anesthesia Type General Complications none Disposition Disposition: Recovery Room
--- NOTE | 2024-03-31 11:32 | Operative Report ---
PG Post Operative Report Pre & Post Diagnosis Operation Date: 03/31/24 11:00 Pre-op diagnosis: Left Lower Extremity hematoma/abscess Post-op diagnosis: Left lower Extremity hematoma I identified the patient and participated in the time-out.: Yes Procedure Operation Date: 03/31/24 11:00 Incision and Drainage of Left Lower Extremity Hematoma Surgeon Junior Bae, DO Senior Accounts Payable Clerk Amanda Church PA-C Estimated Blood Loss 5 Findings Consistent with Post-Op Diagnosis Specimens Left lower extremity fluid for culture Drains None Anesthesia Type General Complications none Disposition Disposition: Recovery Room Indications 84 yo male with a left lower extremity hematoma versus abscess Description of Procedure The patient was brought to the OR and placed in the supine position. At this time he underwent General LMA anesthesia without issue. He was given appropriate pre-operative antibiotics. The left lower extremity was prepped and draped in the usual sterile fashion. A timeout was called. The procedure was verified as Incision and drainage of left lower extremity abscess/hematoma. Surgical, anesthesia and nursing teams agreed and the procedure was begun. After injection of 0.25% Marcaine with epinephrine, an incision was made directly over the most fluctuant area of the left lower extremity using a #15 blade scalpel. Old clot was encountered. Wide drainage was ensured. There were no signs of purulence. All loculations of clot were broken up bluntly. At this time the incision was irrigated until clear. Hemostasis was achieved using electrocautery. Hemostasis was complete. The incision was packed with a 1 inch iodoform packing. Sterile dressing was applied. The patient was awakened from anesthesia and taking to PACU having remained stable throughout the entire case. All needle and sponge counts correct x 2. The physician public aid eligibility assistant was present and scrubbed for the entire procedure. She was essential in positioning, prepping and draping the patient, retraction and exposure, placement of the dressings. I attest to the content of the Intraoperative Record and any orders documented therein. Any exceptions are noted below.
--- NOTE | 2024-03-31 12:18 | Anesthesiology Progress Note ---
Date of Service March 31, 2024 Anesthesia Post Procedure Vital Signs Vital Signs: Temp Pulse Pulse Resp BP Pulse Ox O2 Del Method 03/31/24 12:10 36.7 C 73 13 148/69 H 96 Room Air 03/31/24 12:05 74 14 152/67 H 96 Room Air 03/31/24 11:55 73 14 148/70 H 96 Room Air 03/31/24 11:45 74 14 150/66 H 96 Room Air 03/31/24 11:39 36.3 C L 74 13 151/68 H 97 Oxymask 03/31/24 10:07 37 C 71 18 144/60 H 18 L Room Air 03/31/24 07:04 36.4 C L 70 16 128/60 94 Room Air 03/30/24 22:18 36.8 C 80 16 141/71 H 98 Room Air 03/30/24 14:53 36.5 C 86 18 132/69 93 Room Air O2 Flow Rate 03/31/24 12:10 0 03/31/24 12:05 0 03/31/24 11:55 0 03/31/24 11:45 0 03/31/24 11:39 4 03/31/24 10:07 03/31/24 07:04 03/30/24 22:18 03/30/24 14:53 Pain Intensity Left Leg: Pain Intensity: 5 Transfer of Care Handoff Completed per policy Notes Mental Status: alert / awake / arousable Patient Amnestic to Procedure: Yes Nausea / Vomiting: adequately controlled Pain: adequately controlled Airway Patency, RR, SpO2: stable & adequate BP & HR: stable & adequate Hydration State: stable & adequate Anesthetic Complications: no major complications apparent
[2024-04-01 07:25] LABS: Basophils # (auto) 0.04 K/uL (0.00-0.20); Basophils % (auto) 0.8 %; Eosinophils # (auto) 0.07 K/uL (0.00-0.50); Eosinophils % (auto) 1.3 %; Hemoglobin 9.9 g/dl (14.0-18.0); Immature Granulocytes # (auto) 0.02 K/uL (0.01-0.20); Immature Granulocytes % (auto) 0.4 %; Lymphocytes # (auto) 1.02 K/uL (1.20-3.40); Lymphocytes % (auto) 19.5 %; Mean Corpuscular Hemoglobin 30.1 pg (25.0-34.0); Mean Corpuscular Volume 91.2 fL (80.0-100.0); Monocytes % (auto) 9.5 %; Neutrophils # (auto) 3.59 K/uL (1.40-6.50); Neutrophils % (auto) 68.5 %; Platelet Count 251 K/uL (130-400); RDW Coefficient of Variation 14.4 % (11.5-14.5); RDW Standard Deviation 47.8 fL (36.4-46.3); Red Blood Count 3.29 M/uL (4.70-6.10); White Blood Count 5.24 K/ul (4.8-10.8)
[2024-04-01 07:30] LABS: INR 1.2 (0.9-1.1); Prothrombin Time 13.2 Seconds (9.0-12.0)
[2024-04-01 07:43] LABS: BUN Creatinine Ratio 20.3 (10-20); Bilirubin,Total 0.5 mg/dl (0.2-1.0); C Reactive Protein 3.55 mg/dl (0-0.5); Calcium 8.4 mg/dl (8.6-10.3); Creatinine Clr Calc Pharmacy 98.4 ml/min; Est GFR (African American) 96.9 ml/min; Est GFR (Non-African American) 83.6 ml/min; Globulin 2.9 gm/dl (2.5-4.0); Potassium 4.2 mmol/L (3.5-5.1); Total Protein 5.9 gm/dl (6.0-8.3)
--- NOTE | 2024-04-01 08:00 | Hospitalist Progress Note ---
Date of Service April 01, 2024 Assessment & Plan (1) Cellulitis in diabetic foot: Plan: Left lower extremity diabetic cellulitis. Did not appear septic on admission. Venous doppler DIXONAC OPERATOR by PCP NEGATIVE for DVT but noting LARGE complex nonvascular fluid collection in left kumar measuring 9.2 x 2.1 x 5.0 cm Had been given keflex/bactrim x 1 day prior to admission w/ LLE swelling/erythema progression and came to ER Placed on Cefepime/Flagyl, MRSA nares negative but can consider adding Dapto needed given DM foot infection No blood cultures obtained/procalcitonin on admission CRP elevated to 2.91 on admission --> 5.58 on 03/26 and further elevated to 7.39 on 03/28 (did check and finally trending down 3.88 on 03/10) WBC remains wnl, afebrile Wound cx surface NEGATIVE Wound RN consult: Wash legs with soap and water, rinse and dry. 2 open areas on LLEcleaned with saline. Cover open areas with Aquacel Ag, gauze and secure using large Kerlix. Change every other day and as needed. Continues on Cefepime/Flagyl, cellulitis improved however worsened appearance of hematoma/concerns for infection and/or need for I&D, general surgery consult placed and made NPO * Re anticoagulation: d/w clinic provider prior to surgery and provided Vitamin K 5mg IV x 1 for reversal, did give Lovenox 40 SQ to cover given hx and plan to resume coumadin following surgery. INR 1.2 prior to surgery * Per surgery, ok to resume coumadin following I&D s/p Incision and Drainage of Left Lower Extremity Hematoma with Dr Bae 03/31. EBL 5cc. -Per OP report, one clot encountered, wide drainage ensured and NO SIGNS of purulence per discussion w/ surgeon. Lower ext fluid sent for cx -Will need daily packing, wound care. Repacked by surgery today CRP 3.8--> 3.5. IV abx extended for 10 day course (timed for 7 day initially) INR 1.2, coumadin resumed PM 03/31, ok'd by surgery to give additional dose of Lovenox SQ for today and will monitor INR in AM Pain control - much improved Therapy evals -- [facility] planned/can accept. Auth received 03/30 and can take on Wednesday if medically stable. Plan to update in AM for any questions/concerns prior to hopeful dc Wednesday (2) Hematoma: Plan: APPEARED WORSE as above, ?infected hematoma. NO elevated INR, has been quite stable on 10mg daily per discussion w/ Dr Morrell day prior about reversal for OR -s/p Vitamin K 5mg IV 03/30, Lovenox SQ 40 x 1 and coumadin placed on hold for surgery s/p I&D as above, coumadin able to resume post-op per Dr Bae. Dose lovenox SQ for today and will monitor INR in AM (3) Type II diabetes mellitus, uncontrolled: Plan: Metformin held SSI while inpatient, did have elevation in BSG 03/30 but had pancakes with syrup for breakfast, given additional glargine x 1 and continued BID/sliding scale Much better controlled and will monitor (4) Antiphospholipid syndrome: Plan: History of antiphospholipid syndrome and past VTE. INR goal 2-3, has been stable on 10mg daily, follows with anticoagulation clinic and pt was scheduled to transition to Lovenox bridge in 5 days in anticipation of his polyp removal and will need to be rediscussed in f/u as likely need to reschedule procedure Continued warfarin however placed on hold 03/30 for above/vitamin K/lovenox as outlined and resumed post-op. Lovenox SQ x 1 for today and monitor INR in AM (coumadin resumed 03/31, suspect rise in INR for AM). May need additional dose lovenox in meantime and will monitor (5) BPH (benign prostatic hyperplasia): Plan: Continue Flomax (6) History of rectal polypectomy: Plan: Pending precancerous polyp removal Hx of prior malignant polyp removal. Patient is pending a rectal precancerous polyp removal at tertiary care 04/03. This has been delayed twice, and patient hopes that his cellulitis that this will not further delay this appointment. No acute change in management (7) Dizziness: Plan: ongoing issue reported by patient w/ standing (had ordered orthostatics but not obtained) and placed lasix on hold and got IVF while NPO and denied any issues today and will monitor to resume lasix in AM B12 checked as well, borderline. PO daily started Therapy evals, rehab as above Plan continued inpatient stay, doing well since I&D hematoma, hopeful dc to [facility] on Wednesday if continues to do well. Plan to update in AM 04/02 or sooner if needed prior to dc planning to address any questions/concerns prior to Wednesday dc Admission and Anticipated Discharge Date Admission Date: March 24, 2024 Supervising Physician Co-Signing Physician Notes The patient was not seen by me. The chart was reviewed. Case discussed with GIGI Drake. Agree with assessment and plan Subjective Evaluated this morning, sitting up in bed using urinal. Reports feeling better, pain controlled. Cellulitis much improved, discussed OR/report no signs of infection to hematoma. Denies any issues w/ lightheaded/dizziness today with holding his lasix and hydration w/ OR and will continue to hold for today/resume in AM given improvement in PO and exam. No fever/chills, no chest pain or shortness of breath. Will plan to update tomorrow in anticipation for dc to [facility] on Wednesday. Questions/concerns addressed at this time. Physical Exam Physical Exam: General: 84yo male laying in bed, resting upon entry, NAD HEENT: head atraumatic, poor dentition, mm slightly dry, trachea midline Resp: even/unlabored, no w/c/r, on room air 94% CV: RRR, faint systolic murmur, LLE edema w/ cellulitis MUCH IMPROVED, hematoma since I&D, dressing removed and looks much improved, less warmth, no further significant tenderness GI: +BS, soft/NT, ostomy w/ darkened output from his oral iron : no chavis MSK/Neuro/Skin: answering questions appropriately, alert/oriented x 3, cooperative with care, nonfocal chronic venous stasis with ichthyosis, scattered abrasions/scabs to b/l knees, cellulitis/erythema/swelling to LLE MUCH improved, dressing c/d/i and s/p I&D hematoma without purulant discharge (surgery to repack this morning) Psych: AOx3, cooperative Results & Data Results & Data Vital Signs (Past 12 Hours) Vital Signs Temp Pulse Resp BP Pulse Ox O2 Del Method 04/01/24 07:08 36.6 C 77 16 157/67 H 95 Room Air 04/01/24 04:11 36.4 C L 68 17 133/66 96 Room Air 03/31/24 23:22 36.4 C L 74 17 126/62 93 Room Air Laboratory Results 04/01/24 04/01/24 03/31/24 Range/Units 07:51 06:42 20:33 WBC 5.24 (4.8-10.8) K/ul RBC 3.29 L (4.70-6.10) M/uL Hgb 9.9 L (14.0-18.0) g/dl Hct 30.0 L (42.0-52.0) % MCV 91.2 (80.0-100.0) fL MCH 30.1 (25.0-34.0) pg MCHC 33.0 (32.0-36.0) g/dL RDW Std Deviation 47.8 H (36.4-46.3) fL RDW Coeff of Cleo 14.4 (11.5-14.5) % Plt Count 251 (130-400) K/uL MPV 9.0 L (9.4-12.4) fL Immature Gran % (Auto) 0.4 % Neut % (Auto) 68.5 % Lymph % (Auto) 19.5 % [place] % (Auto) 9.5 % Eos % (Auto) 1.3 % Baso % (Auto) 0.8 % Neut # (Auto) 3.59 (1.40-6.50) K/uL Lymph # (Auto) 1.02 L (1.20-3.40) K/uL [place] # (Auto) 0.50 (0.11-0.59) K/uL Eos # (Auto) 0.07 (0.00-0.50) K/uL Baso # (Auto) 0.04 (0.00-0.20) K/uL Immature Gran # (Auto) 0.02 (0.01-0.20) K/uL PT 13.2 H (9.0-12.0) Seconds INR 1.2 H (0.9-1.1) Sodium 138 (136-145) mmol/L Potassium 4.2 (3.5-5.1) mmol/L Chloride 107 (98-107) mmol/L Carbon Dioxide 27 (21-32) mmol/L Anion Gap 4 (3-11) BUN 16 (6-23) mg/dl Creatinine 0.79 (0.6-1.4) mg/dl Est Cr Clr Drug Dosing 98.4 ml/min Est GFR ( Amer) 96.9 ml/min Est GFR (Non-Af Amer) 83.6 ml/min BUN/Creatinine Ratio 20.3 H (10-20) Glucose 154 H (70-99(Fasting)) mg/dl POC Glucose 162 H 237 H (70-99) mg/dl Calcium 8.4 L (8.6-10.3) mg/dl Magnesium 2.0 (1.7-2.4) mg/dl Total Bilirubin 0.5 (0.2-1.0) mg/dl AST 12 L (13-39) U/L ALT 9 (7-52) U/L Alkaline Phosphatase 54 (34-104) U/L C-Reactive Protein 3.55 H (0-0.5) mg/dl Total Protein 5.9 L (6.0-8.3) gm/dl Albumin 3.0 L (3.4-5.0) gm/dl Globulin 2.9 (2.5-4.0) gm/dl Albumin/Globulin Ratio 1.0 (0.9-2) 03/31/24 03/31/24 03/31/24 Range/Units 16:44 13:10 11:52 WBC (4.8-10.8) K/ul RBC (4.70-6.10) M/uL Hgb (14.0-18.0) g/dl Hct (42.0-52.0) % MCV (80.0-100.0) fL MCH (25.0-34.0) pg MCHC (32.0-36.0) g/dL RDW Std Deviation (36.4-46.3) fL RDW Coeff of Cleo (11.5-14.5) % Plt Count (130-400) K/uL MPV (9.4-12.4) fL Immature Gran % (Auto) % Neut % (Auto) % Lymph % (Auto) % [place] % (Auto) % Eos % (Auto) % Baso % (Auto) % Neut # (Auto) (1.40-6.50) K/uL Lymph # (Auto) (1.20-3.40) K/uL [place] # (Auto) (0.11-0.59) K/uL Eos # (Auto) (0.00-0.50) K/uL Baso # (Auto) (0.00-0.20) K/uL Immature Gran # (Auto) (0.01-0.20) K/uL PT (9.0-12.0) Seconds INR (0.9-1.1) Sodium (136-145) mmol/L Potassium (3.5-5.1) mmol/L Chloride (98-107) mmol/L Carbon Dioxide (21-32) mmol/L Anion Gap (3-11) BUN (6-23) mg/dl Creatinine (0.6-1.4) mg/dl Est Cr Clr Drug Dosing ml/min Est GFR ( Amer) ml/min Est GFR (Non-Af Amer) ml/min BUN/Creatinine Ratio (10-20) Glucose (70-99(Fasting)) mg/dl POC Glucose 245 H 193 H 174 H (70-99) mg/dl Calcium (8.6-10.3) mg/dl Magnesium (1.7-2.4) mg/dl Total Bilirubin (0.2-1.0) mg/dl AST (13-39) U/L ALT (7-52) U/L Alkaline Phosphatase (34-104) U/L C-Reactive Protein (0-0.5) mg/dl Total Protein (6.0-8.3) gm/dl Albumin (3.4-5.0) gm/dl Globulin (2.5-4.0) gm/dl Albumin/Globulin Ratio (0.9-2) 03/31/24 Range/Units 10:18 WBC (4.8-10.8) K/ul RBC (4.70-6.10) M/uL Hgb (14.0-18.0) g/dl Hct (42.0-52.0) % MCV (80.0-100.0) fL MCH (25.0-34.0) pg MCHC (32.0-36.0) g/dL RDW Std Deviation (36.4-46.3) fL RDW Coeff of Cleo (11.5-14.5) % Plt Count (130-400) K/uL MPV (9.4-12.4) fL Immature Gran % (Auto) % Neut % (Auto) % Lymph % (Auto) % [place] % (Auto) % Eos % (Auto) % Baso % (Auto) % Neut # (Auto) (1.40-6.50) K/uL Lymph # (Auto) (1.20-3.40) K/uL [place] # (Auto) (0.11-0.59) K/uL Eos # (Auto) (0.00-0.50) K/uL Baso # (Auto) (0.00-0.20) K/uL Immature Gran # (Auto) (0.01-0.20) K/uL PT (9.0-12.0) Seconds INR (0.9-1.1) Sodium (136-145) mmol/L Potassium (3.5-5.1) mmol/L Chloride (98-107) mmol/L Carbon Dioxide (21-32) mmol/L Anion Gap (3-11) BUN (6-23) mg/dl Creatinine (0.6-1.4) mg/dl Est Cr Clr Drug Dosing ml/min Est GFR ( Amer) ml/min Est GFR (Non-Af Amer) ml/min BUN/Creatinine Ratio (10-20) Glucose (70-99(Fasting)) mg/dl POC Glucose 174 H (70-99) mg/dl Calcium (8.6-10.3) mg/dl Magnesium (1.7-2.4) mg/dl Total Bilirubin (0.2-1.0) mg/dl AST (13-39) U/L ALT (7-52) U/L Alkaline Phosphatase (34-104) U/L C-Reactive Protein (0-0.5) mg/dl Total Protein (6.0-8.3) gm/dl Albumin (3.4-5.0) gm/dl Globulin (2.5-4.0) gm/dl Albumin/Globulin Ratio (0.9-2) PG Care Time/CCT Total # of Minutes Spent Total Time Spent with Patient: Total time spent is greater than 50% in coordination of care (as documented) at patient's floor/unit and/or counseling patient: Coding Level of Care Code 37215 SUB INP/OBS CARE 3/50MIN Diagnoses Cellulitis in diabetic foot E11.628; L03.119 Hematoma T14.8XXA Uncontrolled type 2 diabetes mellitus with hyperglycemia E11.65 Antiphospholipid syndrome D68.61 BPH (benign prostatic hyperplasia) N40.0 History of rectal polypectomy Z98.890; Z87.19 Dizziness R42
[2024-04-01] MEDS: CYANOCOBALAMIN (B-12) 500 MCG TABLET PO SCH (08:25)
--- NOTE | 2024-04-01 12:01 | Surgery Progress Note ---
Date of Service April 01, 2024 Assessment & Plan (1) Abscess of left lower extremity: Plan Doing well. I&D site clean and repacked. Continue antibiotics. Will continue to follow. Admission and Anticipated Discharge Date Admission Date: March 24, 2024 Subjective Doing well postop day 1 status post I&D of left lower extremity hematoma. Minimal pain. No fevers or chills. No nausea or vomiting. Physical Exam Physical Exam: NAD, & O x 3 NCAT Left lower extremity: Dressing was removed and packing was removed. Good granulation tissue, no purulent discharge, no erythema. Wound was repacked with Nu Gauze. Results & Data Vital Signs (Past 12 Hours) Vital Signs Temp Pulse Resp BP Pulse Ox O2 Del Method 04/01/24 07:08 36.6 C 77 16 157/67 H 95 Room Air 04/01/24 04:11 36.4 C L 68 17 133/66 96 Room Air Laboratory Results 04/01/24 04/01/24 04/01/24 Range/Units 11:25 07:51 06:42 WBC 5.24 (4.8-10.8) K/ul RBC 3.29 L (4.70-6.10) M/uL Hgb 9.9 L (14.0-18.0) g/dl Hct 30.0 L (42.0-52.0) % MCV 91.2 (80.0-100.0) fL MCH 30.1 (25.0-34.0) pg MCHC 33.0 (32.0-36.0) g/dL RDW Std Deviation 47.8 H (36.4-46.3) fL RDW Coeff of Cleo 14.4 (11.5-14.5) % Plt Count 251 (130-400) K/uL MPV 9.0 L (9.4-12.4) fL Immature Gran % (Auto) 0.4 % Neut % (Auto) 68.5 % Lymph % (Auto) 19.5 % Real % (Auto) 9.5 % Eos % (Auto) 1.3 % Baso % (Auto) 0.8 % Neut # (Auto) 3.59 (1.40-6.50) K/uL Lymph # (Auto) 1.02 L (1.20-3.40) K/uL Real # (Auto) 0.50 (0.11-0.59) K/uL Eos # (Auto) 0.07 (0.00-0.50) K/uL Baso # (Auto) 0.04 (0.00-0.20) K/uL Immature Gran # (Auto) 0.02 (0.01-0.20) K/uL PT 13.2 H (9.0-12.0) Seconds INR 1.2 H (0.9-1.1) Sodium 138 (136-145) mmol/L Potassium 4.2 (3.5-5.1) mmol/L Chloride 107 (98-107) mmol/L Carbon Dioxide 27 (21-32) mmol/L Anion Gap 4 (3-11) BUN 16 (6-23) mg/dl Creatinine 0.79 (0.6-1.4) mg/dl Est Cr Clr Drug Dosing 98.4 ml/min Est GFR ( Amer) 96.9 ml/min Est GFR (Non-Af Amer) 83.6 ml/min BUN/Creatinine Ratio 20.3 H (10-20) Glucose 154 H (70-99(Fasting)) mg/dl POC Glucose 151 H 162 H (70-99) mg/dl Calcium 8.4 L (8.6-10.3) mg/dl Magnesium 2.0 (1.7-2.4) mg/dl Total Bilirubin 0.5 (0.2-1.0) mg/dl AST 12 L (13-39) U/L ALT 9 (7-52) U/L Alkaline Phosphatase 54 (34-104) U/L C-Reactive Protein 3.55 H (0-0.5) mg/dl Total Protein 5.9 L (6.0-8.3) gm/dl Albumin 3.0 L (3.4-5.0) gm/dl Globulin 2.9 (2.5-4.0) gm/dl Albumin/Globulin Ratio 1.0 (0.9-2) 03/31/24 03/31/24 03/31/24 Range/Units 20:33 16:44 13:10 WBC (4.8-10.8) K/ul RBC (4.70-6.10) M/uL Hgb (14.0-18.0) g/dl Hct (42.0-52.0) % MCV (80.0-100.0) fL MCH (25.0-34.0) pg MCHC (32.0-36.0) g/dL RDW Std Deviation (36.4-46.3) fL RDW Coeff of Cleo (11.5-14.5) % Plt Count (130-400) K/uL MPV (9.4-12.4) fL Immature Gran % (Auto) % Neut % (Auto) % Lymph % (Auto) % Real % (Auto) % Eos % (Auto) % Baso % (Auto) % Neut # (Auto) (1.40-6.50) K/uL Lymph # (Auto) (1.20-3.40) K/uL Real # (Auto) (0.11-0.59) K/uL Eos # (Auto) (0.00-0.50) K/uL Baso # (Auto) (0.00-0.20) K/uL Immature Gran # (Auto) (0.01-0.20) K/uL PT (9.0-12.0) Seconds INR (0.9-1.1) Sodium (136-145) mmol/L Potassium (3.5-5.1) mmol/L Chloride (98-107) mmol/L Carbon Dioxide (21-32) mmol/L Anion Gap (3-11) BUN (6-23) mg/dl Creatinine (0.6-1.4) mg/dl Est Cr Clr Drug Dosing ml/min Est GFR ( Amer) ml/min Est GFR (Non-Af Amer) ml/min BUN/Creatinine Ratio (10-20) Glucose (70-99(Fasting)) mg/dl POC Glucose 237 H 245 H 193 H (70-99) mg/dl Calcium (8.6-10.3) mg/dl Magnesium (1.7-2.4) mg/dl Total Bilirubin (0.2-1.0) mg/dl AST (13-39) U/L ALT (7-52) U/L Alkaline Phosphatase (34-104) U/L C-Reactive Protein (0-0.5) mg/dl Total Protein (6.0-8.3) gm/dl Albumin (3.4-5.0) gm/dl Globulin (2.5-4.0) gm/dl Albumin/Globulin Ratio (0.9-2)
[2024-04-01] MEDS: ENOXAPARIN INJ 40 MG/0.4 ML SYR SQ ONE (13:55)
[2024-04-02 06:41] LABS: Hematocrit (blood only) 31.7 % (42.0-52.0); Hemoglobin 10.4 g/dl (14.0-18.0); Mean Corpuscular Hemoglobin 30.2 pg (25.0-34.0); Mean Corpuscular Hgb Conc 32.8 g/dL (32.0-36.0); Mean Corpuscular Volume 92.2 fL (80.0-100.0); Platelet Count 248 K/uL (130-400); RDW Coefficient of Variation 14.6 % (11.5-14.5); RDW Standard Deviation 49.5 fL (36.4-46.3); Red Blood Count 3.44 M/uL (4.70-6.10); White Blood Count 4.93 K/ul (4.8-10.8)
[2024-04-02 07:25] LABS: BUN Creatinine Ratio 20.5 (10-20); Calcium 8.8 mg/dl (8.6-10.3); Creatinine Clr Calc Pharmacy 106.5 ml/min; Est GFR (African American) 100.1 ml/min; Est GFR (Non-African American) 86.4 ml/min; Potassium 4.1 mmol/L (3.5-5.1)
[2024-04-02 07:45] LABS: INR 1.5 (0.9-1.1); Prothrombin Time 15.8 Seconds (9.0-12.0)
--- NOTE | 2024-04-02 08:18 | Hospitalist Progress Note ---
Date of Service April 02, 2024 Assessment & Plan (1) Cellulitis in diabetic foot: Plan: Left lower extremity diabetic cellulitis. Did not appear septic on admission. Venous doppler POST ANESTHESIA NURSE by PCP NEGATIVE for DVT but noting LARGE complex nonvascular fluid collection in left kumar measuring 9.2 x 2.1 x 5.0 cm Had been given keflex/bactrim x 1 day prior to admission w/ LLE swelling/erythema progression and came to ER Placed on Cefepime/Flagyl, MRSA nares negative but can consider adding Dapto needed given DM foot infection No blood cultures obtained/procalcitonin on admission CRP elevated to 2.91 on admission --> 5.58 on 03/26 and further elevated to 7.39 on 03/28 (did check and finally trending down 3.88 on 03/10) WBC remains wnl, afebrile Wound cx surface NEGATIVE Wound RN consult: Wash legs with soap and water, rinse and dry. 2 open areas on LLEcleaned with saline. Cover open areas with Aquacel Ag, gauze and secure using large Kerlix. Change every other day and as needed. Continues on Cefepime/Flagyl, cellulitis improved however worsened appearance of hematoma/concerns for infection and/or need for I&D, general surgery consult placed and made NPO * Re anticoagulation: d/w clinic provider prior to surgery and provided Vitamin K 5mg IV x 1 for reversal, did give Lovenox 40 SQ to cover given hx and plan to resume coumadin following surgery. INR 1.2 prior to surgery * Per surgery, ok to resume coumadin following I&D s/p Incision and Drainage of Left Lower Extremity Hematoma with Dr Bae 03/31. EBL 5cc. -Per OP report, one clot encountered, wide drainage ensured and NO SIGNS of purulence per discussion w/ surgeon. Lower ext fluid sent for cx -Will need daily packing, wound care. Repacked by surgery today CRP 3.8--> 3.5 INR 1.2, coumadin resumed PM 03/31, ok'd by surgery to give additional dose of Lovenox SQ for today and will monitor INR in AM Pain control - much improved 04/02 WBC 4.9k, hgb 10.4 and stable on his iron BID (outpt c-scope). INR 1.5, will plan for additional dose Lovenox SQ for today and suspect INR back in range in AM. OR cx w/ many WBC, no organisms, no growth on preliminary. Follow. Cefepime/Flagyl x 10 day (on day 9 today), ordered through 04/03. Can consider additional couple of days w/ PO at dc if needing to extend to 14 day course but has had improvement since I&D Lasix prior held, did review as was able to obtain orthostatics AM prior and were positive. Got IVF w/ surgery and lasix was on hold and reported no further sx on 04/01. BUN/Cr 15/0.73, 97% on RA. Plan to resume in AM pending status Therapy evals -- [facility] planned/can accept. Auth received 03/30 and can take on Wednesday if medically stable. Plan to update this afternoon (2) Hematoma: Plan: APPEARED WORSE as above, ?infected hematoma. NO elevated INR, has been quite stable on 10mg daily per discussion w/ Dr Morrell day prior about reversal for OR -s/p Vitamin K 5mg IV 03/30, Lovenox SQ 40 x 1 and coumadin placed on hold for surgery s/p I&D as above, coumadin resumed post-op, lovenox SQ x 1 on 04/01 and repeating for today/no significant bleeding and wound looks good. (3) Type II diabetes mellitus, uncontrolled: Plan: Metformin held SSI while inpatient, some adjustments for today for some elevations (did have elevation 03/30 but was eating pancakes/syrup for breakfast) Monitor (4) Antiphospholipid syndrome: Plan: History of antiphospholipid syndrome and past VTE. INR goal 2-3, has been stable on 10mg daily, follows with anticoagulation clinic and pt was scheduled to transition to Lovenox bridge in 5 days in anticipation of his polyp removal and will need to be rediscussed in f/u as likely need to reschedule procedure Continued warfarin however placed on hold 03/30 for above/vitamin K/lovenox as outlined and resumed post-op. Lovenox SQ x 1 ordered INR 1.5 today and additional lovenox ordered and coumadin continued and will monitor INR in AM. Suspect in range in AM as coumadin resumed 03/31 but will monitor for additional needs. No evidence for DVT on exam (5) BPH (benign prostatic hyperplasia): Plan: Continue Flomax (6) History of rectal polypectomy: Plan: Pending precancerous polyp removal Hx of prior malignant polyp removal. Patient is pending a rectal precancerous polyp removal at tertiary care 04/03. This has been delayed twice, and patient hopes that his cellulitis that this will not further delay this appointment. No acute change in management (7) Dizziness: Plan: ongoing issue reported by patient w/ standing (had ordered orthostatics but not obtained) and placed lasix on hold and got IVF while NPO and denied any issues today and will monitor to resume lasix in AM B12 checked as well, borderline low and PO daily started Therapy evals, rehab as above NO FURTHER DIZZINESS SINCE HOLDING LASIX, +ORTHOS the other day. Monitor now w/ increased PO and no further symptoms, appears less dry on exam and likely able to resume for maintaince in am Plan continued inpatient stay, [facility] planned for 04/03 as long as no issues Will call this afternoon for update Admission and Anticipated Discharge Date Admission Date: March 24, 2024 Supervising Physician Co-Signing Physician Notes The patient was not seen by me. The chart was reviewed. Case discussed with GIGI Drake. Agree with assessment and plan Subjective Evaluated this morning, appears much improved. Improved energy, no further dizziness. Lasix on hold, no increased swelling, no SOB and 97% on RA. Prior positive orthostatics and will monitor, possible resume in AM if needed. Cellulitis much improved/almost completely resolved Dressing packed by surgery yesterday, slightly painful, to ask for oxycodone prior if wanting to but patient prefers to see how it goes/ask after if needed. Plan to call w/ update this morning however at synagogue and will call after lunch. Plans for [facility] in AM. Physical Exam Physical Exam: General: 84yo male sitting up in bed eating, appears much improved, NAD HEENT: head atraumatic, poor dentition, mmm, trachea midline Resp: even/unlabored, no w/c/r, on room air 7% CV: RRR, faint systolic murmur, LLE edema w/ cellulitis MUCH IMPROVED/almost completely resolved, hematoma since I&D, dressing removed and looks much improved, less warmth, no further significant tenderness GI: +BS, soft/NT, ostomy w/ darkened pasty output (almost full, RN to empty) : no chavis MSK/Neuro/Skin: answering questions appropriately, alert/oriented x 3, cooperative with care, nonfocal chronic venous stasis with ichthyosis, scattered abrasions/scabs to b/l knees, cellulitis/erythema/swelling to LLE MUCH improved and almost resolved dressing to RLE intact, some yellow/serous drainage noted, no significant tenderness or bleeding Psych: AOx3, cooperative Results & Data Results & Data Vital Signs (Past 12 Hours) Vital Signs Temp Pulse Resp BP Pulse Ox O2 Del Method 04/02/24 07:10 36.5 C 67 16 174/82 H 97 Room Air 04/01/24 20:20 36.6 C 72 18 145/75 H 95 Room Air Laboratory Results 04/02/24 04/02/24 04/02/24 Range/Units 11:36 07:54 06:13 WBC 4.93 (4.8-10.8) K/ul RBC 3.44 L (4.70-6.10) M/uL Hgb 10.4 L (14.0-18.0) g/dl Hct 31.7 L (42.0-52.0) % MCV 92.2 (80.0-100.0) fL MCH 30.2 (25.0-34.0) pg MCHC 32.8 (32.0-36.0) g/dL RDW Std Deviation 49.5 H (36.4-46.3) fL RDW Coeff of Cleo 14.6 H (11.5-14.5) % Plt Count 248 (130-400) K/uL MPV 9.0 L (9.4-12.4) fL PT 15.8 H (9.0-12.0) Seconds INR 1.5 H (0.9-1.1) Sodium 138 (136-145) mmol/L Potassium 4.1 (3.5-5.1) mmol/L Chloride 106 (98-107) mmol/L Carbon Dioxide 28 (21-32) mmol/L Anion Gap 4 (3-11) BUN 15 (6-23) mg/dl Creatinine 0.73 (0.6-1.4) mg/dl Est Cr Clr Drug Dosing 106.5 ml/min Est GFR ( Amer) 100.1 ml/min Est GFR (Non-Af Amer) 86.4 ml/min BUN/Creatinine Ratio 20.5 H (10-20) Glucose 174 H (70-99(Fasting)) mg/dl POC Glucose 235 H 169 H (70-99) mg/dl Calcium 8.8 (8.6-10.3) mg/dl 04/01/24 04/01/24 Range/Units 20:11 16:42 WBC (4.8-10.8) K/ul RBC (4.70-6.10) M/uL Hgb (14.0-18.0) g/dl Hct (42.0-52.0) % MCV (80.0-100.0) fL MCH (25.0-34.0) pg MCHC (32.0-36.0) g/dL RDW Std Deviation (36.4-46.3) fL RDW Coeff of Cleo (11.5-14.5) % Plt Count (130-400) K/uL MPV (9.4-12.4) fL PT (9.0-12.0) Seconds INR (0.9-1.1) Sodium (136-145) mmol/L Potassium (3.5-5.1) mmol/L Chloride (98-107) mmol/L Carbon Dioxide (21-32) mmol/L Anion Gap (3-11) BUN (6-23) mg/dl Creatinine (0.6-1.4) mg/dl Est Cr Clr Drug Dosing ml/min Est GFR ( Amer) ml/min Est GFR (Non-Af Amer) ml/min BUN/Creatinine Ratio (10-20) Glucose (70-99(Fasting)) mg/dl POC Glucose 246 H 173 H (70-99) mg/dl Calcium (8.6-10.3) mg/dl PG Care Time/CCT Total # of Minutes Spent Total Time Spent with Patient: Total time spent is greater than 50% in coordination of care (as documented) at patient's floor/unit and/or counseling patient: Coding Level of Care Code 61140 SUB INP/OBS CARE 3/50MIN Diagnoses Cellulitis in diabetic foot E11.628; L03.119 Hematoma T14.8XXA Uncontrolled type 2 diabetes mellitus with hyperglycemia E11.65 Antiphospholipid syndrome D68.61 BPH (benign prostatic hyperplasia) N40.0 History of rectal polypectomy Z98.890; Z87.19 Dizziness R42
[2024-04-02] MEDS: ENOXAPARIN INJ 40 MG/0.4 ML SYR SQ ONE (12:35)
[2024-04-02] MEDS: oxyCODONE HCL IR 5 MG TAB (IMMEDIATE RELEASE) PO PRN (13:54)
[2024-04-02] MEDS: LANTUS PER UNIT CHARGE SQ SCH (21:33)
[2024-04-03 07:48] LABS: INR 1.8 (0.9-1.1); Prothrombin Time 18.8 Seconds (9.0-12.0)
--- NOTE | 2024-04-03 08:10 | Discharge Summary ---
Date of Service April 03, 2024 Admission HPI Per Admitting Provider Randal seen at the bedside with his family present. He has a history of chronic venous stasis but has had increasing throbbing left lower extremity leg discomfort, swelling, and spreading erythema of his left lower extremity.He did see his PCP 2 days ago, erythema started spreading and worsening after his walker slipped and he had a large contusion on his left anterior kumar. He is anticoagulated on warfarin. He reports his pain is 24/10 and increases rapidly even with soft touch or any palpation. Has had some clear/mixed cloudy fluid like drainage from the laceration. He was prescribed Bactrim/Keflex as an o utpatient, has been taking this in the last day but has had expansion of the erythema past is marked borders and increased pain so returned to the ER. He denies fever/chills/sweats. Has some neuropathy at baseline but otherwise has not had sensory change. No chest pain or chest pressure. Left lower leg does not have a throbbing painful sensation for the last day. Medical History: Reviewed Medications: Reviewed Surgical History: Reviewed Family history: Reviewed Allergies: Reviewed Social History: REviewed Code Status: Full Admission Exam Per Admitting Provider General: A&Ox3. NAD. Cooperative. HEENT: Atraumatic, normocephalic. Pulm: CTAB A&P. -wheezes, -rales, -rhonchi. Symmetrical chest rise. No increased work of breathing. No respiratory distress. Cardiac: RRR, -mrg. Radial pulses intact and symmetrical. 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 Significant asymmetric left leg swelling, erythema extending past previously marked borders, and small amount of streaking which does not extend past the knee. Anterior small laceration with clear/slightly cloudy discharge. Significantly tender to palpation, warm to touch. Principal Diagnosis LLE Cellulitis, Hematoma s/p I&D Discharge Exam General: 84yo male sitting up in chair, NAD, appears much improved HEENT: head atraumatic, poor dentition, mm improved, trachea midline Resp: even/unlabored, no w/c/r, on room air 96% CV: RRR, faint systolic murmur, LLE edema w/ cellulitis RESOLVED, dressing to RLE c/d/i, no further significant wamrth, chronic venous stasis GI: +BS, soft/NT, ostomy w/ darkened stool (on iron supplementation) : no chavis MSK/Neuro/Skin: answering questions appropriately, alert/oriented x 3, cooperative with care, nonfocal chronic venous stasis with ichthyosis, scattered abrasions/scabs to b/l knees, cellulitis/erythema/swelling to LLE MUCH improved/RESOLVED dressing c/d/i to RLE intact, s, no significant tenderness or bleeding Psych: AOx3, cooperative Discharge Data Allergies Allergy/AdvReac Type Severity Reaction Status Date / Time sitagliptin Allergy Intermediate Hives - Verified 03/23/24 15:02 Januvia cat dander Allergy Mild EYES WATER Verified 03/23/24 15:02 Iwelklz-KCN-PaO Reductase AdvReac Intermediate LEG CRAMPS Verified 03/23/24 15:02 Inhibitor [Uatxyuc-Iis-Urm Reductase Inhibitor] Consultations 03/24/24 14:20 ED Decision to Admit Stat 03/30/24 12:47 Consult General Surgery Routine Procedures Performed Operation Date: 03/31/24 11:00 Actual Procedures p Incision and Drainage of Left Lower Extremity(Left) - Junior Bae, DO Hospital Course (1) Cellulitis in diabetic foot: Presented with LLE cellulitis in setting of diabetes Venous Doppler obtained prior to admission which was NEGATIVE for DVT, INR in range and on coumadin but notable US noted 9.2x2.1x5cm complex fluid collection Was given Keflex/Bactrim x 1 day prior to admission w/ progression and presented to the ER Placed on Cefepime/Flagyl. MRSA nares negative Blood cultures/procal not checked on admission however did have elevated CRP 2.91 which increased on subsequent days concerning for infection to hematoma General surgery, Dr Bae, consulted and patient underwent I&D hematoma on 03/31 and per discussion/OP report, debridement without concerns for infection and OR cx remain without growth and WBC normalized/remained without fever and completed 10 days Cefepime/Flagyl and no further cellulitis on exam and decision not to extend abx at discharge given such CRP trended down on repeat following I&D, 3.88 (up to 7.3 on 03/28) Wound RN consulted and to have daily dressing/packing for next 1-2 weeks per general surgery Coumadin held day prior to surgery and given Lovenox SQ for coverage given below, INR reverals with Vit K 5mg IVx1 per discussion w/ anticoagulation clinic and resumed coumadin following surgery and Lovenox SQ daily when subth erapeutic, INR 1.8 prior to dc and additional lovenox SQ provided and rec to repeat INR at [facility] in next 24hrs and if remaining stable given prior stability on 10mg dosing can continue monitoring as previously (rescheduling of polyp removal/c-scope as below) PT/OT rec for rehab, [facility] and case management assisting with arranging transportation Of note, lasix held past 2-3 days due to +orthostatics and reported dizziness/dehydration on exam w/ improvement and to hold lasix for another 24-48 hours and can resume on Wednesday if not having any further issues. (2) Hematoma: As above, concerns for infection but per discussion/OP not infected and cultures negative but hopefully will assist with healing process daily packing per surgery, continued wound care (3) Type II diabetes mellitus, uncontrolled: Metformin held on admission and BSG AC/HS and SSI while inpatient. Did have some elevations w/ eating pancakes/syrup but had been on lower dose than at home and IMPROVEMENT w/ resumption back to home dosing. Metformin to resume at dc (4) Antiphospholipid syndrome: History of antiphospholipid syndrome and past VTE. INR goal 2-3, has been stable on 10mg daily, follows with anticoagulation clinic and pt was scheduled to transition to Lovenox bridge in 5 days in anticipation of his polyp removal and will need to be rediscussed in f/u as likely need to reschedule procedure Continued warfarin however placed on hold 03/30 for above/vitamin K/lovenox as outlined and resumed post-op. Additional Lovenox SQ prior to dc and recs for INR in AM at [facility], currently 1.8 and suspect back in range in AM (5) BPH (benign prostatic hyperplasia): Continued Flomax (6) History of rectal polypectomy: Pending precancerous polyp removal Hx of prior malignant polyp removal. Patient is pending a rectal precancerous polyp removal at [facility] 04/03. This has been delayed twice, and patient hopes that his cellulitis that this will not further delay this appointment. F/U PCP/coag clinic about timing for lovenox SQ if still able to have his c- scope (7) Dizziness: ongoing issue reported by patient w/ standing (had ordered orthostatics but not obtained) and placed lasix on hold and got IVF while NPO and denied any issues today and will monitor to resume lasix in AM B12 checked as well, borderline low and PO daily started and continued at dc Therapy evals, rehab as above IMPROVEMENT in dizziness (denied yesterday during eval) and only occuring when standing quickly. Improvement since holding lasix and orthostatic VS improved and would continue to hold another 24-48 hrs No focal def on exam Plan discharged to [facility] for ongoing rehab with ongoing wound care Total Time Total Time Spent Total Time Spent (In Minutes): 50 Discharge Plan Discharge Items Patient Disposition: Transfer Inpatient Rehab Fac Reason For Visit: WORSENING DIABETIC CELLULITIS Discharge Diagnosis: LEFT LEG CELLULITIS, HEMATOMA Goals: You have been hospitalized for an urgent problem which required surgery. During your stay at [facility], we have made an effort to correct the problem that brought you to the hospital while keeping you as comfortable as possible. Surgery and medications were used to bring your condition under control and your discharge instructions will include directions for any medications you should take after leaving the hospital. Please make sure to follow the advice of your surgeon regarding follow up with the surgeon and with your primary care provider. Activity: As commented below Activity Comment: weight bearing as tolerated with assistive device Non-emergency contact: Primary Care Provider, Surgeon and [employer] Administrator Call non-emergency contact if: you have any medication questions, your symptoms worsen, your pain is concerning for you and you have a fever Follow-up/Referrals: Elizabeth Alvarenga CRNP [Primary Care Provider] - Junior Bae DO [Physician] - (please call to schedule follow up in clinic within 1 weeks ) Diet: Carb Consistent or DM2 and Heart Healthy Addtl Attending Provider Instructions: You have been hospitalized for cellulitis from your left leg. It is suspected this may have started from crack in the skin or from the trauma sustained prior to getting your hematoma to the leg. On examination there was concerns for possible infection to the hematoma and poor wound healing without incision and drainage and surgery was consulted and Dr Bae took you to the operating room to have this opened up and drained. There was no evidence for infection to hematoma or pus and your dressing will need ongoing wound care and packing daily as below by surgery for at least the next 1-2 weeks. Ongoing wound care and follow up at discharge is recommended. Your coumadin was held for the procedure and discussed with Dr Morrell and resumed following and your INR prior to discharge is 1.8 and we gave another dose of Lovenox by injection. Please continue your usual coumadin 10mg daily at discharge and have repeat INR in the next 24 hours to ensure back in range. Please follow up with anticoagulation clinic about timing for your lovenox/coumadin briding for your endoscopy/polyp removal. Your white count has remained normal but if you have any increased abdominal pain/fever/diarrhea, you should be checked for infection in the stool as this can occur with antibiotics but those were needed to treat your underlying cellulitis/infection. You will have received 10 days of IV therapy while in the hospital and we are not continuing any further antibiotics at discharge. I held your lasix (furosemide) which is a diuretic due to reports of dizziness and the blood pressures obtained sitting/laying/standing showed a drop when standing and this was likely from dehydration and you were given IV fluids with surgery while this was held and your hydration status has improved. We have decided to HOLD your lasix at discharge for the next 24-48 hours and if symptoms continue to improve/resolve you can resume your home lasix on 04/05. If you have any repeat symptoms after resuming this, the rehab facility should repeat orthostatic vitals and see if you need to hold this any further or consider taking every other day. Therapy evaluations were undertaken and arrangements made for ongoing rehab at [facility] at discharge. Please follow up with primary care and general surgery in the next 7-10 days to monitor your progress after discharge from the hospital. Please return to the ER with any fevers/worsening redness or pain or for any other symptoms concerning for you. It has been a pleasure being a part of the medical team providing for you while you have been in the hospital. Take care! Addtl Production Control Expediter Provider Instructions: pack left kumar wound once daily with 1"iodoform gauze, cover with dry 4x4 gauze and ABD pad. Lightly wrap leg and dressing in a kerlex gauze, adhere with tape. Pending Studies at Discharge: Yes Studies:: leg culture, left -- no growth to date Stand-Alone Forms: My [facility] Skilled Items Patient informed of condition?: Yes DNR: Yes Discharge Level of Care: Skilled Communicable Disease: No Discharge Prognosis: Stable Lines: None Urinary Catheter: No Medications and DC Order Prescriptions: New cyanocobalamin (vitamin B-12) 500 mcg Tablet 500 mcg PO QAM Qty: 30 0RF oxycodone 5 mg Tablet 5 mg PO Q4H PRN (Reason: pain) Qty: 8 0RF Continued magnesium citrate 100 mg tablet 100 mg PO DAILY Rx Instructions: Unknown strength, OTC, spouse buys ferrous sulfate [Feosol] 325 mg (65 mg iron) tablet 325 mg PO BID miscellaneous medical supply Misc 1 ea miscellaneous .COMPLEX Qty: 1 0RF Rx Instructions: Compression Pump 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 rosuvastatin [Crestor] 20 mg tablet 20 mg PO QAM Qty: 90 3RF metformin 500 mg tablet extended release 24 hr 1,000 mg PO BID Qty: 360 3RF tamsulosin [Flomax] 0.4 mg capsule 0.4 mg PO QAM Qty: 90 3RF multivitamin [Daily Multi-Vitamin] Tablet 1 tab PO QAM insulin asp prt-insulin aspart [Novolog Mix 70-30FlexPen U-100] 100 unit/mL (70-30) insulin pen 25 - 30 unit subcut BID Patient Comments: 30 units in the am Rx Instructions: 30 u in am, 25 u in pm subcutaneously twice a day; warfarin 5 mg tablet 10 mg PO UD Rx Instructions: 10 mg daily per [facility] orally use as directed; Held enoxaparin [Lovenox] 40 mg/0.4 mL syringe 40 mg subcut QAM Hold Instructions: until timing of colonoscopy determined in rescheduling Rx Instructions: Take daily on days as directed by [facility] clinic. for bridging purposes perioperatively furosemide 20 mg tablet 20 mg PO DAILY Qty: 30 2RF Hold Instructions: Resume on 04/05/24. Discontinued cephalexin 500 mg capsule 500 mg PO QID 10 Days Qty: 40 0RF sulfamethoxazole-trimethoprim [Bactrim DS] 800-160 mg tablet 1 tab PO BID Qty: 14 0RF No Action (DME) miscellaneous medical supply Liquid See Rx Instructions .Route Qty: 3840 0RF Rx Instructions: Ca 600 mg, Mag 300 mg, D3 500- 1 teaspoon daily (DME) pen needle, diabetic [BD Donna 2nd Gen Pen Needle] 32 gauge x 5/32" needle See Dose Instructions .ROUTE .MEDSUPPLY Qty: 200 3RF Dose Instruction: As directed Rx Instructions: use 2 daily (DME) lancets [OneTouch Delica Plus Lancet] 33 gauge misc See Rx Instructions .Route Qty: 100 8RF Rx Instructions: test 2-3 times a day (DME) OneTouch Ultra Test Strip See Rx Instructions .Route Qty: 100 8RF Rx Instructions: test 2-3 times a day (DME) blood-glucose meter [OneTouch Ultra2 Meter] Misc See Rx Instructions .Route Qty: 1 0RF Rx Instructions: As directed Discharge Orders: Discharge Order (Routine); Ordered 04/03/24 Ordered By: Ksaey Melton/Other Patient Handouts: Cellulitis Dc, ED Hematoma Admission Data Admit Date/Time: 03/24/24 14:18 Attending Provider: Cheo Andre Admit Provider: Chacorta Malloy Primary Care Provider: Elizabeth Alvarenga Other Providers: Red Capone [place]; [facility]; Chacorta Malloy; Junior Bae Other Interventions: Discharge Summary Assessment (RN) Last Done: 04/03/24 14:41 Supervising Physician Co-Signing Physician Notes The patient was not seen by me. The chart was reviewed. Case discussed with GIGI Drake. Agree with assessment and plan Coding Level of Care Code 78584 INP/OBS DISCH >30 MIN Diagnoses Cellulitis in diabetic foot E11.628; L03.119 Hematoma T14.8XXA Uncontrolled type 2 diabetes mellitus with hyperglycemia E11.65 Antiphospholipid syndrome D68.61 BPH (benign prostatic hyperplasia) N40.0 History of rectal polypectomy Z98.890; Z87.19 Dizziness R42
--- NOTE | 2024-04-03 08:53 | Surgery Progress Note ---
Date of Service April 03, 2024 Assessment & Plan (1) Abscess of left lower extremity: Plan: pt doing well post I+D nursing to continue packing wound daily pt reports going to rehab sometime day no concerns verbalized F/u op with Dr. Bae in 1 week Admission and Anticipated Discharge Date Admission Date: March 24, 2024 Subjective pt doing well post I+D pain tolerable Review of Systems Integumentary: LLE wound Physical Exam Musculoskeletal: LLE wound wraped in kerlix Results & Data Vital Signs (Past 12 Hours) Vital Signs Temp Pulse Resp BP Pulse Ox O2 Del Method 04/03/24 07:42 97.7 F 64 16 163/77 H 96 Room Air PG Care Time/CCT Total # of Minutes Spent Total Time Spent with Patient: Total time spent is greater than 50% in coordination of care (as documented) at patient's floor/unit and/or counseling patient: Coding Level of Care Code 35495 Post Operative Follow-Up Diagnoses Abscess of left lower extremity L02.416
[2024-04-03 10:22] LABS: Calcium 9.4 mg/dl (8.6-10.3); Magnesium 1.9 mg/dl (1.7-2.4)
[2024-04-03 10:27] LABS: BUN Creatinine Ratio 16.5 (10-20); Creatinine Clr Calc Pharmacy 97.4 ml/min; Est GFR (African American) 96.9 ml/min; Est GFR (Non-African American) 83.6 ml/min
--- NOTE | 2024-04-03 10:46 | Hospitalist Progress Note ---
Date of Service April 03, 2024 Assessment & Plan (1) Cellulitis in diabetic foot: Plan: Left lower extremity diabetic cellulitis. Did not appear septic on admission. Venous doppler CHECK SCALER by PCP NEGATIVE for DVT but noting LARGE complex nonvascular fluid collection in left kumar measuring 9.2 x 2.1 x 5.0 cm Had been given keflex/bactrim x 1 day prior to admission w/ LLE swelling/erythema progression and came to ER Placed on Cefepime/Flagyl, MRSA nares negative but can consider adding Dapto needed given DM foot infection No blood cultures obtained/procalcitonin on admission CRP elevated to 2.91 on admission --> 5.58 on 03/26 and further elevated to 7.39 on 03/28 (did check and finally trending down 3.88 on 03/10) WBC remains wnl, afebrile Wound cx surface NEGATIVE Wound RN consult: Wash legs with soap and water, rinse and dry. 2 open areas on LLEcleaned with saline. Cover open areas with Aquacel Ag, gauze and secure using large Kerlix. Change every other day and as needed. Continues on Cefepime/Flagyl, cellulitis improved however worsened appearance of hematoma/concerns for infection and/or need for I&D, general surgery consult placed and made NPO * Re anticoagulation: d/w clinic provider prior to surgery and provided Vitamin K 5mg IV x 1 for reversal, did give Lovenox 40 SQ to cover given hx and plan to resume coumadin following surgery. INR 1.2 prior to surgery * Per surgery, ok to resume coumadin following I&D s/p Incision and Drainage of Left Lower Extremity Hematoma with Dr Bae 03/31. EBL 5cc. -Per OP report, one clot encountered, wide drainage ensured and NO SIGNS of purulence per discussion w/ surgeon. Lower ext fluid sent for cx -Will need daily packing, wound care. Repacked by surgery today CRP 3.8--> 3.5 INR 1.2, coumadin resumed PM 03/31, ok'd by surgery to give additional dose of Lovenox SQ WBC normalized, cellulitis resolved and completing 10 days Cefepime/Flagyl IV while inpatient and does not appear to need any further abx. Hematoma not infected and OR cx without growth on preliminary and discussed prior w/ surgeon who performed I&D and did NOT appear infected Additional Lovenox SQ for today, INR 1.8. continues coumadin, INR recheck for AM here vs rehab pending if [facility] able to take today. Called and left voicemail for update evening 04/02. Lasix on hold, no evidence for overload and improvement in dehydration. Suspect able to resume in next 24-48hrs Plan for dc [facility] later today if able, otherwise will plan for AM if bed available. (2) Hematoma: Plan: APPEARED WORSE as above, ?infected hematoma. NO elevated INR, has been quite stable on 10mg daily per discussion w/ Dr Morrell day prior about reversal for OR -s/p Vitamin K 5mg IV 03/30, s/p I&D as above, Lovenox/coumadin ordered and INR almost in range Continue daily wound packing as instructed by surgery for at least next 1-2 weeks. (3) Type II diabetes mellitus, uncontrolled: Plan: Metformin held BSG AC/HS and glargine reduced prior but elevations in BSGs and increased glargine back to 20u BID w/ improvement. Monitor Likely able to resume home meds at dc (4) Antiphospholipid syndrome: Plan: History of antiphospholipid syndrome and past VTE. INR goal 2-3, has been stable on 10mg daily, follows with anticoagulation clinic and pt was scheduled to transition to Lovenox bridge in 5 days in anticipation of his polyp removal and will need to be rediscussed in f/u as likely need to reschedule procedure Continued warfarin however placed on hold 03/30 for above/vitamin K/lovenox as outlined and resumed post-op. Lovenox SQ ordered while subtherapeutic, INR 1.8 and additional Lovenox ordered for today Rec repeat INR in am at [facility] if dc today, otherwise has been ordered for AM No evidence for DVT on exam, monitor (5) BPH (benign prostatic hyperplasia): Plan: Continue Flomax, no issues reported (6) History of rectal polypectomy: Plan: Pending precancerous polyp removal Hx of prior malignant polyp removal. Patient is pending a rectal precancerous polyp removal at [facility] 04/03. This has been delayed twice, and patient hopes that his cellulitis that this will not further delay this appointment. No acute change in management (7) Dizziness: Plan: ongoing issue reported by patient w/ standing (had ordered orthostatics but not obtained) and placed lasix on hold and got IVF while NPO and denied any issues today and will monitor to resume lasix in AM B12 checked as well, borderline low and PO daily started Therapy evals, rehab as above NO FURTHER DIZZINESS SINCE HOLDING LASIX, +ORTHOS the other day. Continue to hold lasix, dizziness improved and suspect from dehydration and orthostasis. Repeat orthostatics today but as discussed volume status improved and likely able to resume in next 24-48 hours Plan continued inpatient stay, CM following and to dc to [facility] when bed available possibly later today vs AM 04/04. Voicemail for left 04/02, discharge inst ructions in place/meds sent. Admission and Anticipated Discharge Date Admission Date: March 24, 2024 Supervising Physician Co-Signing Physician Notes The patient was not seen by me. The chart was reviewed. Case discussed with GIGI Drake. Agree with assessment and plan Subjective Eval this morning, sitting up in bed. Doing well, pain controlled. Dizziness improving, lasix on hold. Will monitor repeat orthostatics but goes sound slight orthostasis component and take position changes rec. Will continue to hold lasix for today, does not appear w/ any increased LE edema or pitting. Additional Lovenox SQ for today, planning for [facility] if bed available for today. Questions/concerns addressed at this time. Physical Exam Physical Exam: General: 84yo male sitting up in chair, NAD, appears much improved HEENT: head atraumatic, poor dentition, mm improved, trachea midline Resp: even/unlabored, no w/c/r, on room air 96% CV: RRR, faint systolic murmur, LLE edema w/ cellulitis RESOLVED, dressing to RLE c/d/i, no further significant wamrth, chronic venous stasis GI: +BS, soft/NT, ostomy w/ darkened stool (on iron supplementation) : no chavis MSK/Neuro/Skin: answering questions appropriately, alert/oriented x 3, cooperative with care, nonfocal chronic venous stasis with ichthyosis, scattered abrasions/scabs to b/l knees, cellulitis/erythema/swelling to LLE MUCH improved/RESOLVED dressing c/d/i to RLE intact, s, no significant tenderness or bleeding Psych: AOx3, cooperative Results & Data Results & Data Vital Signs (Past 12 Hours) Vital Signs Temp Pulse Resp BP Pulse Ox O2 Del Method 04/03/24 07:44 Room Air 04/03/24 07:42 36.5 C 64 16 163/77 H 96 Room Air Laboratory Results 04/03/24 04/03/24 04/02/24 Range/Units 07:45 07:18 20:49 PT 18.8 H (9.0-12.0) Seconds INR 1.8 H (0.9-1.1) Sodium 138 (136-145) mmol/L Potassium 4.0 (3.5-5.1) mmol/L Chloride 105 (98-107) mmol/L Carbon Dioxide 29 (21-32) mmol/L Anion Gap 4 (3-11) BUN 13 (6-23) mg/dl Creatinine 0.79 (0.6-1.4) mg/dl Est Cr Clr Drug Dosing 97.4 ml/min Est GFR ( Amer) 96.9 ml/min Est GFR (Non-Af Amer) 83.6 ml/min BUN/Creatinine Ratio 16.5 (10-20) Glucose 159 H (70-99(Fasting)) mg/dl POC Glucose 165 H 204 H (70-99) mg/dl Calcium 9.4 (8.6-10.3) mg/dl Magnesium 1.9 (1.7-2.4) mg/dl 04/02/24 04/02/24 Range/Units 16:43 11:36 PT (9.0-12.0) Seconds INR (0.9-1.1) Sodium (136-145) mmol/L Potassium (3.5-5.1) mmol/L Chloride (98-107) mmol/L Carbon Dioxide (21-32) mmol/L Anion Gap (3-11) BUN (6-23) mg/dl Creatinine (0.6-1.4) mg/dl Est Cr Clr Drug Dosing ml/min Est GFR ( Amer) ml/min Est GFR (Non-Af Amer) ml/min BUN/Creatinine Ratio (10-20) Glucose (70-99(Fasting)) mg/dl POC Glucose 187 H 235 H (70-99) mg/dl Calcium (8.6-10.3) mg/dl Magnesium (1.7-2.4) mg/dl PG Care Time/CCT Total # of Minutes Spent Total Time Spent with Patient: Total time spent is greater than 50% in coordination of care (as documented) at patient's floor/unit and/or counseling patient: Coding Level of Care Code 18060 SUB INP/OBS CARE 3/50MIN Diagnoses Cellulitis in diabetic foot E11.628; L03.119 Hematoma T14.8XXA Uncontrolled type 2 diabetes mellitus with hyperglycemia E11.65 Antiphospholipid syndrome D68.61 BPH (benign prostatic hyperplasia) N40.0 History of rectal polypectomy Z98.890; Z87.19 Dizziness R42
[2024-04-03] MEDS: ENOXAPARIN INJ 40 MG/0.4 ML SYR SQ ONE (12:42)
== END 2024-04-03 15:32 | DRG 638 ==
LOC: ED 11:13 → 3N 14:18 → SUATTDRO 14:18 → 3N 18:12

== ENCOUNTER 2024-04-21 12:21 | Inpatient (IN) ==
--- NOTE | 2024-04-21 15:11 | Emergency Department Note ---
Impression & Plan Fall, CHI (closed head injury), Acute thoracic back pain ED Provider Note NAME: Randal Fernandez AGE: 84 SEX: M INFORMANT: Patient and family ED PROVIDER(S): Kevin Carter MD CHIEF COMPLAINT: Fall PLAN: Disposition: Admitted Condition: Good Outpatient prescription management: none Referral: None MEDICAL DECISION MAKING: Patient had accidental fall. Hit upper back and head. CT imaging and labs ordered. Treated with dilaudid and Zofran. Clinically patient does not have any evidence of cervical spine injury nor does he have any acute intracranial bleeding. Patient was feeling better with pain medication. He does have minor fractures of T4/T5. No posterior column or canal issues noted per radiology. Patient had his case discussed with Dr. Blackman of spine. He recommended conservative management. No surgical intervention or bracing required. Pain management primary. Given the patient's level of pain and the fact that he has a supratherapeutic INR further management in the hospital will be necessary. Patient was given 5 mg of IVvitamin K after discussion with the ED pharmacist. Family patient updated. Consultation was made with Dr. Chacorta Malloy of the [facility] service. Patient was evaluated in the ER for further management. Care/management discussed with: diabetes clinical manager, ED pharmacist Level of care consideration(s): After review of the information above and other included data, I feel the patient requires escalation of care to admission Triage Nursing notes: reviewed and agree them. Vital Signs: reviewed and remarkable for hypertension Additional History obtained from: Patient's family, they note no confusion or altered mental status Chronic Medical/Social Conditions affecting care: Anticoagulation Prior /Outside records reviewed: Prior discharge summary reviewed. Patient recovered well from his surgery. He left the hospital with an INR of 1.8. Differential Diagnosis: Fracture, dislocation, contusion, intra-abdominal, pneumothorax, intrathoracic, intracranial, neurologic, compartment syndrome, rhabdomyolysis, as well as other pathologies. Diagnostics, independently interpreted by me: ECG: none Cardiac Monitoring: Cardiac monitoring ordered by me: The patient was placed on continuous cardiac monitoring and observed. It revealed a normal sinus rhythm at 84 beats per minute without ectopy or evidence of dysrhythmia. Medical decision rules: none Imaging studies: Head CT: A noncontrast CT scan of the head was performed and was negative for tumor, fracture, intracranial hemorrhage, or other acute pathology. I refer you to the EMR for further details. HPI: The patient arrives for evaluation of a fall and head injury. 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 The patient also notes the following associated symptoms, neck stiffness, thoracic back pain. The patient has taken no medication for relieving factors. Current pain is rated as [5/10. Pt was trying to walk up his steps from outside and tripped. Family present and confirms HPI. Pt denies LOC, fevers, chills, , visual changes, chest pain, breathing difficulties, nausea, vomiting, abdominal pain, numbness, weakness, lymphadenopathy, or other complaints. PAST MEDICAL HISTORY: See Below, antiphospholipid antibody syndrome, anticoagulation PAST SURGICAL HISTORY: See Below, SOCIAL HISTORY: See Below, HOME MEDICATIONS: See Below ALLERGIES: See Below VITALS: See Below PHYSICAL EXAMINATION: GENERAL: Awake, alert, age appropriate-appearing, in no distress HENT: Normocephalic, atraumatic. Oropharynx unremarkable. EYES: Normal conjunctiva. Sclera non-icteric. NECK: Inspection normal. Minimal paraspinal muscle-tender. Supple. No nuchal rigidity. FROM. No masses. RESPIRATORY: Clear to auscultation. No wheezes. No rales. Normal respiratory effort. CARDIAC: Normal rate. Normal rhythm. No murmurs. No rubs. Extremities warm and well perfused. Pulses equal. No JVD. GI: Soft, non-distended. No tenderness to palpation. No rebound or guarding. No masses. MUSCULOSKELETAL: Atraumatic. Chest examination reveals no tenderness. The back is symmetrical on inspection without obvious abnormality. Mid thoracic TTp without step-offs.. No lumbar TTP. There is no CVA tenderness to palpation. No joint edema. NEURO: Normal sensorium. No sensory or motor deficits noted. SKIN: No rash or jaundice noted. PROCEDURES: none CRITICAL CARE: none OBSERVATION NOTE: none Past Med/Surg History Problem List (Updated 04/21/24 @ 19:47 by Background Daemon) Acute thoracic back pain (Acute) CHI (closed head injury) (Acute) Fall (Acute) Hematoma Lymphedema (Acute) Diabetic foot ulcer (Acute) History of rectal polypectomy [facility] [place] Pulmonary embolism 1994>currently on warfarin Cellulitis in diabetic foot Serum calcium elevated Adequate anticoagulation on anticoagulant therapy Leg swelling (Acute) Weakness (Acute) Leg weakness, bilateral History of colon cancer 10/25, L colectomy [facility] [place] 11/25 Antithrombotic therapy prescribed during current visit Arthritis H/O colectomy 11/25 Dizziness (Acute) Type II diabetes mellitus, uncontrolled (Acute) Arthritis of knee, right Obese Vitamin D deficiency (Chronic) Port-A-Cath in place (01/27/22) Insertion Access Port with Fluoro, Left Subclavian (Left) - Junior Bae, DO Unsteady gait Venous insufficiency BPH (benign prostatic hyperplasia) Hypertension denies Diabetic peripheral neuropathy (Chronic) Long-term (current) use of anticoagulants, INR goal 2.0-3.0 (Chronic) Adenocarcinoma, colon hx- s/p colostomy Lymphedema Antiphospholipid syndrome (Chronic) on warfarin, follows with [facility] clinic Hyperlipidemia Anemia iron deficiency-on po supplementation Glaucoma (Acute) hx Medical History Abscess of left lower extremity Hx of insect bite 12/07/22, reported pt has insect bite on his back, over the right side of rib cage. reports they "have been treating it on their own for the past couple days, looking better, but it is still seeping and changing dressing/bandage 2x daily." advised pt to contact PCP regarding the bite. Type II diabetes mellitus Lung granuloma scattered calcified granulomas on 10/[address] Carotid artery calcification Noted incidentally on previous imaging; carotid doppler 08/2023- showed no hemodynamically significant stenosis Coronary artery calcification dense calcification per 09/[address] Lower extremity edema Surgical History History of incision and drainage (03/31/24) Incision and Drainage of Left Lower Extremity Hematoma Hx of left cataract extraction History of removal of Port-a-Cath (10/19/23) Removal of Access Port(Left) - Junior Bea, DO Hx of tooth extraction History of transesophageal echocardiography ([facility]) History of colostomy present History of colonoscopy Hx of lymph node biopsy H/O colectomy History of knee surgery bilat > arthroscopic History of elbow surgery right History of dental surgery Family History Father Myocardial infarction Diabetes Aunt Breast cancer Mother Cancer Diabetes Denies family history of Ovarian cancer Prostate cancer Colorectal cancer Social History Smoking Status: Never smoker Second Hand Exposure: Yes (hx as child); Do You Dip or Chew Tobacco: No; Hx Alcohol Use: Yes Alcohol type: wine Alcohol Intake Frequency: 2-4 x/Month Alcohol Intake Frequency Comment: Once a week Hx Substance Use: No Preferred Language: Pakistani Communication Ability: Effective Visual Impairment: No Limitations Hearing Ability: Normal Virtual Recruiter Required: No Beliefs That Will Affect Care: None marital status: Current Living Situation: Spouse and Family Current Living Situation Comment: lives with and daughter current occupational status: retired How many Children do You have: 3 Feels Safe at Home: Yes Childhood Exposure to Second-Hand Smoke: Yes Diet: diabetic and regular caffeine: Yes during the past year weight has: remained stable Dental Care, Regularly: Yes Physical Activity Frequency: Does not Exercise Seatbelt Use: always Sunscreen Use: Yes Do you think of yourself as: straight/heterosexual Gender Identity: Male Assistive Devices: Cane, Glasses and Walker Allergies Allergies Allergy/AdvReac Type Severity Reaction Status Date / Time sitagliptin Allergy Intermediate Hives - Verified 04/21/24 17:50 Januvia cat dander Allergy Mild EYES WATER Verified 04/21/24 17:50 [id number] Reductase AdvReac Intermediate LEG CRAMPS Verified 04/21/24 17:50 Inhibitor [[id number] Reductase Inhibitor] Home Meds Home Medications Medication Instructions Recorded Confirmed multivitamin (Daily Multi-Vitamin 1 tab PO QAM 12/11/21 04/21/24 tablet) ferrous sulfate 325 mg (65 mg 325 mg PO BID 04/14/22 04/21/24 iron) tablet (Feosol) magnesium citrate 100 mg tablet 100 mg PO DAILY 09/30/22 04/21/24 insulin aspar prot-insulin aspart 12 - 30 unit subcut BID 12/08/23 04/21/24 100 unit/mL (70-30) subcutaneous pen (Novolog Mix 70-30FlexPen U-100) warfarin 5 mg tablet 10 mg PO UD 03/24/24 04/21/24 Previous Rx's Medication Instructions Recorded miscellaneous medical supply #3,840 mL 12/12/21 rosuvastatin 20 mg tablet (Crestor) 20 mg PO QAM #90 tabs 10/13/23 metformin 500 mg tablet,extended 1,000 mg (2 x 500 mg) PO BID #360 11/15/23 release 24 hr tabs pen needle, diabetic 32 gauge x #200 ea 11/18/2332" (BD Donna 2nd Gen Pen Needle) blood sugar diagnostic (OneTouch #100 ea 12/23/23 Ultra Test strips) blood-glucose meter (OneTouch #1 ea 12/23/23 Ultra2 Meter) tamsulosin 0.4 mg capsule (Flomax) 0.4 mg PO QAM #90 caps 02/17/24 lancets 33 gauge (OneTouch Delica #100 ea 02/21/24 Plus Lancet) furosemide 20 mg tablet 20 mg PO DAILY #30 tabs 04/19/24 Results & Data (ED) Vital Signs Vital Signs - 24 hr 04/21/24 16:47 Pulse Rate 74 Laboratory Data 04/21/24 12:30 04/21/24 17:42 Lab Results 04/21/24 04/21/24 Range/Units 12:30 17:42 WBC 6.09 (4.8-10.8) K/ul RBC 4.14 L (4.70-6.10) M/uL Hgb 12.4 L (14.0-18.0) g/dl Hct 38.8 L (42.0-52.0) % MCV 93.7 (80.0-100.0) fL MCH 30.0 (25.0-34.0) pg MCHC 32.0 (32.0-36.0) g/dL RDW Std Deviation 50.3 H (36.4-46.3) fL RDW Coeff of Cleo 14.6 H (11.5-14.5) % Plt Count 217 (130-400) K/uL MPV 9.8 (9.4-12.4) fL Immature Gran % (Auto) 0.2 % Neut % (Auto) 67.9 % Lymph % (Auto) 24.5 % [place] % (Auto) 5.4 % Eos % (Auto) 1.3 % Baso % (Auto) 0.7 % Neut # (Auto) 4.14 (1.40-6.50) K/uL Lymph # (Auto) 1.49 (1.20-3.40) K/uL [place] # (Auto) 0.33 (0.11-0.59) K/uL Eos # (Auto) 0.08 (0.00-0.50) K/uL Baso # (Auto) 0.04 (0.00-0.20) K/uL Immature Gran # (Auto) 0.01 (0.01-0.20) K/uL PT 37.5 H (9.0-12.0) Seconds INR 3.9 H (0.9-1.1) APTT 38 H (21-31) Seconds PTT Ratio 1.4 Sodium 142 141 (136-145) mmol/L Potassium 3.8 4.3 (3.5-5.1) mmol/L Chloride 106 106 (98-107) mmol/L Carbon Dioxide 28 26 (21-32) mmol/L Anion Gap 8 9 (3-11) BUN 20 20 (6-23) mg/dl Creatinine 0.91 0.78 (0.6-1.4) mg/dl Est Cr Clr Drug Dosing Not Reportable Not Reportable Est GFR ( Amer) 90.6 97.4 Est GFR (Non-Af Amer) 78.2 84.1 BUN/Creatinine Ratio 22.0 H 25.6 H (10-20) Glucose 115 H 92 (70-99(Fasting)) mg/dl Calcium 10.2 9.8 (8.6-10.3) mg/dl Total Bilirubin 0.5 0.5 (0.2-1.0) mg/dl AST 17 17 (13-39) U/L ALT 18 16 (7-52) U/L Alkaline Phosphatase 68 64 (34-104) U/L Total Protein 7.4 7.2 (6.0-8.3) gm/dl Albumin 3.9 3.8 (3.4-5.0) gm/dl Globulin 3.5 3.4 (2.5-4.0) gm/dl Albumin/Globulin Ratio 1.1 1.1 (0.9-2) Administered Medications Insulin Aspart (Insulin Aspart Per Unit Charge) 0 units SC ACHS MITESH Stop: 05/21/24 20:59 Last Admin: 04/21/24 20:05 Dose: Not Given Documented By: ALEXANDREA Co-signed By: PABLO Insulin Glargine (Lantus Per Unit Charge) 13 units SQ BID MITESH Stop: 05/21/24 20:59 Last Admin: 04/21/24 20:05 Dose: 13 units Documented By: ALEXANDREA Co-signed By: PABLO Lidocaine (Lidocaine 5% 1 Patch) 1 patch TD Q24H MITESH Stop: 05/21/24 18:29 Last Admin: 04/21/24 19:04 Dose: 1 patch Documented By: RENATO Discontinued Medications Hydromorphone HCl (Hydromorphone Inj 0.5 Mg/0.5 Ml Syr) Confirm Administered Dose 0.5 mg .ROUTE .STK-MED ONE Stop: 04/21/24 13:41 Last Admin: 04/21/24 16:23 Dose: Not Given Documented By: RENATO Hydromorphone HCl (Hydromorphone Inj 0.5 Mg/0.5 Ml Syr) Confirm Administered Dose 0.5 mg .ROUTE .STK-MED ONE Stop: 04/21/24 15:00 Last Admin: 04/21/24 16:23 Dose: Not Given Documented By: RENATO Hydromorphone HCl (Hydromorphone Inj 0.5 Mg/0.5 Ml Syr) 0.5 mg IV Q15M PRN PRN Reason: Pain Stop: 05/05/24 17:19 Last Admin: 04/21/24 17:43 Dose: 0.5 mg Documented By: RENATO Phytonadione 5 mg/ Dextrose 50.5 mls @ 101 mls/hr IV ONE ONE Stop: 04/21/24 17:42 Last Infusion: 04/21/24 18:49 Dose: Infused Documented By: Admin: 04/21/24 17:42 Dose: 101 mls/hr Documented By: RENATO Ondansetron HCl (Ondansetron Inj 2 Mg/Ml 2 Ml Vial) Confirm Administered Dose 4 mg .ROUTE .STK-MED ONE Stop: 04/21/24 13:42 Last Admin: 04/21/24 16:23 Dose: Not Given Documented By: RENATO Imaging Data Radiologist's Impression: Cervical Spine CT 04/21/24 15:[address] SCAN OF THE CERVICAL SPINE CLINICAL HISTORY: Trauma. Fall. COMPARISON STUDY: CT of the cervical spine dated 08/10/2022. TECHNIQUE: CT scan of the cervical spine is performed from the skull base to the upper thoracic spine. Images are reviewed in the axial, sagittal, and coronal planes. IV contrast was not administered for this examination. A dose lowering technique was utilized adhering to the principles of ALARA. FINDINGS: Skeletal structures: The skeletal structures are osteopenic. There is no evidence of fracture or subluxation involving the cervical spine. Vertebral body height and alignment are maintained. There is straightening of the cervical lordosis. Anterior osteophytes are seen throughout. The odontoid process and lateral masses are intact. The atlantoaxial articulation is preserved noting productive degenerative change. The spinous processes appear intact. There is moderate multilevel cervical spondylosis. Uncovertebral and facet arthropathy contribute to neural foraminal narrowing at several levels. Intervertebral discs: There is only minimal degenerative disc space narrowing. Central canal: Posterior disc osteophyte complexes at C5-C6 and C6-C7 may contribute to mild acquired compromise of the central canal. Soft tissues: The prevertebral and paraspinous soft tissues are within normal limits. Calvarium: The visualized calvarium at the skull base appears intact. Brain parenchyma: Partially visualized brain parenchyma at the skull base is within normal limits. Sinuses and mastoids: The visualized paranasal sinuses are clear. There is a left mastoid effusion. The right mastoid air cells are well pneumatized. Lung apices: Clear as visualized. IMPRESSION: 1. There is no evidence of cervical spine fracture or subluxation. 2. Osteopenia and spondylotic change as above. ACT 112: Negative or not required by law. Electronically signed by: Frank Weeks M.D. 04/21/2024 2:[address] 04/21/24 15:[address] SCAN OF THE BRAIN WITHOUT IV CONTRAST CLINICAL HISTORY: Trauma. Fall. COMPARISON STUDY: CT of the brain dated 03/21/2024. TECHNIQUE: Unenhanced axial CT scan of the brain is performed from the vertex to the skull base. A dose lowering technique was utilized adhering to the principles of ALARA. FINDINGS: Brain parenchyma: There is age-related involutional change noting mild subcortical and periventricular microangiopathic disease. There is no hemorrhage, mass effect, or evidence of acute territorial ischemia by CT criteria. Kauffman-white matter differentiation is preserved. No extra-axial fluid collection is seen. Ventricles, sulci, cisterns: Prominent secondary to involutional change. Intracranial vasculature: There is atherosclerotic calcification of the cavernous carotid arteries. Calvarium: The skeletal structures are osteopenic. No depressed calvarial fracture is seen. Sinuses and mastoids: The visualized paranasal sinuses are clear. The mastoid air cells are well pneumatized. Orbits: The bony orbits are grossly intact. There are bilateral ocular lens implants. IMPRESSION: There is no hemorrhage, mass effect, or evidence of acute territorial ischemia by CT criteria. ACT 112: Negative or not required by law. Electronically signed by: Frank Weeks M.D. 04/21/2024 2:[address] 04/21/24 15:[address] SCAN OF THE THORACIC SPINE WITHOUT IV CONTRAST CLINICAL HISTORY: Trauma. Fall. COMPARISON STUDY: Chest CT dated 03/06/2024. CT of the thoracic spine dated 08/10/2022. TECHNIQUE: CT scan of the thoracic spine is performed from the lower cervical spine to the upper lumbar spine. Images are reviewed in the axial, sagittal, coronal planes. IV contrast was not administered for this examination. A dose lowering technique was utilized adhering to the principles of ALARA. FINDINGS: The skeletal structures are osteopenic. There is a subtle fracture through the anterior osteophytes, right marginal osteophytes, and disc space at T4-T5. This is best seen on sagittal images #34 and #29, as well as coronal image #53. There is no evidence of posterior element involvement. There is no loss of height or retropulsion of fragments. Mild paravertebral edema is seen at this level. No additional acute fracture is seen involving the thoracic spine. There is no malalignment. Vertebral body height and alignment are maintained. Anterior osteophytes are seen throughout with evidence of DISH. The transverse and spinous processes appear intact. No lytic or blastic lesion is seen. There is mild degenerative disc space narrowing. There is no CT evidence of large disc herniation or high-grade central canal stenosis. The visualized posterior ribs are intact. The paraspinous soft tissues are within normal limits. There is bibasilar scarring/atelectasis. No airspace consolidation or pleural effusions identified. Groundglass opacities at the left apex are new from 03/06/2024 and likely inflammatory. The heart is enlarged. The coronary arteries are densely calcified. A small hiatal hernia is noted. Calcified gallstones are observed. Bilateral renal cysts are partially visualized and measure up to 3.3 cm. IMPRESSION: 1. Subtle acute fracture through the anterior osteophytes, right lateral marginal osteophyte, and disc space at T4-T5 with mild associated paravertebral edema. 2. There is no evidence of posterior element involvement, and no retropulsion of fragments is seen. 3. No additional acute fracture is identified involving the thoracic spine and there is no malalignment. 4. Osteopenia and mild degenerative change as above. 5. Cholelithiasis. 6. Additional findings as above. ACT 112: Negative or not required by law. Electronically signed by: Frank Weeks M.D. 04/21/2024 2:27 PM Discharge Plan Visit Data Chief Complaint: Trauma Stated Complaint: TRAUMA ALERT ED Provider: Kevin Carter Discharge Problem: Fall, CHI (closed head injury), Acute thoracic back pain Patient Disposition: Admitted As Inpatient Discharge Instructions Interventions: ED Discharge Assessment Last Done: 04/21/24 20:00
[2024-04-21] MEDS: HYDROmorphone INJ 0.5 MG/0.5 ML SYR ONE ×2 (16:23)
[2024-04-21] MEDS: ONDANSETRON INJ 2 MG/ML 2 ML VIAL ONE (16:23)
[2024-04-21 16:29] LABS: INR 3.9 (0.9-1.1); Partial Thromboplastin Ratio 1.4; Partial Thromboplastin Time 38 Seconds (21-31); Prothrombin Time 37.5 Seconds (9.0-12.0)
--- NOTE | 2024-04-21 16:56 | CT Scan Report ---
Randal Fernandez CT SCAN OF THE BRAIN WITHOUT IV CONTRAST CLINICAL HISTORY: Trauma. Fall. COMPARISON STUDY: CT of the brain dated 03/21/2024. TECHNIQUE: Unenhanced axial CT scan of the brain is performed from the vertex to the skull base. A do se lowering technique was utilized adhering to the principles of ALARA. FINDINGS: Brain parenchyma: There is age-related involutional change noting mild subcortical and periventricula r microangiopathic disease. There is no hemorrhage, mass effect, or evidence of acute territorial isc hemia by CT criteria. Kauffman-white matter differentiation is preserved. No extra-axial fluid collection is seen. Ventricles, sulci, cisterns: Prominent secondary to involutional change. Intracranial vasculature: There is atherosclerotic calcification of the cavernous carotid arteries. Calvarium: The skeletal structures are osteopenic. No depressed calvarial fracture is seen. Sinuses and mastoids: The visualized paranasal sinuses are clear. The mastoid air cells are well pneu matized. Orbits: The bony orbits are grossly intact. There are bilateral ocular lens implants. IMPRESSION: There is no hemorrhage, mass effect, or evidence of acute territorial ischemia by CT shimon chang. ACT 112: Negative or not required by law. Electronically signed by: Frank Weeks M.D. 04/21/2024 2:06 PM
--- NOTE | 2024-04-21 16:57 | CT Scan Report ---
Randal Fernandez CT SCAN OF THE THORACIC SPINE WITHOUT IV CONTRAST CLINICAL HISTORY: Trauma. Fall. COMPARISON STUDY: Chest CT dated 03/06/2024. CT of the thoracic spine dated 08/10/2022. TECHNIQUE: CT scan of the thoracic spine is performed from the lower cervical spine to the upper lum bar spine. Images are reviewed in the axial, sagittal, coronal planes. IV contrast was not administer ed for this examination. A dose lowering technique was utilized adhering to the principles of ALARA. FINDINGS: The skeletal structures are osteopenic. There is a subtle fracture through the anterior ost eophytes, right marginal osteophytes, and disc space at T4-T5. This is best seen on sagittal images # 34 and #29, as well as coronal image #53. There is no evidence of posterior element involvement. Ther e is no loss of height or retropulsion of fragments. Mild paravertebral edema is seen at this level. No additional acute fracture is seen involving the thoracic spine. There is no malalignment. Vertebra l body height and alignment are maintained. Anterior osteophytes are seen throughout with evidence of DISH. The transverse and spinous processes appear intact. No lytic or blastic lesion is seen. There is mild degenerative disc space narrowing. There is no CT evidence of large disc herniation or high-g rade central canal stenosis. The visualized posterior ribs are intact. The paraspinous soft tissues a re within normal limits. There is bibasilar scarring/atelectasis. No airspace consolidation or pleura l effusions identified. Groundglass opacities at the left apex are new from 03/06/2024 and likely infla mmatory. The heart is enlarged. The coronary arteries are densely calcified. A small hiatal hernia is noted. Calcified gallstones are observed. Bilateral renal cysts are partially visualized and measure up to 3.3 cm. IMPRESSION: 1. Subtle acute fracture through the anterior osteophytes, right lateral marginal osteophyte, and dis c space at T4-T5 with mild associated paravertebral edema. 2. There is no evidence of posterior element involvement, and no retropulsion of fragments is seen. 3. No additional acute fracture is identified involving the thoracic spine and there is no malalignme nt. 4. Osteopenia and mild degenerative change as above. 5. Cholelithiasis. 6. Additional findings as above. ACT 112: Negative or not required by law. Electronically signed by: Frank Weeks M.D. 04/21/2024 2:27 PM
--- NOTE | 2024-04-21 16:57 | CT Scan Report ---
Randal Fernandez CT SCAN OF THE CERVICAL SPINE CLINICAL HISTORY: Trauma. Fall. COMPARISON STUDY: CT of the cervical spine dated 08/10/2022. TECHNIQUE: CT scan of the cervical spine is performed from the skull base to the upper thoracic spine . Images are reviewed in the axial, sagittal, and coronal planes. IV contrast was not administered fo r this examination. A dose lowering technique was utilized adhering to the principles of ALARA. FINDINGS: Skeletal structures: The skeletal structures are osteopenic. There is no evidence of fracture or subl uxation involving the cervical spine. Vertebral body height and alignment are maintained. There is st raightening of the cervical lordosis. Anterior osteophytes are seen throughout. The odontoid process and lateral masses are intact. The atlantoaxial articulation is preserved noting productive degenerat salvador change. The spinous processes appear intact. There is moderate multilevel cervical spondylosis. U ncovertebral and facet arthropathy contribute to neural foraminal narrowing at several levels. Intervertebral discs: There is only minimal degenerative disc space narrowing. Central canal: Posterior disc osteophyte complexes at C5-C6 and C6-C7 may contribute to mild acquired compromise of the central canal. Soft tissues: The prevertebral and paraspinous soft tissues are within normal limits. Calvarium: The visualized calvarium at the skull base appears intact. Brain parenchyma: Partially visualized brain parenchyma at the skull base is within normal limits. Sinuses and mastoids: The visualized paranasal sinuses are clear. There is a left mastoid effusion. T he right mastoid air cells are well pneumatized. Lung apices: Clear as visualized. IMPRESSION: 1. There is no evidence of cervical spine fracture or subluxation. 2. Osteopenia and spondylotic change as above. ACT 112: Negative or not required by law. Electronically signed by: Frank Weeks M.D. 04/21/2024 2:10 PM
--- NOTE | 2024-04-21 17:34 | History & Physical Report ---
Date of Service April 21, 2024 Assessment & Plan (1) Fall: Plan: Fall Without syncope/presyncope. Mechanical when he slipped backwards walking up stairs Subtle acute fracture through anterior osteophytes, right marginal osteophyte, disc base T4-T5 with paravertebral edema. This was reviewed with Dr. Blackman while patient was in the ER. No indication for surgical intervention, not amenable to bracing. No heavy lifting. Conservative/symptomatic care Patient with tenderness at the right clavicle and right midclavicular line at approximately T4. Chest x-ray and right clavicle imaging ordered to further evaluate. No crepitus or overlying hematoma PT/OT pending Management of supratherapeutic INR as below No C-spine fracture, no bleeding on CThead Labs collected during period of downtime. No leukocytosis. Hemoglobin 12.4, MCV 93.7. CMP reordered 1730 and reported in EMR, creatinine is less than 1, potassium/sodium are normal. (2) Type II diabetes mellitus, uncontrolled: Plan: Type II DM Metformin held Home 70/30 25-30u insulin twice daily Switch to basal bolus based on 50 units total daily dose on admission -Lantus 13 units twice daily, CF 30, carb ratio 11 (3) Diabetic foot ulcer: Plan: Left anterior lower leg with healing diabetic foot ulcer packing in place. No evidence of superimposed infection Wound care daily (4) Antiphospholipid syndrome: Plan: History of antiphospholipid syndrome, DVT/PE Supratherapeutic on admission Received 5 mg IV vitamin K due to a fall with a fracture as noted while supratherapeutic on INR at 3.9 Trend INR daily Warfarin held. Bridged with Lovenox as needed once no longer supratherapeutic CBC daily, INR daily Plan DVT prophylaxis: Warfarin held. May start Lovenox twice daily once out of supratherapeutic range and eventually bridged back to warfarin goal 23 Diet: DM 2 Dispo: Medical surgical CODE STATUS: DNR/DNI PT/OT consulted. 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 Reports that this was mechanical when he tripped did not have lightheadedness, dizziness, or syncope that led to this fall. He is anticoagulated on warfarin. CT of the head was without any intracranial bleed or abnormality. Imaging of the spine showed subtle acute fracture through anterior osteophytes/right lateral marginal osteophyte/disc space at T4-T5 with mild associated paravertebral edema. Findings were reviewed with orthopedic spine Dr. Blackman. Nonoperative, and not amenable to bracing. Recommended no lifting at this time. Recommended admission and observation until INR is therapeutic. Due to history of DVT and antiphospholipid syndrome will need anticoagulation however received vitamin K on admission and will have INR checks daily until back in therapeutic range. Randal is seen at the bedside with his family present. He reports that he was walking up the steps when he tripped over his foot and lost his balance falling backwards. Is not sure if he lost consciousness as the fall happened quickly. Does not have any headache or head pain does have pain in his mid upper back which is much worse on attempted movement. No numbness/tingling. He has not noticed any weakness in the extremities. He has some pain at his right clavicle otherwise no chest pain. No abdominal pain. He has not noticed any bleeding. His left lower extremity wound is greatly improved and has not been red or warm, but does have remaining packing which has been reevaluated daily while at [facility]. Denies fever, chills, sweats. No lightheadedness or dizziness. Medical History: Reviewed Medications: Reviewed Surgical History: Reviewed Family history: Reviewed Allergies: Reviewed Social History: Reviewed Code Status: DNR/DNI Allergies Allergy/AdvReac Type Severity Reaction Status Date / Time sitagliptin Allergy Intermediate Hives - Verified 04/21/24 17:50 Januvia cat dander Allergy Mild EYES WATER Verified 04/21/24 17:50 Hybtvsb-BWT-WdK Reductase AdvReac Intermediate LEG CRAMPS Verified 04/21/24 17:50 Inhibitor [Kwwdspw-Wxk-Oav Reductase Inhibitor] Home Medications Medication Instructions Recorded Confirmed Type multivitamin (Daily Multi-Vitamin 1 tab PO QAM 12/11/21 04/21/24 History tablet) miscellaneous medical supply #3,840 mL 12/12/21 04/21/24 Rx ferrous sulfate 325 mg (65 mg 325 mg PO BID 04/14/22 04/21/24 History iron) tablet (Feosol) magnesium citrate 100 mg tablet 100 mg PO DAILY 09/30/22 04/21/24 History rosuvastatin 20 mg tablet (Crestor) 20 mg PO QAM #90 tabs 10/13/23 04/21/24 Rx metformin 500 mg tablet,extended 1,000 mg (2 x 500 mg) PO BID #360 11/15/23 04/21/24 Rx release 24 hr tabs pen needle, diabetic 32 gauge x #200 ea 11/18/23 04/21/24 Rx /32" (BD Donna 2nd Gen Pen Needle) insulin aspar prot-insulin aspart 12 - 30 unit subcut BID 12/08/23 04/21/24 History 100 unit/mL (70-30) subcutaneous pen (Novolog Mix 70-30FlexPen U-100) blood sugar diagnostic (OneTouch #100 ea 12/23/23 04/21/24 Rx Ultra Test strips) blood-glucose meter (OneTouch #1 ea 12/23/23 04/21/24 Rx Ultra2 Meter) tamsulosin 0.4 mg capsule (Flomax) 0.4 mg PO QAM #90 caps 02/17/24 04/21/24 Rx lancets 33 gauge (OneTouch Delica #100 ea 02/21/24 04/21/24 Rx Plus Lancet) warfarin 5 mg tablet 10 mg PO UD 03/24/24 04/21/24 History furosemide 20 mg tablet 20 mg PO DAILY #30 tabs 04/19/24 04/21/24 Rx Past Med/Surg History Problem List Acute thoracic back pain (Acute) CHI (closed head injury) (Acute) Fall (Acute) Hematoma Lymphedema (Acute) Diabetic foot ulcer (Acute) History of rectal polypectomy [facility] [place] Pulmonary embolism 1994>currently on warfarin Cellulitis in diabetic foot Serum calcium elevated Adequate anticoagulation on anticoagulant therapy Leg swelling (Acute) Weakness (Acute) Leg weakness, bilateral History of colon cancer 10/25, L colectomy [facility] [place] 11/25 Antithrombotic therapy prescribed during current visit Arthritis H/O colectomy 11/25 Dizziness (Acute) Type II diabetes mellitus, uncontrolled (Acute) Arthritis of knee, right Obese Vitamin D deficiency (Chronic) Port-A-Cath in place (01/27/22) Insertion Access Port with Fluoro, Left Subclavian (Left) - Junior Bae, DO Unsteady gait Venous insufficiency BPH (benign prostatic hyperplasia) Hypertension denies Diabetic peripheral neuropathy (Chronic) Long-term (current) use of anticoagulants, INR goal 2.0-3.0 (Chronic) Adenocarcinoma, colon hx- s/p colostomy Lymphedema Antiphospholipid syndrome (Chronic) on warfarin, follows with [facility] clinic Hyperlipidemia Anemia iron deficiency-on po supplementation Glaucoma (Acute) hx Medical History Abscess of left lower extremity Hx of insect bite 12/07/22, reported pt has insect bite on his back, over the right side of rib cage. reports they "have been treating it on their own for the past couple days, looking better, but it is still seeping and changing dressing/bandage 2x daily." advised pt to contact PCP regarding the bite. Type II diabetes mellitus Lung granuloma scattered calcified granulomas on 10/[address] Carotid artery calcification Noted incidentally on previous imaging; carotid doppler 08/2023- showed no hemodynamically significant stenosis Coronary artery calcification dense calcification per 09/[address] Lower extremity edema Surgical History History of incision and drainage (03/31/24) Incision and Drainage of Left Lower Extremity Hematoma Hx of left cataract extraction History of removal of Port-a-Cath (10/19/23) Removal of Access Port(Left) - Junior Bae, DO Hx of tooth extraction History of transesophageal echocardiography ([facility]) History of colostomy present History of colonoscopy Hx of lymph node biopsy H/O colectomy History of knee surgery bilat > arthroscopic History of elbow surgery right History of dental surgery Family History Father Myocardial infarction Diabetes Aunt Breast cancer Mother Cancer Diabetes Denies family history of Ovarian cancer Prostate cancer Colorectal cancer Social History Smoking Status: Never smoker Second Hand Exposure: Yes (hx as child); Do You Dip or Chew Tobacco: No; Hx Alcohol Use: Yes Alcohol type: wine Alcohol Intake Frequency: 2-4 x/Month Alcohol Intake Frequency Comment: Once a week Hx Substance Use: No Preferred Language: [place] Irish Communication Ability: Effective Visual Impairment: No Limitations Hearing Ability: Normal Surgical Elastic Knitter Required: No Beliefs That Will Affect Care: None marital status: Current Living Situation: Spouse and Family Current Living Situation Comment: lives with and daughter current occupational status: retired How many Children do You have: 3 Feels Safe at Home: Yes Childhood Exposure to Second-Hand Smoke: Yes Diet: diabetic and regular caffeine: Yes during the past year weight has: remained stable Dental Care, Regularly: Yes Physical Activity Frequency: Does not Exercise Seatbelt Use: always Sunscreen Use: Yes Do you think of yourself as: straight/heterosexual Gender Identity: Male Assistive Devices: Cane, Glasses and Walker Physical Exam Physical Exam: General: A&Ox3. NAD. Cooperative. HEENT: Atraumatic, normocephalic. Pulm: CTAB A&P. -wheezes, -rales, -rhonchi. Symmetrical chest rise. No increased work of breathing. No respiratory distress. Cardiac: RRR, -mrg. Radial pulses intact and symmetrical. Abdominal: Nontender, nondistended, soft. BS present. Ostomy bag is present with brown output. Extremities/spine: Limited by discomfort moving in bed. Tender to palpation at midline spine T3-T5. Tender to palpation at right mid clavicle and right anterior T4 midclavicular line without crepitus. Production Manager strength 5/5, hip flexion is intact although somewhat limited by referred back pain, and ankle dorsiflexion/plantarflexion 5/5. Sensation soft touch intact in hands and feet bilaterally. L anterior kumar with healing ulcer, no evidence of erythema/warmth/discharge Results & Data Results & Data Vital Signs (Past 12 Hours) Vital Signs Pulse 04/21/24 16:47 74 PG Care Time/CCT Total # of Minutes Spent Total Time Spent with Patient: Total time spent is greater than 50% in coordination of care (as documented) at patient's floor/unit and/or counseling patient: Coding Level of Care Code 25118 INT INP/OBS CARE 3/75MIN Diagnoses Fall W19.XXXA Uncontrolled type 2 diabetes mellitus with hyperglycemia E11.65 Diabetic foot ulcer E11.621; L97.509 Antiphospholipid syndrome D68.61
[2024-04-21] MEDS: PHYTONADIONE 5 MG in DEXTROSE 5% 50 ML IV ONE (17:42)
[2024-04-21] MEDS: HYDROmorphone INJ 0.5 MG/0.5 ML SYR IV PRN (17:43)
[2024-04-21 18:01] LABS: Albumin Globulin Ratio 1.1 (0.9-2); Aspartate Aminotransferase 17 U/L (13-39); Bilirubin,Total 0.5 mg/dl (0.2-1.0); Blood Urea Nitrogen 20 mg/dl (6-23); Chloride 106 mmol/L (98-107)
[2024-04-21] MEDS ORDERED: ACETAMINOPHEN 650 MG SUPP PR PRN (18:07)
[2024-04-21] MEDS ORDERED: LIDOCAINE 5% 1 PATCH TD STA (18:07)
[2024-04-21] MEDS ORDERED: GLUCAGON FOR INJ 1 MG VIAL SQ PRN (18:07)
[2024-04-21] MEDS ORDERED: GLUCOSE 10 TAB/TUBE PO PRN (18:07)
[2024-04-21] MEDS ORDERED: CARBOHYDRATES FOR HYPOGLYCEMIA PO PRN (18:07)
[2024-04-21] MEDS ORDERED: DEXTROSE 50% 50 ML SYRINGE IV PRN (18:07)
[2024-04-21] MEDS ORDERED: GLUCOSE 40% GEL 15 GM TUBE PO PRN (18:07)
[2024-04-21 18:31] LABS: Alanine Aminotransferase 16 U/L (7-52); Albumin Level 3.8 gm/dl (3.4-5.0); Alkaline Phosphatase 64 U/L (34-104); Anion Gap 9 (3-11); BUN Creatinine Ratio 25.6 (10-20); Calcium 9.8 mg/dl (8.6-10.3); Carbon Dioxide 26 mmol/L (21-32); Est GFR (African American) 97.4 ml/min; Est GFR (Non-African American) 84.1 ml/min; Globulin 3.4 gm/dl (2.5-4.0); Glucose 92 mg/dl (70-99(Fasting)); Potassium 4.3 mmol/L (3.5-5.1); Sodium 141 mmol/L (136-145); Total Protein 7.2 gm/dl (6.0-8.3)
[2024-04-21] MEDS: LIDOCAINE 5% 1 PATCH TD SCH (19:04)
--- NOTE | 2024-04-21 19:23 | XRay Report ---
XR clavicle 2 view RT CLINICAL HISTORY: tenderness to palp, fall/trauma TECHNIQUE: 2 views of the right clavicle were obtained. Comparison: None available at the time of this dictation. FINDINGS: There is no evidence of acute fracture, subluxation, or dislocation. Mild degenerative changes are se en. The overlying soft tissues are unremarkable. The visualized portions of the lungs are clear. IMPRESSION: No evidence of acute bony injury. ACT 112: Negative or not required by law. Electronically signed by: Finn Morel M.D. 04/21/2024 7:22 PM
--- NOTE | 2024-04-21 19:24 | XRay Report ---
XR chest 1V portable CLINICAL HISTORY: eval for R anterior rib fxr, trauma TECHNIQUE: Single frontal radiograph of the chest was obtained. Comparison: Comparison is made to chest radiograph 08/25/2022 FINDINGS: No lines and tubes are seen. The cardiomediastinal silhouette is normal. The lungs are clear. No evid ence of pleural effusion or pneumothorax. IMPRESSION: No acute chest disease. No radiographic evidence of anterior rib fracture. If clinical suspicion colton ins, rib series or CT chest can be performed. ACT 112: Negative or not required by law. Electronically signed by: Finn Morel M.D. 04/21/2024 7:23 PM
[2024-04-21] MEDS: LANTUS PER UNIT CHARGE SQ SCH (20:05)
[2024-04-21] MEDS: INSULIN ASPART PER UNIT CHARGE SC SCH (20:05)
[2024-04-21 20:11] LABS: Carbon Dioxide 28 mmol/L (21-32); Chloride 106 mmol/L (98-107); Potassium 3.8 mmol/L (3.5-5.1); Sodium 142 mmol/L (136-145)
[2024-04-21 20:12] LABS: Alanine Aminotransferase 18 U/L (7-52); Albumin Globulin Ratio 1.1 (0.9-2); Albumin Level 3.9 gm/dl (3.4-5.0); Alkaline Phosphatase 68 U/L (34-104); Anion Gap 8 (3-11); Aspartate Aminotransferase 17 U/L (13-39); Bilirubin,Total 0.5 mg/dl (0.2-1.0); Blood Urea Nitrogen 20 mg/dl (6-23); Calcium 10.2 mg/dl (8.6-10.3); Est GFR (African American) 90.6; Est GFR (Non-African American) 78.2; Globulin 3.5 gm/dl (2.5-4.0); Glucose 115 mg/dl (70-99(Fasting)); Total Protein 7.4 gm/dl (6.0-8.3)
[2024-04-21 20:13] LABS: Basophils # (auto) 0.04 K/uL (0.00-0.20); Basophils % (auto) 0.7 %; Eosinophils # (auto) 0.08 K/uL (0.00-0.50); Eosinophils % (auto) 1.3 %; Hematocrit (blood only) 38.8 % (42.0-52.0); Hemoglobin 12.4 g/dl (14.0-18.0); Immature Granulocytes # (auto) 0.01 K/uL (0.01-0.20); Immature Granulocytes % (auto) 0.2 %; Lymphocytes # (auto) 1.49 K/uL (1.20-3.40); Lymphocytes % (auto) 24.5 %; Mean Corpuscular Volume 93.7 fL (80.0-100.0); Mean Platelet Volume 9.8 fL (9.4-12.4); Monocytes # (auto) 0.33 K/uL (0.11-0.59); Monocytes % (auto) 5.4 %; Neutrophils # (auto) 4.14 K/uL (1.40-6.50); Neutrophils % (auto) 67.9 %; Platelet Count 217 K/uL (130-400); RDW Coefficient of Variation 14.6 % (11.5-14.5); RDW Standard Deviation 50.3 fL (36.4-46.3); Red Blood Count 4.14 M/uL (4.70-6.10); White Blood Count 6.09 K/ul (4.8-10.8)
[2024-04-22] MEDS: HYDROmorphone INJ 0.5 MG/0.5 ML SYR IV PRN (04:34)
[2024-04-22 06:09] LABS: Basophils # (auto) 0.03 K/uL (0.00-0.20); Basophils % (auto) 0.5 %; Eosinophils # (auto) 0.08 K/uL (0.00-0.50); Eosinophils % (auto) 1.4 %; Hematocrit (blood only) 34.4 % (42.0-52.0); Hemoglobin 11.1 g/dl (14.0-18.0); Immature Granulocytes # (auto) 0.01 K/uL (0.01-0.20); Immature Granulocytes % (auto) 0.2 %; Lymphocytes # (auto) 1.16 K/uL (1.20-3.40); Lymphocytes % (auto) 20.7 %; Mean Corpuscular Hgb Conc 32.3 g/dL (32.0-36.0); Mean Platelet Volume 9.5 fL (9.4-12.4); Monocytes # (auto) 0.43 K/uL (0.11-0.59); Monocytes % (auto) 7.7 %; Neutrophils % (auto) 69.5 %; Platelet Count 187 K/uL (130-400); RDW Coefficient of Variation 14.6 % (11.5-14.5); White Blood Count 5.61 K/ul (4.8-10.8)
[2024-04-22 06:25] LABS: Anion Gap 5 (3-11); Blood Urea Nitrogen 19 mg/dl (6-23); Calcium 9.5 mg/dl (8.6-10.3); Carbon Dioxide 31 mmol/L (21-32); Chloride 106 mmol/L (98-107); Est GFR (African American) 100.1 ml/min; Est GFR (Non-African American) 86.4 ml/min; Glucose 128 mg/dl (70-99(Fasting)); Potassium 4.2 mmol/L (3.5-5.1); Sodium 142 mmol/L (136-145)
[2024-04-22 06:41] LABS: INR 1.3 (0.9-1.1); Prothrombin Time 13.9 Seconds (9.0-12.0)
[2024-04-22] MEDS: TAMSULOSIN HCL 0.4 MG CAP PO SCH (07:15)
[2024-04-22] MEDS: MAGNESIUM OXIDE 400 MG TAB PO SCH (07:15)
[2024-04-22] MEDS: ROSUVASTATIN CALCIUM 20 MG TAB PO SCH (07:16)
--- NOTE | 2024-04-22 11:31 | Orthopedic Consultation ---
Date of Service April 22, 2024 Assessment & Plan (1) Fracture of thoracic spine: History of Present Illness Reason for Consultation: Thoracic osteophyte fracture, thoracic pain status post fall. Requesting Physician: . 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 Reports that this was mechanical when he tripped did not have lightheadedness, dizziness, or syncope that led to this fall. He is anticoagulated on warfarin. CT of the head was without any intracranial bleed or abnormality. Imaging of the spine showed subtle acute fracture through anterior osteophytes/right lateral marginal osteophyte/disc space at T4-T5 with mild associated paravertebral edema. Findings were reviewed with orthopedic spine Dr. Blackman. Nonoperative, and not amenable to bracing. Recommended no lifting at this time. Recommended admission and observation until INR is therapeutic. Due to history of DVT and antiphospholipid syndrome will need anticoagulation however received vitamin K on admission and will have INR checks daily until back in therapeutic range. Patient was seen and examined, he notes pain in the upper thoracic region, family member present. He denies any lower extremity numbness/tingling or weakness in the extremities. He has some pain at his right clavicle otherwise no chest pain. No abdominal pain. He has not noticed any bleeding. His left lower extremity wound is greatly improved and has not been red or warm, but does have remaining packing which has been reevaluated daily while at [facility]. Denies fever, chills, sweats. No lightheadedness or dizziness. Exam reveals patient to relate pain in the upper thoracic region. He has intact strength though for EHL ankle plantar dorsiflexion knee extension and flexion, hip flexion. CT SCAN OF THE THORACIC SPINE WITHOUT IV CONTRAST April 21, 2024 CLINICAL HISTORY: Trauma. Fall. COMPARISON STUDY: Chest CT dated 03/06/2024. CT of the thoracic spine dated 08/10/2022. TECHNIQUE: CT scan of the thoracic spine is performed from the lower cervical spine to the upper lumbar spine. Images are reviewed in the axial, sagittal, coronal planes. IV contrast was not administered for this examination. A dose lowering technique was utilized adhering to the principles of ALARA. FINDINGS: The skeletal structures are osteopenic. There is a subtle fracture through the anterior osteophytes, right marginal osteophytes, and disc space at T4-T5. This is best seen on sagittal images #34 and #29, as well as coronal image #53. There is no evidence of posterior element involvement. There is no loss of height or retropulsion of fragments. Mild paravertebral edema is seen at this level. No additional acute fracture is seen involving the thoracic spine. There is no malalignment. Vertebral body height and alignment are maintained. Anterior osteophytes are seen throughout with evidence of DISH. The transverse and spinous processes appear intact. No lytic or blastic lesion is seen. There is mild degenerative disc space narrowing. There is no CT evidence of large disc herniation or high-grade central canal stenosis. The visualized posterior ribs are intact. The paraspinous soft tissues are within normal limits. There is bibasilar scarring/atelectasis. No airspace consolidation or pleural effusions identified. Groundglass opacities at the left apex are new from 03/06/2024 and li clau inflammatory. The heart is enlarged. The coronary arteries are densely calcified. A small hiatal hernia is noted. Calcified gallstones are observed. Bilateral renal cysts are partially visualized and measure up to 3.3 cm. IMPRESSION: 1. Subtle acute fracture through the anterior osteophytes, right lateral marginal osteophyte, and disc space at T4-T5 with mild associated paravertebral edema. 2. There is no evidence of posterior element involvement, and no retropulsion of fragments is seen. 3. No additional acute fracture is identified involving the thoracic spine and there is no malalignment. 4. Osteopenia and mild degenerative change as above. Impression: Stable fracture T4-5 with osteophyte fracture, intact posterior elements, localized hematoma. Plan: I discussed with patient and family member that I feel that this is a stable injury, I recommending slow but progressive mobilization as I think pain will be present, appropriate pain medications for physical therapy and ambula tion, correction of anticoagulation. I related to the patient that eventual follow-up with thoracic radiographs will be appropriate, further imaging only if there is a significant change. Allergies Allergy/AdvReac Type Severity Reaction Status Date / Time sitagliptin Allergy Intermediate Hives - Verified 04/21/24 17:50 Januvia cat dander Allergy Mild EYES WATER Verified 04/21/24 17:50 [id number]-BlI Reductase AdvReac Intermediate LEG CRAMPS Verified 04/21/24 17:50 Inhibitor [Xpqbrjh-Ctv-Ias Reductase Inhibitor] Home Medications Medication Instructions Recorded Confirmed Type multivitamin (Daily Multi-Vitamin 1 tab PO QAM 12/11/21 04/21/24 History tablet) miscellaneous medical supply #3,840 mL 12/12/21 04/21/24 Rx ferrous sulfate 325 mg (65 mg 325 mg PO BID 04/14/22 04/21/24 History iron) tablet (Feosol) magnesium citrate 100 mg tablet 100 mg PO DAILY 09/30/22 04/21/24 History rosuvastatin 20 mg tablet (Crestor) 20 mg PO QAM #90 tabs 10/13/23 04/21/24 Rx metformin 500 mg tablet,extended 1,000 mg (2 x 500 mg) PO BID #360 11/15/23 04/21/24 Rx release 24 hr tabs pen needle, diabetic 32 gauge x #200 ea 11/18/23 04/21/24 Rx 5/32" (BD Donna 2nd Gen Pen Needle) insulin aspar prot-insulin aspart 12 - 30 unit subcut BID 12/08/23 04/21/24 History 100 unit/mL (70-30) subcutaneous pen (Novolog Mix 70-30FlexPen U-100) blood sugar diagnostic (OneTouch #100 ea 12/23/23 04/21/24 Rx Ultra Test strips) blood-glucose meter (OneTouch #1 ea 12/23/23 04/21/24 Rx Ultra2 Meter) tamsulosin 0.4 mg capsule (Flomax) 0.4 mg PO QAM #90 caps 02/17/24 04/21/24 Rx lancets 33 gauge (OneTouch Delica #100 ea 02/21/24 04/21/24 Rx Plus Lancet) warfarin 5 mg tablet 10 mg PO UD 03/24/24 04/21/24 History furosemide 20 mg tablet 20 mg PO DAILY #30 tabs 04/19/24 04/21/24 Rx Past Med/Surg History Problem List (Updated 04/22/24 @ 11:40 by Arthur Blackman MD) Fracture of thoracic spine Acute thoracic back pain (Acute) CHI (closed head injury) (Acute) Fall (Acute) Hematoma Lymphedema (Acute) Diabetic foot ulcer (Acute) History of rectal polypectomy [facility] [place] Pulmonary embolism 1994>currently on warfarin Cellulitis in diabetic foot Serum calcium elevated Adequate anticoagulation on anticoagulant therapy Leg swelling (Acute) Weakness (Acute) Leg weakness, bilateral History of colon cancer 10/25, L colectomy [facility] [place] 11/25 Antithrombotic therapy prescribed during current visit Arthritis H/O colectomy 11/25 Dizziness (Acute) Type II diabetes mellitus, uncontrolled (Acute) Arthritis of knee, right Obese Vitamin D deficiency (Chronic) Port-A-Cath in place (01/27/22) Insertion Access Port with Fluoro, Left Subclavian (Left) - Junior Bae, Unsteady gait Venous insufficiency BPH (benign prostatic hyperplasia) Hypertension denies Diabetic peripheral neuropathy (Chronic) Long-term (current) use of anticoagulants, INR goal 2.0-3.0 (Chronic) Adenocarcinoma, colon hx- s/p colostomy Lymphedema Antiphospholipid syndrome (Chronic) on warfarin, follows with [facility] Hyperlipidemia Anemia iron deficiency-on po supplementation Glaucoma (Acute) hx Medical History Abscess of left lower extremity Hx of insect bite 12/07/22, reported pt has insect bite on his back, over the right side of rib cage. reports they "have been treating it on their own for the past couple days, looking better, but it is still seeping and changing dressing/bandage 2x daily." advised pt to contact PCP regarding the bite. Type II diabetes mellitus Lung granuloma scattered calcified granulomas on 10/[address] Carotid artery calcification Noted incidentally on previous imaging; carotid doppler 08/2023- showed no hemodynamically significant stenosis Coronary artery calcification dense calcification per 09/[address] Lower extremity edema Surgical History History of incision and drainage (03/31/24) Incision and Drainage of Left Lower Extremity Hematoma Hx of left cataract extraction History of removal of Port-a-Cath (10/19/23) Removal of Access Port(Left) - Junior Bae, DO Hx of tooth extraction History of transesophageal echocardiography ([facility]) History of colostomy present History of colonoscopy Hx of lymph node biopsy H/O colectomy History of knee surgery bilat > arthroscopic History of elbow surgery right History of dental surgery Family History Father Myocardial infarction Diabetes Aunt Breast cancer Mother Cancer Diabetes Denies family history of Ovarian cancer Prostate cancer Colorectal cancer Social History Smoking Status: Never smoker Second Hand Exposure: Yes (hx as child); Do You Dip or Chew Tobacco: No; Hx Alcohol Use: Yes Alcohol type: wine Alcohol Intake Frequency: 2-4 x/Month Alcohol Intake Frequency Comment: Once a week Hx Substance Use: No Preferred Language: Belarusian Communication Ability: Effective Visual Impairment: No Limitations Hearing Ability: Normal Lead Vulcanizing Operator Required: No Beliefs That Will Affect Care: None marital status: Current Living Situation: Spouse and Family Current Living Situation Comment: lives with and daughter current occupational status: retired How many Children do You have: 3 Other Information That Helps Us Care for You: No Feels Safe at Home: Yes Safety Concerns: Feels Safe At This Time Childhood Exposure to Second-Hand Smoke: Yes Diet: diabetic and regular caffeine: Yes during the past year weight has: remained stable Dental Care, Regularly: Yes Physical Activity Frequency: Does not Exercise Seatbelt Use: always Sunscreen Use: Yes Do you think of yourself as: straight/heterosexual Gender Identity: Male Assistive Devices: Cane, Glasses and Walker Review of Systems All systems reviewed & are unremarkable except as noted in HPI & below. Physical Exam . Results & Data Results & Data Laboratory Results . Diagnostic Findings . PG Care Time/CCT Total # of Minutes Spent Total Time Spent with Patient: Total time spent is greater than 50% in coordination of care (as documented) at patient's floor/unit and/or counseling patient: Coding Level of Care Code 55171 IN/OBS CONSULT LVL 2,35M Diagnoses Fracture of thoracic spine S22.009A
--- NOTE | 2024-04-22 17:09 | Hospitalist Progress Note ---
Date of Service April 22, 2024 Assessment & Plan (1) Fall: Plan: Fall Without syncope/presyncope. Mechanical when he slipped backwards walking up stairs Subtle acute fracture through anterior osteophytes, right marginal osteophyte, disc base T4-T5 with paravertebral edema. This was reviewed with Dr. Blackman while patient was in the ER. No indication for surgical intervention, not amenable to bracing. No heavy lifting. Conservative/symptomatic care Patient with tenderness at the right clavicle and right midclavicular line at approximately T4. Chest x-ray and right clavicle imaging ordered to further evaluate. No crepitus or overlying hematoma PT/OT pending Management of supratherapeutic INR as below No C-spine fracture, no bleeding on CThead Spine surg consultation pain control, PT/OT (2) Type II diabetes mellitus, uncontrolled: Plan: Type II DM Metformin held Home 70/30 25-30u insulin twice daily Switch to basal bolus based on 50 units total daily dose on admission -Lantus 13 units twice daily, CF 30, carb ratio 11 (3) Diabetic foot ulcer: Plan: Left anterior lower leg with healing diabetic foot ulcer packing in place. No evidence of superimposed infection Wound care daily (4) Antiphospholipid syndrome: Plan: History of antiphospholipid syndrome, DVT/PE Supratherapeutic on admission Received 5 mg IV vitamin K due to a fall with a fracture as noted while supratherapeutic on INR at 3.9 Trend INR daily Warfarin held. Bridged with Lovenox as needed once no longer supratherapeutic CBC daily, INR daily Plan DVT prophylaxis: Warfarin held. May start Lovenox twice daily once out of supratherapeutic range and eventually bridged back to warfarin goal 23 Diet: DM 2 Dispo: Medical surgical CODE STATUS: DNR/DNI PT/OT consulted. Will likely need placement given acute fracture limiting his ambulation Admission and Anticipated Discharge Date Admission Date: April 21, 2024 Subjective Mild back pain at rest, has not been OOB yet, tolerating PO, No other complaints Physical Exam Physical Exam: AAO#3, Resting comfortably, non focal Lungs clear to auscultation b/l Heart - RRR PA Soft, NT, ND, BS Skin no rash Results & Data Results & Data Vital Signs (Past 12 Hours) Vital Signs Temp Pulse Resp BP Pulse Ox O2 Del Method 04/22/24 14:30 36.6 C 72 17 149/72 H 97 Room Air 04/22/24 07:26 36.6 C 69 17 154/75 H 96 Room Air 04/22/24 07:00 Room Air Reviewed PG Care Time/CCT Total # of Minutes Spent Total Time Spent with Patient: Total time spent is greater than 50% in coordination of care (as documented) at patient's floor/unit and/or counseling patient: Coding Level of Care Code 14014 SUB INP/OBS CARE 2/35MIN Diagnoses Fall W19.XXXA Uncontrolled type 2 diabetes mellitus with hyperglycemia E11.65 Diabetic foot ulcer E11.621; L97.509 Antiphospholipid syndrome D68.61
[2024-04-23 05:55] LABS: Basophils # (auto) 0.04 K/uL (0.00-0.20); Basophils % (auto) 0.7 %; Eosinophils # (auto) 0.13 K/uL (0.00-0.50); Eosinophils % (auto) 2.3 %; Hemoglobin 10.5 g/dl (14.0-18.0); Immature Granulocytes # (auto) 0.01 K/uL (0.01-0.20); Immature Granulocytes % (auto) 0.2 %; Lymphocytes % (auto) 24.7 %; Mean Corpuscular Hemoglobin 30.2 pg (25.0-34.0); Mean Corpuscular Hgb Conc 32.8 g/dL (32.0-36.0); Mean Platelet Volume 9.5 fL (9.4-12.4); Monocytes % (auto) 8.8 %; Neutrophils # (auto) 3.59 K/uL (1.40-6.50); Neutrophils % (auto) 63.3 %; Platelet Count 170 K/uL (130-400); RDW Coefficient of Variation 14.3 % (11.5-14.5); RDW Standard Deviation 48.3 fL (36.4-46.3); Red Blood Count 3.48 M/uL (4.70-6.10); White Blood Count 5.67 K/ul (4.8-10.8)
[2024-04-23 06:07] LABS: BUN Creatinine Ratio 24.6 (10-20); Calcium 9.7 mg/dl (8.6-10.3); Creatinine Clr Calc Pharmacy 116.3 ml/min; Est GFR (Non-African American) 90.6 ml/min; Potassium 3.9 mmol/L (3.5-5.1)
[2024-04-23 06:14] LABS: INR 1.1 (0.9-1.1); Prothrombin Time 11.4 Seconds (9.0-12.0)
[2024-04-23] MEDS ORDERED: ENOXAPARIN 1 MG/KG SQ SCH (08:15)
[2024-04-23] MEDS: POLYETHYLENE (MIRALAX) 17 GM PACK PO SCH (09:10)
[2024-04-23] MEDS: oxyCODONE HCL IR 5 MG TAB (IMMEDIATE RELEASE) PO PRN (09:10)
[2024-04-23] MEDS: ENOXAPARIN INJ 120 MG/0.8 ML SYR SQ SCH (09:16)
[2024-04-23] MEDS: ACETAMINOPHEN 325 MG TAB PO PRN (10:20)
--- NOTE | 2024-04-23 13:17 | Hospitalist Progress Note ---
Date of Service April 23, 2024 Assessment & Plan (1) Fall: Plan: Fall Without syncope/presyncope. Mechanical when he slipped backwards walking up stairs Subtle acute fracture through anterior osteophytes, right marginal osteophyte, disc base T4-T5 with paravertebral edema. This was reviewed with Dr. Blackman while patient was in the ER. No indication for surgical intervention, not amenable to bracing. No heavy lifting. Conservative/symptomatic care Spine surg consultation completed pain control, PT/OT (2) Type II diabetes mellitus, uncontrolled: Plan: Type II DM Metformin held Home 70/30 25-30u insulin twice daily Switch to basal bolus based on 50 units total daily dose on admission -Lantus 13 units twice daily, CF 30, carb ratio 11 (3) Diabetic foot ulcer: Plan: Left anterior lower leg with healing diabetic foot ulcer packing in place. No evidence of superimposed infection Wound care daily (4) Antiphospholipid syndrome: Plan: History of antiphospholipid syndrome, DVT/PE Supratherapeutic on admission Received 5 mg IV vitamin K due to a fall with a fracture as noted while supratherapeutic on INR at 3.9 INR below 2.0, started Lovenox If H and H remains stable / no hematoma, resume Warfarin in 1-2 days (5) Hypertension: Plan: Elevated BP - not on any meds start Losartan Monitor renal function and potassium Plan DVT prophylaxis: Warfarin held. May start Lovenox twice daily once out of supratherapeutic range and eventually bridged back to warfarin goal 23 Diet: DM 2 Dispo: Medical surgical CODE STATUS: DNR/DNI PT/OT consulted. Will likely need placement given acute fracture limiting his ambulation Admission and Anticipated Discharge Date Admission Date: April 21, 2024 Subjective minimal pain at rest, not seen by PT yet, tolerating diet, no complaints Physical Exam Physical Exam: AAO#3, Resting comfortably, non focal Lungs clear to auscultation b/l Heart - RRR PA Soft, NT, ND, BS Skin no rash, no echymosis noted Results & Data Results & Data Vital Signs (Past 12 Hours) Vital Signs Temp Pulse Resp BP Pulse Ox O2 Del Method 04/23/24 07:52 36.8 C 69 16 159/83 H 96 Room Air 04/23/24 07:20 Room Air Reviewed Coding Level of Care Code 02186 SUB INP/OBS CARE MIN Diagnoses Fall W19.XXXA Uncontrolled type 2 diabetes mellitus with hyperglycemia E11.65 Diabetic foot ulcer E11.621; L97.509 Antiphospholipid syndrome D68.61 Hypertension I10
[2024-04-23] MEDS: LOSARTAN POTASSIUM 25 MG TAB PO SCH (15:18)
[2024-04-24 05:50] LABS: Basophils # (auto) 0.03 K/uL (0.00-0.20); Basophils % (auto) 0.6 %; Eosinophils # (auto) 0.13 K/uL (0.00-0.50); Eosinophils % (auto) 2.7 %; Hematocrit (blood only) 32.9 % (42.0-52.0); Hemoglobin 10.9 g/dl (14.0-18.0); Immature Granulocytes # (auto) 0.01 K/uL (0.01-0.20); Immature Granulocytes % (auto) 0.2 %; Lymphocytes # (auto) 1.33 K/uL (1.20-3.40); Lymphocytes % (auto) 27.6 %; Mean Corpuscular Hemoglobin 30.5 pg (25.0-34.0); Mean Corpuscular Hgb Conc 33.1 g/dL (32.0-36.0); Mean Corpuscular Volume 92.2 fL (80.0-100.0); Mean Platelet Volume 9.4 fL (9.4-12.4); Monocytes # (auto) 0.39 K/uL (0.11-0.59); Monocytes % (auto) 8.1 %; Neutrophils # (auto) 2.93 K/uL (1.40-6.50); Neutrophils % (auto) 60.8 %; Platelet Count 170 K/uL (130-400); RDW Coefficient of Variation 14.4 % (11.5-14.5); RDW Standard Deviation 48.5 fL (36.4-46.3); Red Blood Count 3.57 M/uL (4.70-6.10); White Blood Count 4.82 K/ul (4.8-10.8)
[2024-04-24 06:06] LABS: BUN Creatinine Ratio 25.4 (10-20); Calcium 9.6 mg/dl (8.6-10.3); Creatinine Clr Calc Pharmacy 106.5 ml/min; Est GFR (African American) 101.3 ml/min; Est GFR (Non-African American) 87.4 ml/min; Potassium 3.9 mmol/L (3.5-5.1)
--- NOTE | 2024-04-24 15:01 | Hospitalist Progress Note ---
Date of Service April 24, 2024 Assessment & Plan (1) Fall: Plan: Fall Without syncope/presyncope. Mechanical when he slipped backwards walking up stairs Subtle acute fracture through anterior osteophytes, right marginal osteophyte, disc base T4-T5 with paravertebral edema. This was reviewed with Dr. Blackman while patient was in the ER. No indication for surgical intervention, not amenable to bracing. No heavy lifting. Conservative/symptomatic care Spine surg consultation completed pain control, PT/OT (2) Type II diabetes mellitus, uncontrolled: Plan: Type II DM Metformin held Home 70/30 25-30u insulin twice daily Switch to basal bolus based on 50 units total daily dose on admission -Lantus 13 units twice daily, CF 30, carb ratio 11 (3) Diabetic foot ulcer: Plan: Left anterior lower leg with healing diabetic foot ulcer packing in place. No evidence of superimposed infection Wound care daily (4) Antiphospholipid syndrome: Plan: History of antiphospholipid syndrome, DVT/PE Supratherapeutic on admission Received 5 mg IV vitamin K due to a fall with a fracture as noted while supratherapeutic on INR at 3.9 INR below 2.0, started Lovenox H and H remains stable / resume Warfarin / continue Lovenox until INR 2.0 or above (5) Hypertension: Plan: Supine hypertension / orthostatic hypotension - symptomatic Ordered Compression stockings, will add midodrine 5 mg BID but hold if SBP is greater than 160 Plan DVT prophylaxis: Warfarin held. May start Lovenox twice daily once out of supratherapeutic range and eventually bridged back to warfarin goal 23 Diet: DM 2 Dispo: Medical surgical CODE STATUS: DNR/DNI PT/OT consulted - recommend rehab Admission and Anticipated Discharge Date Admission Date: April 21, 2024 Subjective 7/10 pain after PT, recommended taking analgesic before PT, dizziness upon standing Physical Exam Physical Exam: AAO#3, Resting comfortably, non focal Lungs clear to auscultation b/l Heart - RRR PA Soft, NT, ND, BS Skin no rash, no echymosis noted Results & Data Results & Data Vital Signs (Past 12 Hours) Vital Signs Temp Pulse Resp BP Pulse Ox O2 Del Method 04/24/24 12:39 37 C 83 16 130/66 96 Room Air 04/24/24 08:20 36.2 C L 91 H 16 148/70 H 95 Room Air Coding Level of Care Code 89553 SUB INP/OBS CARE 2/35MIN Diagnoses Fall W19.XXXA Uncontrolled type 2 diabetes mellitus with hyperglycemia E11.65 Diabetic foot ulcer E11.621; L97.509 Antiphospholipid syndrome D68.61 Hypertension I10
[2024-04-24] MEDS: WARFARIN SOD 10 MG TAB PO SCH (17:24)
[2024-04-24] MEDS: MIDODRINE HCL 2.5 MG TAB PO SCH (20:28)
[2024-04-25 08:48] LABS: Hematocrit (blood only) 32.1 % (42.0-52.0); Hemoglobin 10.4 g/dl (14.0-18.0); Mean Corpuscular Hemoglobin 30.1 pg (25.0-34.0); Mean Corpuscular Hgb Conc 32.4 g/dL (32.0-36.0); Mean Corpuscular Volume 92.8 fL (80.0-100.0); Mean Platelet Volume 9.7 fL (9.4-12.4); Platelet Count 175 K/uL (130-400); RDW Coefficient of Variation 14.4 % (11.5-14.5); RDW Standard Deviation 48.6 fL (36.4-46.3); Red Blood Count 3.46 M/uL (4.70-6.10); White Blood Count 4.29 K/ul (4.8-10.8)
[2024-04-25 09:03] LABS: Prothrombin Time 10.9 Seconds (9.0-12.0)
[2024-04-25] MEDS ORDERED: oxyCODONE HCL IR 5 MG TAB (IMMEDIATE RELEASE) PO PRN (09:53)
[2024-04-25] MEDS: MIDODRINE HCL 2.5 MG TAB PO SCH (13:55)
--- NOTE | 2024-04-25 16:41 | Hospitalist Progress Note ---
Date of Service April 25, 2024 Assessment & Plan (1) Thoracic compression fracture: Plan: Subtle acute fracture through anterior osteophytes, right marginal osteophyte, disc base T4-T5 with paravertebral edema. This was reviewed with Dr. Blackman while patient was in the ER. No indication for surgical intervention, not amenable to bracing. No heavy lifting. Conservative/symptomatic care Spine surg consultation completed pain control, PT/OT Rehab recommended (2) Orthostatic hypotension: Plan: Remains highly symptomatic this am -not using excessive opioid, eating/drinking normally doesn't seem volume depleted -stop tamsulosin -increased midodrine to 5 tid -check TSH and AM cortisol -continue PT/OT - did better this afternoon (3) Fall: Plan: Mechanical when he slipped backwards walking up stairs. No syncope. Address orthostasis as above (4) Type II diabetes mellitus, uncontrolled: Plan: Type II DM Metformin held Home 70/30 25-30u insulin twice daily Switch to basal bolus based on 50 units total daily dose on admission -Lantus 13 units twice daily, CF 30, carb ratio 11 -BG acceptable today, no changes made (5) Diabetic foot ulcer: Plan: Left anterior lower leg with healing diabetic foot ulcer packing in place. No evidence of superimposed infection Wound care daily (6) Antiphospholipid syndrome: Plan: History of antiphospholipid syndrome, DVT/PE INR Supratherapeutic on admission with INR 3.9 and treated with 5 mg IV vitamin K INR remains 1.0 - continue enoxaparin bridging back to warfarin INR goal 2.0-3.0 (7) Hypertension: Plan: Supine hypertension / orthostatic hypotension see above Plan DVT prophylaxis: anticoagulated PT/OT consulted - recommend rehab Admission and Anticipated Discharge Date Admission Date: April 21, 2024 Subjective continues to have acute midback pain however not using too much opioids was severely lightheaded and orthostatic on attempt at PT this am has been a problem for past year or so but not this bad flomax is relatively recent addition to meds. never had urinary retention Physical Exam 2 Physical Exam: PHYSICAL EXAMINATION Last 24h vital signs reviewed, see documentation in flowsheet General: comfortable appearing, no distress HEENT: Normocephalic, atraumatic, pupils round and equal, sclerae anicteric, no conjunctival injection, moist mucus membranes Lungs: Normal respiratory effort. Clear to auscultation bilaterally. No RRW Heart: Regular rate and rhythm, no murmurs. No JVD Abdomen: Soft, nontender, nondistended. Bowel sounds present. Extremities: Warm, dry, well-perfused. No extremity edema. wearing TEDs Neuro: Alert and oriented x 4, face symmetric, moves 4 extremities well Psych: Normal affect and behavior Results & Data Results & Data Vital Signs (Past 12 Hours) Vital Signs Temp Pulse Resp BP Pulse Ox O2 Del Method 04/25/24 15:24 36.5 C 75 18 148/78 H 97 Room Air 04/25/24 08:00 Room Air 04/25/24 07:40 36.8 C 68 18 156/72 H 97 Room Air Laboratory Results 04/25/24 07:47 04/24/24 05:34 PG Care Time/CCT Total # of Minutes Spent Total Time Spent with Patient: Total time spent is greater than 50% in coordination of care (as documented) at patient's floor/unit and/or counseling patient: Coding Level of Care Code 20819 SUB INP/OBS CARE 2/35MIN Diagnoses Thoracic compression fracture S22.000A Orthostatic hypotension I95.1 Fall W19.XXXA Uncontrolled type 2 diabetes mellitus with hyperglycemia E11.65 Diabetic foot ulcer E11.621; L97.509 Antiphospholipid syndrome D68.61 Hypertension I10
[2024-04-26 08:11] LABS: Hematocrit (blood only) 32.7 % (42.0-52.0); Hemoglobin 10.7 g/dl (14.0-18.0); Mean Corpuscular Hemoglobin 30.5 pg (25.0-34.0); Mean Corpuscular Hgb Conc 32.7 g/dL (32.0-36.0); Mean Corpuscular Volume 93.2 fL (80.0-100.0); Mean Platelet Volume 9.7 fL (9.4-12.4); Platelet Count 172 K/uL (130-400); RDW Coefficient of Variation 14.5 % (11.5-14.5); Red Blood Count 3.51 M/uL (4.70-6.10)
[2024-04-26 08:26] LABS: INR 1.1 (0.9-1.1); Prothrombin Time 11.8 Seconds (9.0-12.0)
--- NOTE | 2024-04-26 13:28 | Communication Note ---
Date of Service: April 26, 2024 Doing very well this AM with continued resolution of radicular symptoms tolerating liquid diet, ambulatory in room. Discharging home today.
--- NOTE | 2024-04-26 14:35 | Hospitalist Progress Note ---
Date of Service April 26, 2024 Assessment & Plan (1) Thoracic compression fracture: Plan: Subtle acute fracture through anterior osteophytes, right marginal osteophyte, disc base T4-T5 with paravertebral edema. This was reviewed with Dr. Blackman while patient was in the ER. No indication for surgical intervention, not amenable to bracing. No heavy lifting. Conservative/symptomatic care Spine surg consultation completed pain control, PT/OT Rehab recommended (2) Orthostatic hypotension: Plan: he reports about a year of orthostatic symptoms with lightheadedness on standing but until now has been manageable. During this admission he had severe orthostasis with systolic pressure falling into the 90s while standing and severe lightheadedness. Remains symptomatic this am but improved -not using excessive opioid, eating/drinking normally doesn't seem volume depleted -stopped tamsulosin - hopefully the effect of this will be out of his system by tomorrow -increased midodrine to 5 tid -check TSH and AM cortisol - can try fludrocortisone if above measures are ineffective -continue PT/OT - did better past 48h (3) Fall: Plan: Mechanical when he slipped backwards walking up stairs. No syncope. Address orthostasis as above (4) Type II diabetes mellitus, uncontrolled: Plan: Type II DM Metformin held Home 70/30 25-30u insulin twice daily continue basal bolus insulin -BG acceptable today, no changes made (5) Diabetic foot ulcer: Plan: Left anterior lower leg with healing diabetic foot ulcer packing in place. No evidence of superimposed infection Wound care daily (6) Antiphospholipid syndrome: Plan: History of antiphospholipid syndrome, DVT/PE INR Supratherapeutic on admission with INR 3.9 and treated with 5 mg IV vitamin K INR remains 1.0 again on 04/26continue warfarin 10 mg daily with daily INR monitoring - continue enoxaparin bridging back to warfarin INR goal 2.0-3.0 (7) Hypertension: Plan: Supine hypertension / orthostatic hypotension see above Plan DVT prophylaxis: anticoagulated PT/OT consulted - recommend rehab Admission and Anticipated Discharge Date Admission Date: April 21, 2024 Subjective Doing pretty well with respect to handling his acute back pain just took some Tylenol this morning when I saw him this morning he was standing up with PT continues to have lightheadedness on standing although it has improved and standing blood pressures have improved a lot Physical Exam 2 Physical Exam: PHYSICAL EXAMINATION Last 24h vital signs reviewed, see documentation in flowsheet General: sitting than standing at edge of bed with walker and physical therapist nearby HEENT: Normocephalic, atraumatic, pupils round and equal, sclerae anicteric, no conjunctival injection, moist mucus membranes Lungs: Normal respiratory effort. Heart: Abdomen: nondistended Extremities: Warm, dry, well-perfused. No extremity edema. wearing TEDs Neuro: Alert and oriented x 4, face symmetric, moves 4 extremities well. moved to bedside independently though with cueing, stood up well with walker but after approximately 1 minute got lightheaded and mildly unsteady and needed to sit back down Psych: Normal affect and behavior Results & Data Results & Data Vital Signs (Past 12 Hours) Vital Signs Temp Pulse Resp BP Pulse Ox O2 Del Method 04/26/24 11:17 36.6 C 72 16 130/66 97 Room Air 04/26/24 08:00 Room Air 04/26/24 07:45 37 C 52 L 20 158/68 H 96 Room Air Laboratory Results 04/26/24 07:37 04/24/24 05:34 PG Care Time/CCT Total # of Minutes Spent Total Time Spent with Patient: Total time spent is greater than 50% in coordination of care (as documented) at patient's floor/unit and/or counseling patient: Coding Level of Care Code 32312 SUB INP/OBS CARE 2/35MIN Diagnoses Thoracic compression fracture S22.000A Orthostatic hypotension I95.1 Fall W19.XXXA Uncontrolled type 2 diabetes mellitus with hyperglycemia E11.65 Diabetic foot ulcer E11.621; L97.509 Antiphospholipid syndrome D68.61 Hypertension I10
[2024-04-27] MEDS ORDERED: MICONAZOLE NITRATE POWDER 85 GM EXT PRN (02:09)
[2024-04-27 09:08] LABS: Hematocrit (blood only) 34.1 % (42.0-52.0); Mean Corpuscular Hemoglobin 30.1 pg (25.0-34.0); Mean Corpuscular Hgb Conc 32.3 g/dL (32.0-36.0); Mean Corpuscular Volume 93.2 fL (80.0-100.0); Mean Platelet Volume 9.4 fL (9.4-12.4); Platelet Count 175 K/uL (130-400); RDW Coefficient of Variation 14.8 % (11.5-14.5); RDW Standard Deviation 50.6 fL (36.4-46.3); Red Blood Count 3.66 M/uL (4.70-6.10); White Blood Count 4.08 K/ul (4.8-10.8)
[2024-04-27 09:28] LABS: INR 1.3 (0.9-1.1); Prothrombin Time 13.5 Seconds (9.0-12.0)
[2024-04-27] MEDS: FLUDROCORTISONE ACETATE 0.1 MG TAB PO SCH (12:06)
--- NOTE | 2024-04-27 16:34 | Hospitalist Progress Note ---
Date of Service April 27, 2024 Assessment & Plan (1) Thoracic compression fracture: Plan: Subtle acute fracture through anterior osteophytes, right marginal osteophyte, disc base T4-T5 with paravertebral edema. This was reviewed with Dr. Blackman while patient was in the ER. No indication for surgical intervention, not amenable to bracing. No heavy lifting. Conservative/symptomatic care Spine surg consultation completed pain control with acetaminophen, PT/OT Rehab recommended - main problem at this point is chronic orthostatic hypotension which has been exacerbated by his fracture and immobilization - referrals have been sent also will need insurance authorization (2) Orthostatic hypotension: Plan: he reports about a year of orthostatic symptoms with lightheadedness on standing but until now has been manageable. During this admission he had severe orthostasis with systolic pressure falling into the 90s while standing and severe lightheadedness. I think the likely cause of this is a diabetic autonomic neuropathy exacerbated by tamsulosin which has been stopped Remains symptomatic of lightheadedness while standing with 50 point drop in systolic blood pressure. standing blood pressure has improved however from the low 90s up to 120 -not using excessive opioid, eating/drinking normally doesn't seem volume depleted -stopped tamsulosin over 48 hours ago - continue midodrine to 5 tid, added fludrocortisone - TSH and AM cortisol were normal -continue PT/OT - rehab is most important at this point to improve his standing tolerance (3) Fall: Plan: Mechanical when he slipped backwards walking up stairs. No syncope. Address orthostasis as above (4) Type II diabetes mellitus, uncontrolled: Plan: Type II DM Metformin held Home 70/30 25-30u insulin twice daily continue basal bolus insulin -BG reviewed and well-controlled today (5) Diabetic foot ulcer: Plan: Left anterior lower leg with healing diabetic foot ulcer. No evidence of superimposed infection Wound care daily (6) Antiphospholipid syndrome: Plan: History of antiphospholipid syndrome, DVT/PE INR Supratherapeutic on admission with INR 3.9 and treated with 5 mg IV vitamin K INR starting to increase now 1.3, continue warfarin 10 mg daily which is his usual dose - daily a.m. INR - continue enoxaparin bridging back to warfarin INR goal 2.0-3.0 (7) Hypertension: Plan: Supine hypertension / orthostatic hypotension see above Plan DVT prophylaxis: anticoagulated PT/OT consulted - recommend rehab Admission and Anticipated Discharge Date Admission Date: April 21, 2024 Subjective continues to have upper back pain between his scapula I it is 2 out of 10 intensity currently, using acetaminophen only for pain seen immediately after physical therapy this a.m. continues to have lightheadedness on standing and 50 point drop in systolic blood pressure however standing SBPs are now adequate around 120 Physical Exam 2 Physical Exam: PHYSICAL EXAMINATION Last 24h vital signs reviewed, see documentation in flowsheet General: reclining in bed HEENT: Normocephalic, atraumatic, pupils round and equal, sclerae anicteric, no conjunctival injection, moist mucus membranes Lungs: Normal respiratory effort. clear to auscultation bilaterally Heart: regular no murmurs rubs or gallops Abdomen: nondistended I examined his back because his was concerned about a lump in mid left upper back, no lesions or masses present perhaps was a muscle spasm Extremities: Warm, dry, well-perfused. No extremity edema. wearing TEDs Neuro: Alert and oriented x 4, face symmetric, moves 4 extremities well. Psych: Normal affect and behavior Results & Data Results & Data Vital Signs (Past 12 Hours) Vital Signs Temp Pulse Resp BP Pulse Ox O2 Del Method 04/27/24 14:07 37.2 C 71 16 129/68 98 Room Air 04/27/24 13:53 134/75 04/27/24 07:32 36.6 C 62 16 148/76 H 95 Room Air Laboratory Results 04/27/24 08:29 04/24/24 05:34 PG Care Time/CCT Total # of Minutes Spent Total Time Spent with Patient: Total time spent is greater than 50% in coordination of care (as documented) at patient's floor/unit and/or counseling patient: Coding Level of Care Code 11571 SUB INP/OBS CARE 2/35MIN Diagnoses Thoracic compression fracture S22.000A Orthostatic hypotension I95.1 Fall W19.XXXA Uncontrolled type 2 diabetes mellitus with hyperglycemia E11.65 Diabetic foot ulcer E11.621; L97.509 Antiphospholipid syndrome D68.61 Hypertension I10
[2024-04-28 06:16] LABS: Hematocrit (blood only) 30.9 % (42.0-52.0); Mean Corpuscular Hemoglobin 29.8 pg (25.0-34.0); Mean Corpuscular Hgb Conc 32.4 g/dL (32.0-36.0); Mean Platelet Volume 9.4 fL (9.4-12.4); Platelet Count 177 K/uL (130-400); RDW Coefficient of Variation 15.1 % (11.5-14.5); RDW Standard Deviation 50.4 fL (36.4-46.3); Red Blood Count 3.36 M/uL (4.70-6.10); White Blood Count 4.19 K/ul (4.8-10.8)
[2024-04-28 09:47] LABS: INR 1.4 (0.9-1.1); Prothrombin Time 14.7 Seconds (9.0-12.0)
--- NOTE | 2024-04-28 17:59 | Hospitalist Progress Note ---
Date of Service April 28, 2024 Assessment & Plan (1) Thoracic compression fracture: Plan: 84-year-old man who had a syncopal episode witnessed by his while going up the garage stairs fell and sustained osteoporotic compression fracture of T4/T5 he did have prodrome of lightheadedness prior to syncope, origin of syncope was orthostatic hypotension see below Subtle acute fracture through anterior osteophytes, right marginal osteophyte, disc base T4-T5 with paravertebral edema. This was reviewed with Dr. Blackman while patient was in the ER. No indication for surgical intervention, not amenable to bracing. No heavy lifting. Conservative/symptomatic care Spine surg consultation completed pain control with acetaminophen, PT/OT Rehab recommended - main problem impacting mobility has been orthostatic hypotension which has been exacerbated by his fracture and immobilization - referrals have been sent also will need insurance authorization (2) Orthostatic hypotension: Plan: he reports about a year of orthostatic symptoms with lightheadedness on standing but until now has been manageable. During this admission he had severe orthostasis with systolic pressure falling into the 90s while standing and severe lightheadedness. I think the likely cause of this is a diabetic autonomic neuropathy exacerbated by tamsulosin which has been stopped. TSH and AM cortisol were normal. considered parkinsonism he has a rest tremor of his left first finger only and slight cogwheeling on extension of left upper extremity, however, no bradykinesia or rigidity. This should be monitored over time going forward -not using excessive opioid, eating/drinking normally doesn't seem volume depleted -stopped tamsulosin, monitor for urinary retention - started midodrine 5 tid, remained symptomatically orthostatic added fludrocortisone 04/27 with significant improvement in both standing BP and symptoms. Monitor for edema and check BMP in 1 week -continue PT/OT - rehab is most important at this point to improve his standing tolerance (3) Type II diabetes mellitus, uncontrolled: Plan: Type II DM Metformin held Home 70/30 25-30u insulin twice daily continue basal bolus insulin -BG reviewed and well-controlled (4) Diabetic foot ulcer: Plan: Left anterior lower leg with healing diabetic foot ulcer. No evidence of superimposed infection Wound care daily (5) Antiphospholipid syndrome: Plan: History of antiphospholipid syndrome, remote DVT/PE INR Supratherapeutic on admission with INR 3.9 and treated with 5 mg IV vitamin K INR starting to increase now 1.4, continue warfarin 10 mg daily which is his usual dose - daily a.m. INR - continue enoxaparin bridging back to warfarin INR goal 2.0-3.0 (6) Hypertension: Plan: Supine hypertension / orthostatic hypotension see above Plan DVT prophylaxis: anticoagulated PT/OT consulted - recommend rehab Admission and Anticipated Discharge Date Admission Date: April 21, 2024 Subjective continues to have mild lightheadedness both sitting and standing however he had only minimal drop in standing blood pressure today and was able to ambulate a short distance with physical therapy using a walker upper back pain between his scapula remains unchanged Physical Exam 2 Physical Exam: PHYSICAL EXAMINATION Last 24h vital signs reviewed, see documentation in flowsheet General: awake alert sitting in bed HEENT: Normocephalic, atraumatic, pupils round and equal, sclerae anicteric, no conjunctival injection, moist mucus membranes Lungs: Normal respiratory effort. clear to auscultation bilaterally Heart: regular no murmurs rubs or gallops Abdomen: nondistended nontender Extremities: Warm, dry, well-perfused. No extremity edema. wearing TEDs Neuro: Alert and oriented x 4, face symmetric, moves 4 extremities well. rest tremor of left index finger only. no rigidity or bradykinesia, slight cogwheeling with extension of left upper extremity Psych: Normal affect and behavior Results & Data Results & Data Vital Signs (Past 12 Hours) Vital Signs Temp Pulse Pulse Resp BP Pulse Ox O2 Del Method 04/28/24 14:52 37.0 C 66 16 154/72 H 97 Room Air 04/28/24 13:54 36.7 C 64 14 158/68 H 97 Room Air 04/28/24 11:56 36.5 C 71 14 124/74 97 Room Air 04/28/24 09:38 Room Air 04/28/24 08:31 36.9 C 63 13 128/76 96 Room Air 04/28/24 07:19 36.6 C 63 16 152/64 H 95 Room Air Laboratory Results INR was 1.4 04/28/24 05:57 04/24/24 05:34 PG Care Time/CCT Total # of Minutes Spent Total Time Spent with Patient: Total time spent is greater than 50% in coordination of care (as documented) at patient's floor/unit and/or counseling patient: Coding Level of Care Code 07692 SUB INP/OBS CARE 235MIN Diagnoses Thoracic compression fracture S22.000A Orthostatic hypotension I95.1 Uncontrolled type 2 diabetes mellitus with hyperglycemia E11.65 Diabetic foot ulcer E11.621; L97.509 Antiphospholipid syndrome D68.61 Hypertension I10
[2024-04-29 06:52] LABS: INR 1.7 (0.9-1.1); Prothrombin Time 17.5 Seconds (9.0-12.0)
--- NOTE | 2024-04-29 17:48 | Hospitalist Progress Note ---
Date of Service April 29, 2024 Assessment & Plan (1) Thoracic compression fracture: Plan: 84-year-old man who had a syncopal episode witnessed by his while going up the garage stairs fell and sustained osteoporotic compression fracture of T4/T5 he did have prodrome of lightheadedness prior to syncope, origin of syncope was orthostatic hypotension see below Subtle acute fracture through anterior osteophytes, right marginal osteophyte, disc base T4-T5 with paravertebral edema. This was reviewed with Dr. Blackman while patient was in the ER. No indication for surgical intervention, not amenable to bracing. No heavy lifting. Conservative/symptomatic care Spine surg consultation completed pain control with acetaminophen, PT/OT Rehab recommended - main problem impacting mobility has been orthostatic hypotension which has been exacerbated by his fracture and immobilization - insurance authorization for SNF pending. medically ready for discharge to SNF setting (2) Orthostatic hypotension: Plan: he reports about a year of orthostatic symptoms with lightheadedness on standing but until now has been manageable. During this admission he had severe orthostasis with systolic pressure falling into the 90s while standing and severe lightheadedness. I think the likely cause of this is a diabetic autonomic neuropathy exacerbated by tamsulosin which has been stopped. TSH and AM cortisol were normal. considered parkinsonism he has a rest tremor of his left first finger only and slight cogwheeling on extension of left upper extremity, however, no bradykinesia or rigidity. This should be monitored over time going forward -not using excessive opioid, eating/drinking normally doesn't seem volume depleted -stopped tamsulosin, monitor for urinary retention - started midodrine 5 tid, remained symptomatically orthostatic added fludrocortisone 04/27 with significant improvement in both standing BP and symptoms. Monitor for edema and check BMP in 1 week -continue PT/OT - rehab is most important at this point to improve his standing tolerance (3) Type II diabetes mellitus, uncontrolled: Plan: Type II DM Metformin held Home 70/30 25-30u insulin twice daily continue basal bolus insulin -BG reviewed and well-controlled 04/29 no changes made (4) Diabetic foot ulcer: Plan: Left anterior lower leg with healing diabetic foot ulcer. No evidence of superimposed infection Wound care daily (5) Antiphospholipid syndrome: Plan: History of antiphospholipid syndrome, remote DVT/PE INR Supratherapeutic on admission with INR 3.9 and treated with 5 mg IV vitamin K INR 1.7 cont warfarin 10 mg daily - daily a.m. INR - continue enoxaparin bridging back to warfarin INR goal 2.0-3.0 (6) Hypertension: Plan: Supine hypertension / orthostatic hypotension see above Plan DVT prophylaxis: anticoagulated PT/OT consulted - recommend rehab Admission and Anticipated Discharge Date Admission Date: April 21, 2024 Subjective doing ok no change in upper back pain, currently 4/10 without radiation, controlled with APAP has not been oob today, no lightheadedness presently Physical Exam Physical Exam: PHYSICAL EXAMINATION Last 24h vital signs reviewed, see documentation in flowsheet General: awake alert sitting in bed HEENT: Normocephalic, atraumatic, pupils round and equal, sclerae anicteric, no conjunctival injection, moist mucus membranes Lungs: Normal respiratory effort. clear to auscultation bilaterally Heart: regular no murmurs rubs or gallops Abdomen: nondistended nontender Extremities: Warm, dry, well-perfused. No extremity edema. wearing TEDs Neuro: Alert and oriented x 4, face symmetric, moves 4 extremities well. Psych: Normal affect and behavior Results & Data Results & Data Vital Signs (Past 12 Hours) Vital Signs Temp Pulse Resp BP BP Pulse Ox O2 Del Method 04/29/24 15:41 36.6 C 57 L 16 156/72 H 94 Room Air 04/29/24 08:00 Room Air 04/29/24 07:42 36.9 C 67 18 135/71 96 Room Air Laboratory Results INR 1.7 PG Care Time/CCT Total # of Minutes Spent Total Time Spent with Patient: Total time spent is greater than 50% in coordination of care (as documented) at patient's floor/unit and/or counseling patient: Coding Level of Care Code 38595 SUB INP/OBS CARE 2/35MIN Diagnoses Thoracic compression fracture S22.000A Orthostatic hypotension I95.1 Uncontrolled type 2 diabetes mellitus with hyperglycemia E11.65 Diabetic foot ulcer E11.621; L97.509 Antiphospholipid syndrome D68.61 Hypertension I10
[2024-04-30 06:40] LABS: INR 1.9 (0.9-1.1); Prothrombin Time 19.3 Seconds (9.0-12.0)
--- NOTE | 2024-04-30 15:13 | Hospitalist Progress Note ---
Date of Service April 30, 2024 Assessment & Plan (1) Thoracic compression fracture: Plan: 84-year-old man who had a syncopal episode witnessed by his while going up the garage stairs fell and sustained osteoporotic compression fracture of T4/T5 he did have prodrome of lightheadedness prior to syncope, origin of syncope was orthostatic hypotension see below Subtle acute fracture through anterior osteophytes, right marginal osteophyte, disc base T4-T5 with paravertebral edema. This was reviewed with Dr. Blackman while patient was in the ER. No indication for surgical intervention, not amenable to bracing. No heavy lifting. Conservative/symptomatic care Spine surg consultation completed pain control with acetaminophen, PT/OT Rehab recommended - main problem impacting mobility has been orthostatic hypotension which has been exacerbated by his fracture and immobilization - insurance authorization for SNF pending. medically ready for discharge to SNF setting (2) Orthostatic hypotension: Plan: he reports about a year of orthostatic symptoms with lightheadedness on standing but until now has been manageable. During this admission he had severe orthostasis with systolic pressure falling into the 90s while standing and severe lightheadedness. I think the likely cause of this is a diabetic autonomic neuropathy exacerbated by tamsulosin which has been stopped. TSH and AM cortisol were normal. considered parkinsonism he has a rest tremor of his left first finger only and slight cogwheeling on extension of left upper extremity, however, no bradykinesia or rigidity. This should be monitored over time going forward -not using excessive opioid, eating/drinking normally doesn't seem volume depleted -stopped tamsulosin, monitor for urinary retention - started midodrine 5 tid, remained symptomatically orthostatic added fludrocortisone 04/27 with significant improvement in both standing BP and symptoms. Monitor for edema and check BMP in 1 week -continue PT/OT - rehab is most important at this point to improve his standing tolerance check BMP in a.m. with addition of fludrocortisone (3) Type II diabetes mellitus, uncontrolled: Plan: Type II DM Metformin held Home 70/30 25-30u insulin twice daily continue basal bolus insulin -BG reviewed and well-controlled 04/30 no changes made (4) Diabetic foot ulcer: Plan: Left anterior lower leg with healing diabetic foot ulcer. No evidence of superimposed infection Wound care daily (5) Antiphospholipid syndrome: Plan: History of antiphospholipid syndrome, remote DVT/PE INR Supratherapeutic on admission with INR 3.9 and treated with 5 mg IV vitamin K INR 1.9 cont warfarin 10 mg daily, stop enoxaparin, INR goal 2.03.0 - daily a.m. INR (6) Hypertension: Plan: Supine hypertension / orthostatic hypotension see above Plan DVT prophylaxis: anticoagulated PT/OT consulted - recommend rehab Admission and Anticipated Discharge Date Admission Date: April 21, 2024 Subjective doing okay, no changes in upper back pain, no lightheadedness while sitting has not had PT this weekend since Wednesday Physical Exam Physical Exam: PHYSICAL EXAMINATION Last 24h vital signs reviewed, see documentation in flowsheet General: awake alert sitting in bed exam unchanged 04/30 HEENT: Normocephalic, atraumatic, pupils round and equal, sclerae anicteric, no conjunctival injection, moist mucus membranes Lungs: Normal respiratory effort. clear to auscultation bilaterally Heart: regular no murmurs rubs or gallops Abdomen: nondistended nontender Extremities: Warm, dry, well-perfused. No extremity edema. wearing TEDs Neuro: Alert and oriented x 4, face symmetric, moves 4 extremities well. Psych: Normal affect and behavior Results & Data Results & Data Vital Signs (Past 12 Hours) Vital Signs Temp Pulse Resp BP Pulse Ox O2 Del Method 04/30/24 08:00 Room Air 04/30/24 07:49 36.6 C 66 16 149/71 H 96 Room Air PG Care Time/CCT Total # of Minutes Spent Total Time Spent with Patient: Total time spent is greater than 50% in coordination of care (as documented) at patient's floor/unit and/or counseling patient: Coding Level of Care Code 07131 SUB INP/OBS CARE 2/35MIN Diagnoses Thoracic compression fracture S22.000A Orthostatic hypotension I95.1 Uncontrolled type 2 diabetes mellitus with hyperglycemia E11.65 Diabetic foot ulcer E11.621; L97.509 Antiphospholipid syndrome D68.61 Hypertension I10
[2024-05-01 06:04] LABS: BUN Creatinine Ratio 19.4 (10-20); Calcium 9.5 mg/dl (8.6-10.3); Est GFR (African American) 100.7 ml/min; Est GFR (Non-African American) 86.9 ml/min
[2024-05-01 06:15] LABS: Prothrombin Time 20.5 Seconds (9.0-12.0)
--- NOTE | 2024-05-01 15:35 | Discharge Summary ---
Discharge Summary Date of Service May 01, 2024 Principal Dx & Hospital Course #1 = Principal Diagnosis (1) Thoracic compression fracture: 84-year-old man who had a syncopal episode witnessed by his while going up the garage stairs fell and sustained osteoporotic compression fracture of T4/T5 he did have prodrome of lightheadedness prior to syncope, origin of syncope was orthostatic hypotension see below Subtle acute fracture through anterior osteophytes, right marginal osteophyte, disc base T4-T5 with paravertebral edema. This was reviewed with Dr. Blackman while patient was in the ER. No indication for surgical intervention, not amenable to bracing. No heavy lifting. Conservative/symptomatic care Spine surg consultation completed pain control with acetaminophen, PT/OT SNF Rehab recommended - main problem impacting mobility has been orthostatic hypotension which has been exacerbated by his fracture and immobilization (2) Orthostatic hypotension: he reports about a year of orthostatic symptoms with lightheadedness on standing but until now has been manageable. During this admission he had severe orthostasis with systolic pressure falling into the 90s while standing and severe lightheadedness. I think the likely cause of this is a diabetic autonomic neuropathy exacerbated by tamsulosin which has been stopped. TSH and AM cortisol were normal. considered parkinsonism he has Intermittent rest tremor of left hand and slight cogwheeling on extension of left upper extremity, however, no bradykinesia or rigidity. This should be monitored over time going forward I made a referral to outpatient neurology for further evaluation and follow-up -not using excessive opioid, eating/drinking normally doesn't seem volume depleted -stopped tamsulosin, monitor for urinary retention - started midodrine 5 tid, remained symptomatically orthostatic added fludrocortisone 04/27 with significant improvement in both standing BP and symptoms. Monitor for edema and check BMP in 1 week - BMP stable on 05/01, see above -continue PT/OT - rehab is most important at this point to improve his standing tolerance (3) Type II diabetes mellitus, uncontrolled: Type II DM. takes 7030 and metformin at home continue metformin and basal bolus insulin (4) Diabetic foot ulcer: Left anterior lower leg with healing diabetic foot ulcer. No evidence of superimposed infection Wound care daily (5) Antiphospholipid syndrome: History of antiphospholipid syndrome, remote DVT/PE INR Supratherapeutic on admission with INR 3.9 and treated with 5 mg IV vitamin K INR 2.0 cont warfarin 10 mg daily, INR goal 2.03.0 - weekly and as needed INR (6) Hypertension: Supine hypertension / orthostatic hypotension see above will need to tolerate supine hypertension in order to maintain enough standing blood pressure. 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 Reports that this was mechanical when he tripped did not have lightheadedness, dizziness, or syncope that led to this fall. He is anticoagulated on warfarin. CT of the head was without any intracranial bleed or abnormality. Imaging of the spine showed subtle acute fracture through anterior osteophytes/right lateral marginal osteophyte/disc space at T4-T5 with mild associated paravertebral edema. Findings were reviewed with orthopedic spine Dr. Blackman. Nonoperative, and not amenable to bracing. Recommended no lifting at this time. Recommended admission and observation until INR is therapeutic. Due to history of DVT and antiphospholipid syndrome will need anticoagulation however received vitamin K on admission and will have INR checks daily until back in therapeutic range. Randal is seen at the bedside with his family present. He reports that he was walking up the steps when he tripped over his foot and lost his balance falling backwards. Is not sure if he lost consciousness as the fall happened quickly. Does not have any headache or head pain does have pain in his mid upper back which is much worse on attempted movement. No numbness/tingling. He has not noticed any weakness in the extremities. He has some pain at his right clavicle otherwise no chest pain. No abdominal pain. He has not noticed any bleeding. His left lower extremity wound is greatly improved and has not been red or warm, but does have remaining packing which has been reevaluated daily while at [facility]. Denies fever, chills, sweats. No lightheadedness or dizziness. Medical History: Reviewed Medications: Reviewed Surgical History: Reviewed Family history: Reviewed Allergies: Reviewed Social History: Reviewed Code Status: DNR/DNI Discharge Exam PHYSICAL EXAMINATION Last 24h vital signs reviewed, see documentation in flowsheet General: awake and sitting in the chair HEENT: Normocephalic, atraumatic, pupils round and equal, sclerae anicteric, no conjunctival injection, moist mucus membranes Lungs: Normal respiratory effort. clear to auscultation bilaterally Heart: regular no murmurs rubs or gallops Abdomen: nondistended nontender Extremities: Warm, dry, well-perfused. trace/very mild extremity edema. wearing TEDs Neuro: Alert and oriented x 4, face symmetric, moves 4 extremities well. rest tremor left upper extremity. Very mild cogwheeling without rigidity both upper extremities Psych: Normal affect and behavior Updated Medication List Medication Instructions Recorded Confirmed Type multivitamin (Daily Multi-Vitamin 1 tab PO QAM 12/11/21 04/21/24 History tablet) miscellaneous medical supply #3,840 mL 12/12/21 04/21/24 Rx magnesium citrate 100 mg tablet 100 mg PO DAILY 09/30/22 04/21/24 History rosuvastatin 20 mg tablet (Crestor) 20 mg PO QAM #90 tabs 10/13/23 04/21/24 Rx metformin 500 mg tablet,extended 1,000 mg (2 x 500 mg) PO BID #360 11/15/23 04/21/24 Rx release 24 hr tabs pen needle, diabetic 32 gauge x #200 ea 11/18/23 04/21/24 Rx 5/32" (BD Donna 2nd Gen Pen Needle) blood sugar diagnostic (OneTouch #100 ea 12/23/23 04/21/24 Rx Ultra Test strips) blood-glucose meter (OneTouch #1 ea 12/23/23 04/21/24 Rx Ultra2 Meter) lancets 33 gauge (OneTouch Delica #100 ea 02/21/24 04/21/24 Rx Plus Lancet) warfarin 5 mg tablet 10 mg PO UD 03/24/24 04/21/24 History acetaminophen 325 mg tablet 650 mg (2 x 325 mg) PO Q4H PRN #0 05/01/24 Rx tabs ferrous sulfate 325 mg (65 mg 325 mg PO Q48H #0 tabs 05/01/24 04/21/24 Rx iron) tablet (Feosol) fludrocortisone 0.1 mg tablet 0.1 mg PO QAM #0 tabs 05/01/24 Rx insulin aspart U-100 100 unit/mL See Rx Instructions .Route 05/01/24 Rx subcutaneous solution (Novolog .COMPLEX #0 mL U-100 Insulin aspart) insulin glargine 100 unit/mL 13 unit (0.13 mL) subcut BID #0 mL 05/01/24 Rx subcutaneous solution (Lantus U-100 Insulin) lidocaine 5 % topical patch 1 patch transdermal Q24H #0 ea 05/01/24 Rx miconazole nitrate 2 % topical 1 applic EXT PRN PRN #0 grams 05/01/24 Rx powder (Desenex) midodrine 2.5 mg tablet 5 mg (2 x 2.5 mg) PO TID #0 tabs 05/01/24 Rx polyethylene glycol 3350 17 gram 17 g PO DAILY #0 ea 05/01/24 Rx oral powder packet (Miralax) Hospital Stay Data Consultations 04/21/24 18:02 ED Decision to Admit Stat 04/22/24 10:59 Consult Orthopedic Spine Surgery Routine Diagnostic Imagining Performed 04/21/24 15:04 CT cervical spine wo con Stat CT head/brain wo con Stat CT thoracic spine wo con Stat Cervical Spine CT 04/21/24 15:[address] SCAN OF THE CERVICAL SPINE CLINICAL HISTORY: Trauma. Fall. COMPARISON STUDY: CT of the cervical spine dated 08/10/2022. TECHNIQUE: CT scan of the cervical spine is performed from the skull base to the upper thoracic spine. Images are reviewed in the axial, sagittal, and coronal planes. IV contrast was not administered for this examination. A dose lowering technique was utilized adhering to the principles of ALARA. FINDINGS: Skeletal structures: The skeletal structures are osteopenic. There is no evidence of fracture or subluxation involving the cervical spine. Vertebral body height and alignment are maintained. There is straightening of the cervical lordosis. Anterior osteophytes are seen throughout. The odontoid process and lateral masses are intact. The atlantoaxial articulation is preserved noting productive degenerative change. The spinous processes appear intact. There is moderate multilevel cervical spondylosis. Uncovertebral and facet arthropathy contribute to neural foraminal narrowing at several levels. Intervertebral discs: There is only minimal degenerative disc space narrowing. Central canal: Posterior disc osteophyte complexes at C5-C6 and C6-C7 may contribute to mild acquired compromise of the central canal. Soft tissues: The prevertebral and paraspinous soft tissues are within normal limits. Calvarium: The visualized calvarium at the skull base appears intact. Brain parenchyma: Partially visualized brain parenchyma at the skull base is within normal limits. Sinuses and mastoids: The visualized paranasal sinuses are clear. There is a left mastoid effusion. The right mastoid air cells are well pneumatized. Lung apices: Clear as visualized. IMPRESSION: 1. There is no evidence of cervical spine fracture or subluxation. 2. Osteopenia and spondylotic change as above. ACT 112: Negative or not required by law. Electronically signed by: Frank Weeks M.D. 04/21/2024 2:[address] 04/21/24 15:[address] SCAN OF THE BRAIN WITHOUT IV CONTRAST CLINICAL HISTORY: Trauma. Fall. COMPARISON STUDY: CT of the brain dated 03/21/2024. TECHNIQUE: Unenhanced axial CT scan of the brain is performed from the vertex to the skull base. A dose lowering technique was utilized adhering to the principles of ALARA. FINDINGS: Brain parenchyma: There is age-related involutional change noting mild subcortical and periventricular microangiopathic disease. There is no hemorrhage, mass effect, or evidence of acute territorial ischemia by CT criteria. Kauffman-white matter differentiation is preserved. No extra-axial fluid collection is seen. Ventricles, sulci, cisterns: Prominent secondary to involutional change. Intracranial vasculature: There is atherosclerotic calcification of the cavernous carotid arteries. Calvarium: The skeletal structures are osteopenic. No depressed calvarial fracture is seen. Sinuses and mastoids: The visualized paranasal sinuses are clear. The mastoid air cells are well pneumatized. Orbits: The bony orbits are grossly intact. There are bilateral ocular lens implants. IMPRESSION: There is no hemorrhage, mass effect, or evidence of acute territorial ischemia by CT criteria. ACT 112: Negative or not required by law. Electronically signed by: Frank Weeks M.D. 04/21/2024 2:[address] 04/21/24 15:[address] SCAN OF THE THORACIC SPINE WITHOUT IV CONTRAST CLINICAL HISTORY: Trauma. Fall. COMPARISON STUDY: Chest CT dated 03/06/2024. CT of the thoracic spine dated 08/10/2022. TECHNIQUE: CT scan of the thoracic spine is performed from the lower cervical spine to the upper lumbar spine. Images are reviewed in the axial, sagittal, coronal planes. IV contrast was not administered for this examination. A dose lowering technique was utilized adhering to the principles of ALARA. FINDINGS: The skeletal structures are osteopenic. There is a subtle fracture through the anterior osteophytes, right marginal osteophytes, and disc space at T4-T5. This is best seen on sagittal images #34 and #29, as well as coronal image #53. There is no evidence of posterior element involvement. There is no loss of height or retropulsion of fragments. Mild paravertebral edema is seen at this level. No additional acute fracture is seen involving the thoracic spine. There is no malalignment. Vertebral body height and alignment are maintained. Anterior osteophytes are seen throughout with evidence of DISH. The transverse and spinous processes appear intact. No lytic or blastic lesion is seen. There is mild degenerative disc space narrowing. There is no CT evidence of large disc herniation or high-grade central canal stenosis. The visualized posterior ribs are intact. The paraspinous soft tissues are within normal limits. There is bibasilar scarring/atelectasis. No airspace consolidation or pleural effusions identified. Groundglass opacities at the left apex are new from 03/06/2024 and likely inflammatory. The heart is enlarged. The coronary arteries are densely calcified. A small hiatal hernia is noted. Calcified gallstones are observed. Bilateral renal cysts are partially visualized and measure up to 3.3 cm. IMPRESSION: 1. Subtle acute fracture through the anterior osteophytes, right lateral marginal osteophyte, and disc space at T4-T5 with mild associated paravertebral edema. 2. There is no evidence of posterior element involvement, and no retropulsion of fragments is seen. 3. No additional acute fracture is identified involving the thoracic spine and there is no malalignment. 4. Osteopenia and mild degenerative change as above. 5. Cholelithiasis. 6. Additional findings as above. ACT 112: Negative or not required by law. Electronically signed by: Frank Weeks M.D. 04/21/2024 2:27 PM Chest X-Ray 04/21/24 18:12 XR chest 1V portable CLINICAL HISTORY: eval for R anterior rib fxr, trauma TECHNIQUE: Single frontal radiograph of the chest was obtained. Comparison: Comparison is made to chest radiograph 08/25/2022 FINDINGS: No lines and tubes are seen. The cardiomediastinal silhouette is normal. The lungs are clear. No evidence of pleural effusion or pneumothorax. IMPRESSION: No acute chest disease. No radiographic evidence of anterior rib fracture. If clinical suspicion remains, rib series or CT chest can be performed. ACT 112: Negative or not required by law. Electronically signed by: Finn Morel M.D. 04/21/2024 7:23 PM Clavicle X-Ray 04/21/24 18:12 XR clavicle 2 view RT CLINICAL HISTORY: tenderness to palp, fall/trauma TECHNIQUE: 2 views of the right clavicle were obtained. Comparison: None available at the time of this dictation. FINDINGS: There is no evidence of acute fracture, subluxation, or dislocation. Mild degenerative changes are seen. The overlying soft tissues are unremarkable. The visualized portions of the lungs are clear. IMPRESSION: No evidence of acute bony injury. ACT 112: Negative or not required by law. Electronically signed by: Finn Morel M.D. 04/21/2024 7:22 PM 04/28/24 05:57 05/01/24 05:35 Pending Results Patient Have Any Pending Studies at Discharge: No Discharge Instructions Given to Patient (Per Discharging Provider) T 4-5 compression fracture -not amenable to bracing -avoid lifting, twisting, bending -walker for ambulation -PT and OT evaluate and treat Severe orthostatic hypotension -improved with stopping tamsulosin, addition of midodrine and fludrocortisone -check BMP in 1 week and monitor for leg edema due to fludrocortisone -monitor for urinary retention, bladder scan as needed -outpatient neurology referral made for potential mild/early parkinsonism Diabetes -BG checks qAC, diabetic diet Antiphospholipid antibody syndrome Chronic warfarin anticoagulation INR goal 2.0-3.0 Home dose warfarin 10 mg daily Please check INR in 1 week and as needed INR on 05/01 was 2.0 (has been on the increase because vitamin K had been given in the ED on admission) Wound care to left lower leg wound clean with saline. Cover with double layer Kaltostat and secure with Optifoam. Change every day and as needed Total Time Total Time Spent Total Time Spent (In Minutes): I personally spent: 40 minutes today on clinical care activities including: reviewing chart notes and vital signs reviewing labs discussion with animal care technician examining and counseling the patient writing orders, discharge orders and instructions documentation Coding Level of Care Code 56190 INP/OBS DISCH >30 MIN Diagnoses Thoracic compression fracture S22.000A Orthostatic hypotension I95.1 Uncontrolled type 2 diabetes mellitus with hyperglycemia E11.65 Diabetic foot ulcer E11.621; L97.509 Antiphospholipid syndrome D68.61 Hypertension I10
== END 2024-05-01 13:00 | DRG 543 ==
LOC: ED 12:21 → 3E 18:07 → SUATTDRO 18:07 → 3E 20:00

== ENCOUNTER 2024-10-31 09:29 | Inpatient (IN) ==
--- NOTE | 2024-10-31 09:45 | Emergency Department Note ---
Impression & Plan Acute confusion, Hypomagnesemia ED Provider Note HISTORY OF PRESENT ILLNESS: Patient is a an 84-year-old male presenting with altered mental status. History is obtained via EMS. They report that the patient's said he has been having progressively worsening confusion over the last 2 days. They reported that "he was recently diagnosed with a DVT and started on Keflex." Patient is alert to self only. He supplies no meaningful history. had reported to EMS the patient is having new urinary incontinence. presents to bedside and supplies more history. Reports the patient was diagnosed with a DVT a week ago but the anticoagulation clinic thought it was an old DVT. He was started on Keflex given that both of his lower extremities were red and swollen and they thought he might have some cellulitis. States that for the last 24-48 hours the patient does not seem to be acting his normal self. Reports he has not tolerated his home medications in 24 hours. States that the patient skipped dinner last night and breakfast this morning, which is abnormal for him. She states he seems to be speaking nonsensically. States that symptoms have been ongoing for at least 24 hours. ROS: as above PHYSICAL EXAM: Constitutional: Patient appears in no acute distress. HENT: Head: Normocephalic and atraumatic. Eyes: EOMI, PERRL Mouth/Throat: Mucous membranes moist. Neck: Trachea midline. Neck supple. Cardiovascular: RRR, No murmurs, rubs or gallops. Intact distal pulses. Pulmonary/Chest: No respiratory distress. Breath sounds clear and equal bilaterally. No wheezes or rales. No chest wall tenderness to palpation. Abdominal: Abdomen soft, no tenderness, rebound or guarding. Colostomy bag in place. Musculoskeletal: No tenderness or deformity noted. Lymphedema bilateral lower extremities. Noted to have chronic venous stasis of the bilateral lower extremities with some erythema bilaterally. Patient has some draining wounds to the bilateral distal anterior tibial region, draining a clear liquid. No palpable crepitus. Patient has no significant tenderness with palpation of his lower legs. Skin: Warm and dry. Psychiatric: Appropriate mood and affect for situation. Neurological: Alert and keenly responsive. CN II-XII grossly intact, moving all extremities equally and fully. MDM: - Vitals signs showed hypertension. - History obtained via EMS and patient's . History as above. - Chronic conditions affecting care: CAD; PE; HLD; HTN; DM-2 - Differential diagnoses include, but are not limited to: CVA; intracranial hemorrhage; ACS; pneumonia; UTI; meningitis; viral syndrome; electrolyte abnormality - Order placed for continuous cardiac monitoring. At this time, monitor showed rate of 80 bpm with normal sinus rhythm, per my interpretation. - External medical records reviewed. Anticoagulation clinic note dated 10/30/2024 was reviewed. Patient is currently on Lovenox dosing and plans to transition back to warfarin after he completes his 2 weeks of enoxaparin. - EKG interpreted by myself showed normal sinus rhythm. Rate 90 bpm. QT 346. No acute ischemic changes. - Laboratory workup interpreted by myself showed normal WBC; normal PT/INR; slight hyponatremia (Na 135); hyperglycemia (glucose 265); hypomagnesemia (Mg 1.6); normal troponin; normal TSH - CXR negative for pneumonia, per my interpretation - CT head wo contrast negative for acute pathology - UA negative for infection - Given patient's acute confusion, will also add CTA head/neck to workup. - Viral respiratory panel negative - CTA head negative for acute pathology - CTA neck negative for acute pathology - Patient is with symptoms for over 24 hours, so not a TNK candidate if stroke. In addition, he has no significant neurological deficits other than his confusion. CT imaging does not show any evidence of large vessel occlusion to make him a candidate for thrombectomy. - Unclear etiology for patient's confusion at this time. No reported falls no obvious intracranial abnormality on CT imaging. However, may have had a stroke, so MRI brain may be helpful to obtain. No reported fevers and patient is moving his neck without any limitations, making meningitis less likely as a diagnosis. - Discussion was had with case fitter about patient's case and need for admission - Hospitalist, Dr. Brooks, consulted for admission - Patient admitted to [facility] for further evaluation and management. ASSESSMENT AND PLAN: Diagnosis: acute confusion; hypomagnesemia Plan: admit Past Med/Surg History Problem List (Updated 10/31/24 @ 11:10 by Any Randall MD) Hypomagnesemia (Acute) Acute confusion (Acute) Deep venous thrombosis of right popliteal vein Diabetic nephropathy associated with type 2 diabetes mellitus Poorly controlled type 2 diabetes mellitus Diabetic peripheral neuropathy associated with type 2 diabetes mellitus Loss of protective sensation of skin of foot Weakness generalized Diabetic retinopathy associated with type 2 diabetes mellitus Orthostatic hypotension Thoracic compression fracture History of rectal polypectomy [facility] [place] Serum calcium elevated Leg swelling (Acute) Leg weakness, bilateral Obese Port-A-Cath in place (01/27/22) Insertion Access Port with Fluoro, Left Subclavian (Left) - Junior Bae, DO Unsteady gait Hypertension denies Long-term (current) use of anticoagulants, INR goal 2.0-3.0 (Chronic) Adenocarcinoma, colon hx- s/p colostomy Antiphospholipid syndrome (Chronic) on warfarin, follows with [place] [facility] Hyperlipidemia Anemia iron deficiency-on po supplementation Medical History Advanced care planning/counseling discussion CHI (closed head injury) BPH (benign prostatic hyperplasia) Arthritis of knee, right History of pulmonary embolism Glaucoma Vitamin D deficiency Abscess of left lower extremity Hx of insect bite Lung granuloma Carotid artery calcification Coronary artery calcification Surgical History H/O colectomy History of incision and drainage (03/31/24) Hx of left cataract extraction History of removal of Port-a-Cath (10/19/23) Hx of tooth extraction History of transesophageal echocardiography ([facility]) History of colostomy History of colonoscopy Hx of lymph node biopsy H/O colectomy History of knee surgery History of elbow surgery History of dental surgery Family History Father Myocardial infarction Diabetes Aunt Breast cancer Mother Cancer Diabetes Denies family history of Ovarian cancer Prostate cancer Colorectal cancer Social History (Updated 10/24/24 @ 13:39 by Yumiko Sanders LPN) Smoking Status: Unknown if ever smoked Second Hand Exposure: No; Do You Dip or Chew Tobacco: No; Hx Alcohol Use: Yes Alcohol type: wine Alcohol Intake Frequency: 2-4 x/Month Alcohol Intake Frequency Comment: Once a week Hx Substance Use: No Preferred Language: Comoran Communication Ability: Effective Visual Impairment: Limited Hearing Ability: Normal Life Insurance Specialist Required: No Beliefs That Will Affect Care: None marital status: Current Living Situation: Spouse and Family Current Living Situation Comment: lives with and daughter current occupational status: retired How many Children do You have: 3 Feels Safe at Home: Yes Childhood Exposure to Second-Hand Smoke: Yes Diet: diabetic and regular caffeine: Yes during the past year weight has: remained stable Dental Care, Regularly: Yes Physical Activity Frequency: Does not Exercise Seatbelt Use: always Sunscreen Use: Yes Do you think of yourself as: straight/heterosexual Sexual Activity: has been sexually active, but not for at least 12 months Gender Identity: Male Assistive Devices: Glasses and Walker Allergies Allergies Allergy/AdvReac Type Severity Reaction Status Date / Time sitagliptin Allergy Intermediate Hives - Verified 10/31/24 13:07 Januvia cat dander Allergy Mild EYES WATER Verified 10/31/24 13:07 Orzhkcq-BBM-OoI Reductase AdvReac Intermediate LEG CRAMPS Verified 10/31/24 13:07 Inhibitor [Iqydjzp-Dcl-Neb Reductase Inhibitor] Home Meds Home Medications Medication Instructions Recorded Confirmed multivitamin (Daily Multi-Vitamin 1 tab PO QAM 12/11/21 10/30/24 tablet) magnesium citrate 125 mg capsule 250 mg PO DAILY 06/15/24 10/30/24 enoxaparin 120 mg/0.8 mL 120 mg subcut QAM 10/30/24 10/30/24 subcutaneous syringe warfarin 5 mg tablet See Rx Instructions PO UD 10/30/24 10/30/24 Previous Rx's Medication Instructions Recorded miscellaneous medical supply #3,840 mL 12/12/21 rosuvastatin 20 mg tablet (Crestor) 20 mg PO QAM #90 tabs 10/13/23 metformin 500 mg tablet,extended 1,000 mg (2 x 500 mg) PO BID #360 11/15/23 release 24 hr tabs pen needle, diabetic 32 gauge x #200 ea 11/18/23" (BD Donna 2nd Gen Pen Needle) blood sugar diagnostic (OneTouch #100 ea 12/23/23 Ultra Test strips) blood-glucose meter (OneTouch #1 ea 12/23/23 Ultra2 Meter) lancets 33 gauge (OneTouch Delica #100 ea 02/21/24 Plus Lancet) acetaminophen 325 mg tablet 650 mg (2 x 325 mg) PO Q4H PRN #0 05/01/24 tabs ferrous sulfate 325 mg (65 mg 325 mg PO Q48H #0 tabs 05/01/24 iron) tablet (Feosol) ostomy supplies (Adhesive Remover #50 ea 05/11/24 Wipes) ostomy supplies (SenSura Flex #2 Boxes 05/11/24 Ostomy Pouch) insulin aspar prot-insulin aspart See Rx Instructions subcut BID #15 07/03/24 100 unit/mL (70-30) subcutaneous mL pen (Novolog Mix 70-30FlexPen U-100) FreeStyle Rachelle 3 Plus Sensor #2 ea 09/15/24 (blood-glucose sensor) furosemide 20 mg tablet (Lasix) 20 mg PO DAILY #30 tabs 10/19/24 Results & Data (ED) Vital Signs Vital Signs - 24 hr 10/31/24 09:35 10/31/24 09:50 10/31/24 09:50 Temperature 36.5 C Temperature Source Oral Pulse Rate 81 Pulse Rate [Left Apical] Pulse Rate from SpO2 Sensor Respiratory Rate 20 Respiratory Effort / Characteristics Non-Labored Spontaneous Respiratory Depth Normal Respiratory Pattern Blood Pressure 169/115 H Blood Pressure [Left Arm] Blood Pressure Mean 133 Blood Pressure Mean [Left Arm] Blood Pressure Position Lying Pulse Oximetry 94 94 94 Oxygen Delivery Method Room Air Room Air Room Air Sepsis Recent Fever Within 48 Hours No Sepsis New/Unexplained Change in Mental Status No Sepsis Action Taken by Nursing No Action Required 10/31/24 09:51 10/31/24 09:52 10/31/24 10:00 Temperature Temperature Source Pulse Rate 79 78 Pulse Rate [Left Apical] Pulse Rate from SpO2 Sensor 79 Respiratory Rate 15 Respiratory Effort / Characteristics Respiratory Depth Respiratory Pattern Blood Pressure 179/84 H Blood Pressure [Left Arm] Blood Pressure Mean 124 Blood Pressure Mean [Left Arm] Blood Pressure Position Pulse Oximetry 94 Oxygen Delivery Method Sepsis Recent Fever Within 48 Hours Sepsis New/Unexplained Change in Mental Status Sepsis Action Taken by Nursing 10/31/24 10:03 10/31/24 11:34 10/31/24 11:54 Temperature Temperature Source Pulse Rate 81 97 H Pulse Rate [Left Apical] 92 H Pulse Rate from SpO2 Sensor Respiratory Rate 15 18 16 Respiratory Effort / Characteristics Non-Labored Spontaneous Respiratory Depth Normal Respiratory Pattern Regular Blood Pressure Blood Pressure [Left Arm] 175/86 H Blood Pressure Mean Blood Pressure Mean [Left Arm] 115 Blood Pressure Position Pulse Oximetry 94 Oxygen Delivery Method Room Air Sepsis Recent Fever Within 48 Hours Sepsis New/Unexplained Change in Mental Status Sepsis Action Taken by Nursing 10/31/24 11:57 10/31/24 12:00 10/31/24 12:06 Temperature Temperature Source Pulse Rate 83 84 Pulse Rate [Left Apical] Pulse Rate from SpO2 Sensor 84 Respiratory Rate 12 12 Respiratory Effort / Characteristics Respiratory Depth Respiratory Pattern Blood Pressure 177/90 H Blood Pressure [Left Arm] Blood Pressure Mean 117 Blood Pressure Mean [Left Arm] Blood Pressure Position Pulse Oximetry 93 93 Oxygen Delivery Method Room Air Room Air Sepsis Recent Fever Within 48 Hours Sepsis New/Unexplained Change in Mental Status Sepsis Action Taken by Nursing 10/31/24 12:30 Temperature Temperature Source Pulse Rate Pulse Rate [Left Apical] Pulse Rate from SpO2 Sensor Respiratory Rate Respiratory Effort / Characteristics Respiratory Depth Respiratory Pattern Blood Pressure 179/90 H Blood Pressure [Left Arm] Blood Pressure Mean 110 Blood Pressure Mean [Left Arm] Blood Pressure Position Pulse Oximetry Oxygen Delivery Method Sepsis Recent Fever Within 48 Hours Sepsis New/Unexplained Change in Mental Status Sepsis Action Taken by Nursing Laboratory Data 10/31/24 09:45 10/31/24 09:45 Lab Results 10/31/24 10/31/24 Range/Units 09:45 11:33 WBC 6.40 (4.8-10.8) K/ul RBC 3.87 L (4.70-6.10) M/uL Hgb 11.8 L (14.0-18.0) g/dl Hct 34.9 L (42.0-52.0) % MCV 90.2 (80.0-100.0) fL MCH 30.5 (25.0-34.0) pg MCHC 33.8 (32.0-36.0) g/dL RDW Std Deviation 46.5 H (36.4-46.3) fL RDW Coeff of Cleo 14.2 (11.5-14.5) % Plt Count 190 (130-400) K/uL MPV 9.8 (9.4-12.4) fL Immature Gran % (Auto) 0.2 % Neut % (Auto) 74.1 % Lymph % (Auto) 18.0 % [place] % (Auto) 7.0 % Eos % (Auto) 0.2 % Baso % (Auto) 0.5 % Neut # (Auto) 4.75 (1.40-6.50) K/uL Lymph # (Auto) 1.15 L (1.20-3.40) K/uL [place] # (Auto) 0.45 (0.11-0.59) K/uL Eos # (Auto) 0.01 (0.00-0.50) K/uL Baso # (Auto) 0.03 (0.00-0.20) K/uL Immature Gran # (Auto) 0.01 (0.01-0.20) K/uL PT 10.6 (9.0-12.0) Seconds INR 1.0 (0.9-1.1) Sodium 135 L (136-145) mmol/L Potassium 4.0 (3.5-5.1) mmol/L Chloride 100 (98-107) mmol/L Carbon Dioxide 30 (21-32) mmol/L Anion Gap 5 (3-11) BUN 19 (6-23) mg/dl Creatinine 0.99 (0.6-1.4) mg/dl Est Cr Clr Drug Dosing 76.0 ml/min eGFR 76.06 BUN/Creatinine Ratio 19.2 (10-20) Glucose 265 H (70-99(Fasting)) mg/dl Lactate 1.4 (0.4-2.0) mmol/L Calcium 10.0 (8.6-10.3) mg/dl Magnesium 1.6 L (1.7-2.4) mg/dl Total Bilirubin 0.8 (0.2-1.0) mg/dl AST 14 (13-39) U/L ALT 24 (7-52) U/L Alkaline Phosphatase 77 (34-104) U/L Troponin I High Sens 13.0 (0-20) pg/ml Total Protein 6.7 (6.0-8.3) gm/dl Albumin 4.0 (3.4-5.0) gm/dl Globulin 2.7 (2.5-4.0) gm/dl Albumin/Globulin Ratio 1.5 (0.9-2) TSH 0.979 (0.300-4.500) uIu/ml Urine Color Yellow Urine Appearance Clear (Clear) Urine pH 7.0 (4.5-7.5) Ur Specific [place] 1.019 (1.000-1.030) Urine Protein 2+ H (Negative) Urine Glucose (UA) 1+ H (Negative) Urine Ketones 1+ H (Negative) Urine Blood 1+ H (Negative) Urine Nitrite Negative (Negative) Urine Bilirubin Negative (Negative) Urine Urobilinogen Negative (Negative) Ur Leukocyte Esterase Negative (Negative) Urine WBC (Auto) 0-5 (0-5) /hpf Urine RBC (Auto) 6-10 H (0-2) /hpf U Hyaline Cast (Auto) 0-2 (0-2) /lpf U Epithel Cells (Auto) 0-2 (0-2) /hpf Urine Bacteria (Auto) None Seen (None Seen) Adenovirus (PCR) Not Detected (NotDetected) B. pertussis DNA (PCR) Not Detected (NotDetected) B.parapertussis DNA PCR Not Detected (NotDetected) C. pneumoniae DNA (PCR) Not Detected (NotDetected) Coronavirus OC43 (PCR) Not Detected (NotDetected) Coronavirus HKU1 (PCR) Not Detected (NotDetected) Coronavirus 229E (PCR) Not Detected (NotDetected) SARS-CoV-2 (PCR) Not Detected (NotDetected) Coronavirus NL63 (PCR) Not Detected (NotDetected) Human Metapneumovir PCR Not Detected (NotDetected) Influenza Type A (PCR) Not Detected (NotDetected) Influenza Type B (PCR) Not Detected (NotDetected) M. pneumoniae (PCR) Not Detected (NotDetected) Parainfluenza 1 (PCR) Not Detected (NotDetected) Parainfluenza 2 (PCR) Not Detected (NotDetected) Parainfluenza 3 (PCR) Not Detected (NotDetected) Parainfluenza 4 (PCR) Not Detected (NotDetected) RSV (PCR) Not Detected (NotDetected) Entero/Rhino (PCR) Not Detected (NotDetected) Administered Medications Discontinued Medications Magnesium Sulfate/Dextrose (Magnesium Sulfate / D5w) 1 gm in 100 mls @ 100 mls/hr IV NOW STA Stop: 10/31/24 11:32 Last Infusion: 10/31/24 11:40 Dose: Infused Documented By: Admin: 10/31/24 10:37 Dose: 100 mls/hr Documented By: TNK Sodium Chloride (Nss) 1,000 mls @ 999 mls/hr IV .Q1H1M ONE Stop: 10/31/24 12:01 Last Infusion: 10/31/24 12:45 Dose: Infused Documented By: Admin: 10/31/24 11:33 Dose: 999 mls/hr Documented By: MILLER Ioversol (Optiray 320 125ml) 112 ml IV ONCE ONE Stop: 10/31/24 11:47 Last Admin: 10/31/24 11:46 Dose: 112 ml Documented By: MICHAELA Imaging Data Radiologist's Impression: Chest X-Ray 10/31/24 09:40 XR chest 1V portable CLINICAL HISTORY: confusion COMPARISON STUDY: 04/21/2024 FINDINGS: Stable mild cardiomegaly without pulmonary vascular congestion. Inspiration is shallow. No effusion, consolidation, or pneumothorax. IMPRESSION: No acute findings. ACT 112: Negative or not required by law. Electronically signed by: Gilmer Mahmood M.D. 10/31/2024 10:[address] 10/31/24 09:41 CT head/brain wo con CLINICAL HISTORY: confusion. TECHNIQUE: Multiple axial CT images of the head were obtained without contrast. A dose lowering technique was utilized adhering to the principles of ALARA. CT DOSE: 625.8 mGy.cm COMPARISON: 04/21/2024 FINDINGS: There is stable prominence of the ventricles out of proportion to the sulci, cerebral atrophy versus mild normal pressure hydrocephalus. No intracranial hemorrhage seen. No mass effect or midline shift. Visualized paranasal sinuses and mastoid air cells are clear. No skull fracture. IMPRESSION: No acute findings. ACT 112: Negative or not required by law. The above report was generated using voice recognition software. It may contain grammatical, syntax or spelling errors. Electronically signed by: iGlmer Mahmood M.D. 10/31/2024 10:04 AM Head CTA 10/31/24 11:05 CT angio neck with con, CT angio head w con CLINICAL HISTORY: confusion. COMPARISON STUDY: 08/10/2022 TECHNIQUE: Following the IV administration of 112 of Optiray, CT angiogram of the neck and brain was performed from the aortic arch to the skull base. Images are reviewed in the axial, sagittal, and coronal planes. 3-D MIPS images are created and assessed. IV contrast was administered without complication. All measurements were calculated based on NASCET criteria. A dose lowering technique was utilized adhering to the principles of ALARA. CT DOSE: 628.14 mGy.cm FINDINGS: There is mild medication and spray artifact. The vertebral arteries are diminutive distally beyond PICA, anatomic variant. No significant narrowing or occlusion seen at the common or internal carotid or vertebral arteries bilaterally. Basilar artery is patent. The anterior, middle, and posterior cerebral arteries are patent bilaterally. No intracranial aneurysm seen. Cerebral venous sinuses opacify normally. IMPRESSION: No significant arterial narrowing or occlusion seen on CTA of the neck or brain. ACT 112: Negative or not required by law. The above report was generated using voice recognition software. It may contain grammatical, syntax or spelling errors. Electronically signed by: Gilmer Mahmood M.D. 10/31/2024 12:07 PM Neck CTA 10/31/24 11:05 CT angio neck with con, CT angio head w con CLINICAL HISTORY: confusion. COMPARISON STUDY: 08/10/2022 TECHNIQUE: Following the IV administration of 112 of Optiray, CT angiogram of the neck and brain was performed from the aortic arch to the skull base. Images are reviewed in the axial, sagittal, and coronal planes. 3-D MIPS images are created and assessed. IV contrast was administered without complication. All measurements were calculated based on NASCET criteria. A dose lowering technique was utilized adhering to the principles of ALARA. CT DOSE: 628.14 mGy.cm FINDINGS: There is mild medication and spray artifact. The vertebral arteries are diminutive distally beyond PICA, anatomic variant. No significant narrowing or occlusion seen at the common or internal carotid or vertebral arteries bilaterally. Basilar artery is patent. The anterior, middle, and posterior cerebral arteries are patent bilaterally. No intracranial aneurysm seen. Cerebral venous sinuses opacify normally. IMPRESSION: No significant arterial narrowing or occlusion seen on CTA of the neck or brain. ACT 112: Negative or not required by law. The above report was generated using voice recognition software. It may contain grammatical, syntax or spelling errors. Electronically signed by: Gilmer Mahmood M.D. 10/31/2024 12:07 PM Discharge Plan Visit Data Chief Complaint: Confusion Stated Complaint: CONFUSION, LEG EDEMA ED Provider: Any Randall Discharge Problem: Acute confusion, Hypomagnesemia Forms Stand Alone Forms: The [employer] Prescriptions Prescriptions: No Action warfarin 5 mg tablet See Rx Instructions PO UD Rx Instructions: 15mg daily x 3 days then Return to [facility] orally use as directed; enoxaparin 120 mg/0.8 mL syringe 120 mg subcut QAM Rx Instructions: Per [facility] magnesium citrate 125 mg capsule 250 mg PO DAILY (DME) miscellaneous medical supply Liquid See Rx Instructions .Route Qty: 3840 0RF Rx Instructions: Ca 600 mg, Mag 300 mg, D3 500- 1 teaspoon daily rosuvastatin [Crestor] 20 mg tablet 20 mg PO QAM Qty: 90 3RF metformin 500 mg tablet extended release 24 hr 1,000 mg PO BID Qty: 360 3RF (DME) pen needle, diabetic [BD Donna 2nd Gen Pen Needle] 32 gauge x 5/32" needle See Dose Instructions .ROUTE .MEDSUPPLY Qty: 200 3RF Dose Instruction: As directed Rx Instructions: use 2 daily (DME) lancets [OneTouch Delica Plus Lancet] 33 gauge misc See Rx Instructions .Route Qty: 100 8RF Rx Instructions: test 2-3 times a day (DME) SenSura Flex Ostomy Pouch Misc See Rx Instructions .Route Qty: 2 0RF Rx Instructions: 10 IN EACH BOX (DME) Adhesive Remover Wipes Swab See Rx Instructions .Route Qty: 50 0RF Rx Instructions: As directed use with ostomy insulin asp prt-insulin aspart [Novolog Mix 70-30FlexPen U-100] 100 unit/mL (70-30) insulin pen See Rx Instructions subcut BID Qty: 15 3RF Rx Instructions: subcutaneously twice a day; Inject 25 units first thing in the morning before breakfast and 15 units in the evening before the last meal of the day. (DME) FreeStyle Rachelle 3 Plus Sensor Device See Rx Instructions .Route Qty: 2 11RF Rx Instructions: Change sensor every 15 days multivitamin [Daily Multi-Vitamin] Tablet 1 tab PO QAM (DME) OneTouch Ultra Test Strip See Rx Instructions .Route Qty: 100 8RF Rx Instructions: test 2-3 times a day (DME) blood-glucose meter [OneTouch Ultra2 Meter] Misc See Rx Instructions .Route Qty: 1 0RF Rx Instructions: As directed furosemide [Lasix] 20 mg tablet 20 mg PO DAILY Qty: 30 2RF acetaminophen 325 mg Tablet 650 mg PO Q4H PRNQty: 0 0RF ferrous sulfate [Feosol] 325 mg (65 mg iron) tablet 325 mg PO Q48H Qty: 0 0RF Referrals Referrals: Elizabeth Alvarenga CRNP [Primary Care Provider] -
[2024-10-31 10:06] LABS: Basophils # (auto) 0.03 K/uL (0.00-0.20); Basophils % (auto) 0.5 %; Eosinophils # (auto) 0.01 K/uL (0.00-0.50); Eosinophils % (auto) 0.2 %; Hematocrit (blood only) 34.9 % (42.0-52.0); Hemoglobin 11.8 g/dl (14.0-18.0); Immature Granulocytes # (auto) 0.01 K/uL (0.01-0.20); Immature Granulocytes % (auto) 0.2 %; Lymphocytes # (auto) 1.15 K/uL (1.20-3.40); Mean Corpuscular Hemoglobin 30.5 pg (25.0-34.0); Mean Corpuscular Hgb Conc 33.8 g/dL (32.0-36.0); Mean Corpuscular Volume 90.2 fL (80.0-100.0); Mean Platelet Volume 9.8 fL (9.4-12.4); Monocytes # (auto) 0.45 K/uL (0.11-0.59); Neutrophils # (auto) 4.75 K/uL (1.40-6.50); Neutrophils % (auto) 74.1 %; Platelet Count 190 K/uL (130-400); RDW Coefficient of Variation 14.2 % (11.5-14.5); RDW Standard Deviation 46.5 fL (36.4-46.3); Red Blood Count 3.87 M/uL (4.70-6.10)
--- NOTE | 2024-10-31 10:06 | CT Scan Report ---
CT head/brain wo con CLINICAL HISTORY: confusion. TECHNIQUE: Multiple axial CT images of the head were obtained without contrast. A dose lowering tech nique was utilized adhering to the principles of ALARA. CT DOSE: 625.8 mGy.cm COMPARISON: 04/21/2024 FINDINGS: There is stable prominence of the ventricles out of proportion to the sulci, cerebral atrop hy versus mild normal pressure hydrocephalus. No intracranial hemorrhage seen. No mass effect or midl ine shift. Visualized paranasal sinuses and mastoid air cells are clear. No skull fracture. IMPRESSION: No acute findings. ACT 112: Negative or not required by law. The above report was generated using voice recognition software. It may contain grammatical, syntax o r spelling errors. Electronically signed by: Gilmer Mahmood M.D. 10/31/2024 10:04 AM
[2024-10-31 10:20] LABS: Albumin Globulin Ratio 1.5 (0.9-2); BUN Creatinine Ratio 19.2 (10-20); Bilirubin,Total 0.8 mg/dl (0.2-1.0); Globulin 2.7 gm/dl (2.5-4.0); Magnesium 1.6 mg/dl (1.7-2.4); Total Protein 6.7 gm/dl (6.0-8.3)
--- NOTE | 2024-10-31 10:26 | XRay Report ---
XR chest 1V portable CLINICAL HISTORY: confusion COMPARISON STUDY: 04/21/2024 FINDINGS: Stable mild cardiomegaly without pulmonary vascular congestion. Inspiration is shallow. No effusion, consolidation, or pneumothorax. IMPRESSION: No acute findings. ACT 112: Negative or not required by law. Electronically signed by: Gilmer Mahmood M.D. 10/31/2024 10:25 AM
[2024-10-31 10:32] LABS: Prothrombin Time 10.6 Seconds (9.0-12.0)
[2024-10-31 10:35] LABS: Thyroid Stimulating Hormone 0.979 uIu/ml (0.300-4.500)
[2024-10-31] MEDS: MAGNESIUM SULFATE / D5W 1 GM/100 ML BAG IV STA (10:37)
[2024-10-31 10:44] LABS: Adenovirus PCR Not Detected (NotDetected); Bordetella parapertussis PCR Not Detected (NotDetected); Bordetella pertussis PCR Not Detected (NotDetected); Chlamydia pneumoniae PCR Not Detected (NotDetected); Coronavirus 229E PCR Not Detected (NotDetected); Coronavirus CoV-2 (COVID19)PCR Not Detected (NotDetected); Coronavirus HKU1 PCR Not Detected (NotDetected); Coronavirus NL63 PCR Not Detected (NotDetected); Coronavirus OC43PCR Not Detected (NotDetected); Human Metapneumovirus PCR Not Detected (NotDetected); Influenza A PCR Not Detected (NotDetected); Influenza B PCR Not Detected (NotDetected); Mycoplasma pneumoniae PCR Not Detected (NotDetected); Parainfluenza Virus 1 PCR Not Detected (NotDetected); Parainfluenza Virus 2 PCR Not Detected (NotDetected); Parainfluenza Virus 3 PCR Not Detected (NotDetected); Parainfluenza Virus 4 PCR Not Detected (NotDetected); Respiratory Syncytial VirusPCR Not Detected (NotDetected); Rhinovirus/Enterovirus PCR Not Detected (NotDetected)
[2024-10-31] MEDS: SODIUM CHLORIDE 0.9% 1,000 ML IV ONE (11:33)
[2024-10-31] MEDS: OPTIRAY 320 125ml IV ONE (11:46)
--- NOTE | 2024-10-31 12:09 | CT Scan Report ---
CT angio neck with con, CT angio head w con CLINICAL HISTORY: confusion. COMPARISON STUDY: 08/10/2022 TECHNIQUE: Following the IV administration of 112 of Optiray, CT angiogram of the neck and brain was performed from the aortic arch to the skull base. Images are reviewed in the axial, sagittal, and cor onal planes. 3-D MIPS images are created and assessed. IV contrast was administered without complicat ion. All measurements were calculated based on NASCET criteria. A dose lowering technique was utiliz ed adhering to the principles of ALARA. CT DOSE: 628.14 mGy.cm FINDINGS: There is mild medication and spray artifact. The vertebral arteries are diminutive distally beyond PICA, anatomic variant. No significant narrowing or occlusion seen at the common or internal carotid or vertebral arteries bilaterally. Basilar artery is patent. The anterior, middle, and roentgenology teacher ior cerebral arteries are patent bilaterally. No intracranial aneurysm seen. Cerebral venous sinuses opacify normally. IMPRESSION: No significant arterial narrowing or occlusion seen on CTA of the neck or brain. ACT 112: Negative or not required by law. The above report was generated using voice recognition software. It may contain grammatical, syntax o r spelling errors. Electronically signed by: Gilmer Mahmood M.D. 10/31/2024 12:07 PM
--- NOTE | 2024-10-31 12:09 | CT Scan Report ---
CT angio neck with con, CT angio head w con CLINICAL HISTORY: confusion. COMPARISON STUDY: 08/10/2022 TECHNIQUE: Following the IV administration of 112 of Optiray, CT angiogram of the neck and brain was performed from the aortic arch to the skull base. Images are reviewed in the axial, sagittal, and cor onal planes. 3-D MIPS images are created and assessed. IV contrast was administered without complicat ion. All measurements were calculated based on NASCET criteria. A dose lowering technique was utiliz ed adhering to the principles of ALARA. CT DOSE: 628.14 mGy.cm FINDINGS: There is mild medication and spray artifact. The vertebral arteries are diminutive distally beyond PICA, anatomic variant. No significant narrowing or occlusion seen at the common or internal carotid or vertebral arteries bilaterally. Basilar artery is patent. The anterior, middle, and cost estimating clerk ior cerebral arteries are patent bilaterally. No intracranial aneurysm seen. Cerebral venous sinuses opacify normally. IMPRESSION: No significant arterial narrowing or occlusion seen on CTA of the neck or brain. ACT 112: Negative or not required by law. The above report was generated using voice recognition software. It may contain grammatical, syntax o r spelling errors. Electronically signed by: Gilmer Mahmood M.D. 10/31/2024 12:07 PM
--- NOTE | 2024-10-31 12:28 | History & Physical Report ---
Date of Service October 31, 2024 Assessment & Plan (1) Acute confusion: (2) Cellulitis: (3) Diabetic nephropathy associated with type 2 diabetes mellitus: (4) Antiphospholipid syndrome: Plan Randal is an 84-year-old male with PMH of HLD, antiphospholipid syndrome, DVT, adenocarcinoma, orthostatic hypotension, colostomy status, and T2DM. He presented on 10/31 for new onset confusion over the past 24 hours. Patient's (Eboni) is at the bedside and provides most the history, as patient is a poor historian at this time. She reports that he was complaining of a headache that started yesterday morning. Patient does not normally get headaches; no prior history of migraines. Patient reports that the headache is behind his mainly left eye. Daughter at bedside also reports he has been confused, talking nonsensically, and has been napping more frequently. #Confusion/AMS No leukocytosis; afebrile on arrival BioFire negative UA negative for infection Head imaging on arrival without acute finding Brain MRI ordered, pending Given patient's acute change in cognitive baseline over 24h, and reported fever at home, the leading suspicion is that his confusion is infectious in origin DDx includes cellulitis leading to AMS, generalized encephalopathy, toxic encephalopathy from new medications, encephalitis, CVA leading to expressive aphasia, and migraine (among other etiologies) Blood cultures, procalcitonin, ammonia, and VBG ordered, pending Ceftriaxone 2000 mg IV q24h for now #Cellulitis Patient just recently completed 10-day course of Keflex (only had 2 doses left on admission) ? Leukocytosis masked in the setting of recent course of antibiotics No history of MRSA infections; no purulent drainage, per Ceftriaxone (as above) Daily wound care Wound care nurse consult appreciated Trend CRP #Acute vs chronic popliteal DVT H/o antiphospholipid syndrome; previously on warfarin Per review of anticoagulation clinic notes, it was unclear if this was a chronic versus acute on chronic occlusion in the setting of chronic edema/venous insufficiency Switched to enoxaparin 1 mg/kg BID on 10/20, but recently changed to daily dose on 10/30 due to rectal polyp bleeding Continue enoxaparin 120 mg daily for now #T2DM Last A1c at 6.1% on 06/23/2023 Hold metformin, NPH insulin Lantus 5u BID SSI with target BSG range 110-140mg/dL, CF 50, carb ratio 15 T2DM diet BSG ACHS Adjust regimen as needed AM A1c #Ostomy status Daily colostomy care [facility]: [facility] T2DM diet VTE PPx: Continue Lovenox 120 mg SQ QAM History of Present Illness Chief Complaint: Confusion Primary Care Provider: TORO Devlin Randal is an 84-year-old male with PMH of HLD, antiphospholipid syndrome, DVT, adenocarcinoma, orthostatic hypotension, colostomy status, and T2DM. He presented on 10/31 for new onset confusion over the past 24 hours. Patient's (Eboni) is at the bedside and provides most the history, as the patient is a poor historian at this time. She reports that he was complaining of a headache that started yesterday morning. Patient does not normally get headaches; no prior history of migraines. Patient reports that the headache is behind his mainly left eye. Daughter at bedside also reports he has been confused, talking nonsensically, and has been napping more frequently. at bedside reports that his color was "poor" when they were at the anticoagulation clinic yesterday. Patient has not took any of his regular medicine over the past 24 hours (no morning medications or night medications last night); unsure if he did not want to take or just had difficulty swallowing. Patient recently completed a course of Keflex (10 days) for his lower extremity cellulitis bilaterally; reports only marginal improvement with the Keflex. No purulent drainage from the cellulitis, but notes occasional weeping. No prior history of MRSA infections, per . Both and daughter report this is an acute change in cognitive baseline. He does not have a past medical history of strokes to their knowledge, and they deny appreciating any strokelike symptoms such as slurred speech, facial droop, or unilateral deficits. While patient is a poor historian at this time, he does endorse having fever, chills, and sweating at home, as well as lightheadedness and headache. No recent falls or injuries to the head or neck within the past year. Patient denies smoking, tobacco use, recent alcohol use. Patient's denies any known allergies to antibiotics. Patient is hypertensive at 179/90 at time of admission; vitals otherwise stable. ED course: Magnesium sulfate 1 g IV NSS 1000 mL IV ROS obtained by patient at bedside, with the help of his : Patient endorses confusion, generalized fatigue, fever, chills, sweating, headache behind the left eye, shaking, or lightheadedness when standing. Patient denies slurred speech, facial droop, unilateral deficits, neck stiffness/pain, photophobia, chest pain, SOB, abdominal pain, nausea, or vomiting. Allergies Allergy/AdvReac Type Severity Reaction Status Date / Time sitagliptin Allergy Intermediate Hives - Verified 10/31/24 13:07 Januvia cat dander Allergy Mild EYES WATER Verified 10/31/24 13:07 Kkyhcsr-[id number] Reductase AdvReac Intermediate LEG CRAMPS Verified 10/31/24 13:07 Inhibitor [Mosikgy-Ztc-Fih Reductase Inhibitor] Home Medications Medication Instructions Recorded Confirmed Type multivitamin (Daily Multi-Vitamin 1 tab PO QAM 12/11/21 10/31/24 History tablet) miscellaneous medical supply #3,840 mL 12/12/21 10/30/24 Rx rosuvastatin 20 mg tablet (Crestor) 20 mg PO QAM #90 tabs 10/13/23 10/31/24 Rx metformin 500 mg tablet,extended 1,000 mg (2 x 500 mg) PO BID #360 11/15/23 10/31/24 Rx release 24 hr tabs pen needle, diabetic 32 gauge x #200 ea 11/18/23 10/30/24 Rx 5/32" (BD Donna 2nd Gen Pen Needle) blood sugar diagnostic (OneTouch #100 ea 12/23/23 10/30/24 Rx Ultra Test strips) blood-glucose meter (OneTouch #1 ea 12/23/23 10/30/24 Rx Ultra2 Meter) lancets 33 gauge (OneTouch Delica #100 ea 02/21/24 10/30/24 Rx Plus Lancet) ostomy supplies (Adhesive Remover #50 ea 05/11/24 10/30/24 Rx Wipes) ostomy supplies (SenSura Flex #2 Boxes 05/11/24 10/30/24 Rx Ostomy Pouch) insulin aspar prot-insulin aspart See Rx Instructions subcut BID #15 07/03/24 10/31/24 Rx 100 unit/mL (70-30) subcutaneous mL pen (Novolog Mix 70-30FlexPen U-100) FreeStyle Rachelle 3 Plus Sensor #2 ea 09/15/24 10/30/24 Rx (blood-glucose sensor) furosemide 20 mg tablet (Lasix) 20 mg PO DAILY #30 tabs 10/19/24 10/31/24 Rx enoxaparin 120 mg/0.8 mL 120 mg subcut QAM 10/30/24 10/31/24 History subcutaneous syringe warfarin 5 mg tablet See Rx Instructions PO UD 10/30/24 10/31/24 History ferrous sulfate 325 mg (65 mg 325 mg PO BID 10/31/24 10/31/24 History iron) tablet (Feosol) magnesium citrate 100 mg tablet 200 mg PO DAILY 10/31/24 10/31/24 History Past Med/Surg History Problem List (Updated 10/31/24 @ 13:43 by Bob Coto PA-C) Cellulitis Hypomagnesemia (Acute) Acute confusion (Acute) Deep venous thrombosis of right popliteal vein Diabetic nephropathy associated with type 2 diabetes mellitus Poorly controlled type 2 diabetes mellitus Diabetic peripheral neuropathy associated with type 2 diabetes mellitus Loss of protective sensation of skin of foot Weakness generalized Diabetic retinopathy associated with type 2 diabetes mellitus Orthostatic hypotension Thoracic compression fracture History of [place] [facility] [place] calcium elevated Leg swelling (Acute) Leg weakness, bilateral Obese Port-A-Cath in place (01/27/22) Insertion Access Port with Fluoro, Left Subclavian (Left) - Junior Bae, DO Unsteady gait Hypertension denies Long-term (current) use of anticoagulants, INR goal 2.0-3.0 (Chronic) Adenocarcinoma, colon hx- s/p colostomy Antiphospholipid syndrome (Chronic) on warfarin, follows with [place] [facility] Hyperlipidemia Anemia iron deficiency-on po supplementation Medical History Advanced care planning/counseling discussion CHI (closed head injury) BPH (benign prostatic hyperplasia) Arthritis of knee, right History of pulmonary embolism Glaucoma Vitamin D deficiency Abscess of left lower extremity Hx of insect bite Lung granuloma Carotid artery calcification Coronary artery calcification Surgical History H/O colectomy History of incision and drainage (03/31/24) Hx of left cataract extraction History of removal of Port-a-Cath (10/19/23) Hx of tooth extraction History of transesophageal echocardiography ([facility]) History of colostomy History of colonoscopy Hx of lymph node biopsy H/O colectomy History of knee surgery History of elbow surgery History of dental surgery Family History Father Myocardial infarction Diabetes Aunt Breast cancer Mother Cancer Diabetes Denies family history of Ovarian cancer Prostate cancer Colorectal cancer Social History (Updated 10/24/24 @ 13:39 by Yumiko Sanders LPN) Smoking Status: Unknown if ever smoked Second Hand Exposure: No; Do You Dip or Chew Tobacco: No; Hx Alcohol Use: No Hx Substance Use: No Preferred Language: Chinese Communication Ability: Effective Visual Impairment: Limited Hearing Ability: Normal Print Developer Required: No Beliefs That Will Affect Care: None marital status: Current Living Situation: Spouse Current Living Situation Comment: lives with and daughter current occupational status: retired How many Children do You have: 3 Feels Safe at Home: Yes Safety Concerns: Feels Safe At This Time Childhood Exposure to Second-Hand Smoke: Yes Diet: diabetic and regular caffeine: Yes during the past year weight has: remained stable Dental Care, Regularly: Yes Physical Activity Frequency: Does not Exercise Seatbelt Use: always Sunscreen Use: Yes Do you think of yourself as: straight/heterosexual Sexual Activity: has been sexually active, but not for at least 12 months Gender Identity: Male Assistive Devices: Denture - Upper, Glasses and Walker Review of Systems 2 Review of Systems: See HPI above Physical Exam 2 Physical Exam: General: no acute distress; lethargic; confused; and daughter at bedside; non-toxic appearing; well-nourished; cooperative; SpO2 93% on RA HEENT: normocephalic, atraumatic; no scleral icterus; PERRLA; vision and hearing grossly intact; patient has difficulty sticking out his tongue; no meningeal signs appreciated on exam; negative Brudzinski sign Neck: supple; no lymphadenopathy; trachea midline Skin: warm, dry without signs of tenting; no cyanosis; no rashes, bruising, lesions, or erythema noted CV: chest wall NTP; RRR; S1/S2 normal; no murmurs/rubs/gallops; pulses intact and symmetric at radial, DP, and PT Lungs: no acute respiratory distress; symmetrical chest wall expansion; clear breath sounds across all lung cardoso w/o adventitious sounds; no wheezing ABD: Soft; mildly TTP around bruising site in the RLQ; colostomy intact without signs of erythema or infection; BS present; no rebound/guarding; moderate distention secondary to body habitus MSK: Left hand tremor appreciated on exam; +2 pitting edema to lower extremity bilaterally; lower extremities are warm to touch and erythematous extending from ankle to the mid kumar (see photos below); 5/5 main line station engineer strength bilaterally Neuro: Patient is not alert and oriented to date of , month of the year, or location; he responds inappropriately to questioning, for instance when asked if it feels the same or different on both sides, he responds "yes"; he also responds "[birth year]" when asked what his birthday is, and then responds with the same answer when asked where he currently is; incoherent thought processes; ? expressive aphasia; no facial droop appreciated; negative pronator drift; difficult to assess sensation, but he does report that sensation is intact and symmetric in the face/UEs/LEs bilaterally assessed via light touch Results & Data Results & Data Vital Signs (Past 12 Hours) Vital Signs Temp Pulse Pulse Resp BP BP Pulse Ox 10/31/24 11:54 97 H 16 10/31/24 11:34 92 H 18 175/86 H 94 10/31/24 10:03 81 15 10/31/24 10:00 179/84 H 10/31/24 09:52 78 10/31/24 09:51 79 15 94 10/31/24 09:50 94 10/31/24 09:50 94 10/31/24 09:35 36.5 C 81 20 169/115 H 94 O2 Del Method 10/31/24 11:54 10/31/24 11:34 Room Air 10/31/24 10:03 10/31/24 10:00 10/31/24 09:52 10/31/24 09:51 10/31/24 09:50 Room Air 10/31/24 09:50 Room Air 10/31/24 09:35 Room Air Laboratory Results Abnormal lab results 10/31/24 Range/Units 09:45 RBC 3.87 L (4.70-6.10) M/uL Hgb 11.8 L (14.0-18.0) g/dl Hct 34.9 L (42.0-52.0) % RDW Std Deviation 46.5 H (36.4-46.3) fL Lymph # (Auto) 1.15 L (1.20-3.40) K/uL Sodium 135 L (136-145) mmol/L Glucose 265 H (70-99(Fasting)) mg/dl Magnesium 1.6 L (1.7-2.4) mg/dl Diagnostic Findings Chest X-Ray 10/31/24 09:40 XR chest 1V portable CLINICAL HISTORY: confusion COMPARISON STUDY: 04/21/2024 FINDINGS: Stable mild cardiomegaly without pulmonary vascular congestion. Inspiration is shallow. No effusion, consolidation, or pneumothorax. IMPRESSION: No acute findings. ACT 112: Negative or not required by law. Electronically signed by: Gilmer Mahmood M.D. 10/31/2024 10:[address] 10/31/24 09:41 CT head/brain wo con CLINICAL HISTORY: confusion. TECHNIQUE: Multiple axial CT images of the head were obtained without contrast. A dose lowering technique was utilized adhering to the principles of ALARA. CT DOSE: 625.8 mGy.cm COMPARISON: 04/21/2024 FINDINGS: There is stable prominence of the ventricles out of proportion to the sulci, cerebral atrophy versus mild normal pressure hydrocephalus. No intracranial hemorrhage seen. No mass effect or midline shift. Visualized paranasal sinuses and mastoid air cells are clear. No skull fracture. IMPRESSION: No acute findings. ACT 112: Negative or not required by law. The above report was generated using voice recognition software. It may contain grammatical, syntax or spelling errors. Electronically signed by: Gilmer Mahmood M.D. 10/31/2024 10:04 AM Head CTA 10/31/24 11:05 CT angio neck with con, CT angio head w con CLINICAL HISTORY: confusion. COMPARISON STUDY: 08/10/2022 TECHNIQUE: Following the IV administration of 112 of Optiray, CT angiogram of the neck and brain was performed from the aortic arch to the skull base. Images are reviewed in the axial, sagittal, and coronal planes. 3-D MIPS images are created and assessed. IV contrast was administered without complication. All measurements were calculated based on NASCET criteria. A dose lowering technique was utilized adhering to the principles of ALARA. CT DOSE: 628.14 mGy.cm FINDINGS: There is mild medication and spray artifact. The vertebral arteries are diminutive distally beyond PICA, anatomic variant. No significant narrowing or occlusion seen at the common or internal carotid or vertebral arteries bilaterally. Basilar artery is patent. The anterior, middle, and posterior cerebral arteries are patent bilaterally. No intracranial aneurysm seen. Cerebral venous sinuses opacify normally. IMPRESSION: No significant arterial narrowing or occlusion seen on CTA of the neck or brain. ACT 112: Negative or not required by law. The above report was generated using voice recognition software. It may contain grammatical, syntax or spelling errors. Electronically signed by: Gilmer Mahmood M.D. 10/31/2024 12:07 PM Neck CTA 10/31/24 11:05 CT angio neck with con, CT angio head w con CLINICAL HISTORY: confusion. COMPARISON STUDY: 08/10/2022 TECHNIQUE: Following the IV administration of 112 of Optiray, CT angiogram of the neck and brain was performed from the aortic arch to the skull base. Images are reviewed in the axial, sagittal, and coronal planes. 3-D MIPS images are created and assessed. IV contrast was administered without complication. All measurements were calculated based on NASCET criteria. A dose lowering technique was utilized adhering to the principles of ALARA. CT DOSE: 628.14 mGy.cm FINDINGS: There is mild medication and spray artifact. The vertebral arteries are diminutive distally beyond PICA, anatomic variant. No significant narrowing or occlusion seen at the common or internal carotid or vertebral arteries bilaterally. Basilar artery is patent. The anterior, middle, and posterior cerebral arteries are patent bilaterally. No intracranial aneurysm seen. Cerebral venous sinuses opacify normally. IMPRESSION: No significant arterial narrowing or occlusion seen on CTA of the neck or brain. ACT 112: Negative or not required by law. The above report was generated using voice recognition software. It may contain grammatical, syntax or spelling errors. Electronically signed by: Gilmer Mahmood M.D. 10/31/2024 12:07 PM ECG Additional Comments: ECG revealed NSR at 90 bpm; QTc 423 Code Status & VTE Plan Code Status DNR/DNI (confirmed with both patient and patient's /medical proxy at bedside) VTE Prophylaxis Plan VTE Prophylaxis will be ordered: Yes Supervising Physician Co-Signing Physician Notes I personally saw and examined the patient. I independently reviewed the labs, EKG, imaging, problem list, medication list, past medical history and family history. I verified all jarrett points and agree with Bob Coto PA-C with the following exceptions and/or additions: 84 year old male presents to the ER with acute confusion O/E HS RRR, no murmurs, Chest CTAB, Abdo SNT, following one step commands but frequently confused with directions, CN2->12 intact, no pronator drift, left hand action tremor, no extremity weakness or loss of sensation A/P Possible cellulitis - unclear if truly cellulitic or just venous stasis, wound care, IV ceftriaxone and monitor for improvement Acute encephalopathy - MRI brain to assess for stroke causing expressive dysphasia. If negative will consult neurology as possible cellulitis appears unlikely to be causing such confusion PG Care Time/CCT Total # of Minutes Spent Total Time Spent with Patient: Total time spent is greater than 50% in coordination of care (as documented) at patient's floor/unit and/or counseling patient: Coding [place] [address] INT INP/OBS CARE 3/75MIN Patient Type Established Medical Decision Making High Complexity Diagnoses Acute confusion R41.0 Cellulitis L03.90 Diabetic nephropathy associated with type 2 diabetes mellitus E11.21 Antiphospholipid syndrome D68.61
[2024-10-31 12:35] LABS: Appearance Urine Clear (Clear); Bacteria Urine Automated None Seen (None Seen); Bilirubin Urine Negative (Negative); Blood Urine 1+ (Negative); Cast Urine Automated 0-2 /lpf (0-2); Color Urine Yellow; Epithelial Cell Urine Auto 0-2 /hpf (0-2); Glucose Urine UA 1+ (Negative); Ketones Urine 1+ (Negative); Leukocyte Esterase Urine Negative (Negative); Nitrite Urine Negative (Negative); Protein Urine 2+ (Negative); Specific Gravity Urine 1.019 (1.000-1.030); Urobilinogen Urine Negative (Negative); WBC Urine Automated 0-5 /hpf (0-5)
--- NOTE | 2024-10-31 12:54 | Electrocardiogram Report ---
Test Reason : Blood Pressure : */* mmHG Vent. Rate : 90 BPM Atrial Rate : 90 BPM P-R Int : 176 ms QRS Dur : 120 ms QT Int : 346 ms P-R-T Axes : 34 -49 67 degrees QTcB Int : 423 ms Normal sinus rhythm Left anterior fascicular block Left ventricular hypertrophy with QRS widening ( R in aVL ) Abnormal ECG When compared with ECG of 14-Oct-2023 11:18, No significant change was found Confirmed by Jose Peres ([id number]) on 10/31/2024 12:53:43 PM Referred By: REFERRED SELF Confirmed By: Jose Peres
[2024-10-31 13:44] LABS: C Reactive Protein 0.71 mg/dl (0-0.5)
[2024-10-31] MEDS: cefTRIAXone SODIUM 2,000 MG/50 ML BAG IV STA (13:51)
[2024-10-31 14:28] LABS: Base Excess VBG 6.9 mEq/L; HCO3 VBG 33 mmol/L; Oxygen Saturation VBG < 60.0 %; PCO2 VBG 49 mmHg (38-50); PO2 VBG 30 mmHg; pH VBG 7.43 (7.36-7.41)
[2024-10-31] MEDS ORDERED: CARBOHYDRATES FOR HYPOGLYCEMIA PO PRN (15:44)
[2024-10-31] MEDS ORDERED: ONDANSETRON INJ 2 MG/ML 2 ML VIAL IV PRN (15:44)
[2024-10-31] MEDS ORDERED: GLUCAGON FOR INJ 1 MG VIAL SQ PRN (15:44)
[2024-10-31] MEDS ORDERED: GLUCOSE 40% GEL 15 GM TUBE PO PRN (15:44)
[2024-10-31] MEDS ORDERED: DEXTROSE 50% 50 ML SYRINGE IV PRN (15:44)
[2024-10-31] MEDS ORDERED: GLUCOSE 10 TAB/TUBE PO PRN (15:44)
--- NOTE | 2024-10-31 18:31 | Magnetic Resonance Report ---
Clinical History: Headaches and confusion Technique: Multiple T1 and T2-weighted magnetic resonance images were obtained of the brain without gadolinium contrast Findings: There is no sign of acute or old infarction with normal-appearing diffusion weighted images. There is cerebral atrophy, within expected limits for the patient's age. There are small areas of increased T2 signal intensity within the periventricular white matter of the cerebral hemispheres bilaterally. This is most likely due to chronic small vessel ischemic disease. No definite mass lesion is seen on this noncontrast study. There is no intracranial hemorrhage or other fluid collection. No midline shift or other form of herniation is seen. There is no hydrocephalus. Normal flow-voids are seen within the arteries of the [id number]. The orbits and paranasal sinuses appear normal. The mastoid air cells appear clear. Impression: 1. Cerebral atrophy and mild chronic small vessel ischemic disease 2. Otherwise unremarkable noncontrast MRI of the brain Electronically signed by Lars Segal 10-31-2024 6:30 PM
[2024-10-31] MEDS: INSULIN ASPART PER UNIT CHARGE SC SCH (19:36)
[2024-10-31] MEDS: LANTUS PER UNIT CHARGE SQ SCH (21:18)
[2024-10-31] MEDS ORDERED: PHARMACY GLYCEMIC MGMT CONSULT PRN (22:26)
[2024-11-01 05:40] LABS: Basophils # (auto) 0.02 K/uL (0.00-0.20); Basophils % (auto) 0.3 %; Eosinophils # (auto) 0.02 K/uL (0.00-0.50); Eosinophils % (auto) 0.3 %; Hematocrit (blood only) 33.1 % (42.0-52.0); Hemoglobin 11.5 g/dl (14.0-18.0); Immature Granulocytes # (auto) 0.01 K/uL (0.01-0.20); Immature Granulocytes % (auto) 0.2 %; Lymphocytes # (auto) 1.26 K/uL (1.20-3.40); Lymphocytes % (auto) 19.4 %; Mean Corpuscular Hemoglobin 30.9 pg (25.0-34.0); Mean Corpuscular Hgb Conc 34.7 g/dL (32.0-36.0); Mean Platelet Volume 9.6 fL (9.4-12.4); Monocytes % (auto) 7.7 %; Neutrophils # (auto) 4.67 K/uL (1.40-6.50); Neutrophils % (auto) 72.1 %; Platelet Count 166 K/uL (130-400); RDW Coefficient of Variation 14.1 % (11.5-14.5); RDW Standard Deviation 45.6 fL (36.4-46.3); Red Blood Count 3.72 M/uL (4.70-6.10); White Blood Count 6.48 K/ul (4.8-10.8)
[2024-11-01 06:01] LABS: BUN Creatinine Ratio 15.7 (10-20); C Reactive Protein 0.91 mg/dl (0-0.5); Calcium 9.6 mg/dl (8.6-10.3); Magnesium 1.7 mg/dl (1.7-2.4); Potassium 3.9 mmol/L (3.5-5.1)
[2024-11-01 07:11] LABS: Estimated Average Glucose 177 mg/dl; Hemoglobin A1C 7.8 % (4.5-5.6)
[2024-11-01] MEDS: ENOXAPARIN INJ 120 MG/0.8 ML SYR SQ SCH (08:51)
[2024-11-01] MEDS: ROSUVASTATIN CALCIUM 20 MG TAB PO SCH (08:52)
[2024-11-01] MEDS: MAGNESIUM OXIDE 400 MG TAB PO SCH (08:52)
[2024-11-01] MEDS: FUROSEMIDE 20 MG TAB PO SCH (08:53)
[2024-11-01] MEDS: LANTUS PER UNIT CHARGE SQ SCH ×2 (08:58→20:54)
--- NOTE | 2024-11-01 10:27 | Neurology Consultation ---
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 No evidence of acute stroke on MRI. No significant vascular abnormality on CTA of the head and neck. His brain MRI does reveal generalized atrophy with associated ventriculomegaly (hydrocephalus ex vacuo). Clinically, the patient is alert, and attentive, and perseverative. He has significant difficulty following commands and answering questions. He is generally not agitated and does not exhibit any abnormal movements such as myoclonus or tremors. His encephalopathy may be related to his cellulitis or occult infection. If his mental status does not improve with antibiotics and medical care, would recommend a repeat brain MRI, with contrast, to reassess for acute stroke or possibly encephalitis. Would also need to consider a lumbar puncture to assess for possible encephalitis. I note that his brain MRI completed yesterday was not suggestive of encephalitis, however. Would also consider an EEG although his presentation is not suggestive of seizures. Furthermore, although his imaging does reveal cerebral ventriculomegaly which is likely due to generalized atrophy, he could have an element of normal pressure hydrocephalus. However, NPH would not be expected to present acutely or subacutely. His imaging is not suggestive of obstructive hydrocephalus. If he does have NPH, a lumbar puncture could potentially improve some of his symptoms, although I would be skeptical that it would have much impact on his encephalopathy. History of Present Illness Reason for Consultation: Encephalopathy Requesting Physician: Cecilia Attending Physician: Mary Kate Jolley MD History of Present Illness Patient is an 84-year-old male who presented to the emergency yesterday with progressive confusion beginning 2 days prior. He has a history of DVT, on warfarin, insulin-dependent diabetes mellitus, adenocarcinoma of the colon, post colectomy, and cellulitis of both lower limbs. He had recently completed a 1 week course of Keflex. The patient has been encephalopathic and is unable to provide a history. He has been significantly hypertensive. A CT of the head revealed generalized atrophy with associated ventriculomegaly and was negative for acute process. CTA of the head and neck were unremarkable. Brain MRI notable for generalized atrophy and associated ventriculomegaly as well as chronic small vessel ischemic disease. Lab evaluation is fairly unremarkable, no leukocytosis, he has a mild anemia, hyperglycemia, normal ammonia no evidence of infection on urinalysis, upper respiratory PCR is negative. Chest x-ray unremarkable. A venous Doppler from October 19, 2024 revealed a right popliteal DVT. The CT of the chest completed in September 2024 was negative for metastatic disease. A CT of the abdomen and pelvis at that time revealed bilateral renal calculi. An electrocardiogram completed yesterday revealed a normal sinus rhythm. He has seen his PCP for a follow-up visit on October 25, issues at that time included orthostatic hypotension which was stable, history of fall, lymphedema, cellulitis, weakness, BPH, hyperlipidemia, anemia, long-term use of anticoagulant, diabetic peripheral neuropathy, antiphospholipid antibody syndrome, adenocarcinoma of the colon, vitamin D deficiency. Allergies Allergy/AdvReac Type Severity Reaction Status Date / Time sitagliptin Allergy Intermediate Hives - Verified 10/31/24 13:07 Januvia cat dander Allergy Mild EYES WATER Verified 10/31/24 13:07 [id number] Reductase AdvReac Intermediate LEG CRAMPS Verified 10/31/24 13:07 Inhibitor [Kuunnzv-Wwt-Mea Reductase Inhibitor] Home Medications Medication Instructions Recorded Confirmed Type multivitamin (Daily Multi-Vitamin 1 tab PO QAM 12/11/21 10/31/24 History tablet) miscellaneous medical supply #3,840 mL 12/12/21 10/30/24 Rx rosuvastatin 20 mg tablet (Crestor) 20 mg PO QAM #90 tabs 10/13/23 10/31/24 Rx metformin 500 mg tablet,extended 1,000 mg (2 x 500 mg) PO BID #360 11/15/23 10/31/24 Rx release 24 hr tabs pen needle, diabetic 32 gauge x #200 ea 11/18/23 10/30/24 Rx 5/32" (BD Donna 2nd Gen Pen Needle) blood sugar diagnostic (OneTouch #100 ea 12/23/23 10/30/24 Rx Ultra Test strips) blood-glucose meter (OneTouch #1 ea 12/23/23 10/30/24 Rx Ultra2 Meter) lancets 33 gauge (OneTouch Delica #100 ea 02/21/24 10/30/24 Rx Plus Lancet) ostomy supplies (Adhesive Remover #50 ea 05/11/24 10/30/24 Rx Wipes) ostomy supplies (SenSura Flex #2 Boxes 05/11/24 10/30/24 Rx Ostomy Pouch) insulin aspar prot-insulin aspart See Rx Instructions subcut BID #15 07/03/24 10/31/24 Rx 100 unit/mL (70-30) subcutaneous mL pen (Novolog Mix 70-30FlexPen U-100) FreeStyle Rachelle 3 Plus Sensor #2 ea 09/15/24 10/30/24 Rx (blood-glucose sensor) furosemide 20 mg tablet (Lasix) 20 mg PO DAILY #30 tabs 10/19/24 10/31/24 Rx enoxaparin 120 mg/0.8 mL 120 mg subcut QAM 10/30/24 10/31/24 History subcutaneous syringe warfarin 5 mg tablet See Rx Instructions PO UD 10/30/24 10/31/24 History ferrous sulfate 325 mg (65 mg 325 mg PO BID 10/31/24 10/31/24 History iron) tablet (Feosol) magnesium citrate 100 mg tablet 200 mg PO DAILY 10/31/24 10/31/24 History Patient History Medical History Advanced care planning/counseling discussion CHI (closed head injury) BPH (benign prostatic hyperplasia) Arthritis of knee, right History of pulmonary embolism Glaucoma Vitamin D deficiency Abscess of left lower extremity Hx of insect bite Lung granuloma Carotid artery calcification Coronary artery calcification Surgical History H/O colectomy History of incision and drainage (03/31/24) Hx of left cataract extraction History of removal of Port-a-Cath (10/19/23) Hx of tooth extraction History of transesophageal echocardiography (ASHLEY) History of colostomy History of colonoscopy Hx of lymph node biopsy H/O colectomy History of knee surgery History of elbow surgery History of dental surgery Family History Father Myocardial infarction Diabetes Aunt Breast cancer Mother Cancer Diabetes Denies family history of Ovarian cancer Prostate cancer Colorectal cancer Social History (Updated 10/24/24 @ 13:39 by Yumiko Sanders LPN) Smoking Status: Unknown if ever smoked Second Hand Exposure: No; Do You Dip or Chew Tobacco: No; Hx Alcohol Use: No Hx Substance Use: No Preferred Language: Scottish Communication Ability: Effective Visual Impairment: Limited Hearing Ability: Normal Poiser Required: No Beliefs That Will Affect Care: None marital status: Current Living Situation: Spouse Current Living Situation Comment: lives with and daughter current occupational status: retired How many Children do You have: 3 Feels Safe at Home: Yes Safety Concerns: Feels Safe At This Time Childhood Exposure to Second-Hand Smoke: Yes Diet: diabetic and regular caffeine: Yes during the past year weight has: remained stable Dental Care, Regularly: Yes Physical Activity Frequency: Does not Exercise Seatbelt Use: always Sunscreen Use: Yes Do you think of yourself as: straight/heterosexual Sexual Activity: has been sexually active, but not for at least 12 months Gender Identity: Male Assistive Devices: Denture - Upper, Glasses and Walker Review of Systems Review of Systems: Unobtainable due to cognitive status Exam (Neuro) Constitutional: well developed and + altered mental status Eyes: normal visual cardoso by confrontation, PERRL and EOM intact bilaterally; no nystagmus Neurologic: Oriented to:: Person; negative Place or Time Cognitive Function: Other (Patient is perseverative (repeats the number 2 after he was asked to count fingers)); negative Attention, Concentration, Insight or Time Awareness Attention: negative Span Intact Language: negative Naming Objects or Repeating Phrases Speech Fluency: Other (Perseverative speech, unable to name objects or follow commands) Fund of Knowledge: negative Current Events or Past History Cranial Nerves: Normal II, III, IV, , V, VII, VIII, IX, X, XI and XII Motor Strength: Normal Lower Extremities and Normal Upper Extremities Motor Tone: Normal Lower Extremities and Normal Upper Extremities Muscle Bulk/Involuntary Movements: No Involuntary Movements Sensation: Light Touch Intact and Pain/Temperature Intact Deep Tendon Reflexes: Rt Triceps: 1+, Lt Triceps: 1+, Rt Biceps: 1+, Lt Biceps: 1+, Rt Brachioradialis: 1+, Lt Brachioradialis: 1+, Rt Patellar: 1+, Lt Patellar: 1+, Rt Ankle: 0 and Lt Ankle: 0 Special Tests: negative Babinski Present Results & Data Vital Signs (Past 12 Hours) Vital Signs Temp Pulse Pulse Resp BP Pulse Ox O2 Del Method 11/01/24 07:28 36.3 C L 70 18 192/81 H 94 Room Air 01/29/25 07:14 63 11/01/24 01:58 36.6 C 65 16 155/67 H 94 Room Air 10/31/24 23:00 69 10/31/24 22:03 36.4 C L 70 16 127/82 92 Room Air Laboratory Results WBC 6.48, hemoglobin 11.5, hematocrit 33.1, platelet count 166, ESR 35, sodium 136, potassium 3.9, BUN 13, creatinine 0.83, glucose 219, hemoglobin A1c 7.8, calcium 9.6, magnesium 1.7, AST 14, ALT 24, ammonia 17.0, CRP 0.91, TSH 0.979, vitamin B12 level from this past March 308, vitamin D level from this past December 36.8. 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
[2024-11-01] MEDS: ACETAMINOPHEN 325 MG TAB PO PRN (11:18)
[2024-11-01] MEDS: cefTRIAXone SODIUM 2,000 MG/50 ML BAG IV SCH (13:00)
--- NOTE | 2024-11-01 13:13 | Hospitalist Progress Note ---
Date of Service November 01, 2024 Assessment & Plan (1) Acute confusion: (2) Cellulitis: (3) Diabetic nephropathy associated with type 2 diabetes mellitus: (4) Antiphospholipid syndrome: Plan Randal is an 84-year-old male with PMH of HLD, antiphospholipid syndrome, DVT, adenocarcinoma, orthostatic hypotension, colostomy status, and T2DM. He presented on 10/31 for new onset confusion over the past 24-48 hours. Patient's (Eboni) provides most the history. She reports that he was complaining of a headache behind left eye that started Wednesday (10/30) morning, unusual for patient. #Confusion/AMS - source unclear BioFire negative. UA negative. Ammonia/TSH/VBG WNL. Procal negative. Head CT: possible NPH. Head/neck CTA: no significant stenosis. Brain MRI: Cerebral Atrophy Blood cultures: no growth 24 hours Slight increase in CRP 0.71-> 0.91, continue to trend Neurology consulted - encephalopathy possibly related to infection. Check MRI with contrast (ordered) . Consider EEG or LP if not improving Lovenox held for possible LP Hx of adenocarcinoma of colon, with recurrent rectal villous adenoma - ? mets Check UDS Check Gallbladder US - given AM CBC, CMP, CRP #Cellulitis of right lower limb. *Cellulitis of left lower limb Patient just recently completed 10-day course of Keflex. No history of MRSA infections; no purulent drainage, per Will continue Ceftriaxone. WC RN consulted - BID lac-hydrin added This seems to be improving #Acute vs chronic popliteal DVT H/o antiphospholipid syndrome; previously on warfarin - Switched to enoxaparin 1 mg/kg BID on 10/20, but recently changed to daily dose on 10/30 due to rectal polyp bleeding Lovenox held for possible LP #T2DM A1c 7.8 (prior 6.1) Home meds: metformin, NPH insulin - HELD Pharmacy glycemic consult #Ostomy status Daily colostomy care. No signs of infection Disposition: Continued inpatient stay working up AMS VTE PPx: Lovenox held for possible LP Admission and Anticipated Discharge Date Admission Date: October 31, 2024 Supervising Physician Co-Signing Physician Notes PA Supervision Note: I did not personally see or examine the patient today, but I verified all jarrett points of GIGI Kelly's assessment and plan with the following exceptions/additions: None Subjective patient seen this morning, no family present at bedside he awakens to name but does not respond to questions appropriately, cannot tell me his birthday. Does not follow commands Revisited when is at bedside states that on Wednesday he started to feel off, he had at the open admitted on Wednesday at PCP they noticed that he was all started from his baseline and [id number] pale and did not look well. Wednesday night he did not eat dinner which is abnormal for him and then they brought him to the ER on Wednesday. States that he was complaining of a headache behind his right eye, he does not usually complain of head pain. No falls recently. He is normally able to walk with a walker, make his needs known and feed himself independently. Has used herbal supplements in the past but nothing recently. No access to marijuana or other illicit drugs. does feel that his legs look better than they looked in the ER. Telemetry sinus rhythm with IVCD in the 60s Review of Systems Review of Systems: Unobtainable due to cognitive status Physical Exam Physical Exam: General: NAD, lying in bed, opens eyes to verbal stimuli. Resp: normal respiratory effort, lungs clear to auscultation CV: RRR, no murmur, Abd: normal bowel sounds, non tender, Soft, ostomy bag in place Back: No rashes or bruising, spine nontender to palpation Extremities: Moves all extremities. bilateral lower extremity edema with scaling consistent with venous stasis. Outline from ED for cellulitis with decreased redness, no warmth. Neuro: A&O x1, does not follow commands, no focal deficits Results & Data Results & Data Vital Signs (Past 12 Hours) Vital Signs Temp Pulse Pulse Resp BP Pulse Ox O2 Del Method 11/01/24 11:08 97.5 F L 69 18 154/74 H 93 Room Air 11/01/24 09:33 Room Air 11/01/24 07:28 97.3 F L 70 18 192/81 H 94 Room Air 11/01/24 07:14 63 11/01/24 01:58 97.9 F 65 16 155/67 H 94 Room Air Laboratory Results CBC and chemistry reviewed A1c reviewed CRP reviewed Diagnostic Findings head CT reviewed brain MRI reviewed PG Care Time/CCT Total # of Minutes Spent Total Time Spent with Patient: Total time spent is greater than 50% in coordination of care (as documented) at patient's floor/unit and/or counseling patient: Coding Level of Care Code 76555 SUB INP/OBS CARE 350MIN Diagnoses Acute confusion R41.0 Cellulitis L03.90 Diabetic nephropathy associated with type 2 diabetes mellitus E11.21 Antiphospholipid syndrome D68.61
--- NOTE | 2024-11-01 14:03 | Pharmacy Report ---
Pharmacy Glycemic Short Note 2 - Date of Service November 01, 2024 - Glycemic Short BSG Results (Last 24 hours): 10/31/24 10/31/24 10/31/24 15:40 16:55 20:17 Glucose POC Glucose 245 H 240 H 225 H 11/01/24 11/01/24 11/01/24 05:16 08:23 11:59 Glucose 219 H POC Glucose 219 H 204 H OUTPATIENT ANTIDIABETIC REGIMEN: * Novolog 70/30 - 25 units breakfast, 15 units supper * Metformin 1g PO BID * A1c 7.8% 11/01/24 ASSESSMENT: 11/01/24 * DF is a 84 YOM admitted for altered mental status. Pharmacy consulted to manage his T2DM. * Pt came in yesterday morning, unclear of amount of insulin received at home prior. Received 5 units glargine and 4 units of aspart last evening. Received 10 units glargine this AM and had tightened carb ratio this AM. BSGs high on arrival, slowly coming down but not within goal range. Increased glargine to 12 units BID and tightened correction factor and carb ratio again this afternoon to reflect weight based stress of 2 calculations. * Pt ordered diet and receiving ceftriaxone for SSTI. No steroids received at this time. PLAN FOR INPATIENT GLYCEMIC CONTROL: * Hold outpatient oral diabetes medications * Basal insulin * Lantus 12 units SQ BID * Bolus insulin * NovoLog per scale ACHS or Q6hrs while NPO * Goal Range: Low 110 mg/dL - High 140 mg/dL * Correction Factor: 20 mg/dL/unit * Nutritional / Prandial insulin per carb ratio of 1 unit per 7 grams CHO consumed
[2024-11-01] MEDS: GADOBUTROL 65ML VIAL IV ONE (18:36)
--- NOTE | 2024-11-01 19:10 | Magnetic Resonance Report ---
Clinical History: Headaches and confusion Technique: Axial and coronal T1-weighted magnetic resonance images were obtained of the brain both after the administration of 11.5 cc of Gadavist intravenous gadolinium contrast Comparison is made to the noncontrast MRI obtained yesterday Findings: Cerebral atrophy is again seen. There is mild ventricular prominence that is likely due to the cerebral atrophy. There is no herniation or hydrocephalus. No mass lesion or other area of abnormal enhancement is identified. Impression: Unremarkable contrast-enhanced MRI of the brain. No mass lesion is seen Electronically signed by Lars Segal 11-01-2024 7:09 PM
[2024-11-01] MEDS: AMMONIUM LACTATE 12% LOTION 225 GM BTL EXT SCH (20:54)
[2024-11-02 00:34] LABS: Amphetamines+Metham, Urine Neg (Neg); Barbiturates, Urine Neg (Neg); Benzodiazepine, Urine Neg (Neg); Cocaine, Urine Neg (Neg); Fentanyl, Urine Neg (Neg); MDMA (Ecstacy), Urine Neg (Neg); Marijuana, Urine Neg (Neg); Methadone, Urine Neg (Neg); Opiate, Urine Neg (Neg); Phencyclidine, Urine Neg (Neg)
[2024-11-02 06:56] LABS: Basophils # (auto) 0.03 K/uL (0.00-0.20); Basophils % (auto) 0.5 %; Eosinophils # (auto) 0.06 K/uL (0.00-0.50); Eosinophils % (auto) 1.1 %; Hematocrit (blood only) 31.9 % (42.0-52.0); Hemoglobin 10.9 g/dl (14.0-18.0); Immature Granulocytes # (auto) 0.01 K/uL (0.01-0.20); Immature Granulocytes % (auto) 0.2 %; Lymphocytes # (auto) 1.19 K/uL (1.20-3.40); Lymphocytes % (auto) 21.1 %; Mean Corpuscular Hemoglobin 30.7 pg (25.0-34.0); Mean Corpuscular Hgb Conc 34.2 g/dL (32.0-36.0); Mean Corpuscular Volume 89.9 fL (80.0-100.0); Mean Platelet Volume 9.8 fL (9.4-12.4); Monocytes # (auto) 0.53 K/uL (0.11-0.59); Monocytes % (auto) 9.4 %; Neutrophils # (auto) 3.83 K/uL (1.40-6.50); Neutrophils % (auto) 67.7 %; Platelet Count 164 K/uL (130-400); RDW Coefficient of Variation 14.3 % (11.5-14.5); RDW Standard Deviation 46.5 fL (36.4-46.3); Red Blood Count 3.55 M/uL (4.70-6.10); White Blood Count 5.65 K/ul (4.8-10.8)
[2024-11-02 07:24] LABS: Albumin Globulin Ratio 1.2 (0.9-2); Albumin Level 3.4 gm/dl (3.4-5.0); BUN Creatinine Ratio 17.2 (10-20); Bilirubin,Total 0.6 mg/dl (0.2-1.0); C Reactive Protein 2.13 mg/dl (0-0.5); Calcium 9.3 mg/dl (8.6-10.3); Creatinine Clr Calc Pharmacy 88.1 ml/min; Globulin 2.8 gm/dl (2.5-4.0); Potassium 3.7 mmol/L (3.5-5.1); Total Protein 6.2 gm/dl (6.0-8.3)
--- NOTE | 2024-11-02 08:54 | Ultrasound Report ---
US gallbladder CLINICAL HISTORY: recheck GB lesion seen on CT 09/04 COMPARISON STUDY: CT of the abdomen and pelvis dated 09/04/2024, 10/08/2022, and 08/10/2022 FINDINGS: The pancreas is largely obscured by bowel gas. There are no liver lesions depicted. There is no ascites. There is hepatopedal flow in the portal vei n. The IVC is patent. The gallbladder lumen is contracted around a central sludge ball or a partially calcified stone. The gallbladder anne are thick. Sneed sign cannot be assessed due to prior administration of pain meds. The common bile duct is normal measuring 3 mm. The right kidney demonstrates no evidence of hydronephrosis. There are multiple right renal cysts. A 1.2 cm renal stone is identified. IMPRESSION: The gallbladder appearance has not changed on CT since 08/10/2022. Today's ultrasound fin dings which suggest an intraluminal partially calcified stone or sludge ball. Polyp is less likely bu t not excluded. Gallbladder wall thickening most likely indicative of chronic cholecystitis. Multiple right renal cysts and right nephrolithiasis without hydronephrosis. ACT 112: Negative or not required by law. Electronically signed by: Kathleen Shi M.D. 11/02/2024 8:53 AM
--- NOTE | 2024-11-02 10:24 | Hospitalist Progress Note ---
Date of Service November 02, 2024 Assessment & Plan (1) Acute confusion: (2) Cellulitis: (3) Diabetic nephropathy associated with type 2 diabetes mellitus: (4) Antiphospholipid syndrome: Plan Randal is an 84-year-old male with PMH of HLD, antiphospholipid syndrome, DVT, adenocarcinoma, orthostatic hypotension, colostomy status, and T2DM. He presented on 10/31 for new onset confusion over the past 24-48 hours. Patient's (Eboni) provides most the history. She reports that he was complaining of a headache behind left eye that started Wednesday (10/30) morning, unusual for patient. #Confusion/AMS - source unclear BioFire negative. UA negative. Ammonia/TSH/VBG WNL. Procal/ UDS negative. Head CT: possible NPH. Head/neck CTA: no significant stenosis. Brain MRI: Cerebral Atrophy Brain MRI w/con: no masses or mets. Gallbladder US -stable since 08/2022, chronic pancreatitis. LFTs not elevated. Blood cultures: no growth 24 hours Slight increase in CRP 0.71-> 0.91, --> 2.13 continue to trend Neurology consulted - encephalopathy possibly related to infection. Possible underlying dementia. Does no require EEG or LP at this time. Outpatient follow up. PT/OT - recommend rehab AM CBC, BMP, CRP #Cellulitis of right lower limb. *Cellulitis of left lower limb Patient just recently completed 10-day course of Keflex. No history of MRSA infections; no purulent drainage, per Will continue Ceftriaxone. Continue daily lasix. WC RN consulted - BID lac-hydrin added Cellulitis is improving #Acute vs chronic popliteal DVT H/o antiphospholipid syndrome; previously on warfarin - Switched to enoxaparin 1 mg/kg BID on 10/20, but recently changed to daily dose on 10/30 due to rectal polyp bleeding Lovenox resumed #T2DM A1c 7.8 (prior 6.1) Home meds: metformin, NPH insulin - HELD Pharmacy glycemic consult #Ostomy status Daily colostomy care. No signs of infection Disposition: Continued inpatient stay, treating AMS/cellulitis VTE PPx: Lovenox held for possible LP Admission and Anticipated Discharge Date Admission Date: October 31, 2024 Supervising Physician Co-Signing Physician Notes PA Supervision Note: I did not personally see or examine the patient today, but I verified all jarrett points of GIGI Kelly's assessment and plan with the following exceptions/additions: None Subjective Patient seen lying in bed. Much more alert today - able to tell me he is in [facility]. States he came in yesterday for dizziness. Denies dizziness at this time but does complain of a frontal headache. denies vision changes. Per RN - worked with therapy this morning, and requesting coffee. Tele - SR IVCD 60s Review of Systems Review of Systems: All systems reviewed & are unremarkable except as noted in Subjective Physical Exam Physical Exam: General: NAD, lying in bed, awake and alert. Resp: normal respiratory effort, lungs clear to auscultation CV: RRR, no murmur, Abd: normal bowel sounds, non tender, Soft, ostomy bag in place Back: No rashes or bruising. Extremities: Moves all extremities. bilateral lower extremity edema with scaling consistent with venous stasis. Outline from ED for cellulitis with decr eased redness, no warmth. 1+ pedal edema Neuro: A&O x2, able to follow commands Results & Data Results & Data Vital Signs (Past 12 Hours) Vital Signs Temp Pulse Pulse Resp BP Pulse Ox O2 Del Method 11/02/24 08:41 Room Air 11/02/24 08:00 98.1 F 79 18 158/83 H 96 Room Air 11/02/24 07:24 66 11/02/24 04:00 97.9 F 65 16 170/76 H 96 Room Air 11/02/24 00:03 98.4 F 63 16 167/79 H 96 Room Air Laboratory Results CBC, chemistry, LFT, CRP reviewed Urine tox reviewed Diagnostic Findings mri brain with contrast reviewed RUQ US reviewed PG Care Time/CCT Total # of Minutes Spent Total Time Spent with Patient: Total time spent is greater than 50% in coordination of care (as documented) at patient's floor/unit and/or counseling patient: Coding Level of Care Code 56816 SUB INP/OBS CARE 3/50MIN Diagnoses Acute confusion R41.0 Cellulitis L03.90 Diabetic nephropathy associated with type 2 diabetes mellitus E11.21 Antiphospholipid syndrome D68.61
--- NOTE | 2024-11-02 10:41 | Neurology Progress Note ---
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 He is no longer perseverative. He is alert and attentive. He still exhibits some difficulty with expressive speech which I suspect is related to lingering encephalopathy rather than an acute or focal neurological process. No evidence of stroke or encephalitis on recent and repeat MRI. Given the degree of observed cerebral atrophy, could consider the possibility of an underlying dementia, (primary progressive aphasia, logopenic Alzheimer's variant). Jojo joel, his presentation with subacute confusion and improvement with antibiotics is more consistent with encephalopathy in the context of cellulitis, infection. At this point, I do not think this patient requires an EEG or lumbar puncture. Continue with current medical care. We can reevaluate him in neurology clinic in 2 to 3 weeks to get a better assessment of his cognitive functioning at that time. Please call with any questions. Admission and Anticipated Discharge Date Admission Date: October 31, 2024 Subjective Follow-up regarding encephalopathy The patient seems to be improved this morning. He is alert, appropriate, speech is much more fluent, no perseveration. He still has mild difficulty with expressive speech at times, some difficulty naming. Speech is also slightly slowed, but again, improved compared with yesterday. Comprehension intact. No difficulty following commands. See examination below for further details. He does not have any specific complaints. He did have a repeat brain MRI with contrast completed yesterday. I independently reviewed these images. No abnormal postcontrast enhancement. No significant change compared with the previous MRI done October 31. There is generalized atrophy with an element of hydrocephalus ex vacuo. No imaging evidence of encephalitis or meningitis. He denies headache or neck pain. Results & Data Vital Signs (Past 12 Hours) Vital Signs Temp Pulse Pulse Resp BP Pulse Ox O2 Del Method 11/02/24 08:41 Room Air 11/02/24 08:00 36.7 C 79 18 158/83 H 96 Room Air 11/02/24 07:24 66 11/02/24 04:00 36.6 C 65 16 170/76 H 96 Room Air 11/02/24 00:03 36.9 C 63 16 167/79 H 96 Room Air Exam (Neuro) Neurologic: Oriented to:: Person and Place; negative Time Cognitive Function: negative Cognitive Speed Memory: negative Short Term Intact Attention: Span Intact Language: negative Naming Objects Speech Fluency: Dysfluency and Slowed Fund of Knowledge: Vocabulary Cranial Nerves: Normal II, III, IV, , V, VII, VIII, IX, X, XI and XII Motor Strength: Normal Lower Extremities and Normal Upper Extremities Muscle Bulk/Involuntary Movements: No Involuntary Movements Coding Level of Care Code 72108 SUB INP/OBS CARE 3/50MIN Diagnoses Encephalopathy G93.40 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
[2024-11-02] MEDS: LANTUS PER UNIT CHARGE SQ SCH (21:07)
[2024-11-03 06:10] LABS: Hematocrit (blood only) 32.5 % (42.0-52.0); Hemoglobin 10.9 g/dl (14.0-18.0); Mean Corpuscular Hemoglobin 30.4 pg (25.0-34.0); Mean Corpuscular Hgb Conc 33.5 g/dL (32.0-36.0); Mean Corpuscular Volume 90.5 fL (80.0-100.0); Mean Platelet Volume 9.7 fL (9.4-12.4); Platelet Count 167 K/uL (130-400); RDW Coefficient of Variation 14.1 % (11.5-14.5); Red Blood Count 3.59 M/uL (4.70-6.10); White Blood Count 5.05 K/ul (4.8-10.8)
[2024-11-03 06:25] LABS: BUN Creatinine Ratio 21.2 (10-20); C Reactive Protein 1.98 mg/dl (0-0.5); Calcium 9.2 mg/dl (8.6-10.3); Creatinine Clr Calc Pharmacy 77.2 ml/min; Potassium 3.7 mmol/L (3.5-5.1)
[2024-11-03] MEDS: LANTUS PER UNIT CHARGE SQ SCH (09:00)
--- NOTE | 2024-11-03 11:24 | Hospitalist Progress Note ---
Date of Service November 03, 2024 Assessment & Plan (1) Acute confusion: (2) Cellulitis: (3) Diabetic nephropathy associated with type 2 diabetes mellitus: (4) Antiphospholipid syndrome: Plan Randal is an 84-year-old male with PMH of HLD, antiphospholipid syndrome, DVT, adenocarcinoma, orthostatic hypotension, colostomy status, and T2DM. He presented on 10/31 for new onset confusion over the past 24-48 hours. Patient's (Eboni) provides most the history. She reports that he was complaining of a headache behind left eye that started Wednesday (10/30) morning, unusual for patient. Extensive workup for AMS including biofire, UA, Ammonia, TSH, VBG, Procal and UDS was unrevealing. Head CT concerns for possible NPH. Brain MRI w/and w/o contrast without mass or acute changes, does show cerebral atrophy. Gallbladder US - stable, chronic pancreatitis. Was seen by neurology - enc ephalopathy possibly related to infection. Possible underlying dementia. Outpatient follow up. Thankfully, encephalopathy has been improving. #Confusion/AMS - source likely cellulitis Blood cultures: no growth 48 hours CRP now downtrending Neurology consulted - encephalopathy possibly related to infection. Possible underlying dementia. Outpatient follow up. PT/OT - recommend rehab AMS improving, stable to downgrade to medical. #Cellulitis of right lower limb. *Cellulitis of left lower limb Patient just recently completed 10-day course of Keflex. No history of MRSA infections; no purulent drainage, per Will continue Ceftriaxone. Continue daily lasix. WC RN consulted - BID lac-hydrin added Cellulitis is improving #Acute vs chronic popliteal DVT H/o antiphospholipid syndrome; previously on warfarin - Switched to enoxaparin 1 mg/kg BID on 10/20, but recently changed to daily dose on 10/30 due to rectal polyp bleeding Lovenox resumed #T2DM A1c 7.8 (prior 6.1) Home meds: metformin, NPH insulin - HELD Pharmacy glycemic consult #Ostomy status Daily colostomy care. No signs of infection Disposition: Continued inpatient stay, treating AMS/cellulitis, downgrade to medical VTE PPx: Lovenox resumed Admission and Anticipated Discharge Date Admission Date: October 31, 2024 Supervising Physician Co-Signing Physician Notes PA Supervision Note: I did not personally see or examine the patient today, but I verified all jarrett points of GIGI Kelly's assessment and plan with the following exceptions/additions: None Subjective Randal seen lying in bed, feels well. Has not been out of bed yet today does not complain of headache today speech is more fluent today knows he is in [facility], knows the year No events on tele Review of Systems Review of Systems: All systems reviewed & are unremarkable except as noted in Subjective Physical Exam Physical Exam: General: NAD, lying in bed, awake and alert. Resp: normal respiratory effort, lungs clear to auscultation CV: RRR, no murmur, Abd: normal bowel sounds, non tender, Soft, ostomy bag in place Back: No rashes or bruising. Extremities: Moves all extremities. bilateral lower extremity edema with scaling consistent with venous stasis. Outline from ED for cellulitis with decr eased redness, no warmth. non pitting LE Neuro: A&O x3, able to follow commands Results & Data Results & Data Vital Signs (Past 12 Hours) Vital Signs Temp Pulse Pulse Resp BP Pulse Ox O2 Del Method 11/03/24 07:51 98.2 F 80 18 153/69 H 94 Room Air 11/03/24 05:48 63 11/03/24 02:34 97.9 F 68 18 156/70 H 95 Room Air Laboratory Results CBC , chemistry and CRP reviewed PG Care Time/CCT Total # of Minutes Spent Total Time Spent with Patient: Total time spent is greater than 50% in coordination of care (as documented) at patient's floor/unit and/or counseling patient: Coding Level of Care Code 08324 SUB INP/OBS CARE 3/50MIN Diagnoses Acute confusion R41.0 Cellulitis L03.90 Diabetic nephropathy associated with type 2 diabetes mellitus E11.21 Antiphospholipid syndrome D68.61
--- NOTE | 2024-11-03 14:31 | Pharmacy Report ---
Pharmacy Glycemic Short Note 2 - Date of Service November 03, 2024 - Glycemic Short BSG Results (Last 24 hours): 11/02/24 11/02/24 11/03/24 17:17 20:04 05:23 Glucose 156 H POC Glucose 158 H 206 H 11/03/24 11/03/24 08:26 12:35 Glucose POC Glucose 184 H 191 H OUTPATIENT ANTIDIABETIC REGIMEN: * Novolog 70/30 - 25 units breakfast, 15 units supper * Metformin 1g PO BID * A1c 7.8% 11/01/24 ASSESSMENT: 11/03/24 * Fasting BSG above goal this morning, despite gradual increase in Lantus dose the past couple of days. Lantus dose increased again today. * BSG trends throughout the day indicate that carb coverage may be insufficient, so Novolog parameters tightened slightly. * Pharmacy will continue to follow and adjust regimen as indicated. 11/01/24 * DF is a 84 YOM admitted for altered mental status. Pharmacy consulted to manage his T2DM. * Pt came in yesterday morning, unclear of amount of insulin received at home prior. Received 5 units glargine and 4 units of aspart last evening. Received 10 units glargine this AM and had tightened carb ratio this AM. BSGs high on arrival, slowly coming down but not within goal range. Increased glargine to 12 units BID and tightened correction factor and carb ratio again this afternoon to reflect weight based stress of 2 calculations. * Pt ordered diet and receiving ceftriaxone for SSTI. No steroids received at this time. PLAN FOR INPATIENT GLYCEMIC CONTROL: * Hold outpatient oral diabetes medications * Basal insulin * Lantus 15 units SQ BID * Bolus insulin * NovoLog per scale ACHS or Q6hrs while NPO * Goal Range: Low 110 mg/dL - High 140 mg/dL * Correction Factor: 25 mg/dL/unit * Nutritional / Prandial insulin per carb ratio of 1 unit per 6 grams CHO consumed
[2024-11-04 06:41] LABS: Hematocrit (blood only) 33.4 % (42.0-52.0); Hemoglobin 11.4 g/dl (14.0-18.0); Mean Corpuscular Hemoglobin 30.9 pg (25.0-34.0); Mean Corpuscular Hgb Conc 34.1 g/dL (32.0-36.0); Mean Corpuscular Volume 90.5 fL (80.0-100.0); Mean Platelet Volume 9.5 fL (9.4-12.4); Platelet Count 193 K/uL (130-400); RDW Coefficient of Variation 14.3 % (11.5-14.5); RDW Standard Deviation 47.1 fL (36.4-46.3); Red Blood Count 3.69 M/uL (4.70-6.10)
[2024-11-04 06:55] LABS: Creatinine Clr Calc Pharmacy 83.1 ml/min
[2024-11-04] MEDS: LANTUS PER UNIT CHARGE SQ SCH (08:22)
--- NOTE | 2024-11-04 10:44 | Hospitalist Progress Note ---
Date of Service November 04, 2024 Assessment & Plan (1) Acute confusion: (2) Cellulitis: (3) Diabetic nephropathy associated with type 2 diabetes mellitus: (4) Antiphospholipid syndrome: Plan Randal is an 84-year-old male with PMH of HLD, antiphospholipid syndrome, DVT, adenocarcinoma, orthostatic hypotension, colostomy status, and T2DM. He presented on 10/31 for new onset confusion over the past 24-48 hours. Patient's (Eboni) provides most the history. She reports that he was complaining of a headache behind left eye that started Wednesday (10/30) morning, unusual for patient. Extensive workup for AMS including biofire, UA, Ammonia, TSH, VBG, Procal and UDS was unrevealing. Head CT concerns for possible NPH. Brain MRI w/and w/o contrast without mass or acute changes, does show cerebral atrophy. Gallbladder US - stable, chronic pancreatitis. Was seen by neurology - enc ephalopathy possibly related to infection. Possible underlying dementia. Outpatient follow up. Thankfully, encephalopathy has been improving. #Confusion/AMS - source likely cellulitis Blood cultures: no growth 48 hours. CRP now downtrending Neurology consulted - encephalopathy possibly related to infection. Possible underlying dementia. Outpatient follow up. PT/OT - recommend rehab - CM improving AMS improving #Cellulitis of right lower limb. *Cellulitis of left lower limb Patient just recently completed 10-day course of Keflex. No history of MRSA infections; no purulent drainage, per Continue daily lasix. Receiving ceftriaxone, will transition to cefdinir for 11/04 to assure to reaction like on Keflex. WC RN consulted - BID lac-hydrin added #Acute vs chronic popliteal DVT H/o antiphospholipid syndrome; previously on warfarin - Switched to enoxaparin 1 mg/kg BID on 10/20, but recently changed to daily dose on 10/30 due to rectal polyp bleeding Lovenox resumed #T2DM A1c 7.8 (prior 6.1) Home meds: metformin, NPH insulin - HELD Pharmacy glycemic consult #Ostomy status Daily colostomy care. No signs of infection Disposition: Continued inpatient stay, working on placement, transition to PO antibiotics VTE PPx: Lovenox resumed Admission and Anticipated Discharge Date Admission Date: October 31, 2024 Subjective Lying in bed, no acute complaints. not out of bed - hoopefully will work with PT today unable to find his cell phone - RN aware Review of Systems Review of Systems: All systems reviewed & are unremarkable except as noted in Subjective Physical Exam Physical Exam: General: NAD, lying in bed, awake and alert. Resp: normal respiratory effort, lungs clear to auscultation CV: RRR, no murmur, Abd: normal bowel sounds, non tender, Soft, ostomy bag in place Back: No rashes or bruising. Extremities: Moves all extremities. bilateral lower extremity edema with scaling consistent with venous stasis. Outline from ED for cellulitis with decreased redness, no warmth. non pitting LE Neuro: A&O x3, able to follow commands Results & Data Results & Data Vital Signs (Past 12 Hours) Vital Signs Temp Pulse Pulse Resp BP BP Pulse Ox 11/04/24 08:14 97.9 F 63 14 160/72 H 94 11/03/24 23:19 97.3 F L 73 14 170/83 H 94 11/03/24 22:50 11/03/24 22:50 Pulse Ox O2 Del Method O2 Del Method 11/04/24 08:14 Room Air 11/03/24 23:19 Room Air 11/03/24 22:50 Room Air 11/03/24 22:50 94 Room Air Laboratory Results cbc and Cr reviewed PG Care Time/CCT Total # of Minutes Spent Total Time Spent with Patient: Total time spent is greater than 50% in coordination of care (as documented) at patient's floor/unit and/or counseling patient: Coding Level of Care Code 48268 SUB INP/OBS CARE 2/35MIN Diagnoses Acute confusion R41.0 Cellulitis L03.90 Diabetic nephropathy associated with type 2 diabetes mellitus E11.21 Antiphospholipid syndrome D68.61
--- NOTE | 2024-11-04 14:56 | Pharmacy Report ---
Pharmacy Glycemic Short Note 2 - Date of Service November 04, 2024 - Glycemic Short BSG Results (Last 24 hours): 11/03/24 11/03/24 11/04/24 17:05 20:20 07:53 POC Glucose 167 H 184 H 160 H 11/04/24 11:28 POC Glucose 182 H OUTPATIENT ANTIDIABETIC REGIMEN: * Novolog 70/30 - 25 units SC breakfast + 15 units SC supper * Metformin 1000 mg PO BID * A1c 7.8% (11/01/24) ASSESSMENT: 11/04: * Randal received 62 units of insulin yesterday, 30 of which were basal. BSGs were 334-241-255-184 mg/dL. * Fasting BSG was 160 mg/dL this AM. Will increase basal dose again today to represent a total of ~30% increase. * Novolog also tightened to reflect weight/stress of 3. Antibiotics changed to cefdinir today. Tolerating T2DM diet. 11/03: * Fasting BSG above goal this morning, despite gradual increase in Lantus dose t he past couple of days. Lantus dose increased again today. * BSG trends throughout the day indicate that carb coverage may be insufficient, so Novolog parameters tightened slightly. * Pharmacy will continue to follow and adjust regimen as indicated. 11/01: * LEE is a 84 YOM admitted for altered mental status. Pharmacy consulted to manage his T2DM. * Pt came in yesterday morning, unclear of amount of insulin received at home prior. Received 5 units glargine and 4 units of aspart last evening. Received 10 units glargine this AM and had tightened carb ratio this AM. BSGs high on arrival, slowly coming down but not within goal range. Increased glargine to 12 units BID and tightened correction factor and carb ratio again this afternoon to reflect weight based stress of 2 calculations. * Pt ordered diet and receiving ceftriaxone for SSTI. No steroids received at this time. PLAN FOR INPATIENT GLYCEMIC CONTROL: * Hold outpatient oral diabetes medications * Basal insulin * Lantus 18 units SC BID * Bolus insulin * NovoLog per scale ACHS or Q6hrs while NPO * Goal Range: Low 110 mg/dL - High 140 mg/dL * Correction Factor: 15 mg/dL/unit * Nutritional / Prandial insulin per carb ratio of 1 unit per 5 grams CHO consumed
[2024-11-05] MEDS: CEFDINIR 300 MG CAP PO SCH (08:02)
--- NOTE | 2024-11-05 11:46 | Hospitalist Progress Note ---
Date of Service November 05, 2024 Assessment & Plan (1) Acute confusion: (2) Cellulitis: (3) Diabetic nephropathy associated with type 2 diabetes mellitus: (4) Antiphospholipid syndrome: Plan Randal is an 84-year-old male with PMH of HLD, antiphospholipid syndrome, DVT, adenocarcinoma, orthostatic hypotension, colostomy status, and T2DM. He presented on 10/31 for new onset confusion over the past 24-48 hours. Patient's (Eboni) provides most the history. She reports that he was complaining of a headache behind left eye that started Wednesday (10/30) morning, unusual for patient. Extensive workup for AMS including biofire, UA, Ammonia, TSH, VBG, Procal and UDS was unrevealing. Head CT concerns for possible NPH. Brain MRI w/and w/o contrast without mass or acute changes, does show cerebral atrophy. Gallbladder US - stable, chronic pancreatitis. Was seen by neurology - enc ephalopathy possibly related to infection. Possible underlying dementia. Outpatient follow up. Thankfully, encephalopathy has been improving. #Confusion/AMS - source likely cellulitis Blood cultures: no growth 48 hours. CRP now downtrending Neurology consulted - encephalopathy possibly related to infection. Possible underlying dementia. Outpatient follow up. PT/OT - recommend rehab - CM following AMS improving #Cellulitis of right lower limb. *Cellulitis of left lower limb Patient just recently completed 10-day course of Keflex. Continue daily lasix. Received ceftriaxone, transition to cefdinir for 11/04 to assure no reaction like on Keflex. WC RN consulted - BID lac-hydrin added #Acute vs chronic popliteal DVT H/o antiphospholipid syndrome; previously on warfarin - Switched to enoxaparin 1 mg/kg BID on 10/20, but recently changed to daily dose on 10/30 due to rectal polyp bleeding Lovenox resumed #T2DM A1c 7.8 (prior 6.1) Home meds: metformin, NPH insulin - HELD Pharmacy glycemic consult #Ostomy status Daily colostomy care. No signs of infection Disposition: Continued inpatient stay, working on placement, transition to PO antibiotics VTE PPx: Lovenox resumed Admission and Anticipated Discharge Date Admission Date: October 31, 2024 Subjective patient seen lying in bed, working a puzzle book. does not feel completely back to baseline mentally, but reports very close tolerating appetite, ostomy working wihtout issue transitioned to PO abx today Review of Systems Review of Systems: All systems reviewed & are unremarkable except as noted in Subjective Physical Exam Physical Exam: General: NAD, lying in bed, awake and alert. Resp: normal respiratory effort, lungs clear to auscultation CV: RRR, no murmur, Abd: normal bowel sounds, non tender, Soft, ostomy bag in place Back: No rashes or bruising. Extremities: Moves all extremities. bilateral lower extremity edema with scaling consistent with venous stasis. Outline from ED for cellulitis with decreased redness, no warmth. non pitting LE Neuro: A&O x3, able to follow commands Results & Data Results & Data Vital Signs (Past 12 Hours) Vital Signs Temp Pulse Resp BP Pulse Ox O2 Del Method 11/05/24 07:45 97.3 F L 60 16 134/82 97 Room Air Laboratory Results POC glucose reviewed PG Care Time/CCT Total # of Minutes Spent Total Time Spent with Patient: Total time spent is greater than 50% in coordination of care (as documented) at patient's floor/unit and/or counseling patient: Coding Level of Care Code 73253 SUB INP/OBS CARE 10/28MIN Diagnoses Acute confusion R41.0 Cellulitis L03.90 Diabetic nephropathy associated with type 2 diabetes mellitus E11.21 Antiphospholipid syndrome D68.61
--- NOTE | 2024-11-06 11:16 | Hospitalist Progress Note ---
Date of Service November 06, 2024 Assessment & Plan (1) Acute confusion: Plan: #Confusion/AMS - source likely cellulitis Blood cultures: no growth 48 hours. CRP now downtrending Neurology consulted - encephalopathy possibly related to infection. Possible underlying dementia. Outpatient follow up. PT/OT - recommend rehab - CM following AMS improving (2) Cellulitis: Plan: #Cellulitis of right lower limb. *Cellulitis of left lower limb Patient just recently completed 10-day course of Keflex. Continue daily lasix. Received ceftriaxone, transition to cefdinir for 11/04 to assure no reaction like on Keflex. WC RN consulted - BID lac-hydrin added (3) Diabetic nephropathy associated with type 2 diabetes mellitus: Plan: #T2DM A1c 7.8 (prior 6.1) Home meds: metformin, NPH insulin - HELD Pharmacy glycemic consult - Currently on Lantus 18 units and aspart ac and hs - BSG 148-179 over the past 24 hours. No hypoglycemia noted. - not currently taking anything for neuropathy (4) Antiphospholipid syndrome: Plan: #Acute vs chronic popliteal DVT H/o antiphospholipid syndrome; previously on warfarin - Switched to enoxaparin 1 mg/kg BID on 10/20, but recently changed to daily dose on 10/30 due to rectal polyp bleeding Lovenox resumed Plan Disposition: Continued inpatient stay, working on placement, transition to PO antibiotics VTE PPx: Lovenox resumed Patient is medically stable for discharge when rehab placement is arranged. CM working on this. No need for repeat labs in AM. Plan d/w Dr. Malloy. Admission and Anticipated Discharge Date Admission Date: October 31, 2024 Merrick Tee was seen today on rounds. Sitting in bedside chair. Reports feeling dizzy this AM when transferring from bed to chair. No other complaints. Denies chest pain or dyspnea. Is awaiting discharge to rehab. Review of Systems Review of Systems: All systems reviewed and are unremarkable except as noted in HPI and below. Denies fever, chills, fatigue, headache, nasal congestion, sore throat, cough, chest pain, shortness of breath, palpitations, orthopnea, PND, abdominal pain, n/v/d, constipation, dysuria, hematuria, frequency, back pain, joint pain or swelling, easy bruising or bleeding, skin lesions or rashes. Physical Exam Physical Exam: GENERAL: 84 yo well-nourished elderly WM. Awake, alert. No distress. LUNGS: Clear to auscultation bilaterally. No W/R/R. CARDIOVASCULAR: Regular rate and rhythm. ABDOMEN: Soft, non-tender and non-distended. Bowel sounds normoactive x 4 quad. EXTREMITIES: Trace b/l LE edema. Non-tender. Chronic venous stasis skin changes. Peripheral pulses +2/4. PSYCHIATRIC: Cooperative. Appropriate mood and affect. SKIN: Warm, dry, intact. No rashes or lesions. Results & Data Results & Data Vital Signs (Past 12 Hours) Vital Signs Temp Pulse Resp BP Pulse Ox O2 Del Method 11/06/24 07:54 36.7 C 67 18 153/74 H 99 Room Air PG Care Time/CCT Total # of Minutes Spent Total Time Spent with Patient: Total time spent is greater than 50% in coordination of care (as documented) at patient's floor/unit and/or counseling patient: 40 minutes Coding Level of Care Code 10850 SUB INP/OBS CARE 2/35MIN Diagnoses Acute confusion R41.0 Cellulitis L03.90 Diabetic nephropathy associated with type 2 diabetes mellitus E11.21 Antiphospholipid syndrome D68.61
--- NOTE | 2024-11-06 12:24 | Pharmacy Report ---
Pharmacy Glycemic Short Note 2 - Date of Service November 06, 2024 - Glycemic Short BSG Results (Last 24 hours): 11/05/24 11/05/24 11/06/24 16:27 20:22 07:53 POC Glucose 156 H 165 H 165 H 11/06/24 11:28 POC Glucose 225 H OUTPATIENT ANTIDIABETIC REGIMEN: * Novolog 70/30 - 25 units SC breakfast + 15 units SC supper * Metformin 1000 mg PO BID * A1c 7.8% (11/01/24) ASSESSMENT: 11/06: * Randal received 68 units of insulin yesterday, 36 of which were basal. * Fasting BSG was at goal last two days, continue. * BG rising some with meals, will tighten CR only at this time. * Awaiting placement for discharge. 11/04: * Randal received 62 units of insulin yesterday, 30 of which were basal. BSGs were [phone] mg/dL. * Fasting BSG was 160 mg/dL this AM. Will increase basal dose again today to represent a total of ~30% increase. * Novolog also tightened to reflect weight/stress of 3. Antibiotics changed to cefdinir today. Tolerating T2DM diet. 11/03: * Fasting BSG above goal this morning, despite gradual increase in Lantus dose the past couple of days. Lantus dose increased again today. * BSG trends throughout the day indicate that carb coverage may be insufficient, so Novolog parameters tightened slightly. * Pharmacy will continue to follow and adjust regimen as indicated. 11/01: * LEE is a 84 YOM admitted for altered mental status. Pharmacy consulted to manage his T2DM. * Pt came in yesterday morning, unclear of amount of insulin received at home prior. Received 5 units glargine and 4 units of aspart last evening. Received 10 units glargine this AM and had tightened carb ratio this AM. BSGs high on arrival, slowly coming down but not within goal range. Increased glargine to 12 units BID and tightened correction factor and carb ratio again this afternoon to reflect weight based stress of 2 calculations. * Pt ordered diet and receiving ceftriaxone for SSTI. No steroids received at this time. PLAN FOR INPATIENT GLYCEMIC CONTROL: * Hold outpatient diabetes medications * Basal insulin * Lantus 18 units SC BID * Bolus insulin * NovoLog per scale ACHS or Q6hrs while NPO * Goal Range: Low 110 mg/dL - High 140 mg/dL * Correction Factor: 15 mg/dL/unit * Nutritional / Prandial insulin per carb ratio of 1 unit per 4 grams CHO consumed
[2024-11-07 07:32] LABS: Hematocrit (blood only) 36.5 % (42.0-52.0); Mean Corpuscular Hemoglobin 30.2 pg (25.0-34.0); Mean Corpuscular Hgb Conc 32.9 g/dL (32.0-36.0); Mean Corpuscular Volume 91.7 fL (80.0-100.0); Mean Platelet Volume 9.2 fL (9.4-12.4); Platelet Count 203 K/uL (130-400); RDW Coefficient of Variation 14.6 % (11.5-14.5); RDW Standard Deviation 49.6 fL (36.4-46.3); Red Blood Count 3.98 M/uL (4.70-6.10); White Blood Count 4.74 K/ul (4.8-10.8)
[2024-11-07 07:51] LABS: Creatinine Clr Calc Pharmacy 74.9 ml/min
--- NOTE | 2024-11-07 08:43 | Hospitalist Progress Note ---
Date of Service November 07, 2024 Assessment & Plan (1) Acute confusion: Plan: #Confusion/AMS - source likely cellulitis metabolic encephalopathy due to cellulitis infection AMS improving Blood cultures: no growth 48 hours. CRP now downtrending Continues on abx for cellulitis, cefdinir - EOT 11/07, to complete today Neurology consulted - encephalopathy possibly related to infection. Possible underlying dementia. Outpatient follow up. B12 checked/borderline low 393, 500mcg PO daily started/would continue Notable US GB notes sludge/stone, likely chronic cholecystitis. Notable not having any abd pain/LFTs wnl on admission. Consider ref to general surgery outpatient could consider lyme testing as well for completeness given improvement on Ceftriaxone on admission, will add w/ AM labs CBC, BMP, LFT, mag, INR along w/ CRP/ESR in AM PT/OT - recommend rehab - [facility] referrals in place. CM following (2) Cellulitis: Plan: Cellulitis of bilateral legs, recently completed 10 days of keflex outpatient Received ceftriaxone, transition to cefdinir for 11/04 to assure no reaction like on Keflex. Wound RN consulted, BID lac-hydrin added/continued Remains on lasix 20mg PO daily, will add BNP to AM labs/additional lasix as needed. Elevation encouraged (3) Diabetic nephropathy associated with type 2 diabetes mellitus: Plan: A1c 7.8 (prior 6.1) Home meds: metformin, NPH insulin --> HELD while inpatient Pharmacy on consult for glycemic management, BSGs have been acceptable Monitor/adjustment as needed Not on any meds for neuropathy, B12 low normal on check above and PO supp started/would continue w/ ongoing metformin use (4) Antiphospholipid syndrome: Plan: #Acute vs chronic popliteal DVT H/o antiphospholipid syndrome; Was on Lovenox BID but issues w/ bleeding from rectal polyp and was reduced to 1mg/kg/daily given prior venous doppler finding w/ popliteal thrombus not felt acute and more chronic finding but had planned to start coumadin 15mg PO daily x 3 days and monitor INR. His usual dose is 10mg PO daily Discussed w/ coag clininc provider, continues Lovenox SQ 120mg/daily, coumadin 15mg PO daily added for today and monitor INR on repeat Will need ongoing follow up with [place]ag [place] rehab. Plan Disposition: Continued inpatient stay, completing abx today. Coumadin resumed for hx antiphospholipid syndrome and continues on lovenox SQ and will monitor INR. Monitor inflammatory markers w/ AM labs as well as BNP/consideration for additional lasix as needed for LE edema. PT/OT rec rehab/placement, referrals in place for [facility] following Admission and Anticipated Discharge Date Admission Date: October 31, 2024 Supervising Physician Co-Signing Physician Notes The patient was not seen by me. The chart was reviewed. Case discussed with GIGI Drake. Agree with assessment and plan Subjective Eval this morning, resting in bed. Knows in hospital, month Nov. Initially said year 2025 but cooperative/pleasant. Denies significant pain. Discussed Lovenox/Coumadin, he follows with Dr Morrell. Will touch base w/ coag clinic. Working on rehab prior to return home. No fever/chills, chest pain, shortness of breath, abdominal pain, nausea/vomiting. Questions/concerns addressed at this time. Per coag clinic --- not strong feeling had clot and more superficial vs NOT new finding. Therapeutic lovenox used because of scan reports however given rectal bleeding was switched to Lovenox and 1mg/kg and starting Coumadin in 3 days. Prior Coumadin 10mg/day, plan to load 15mg x 3 days. Will resume today/monitor INR. Physical Exam 2 Physical Exam: GENERAL: 84 yo male sitting up in bed, alert to person/place/month, initially reported 2025 but otherwise calm/cooperative with care, NAD HEENT: +facial hair, head atraumatic, normocephalic, mmm, trachea midline Resp: even/unlabored, slightly diminished to the bases, no wheezing/rales, 94% on RA CV: RRR, no significant m/r/g, stable b/l LE edema, trace-1+ bilateral, pulses present, calves nontender, cellulitis much improved/resolved, chronic venous stasis noted GI: +BS, soft/NT, ostomy functioning/intact : no chavis MSK/Neuro: nonfocal, moves all extremities, strength equal bilaterally Psych: alert to person/place/month, intermittent to year but cooperative with exam Results & Data Results & Data Vital Signs (Past 12 Hours) Vital Signs Temp Pulse Resp BP Pulse Ox O2 Del Method 11/07/24 07:07 36.3 C L 62 18 152/67 H 98 Room Air Laboratory Results 11/07/24 07:14 11/07/24 09:15 Vit D 23.5 PG Care Time/CCT Total # of Minutes Spent Total Time Spent with Patient: Total time spent is greater than 50% in coordination of care (as documented) at patient's floor/unit and/or counseling patient: Coding Level of Care Code 52062 SUB INP/OBS CARE 3/50MIN Diagnoses Acute confusion R41.0 Cellulitis L03.90 Diabetic nephropathy associated with type 2 diabetes mellitus E11.21 Antiphospholipid syndrome D68.61
[2024-11-07 10:04] LABS: BUN Creatinine Ratio 26.7 (10-20); Calcium 10.1 mg/dl (8.6-10.3); Creatinine Clr Calc Pharmacy 72.8 ml/min; Potassium 4.4 mmol/L (3.5-5.1)
[2024-11-07] MEDS: CHOLECALCIFEROL 10 MCG (400 UNITS) TAB PO SCH (11:31)
[2024-11-07] MEDS: WARFARIN SOD 7.5 MG TAB PO SCH (16:10)
[2024-11-08 07:36] LABS: Hematocrit (blood only) 34.9 % (42.0-52.0); Hemoglobin 11.7 g/dl (14.0-18.0); Mean Corpuscular Hemoglobin 30.6 pg (25.0-34.0); Mean Corpuscular Hgb Conc 33.5 g/dL (32.0-36.0); Mean Corpuscular Volume 91.4 fL (80.0-100.0); Platelet Count 219 K/uL (130-400); RDW Coefficient of Variation 14.7 % (11.5-14.5); RDW Standard Deviation 49.1 fL (36.4-46.3); Red Blood Count 3.82 M/uL (4.70-6.10); White Blood Count 4.75 K/ul (4.8-10.8)
[2024-11-08 07:53] LABS: Alanine Aminotransferase 29 U/L (7-52); Albumin Level 3.3 gm/dl (3.4-5.0); Alkaline Phosphatase 72 U/L (34-104); Anion Gap 4 (3-11); Aspartate Aminotransferase 22 U/L (13-39); BUN Creatinine Ratio 33.7 (10-20); Bilirubin,Total 0.4 mg/dl (0.2-1.0); Blood Urea Nitrogen 30 mg/dl (6-23); C Reactive Protein < 0.50 mg/dl (0-0.5); Carbon Dioxide 28 mmol/L (21-32); Chloride 109 mmol/L (98-107); Creatinine Clr Calc Pharmacy 85.9 ml/min; Glucose 162 mg/dl (70-99(Fasting)); Potassium 4.2 mmol/L (3.5-5.1); Sodium 141 mmol/L (136-145); Total Protein 6.3 gm/dl (6.0-8.3)
[2024-11-08 08:04] LABS: Prothrombin Time 10.8 Seconds (9.0-12.0)
--- NOTE | 2024-11-08 08:38 | Hospitalist Progress Note ---
Date of Service November 08, 2024 Assessment & Plan (1) Acute confusion: Plan: #Confusion/AMS - source likely cellulitis metabolic encephalopathy due to cellulitis infection MRI brain negative for acute CVA Neurology consulted - encephalopathy possibly related to infection. Possible underlying dementia. Outpatient follow up. Could have NPH, but wouldn't present acutely. Plans for f/u outpt 2-3 wks Blood cultures: no growth 48 hours. CRP now downtrending Ceftriaxone --> Cefdinir. Completed course abx for cellulitis on 11/07 . Did have +Lyme IgM but negative IgG and per supervising provider no tx at this time Notable US GB notes sludge/stone, likely chronic cholecystitis. LFT wnl on admission. No abdominal pain reported AMS improving, stable, is alert/oriented to person/place/year on 11/08. B12 checked/borderline low 393-- 500mcg PO daily started/would continue at dc Vit D low @ 23.5, PO supplementation started/would continue at dc WBC 4.7K but afebrile. Coumadin resumed/continued and monitoring INR. Plan 15mg PO x 3 days, resume usual 10mg following/pending INR and will need [place]clinic f[place]. Hgb stable 11.7. CRP normalized, ESR may be lagging behind Slightly dehydrated/lasix placed on hold for AM, BUN elevation but stable Cr RN bladder scan post void and ~450cc, st cath x 1 and monitor BS qshift/chavis if needing ongoing st cath. Is moving bowels/ostomy emptied for soft stool this morning. PT/OT consulted and rec rehab/SNF, CM following and [facility] w/ bed tomorrow but will have PT/OT see in Am given improvement and wishes for home and if they feel much improved could consider but otherwise will plan for [facility] prior to returning home. (2) Cellulitis: Plan: Cellulitis of bilateral legs, recently completed 10 days of Keflex outpatient Received ceftriaxone, transition to cefdinir for 11/04 to assure no reaction like on Keflex and completed course 11/07 as above No pain on exam, WBC not elevated. Continued elevation encouraged. Lasix placed on hold for AM (3) Diabetic nephropathy associated with type 2 diabetes mellitus: Plan: A1c 7.8 (prior 6.1) Home meds: metformin, NPH insulin --> HELD while inpatient Pharmacy on consult for glycemic management, BSGs have been acceptable Monitor/adjustment as needed Not on any meds for neuropathy, B12 low normal on check above and PO supp started/would continue w/ ongoing metformin use (4) Antiphospholipid syndrome: Plan: #Acute vs chronic popliteal DVT H/o antiphospholipid syndrome; Was on Lovenox BID but issues w/ bleeding from rectal polyp and was reduced to 1mg/kg/daily given prior venous doppler finding w/ popliteal thrombus not felt acute and more chronic finding but had planned to start coumadin 15mg PO daily x 3 days and monitor INR. His usual dose is 10mg PO daily Discussed w/ coag clininc provider, continues Lovenox SQ 120mg/daily, coumadin 15mg PO daily added 11/07 and will monitor INR in AM. Plan 3 days 15mg PO per coag clinic Will need ongoing monitoring INR/[place] Plan Disposition: continued inpatient stay, completed course abx. lasix PO on hold for AM/straight cath for urinary retention and monitor for need for chavis if ongoing issues. Is moving bowels/ostomy w/ adequate output. [facility] vs home w/ HH services 11/09 pending repeat therapy evals in AM. CM following Updated at bedside 11/08 Admission and Anticipated Discharge Date Admission Date: October 31, 2024 Supervising Physician Co-Signing Physician Notes The patient was not seen by me. The chart was reviewed. Case discussed with GIGI Drake. Agree with assessment and plan Subjective Eval this moring, resting in bed. No pain to legs, completed abx. Reports would like to go home rather than rehab, will see about repeat therapy evals in AM to see if able to accommodate his wishes. Alert to person, place, year 2024 today and month ary. Appears back to baseline. Coumadin restarted/continued, will monitor INR. Will plan to call this afternoon with update regarding plan/care/disposition/questions. Physical Exam Physical Exam: GENERAL: 84 yo male sitting up in bed, alert to person/place/month, initially reported 2025 but otherwise calm/cooperative with care, NAD HEENT: +facial hair, head atraumatic, normocephalic, mmm, trachea midline Resp: even/unlabored, slightly diminished to the bases, no wheezing/rales, 94% on RA CV: RRR, no significant m/r/g, stable b/l LE edema, trace-1+ bilateral, pulses present, calves nontender, cellulitis much improved/resolved, chronic venous stasis noted GI: +BS, soft/NT, ostomy functioning/intact : no chavis MSK/Neuro: nonfocal, moves all extremities, strength equal bilaterally Psych: alert to person/place/month, intermittent to year but cooperative with exam Results & Data Results & Data Vital Signs (Past 12 Hours) Vital Signs Temp Pulse Resp BP Pulse Ox O2 Del Method 11/08/24 07:45 36.5 C 63 20 149/76 H 94 Room Air PG Care Time/CCT Total # of Minutes Spent Total Time Spent with Patient: Total time spent is greater than 50% in coordination of care (as documented) at patient's floor/unit and/or counseling patient: Coding Level of Care Code 36841 SUB INP/OBS CARE 3/50MIN Diagnoses Acute confusion R41.0 Cellulitis L03.90 Diabetic nephropathy associated with type 2 diabetes mellitus E11.21 Antiphospholipid syndrome D68.61
--- NOTE | 2024-11-08 09:16 | Pharmacy Report ---
Pharmacy Glycemic Short Note 2 - Date of Service November 08, 2024 - Glycemic Short BSG Results (Last 24 hours): 11/07/24 11/07/24 11/07/24 09:15 11:29 16:36 Glucose 202 H POC Glucose 203 H 169 H 11/07/24 11/08/24 11/08/24 20:16 07:19 07:45 Glucose 162 H POC Glucose 249 H 158 H OUTPATIENT ANTIDIABETIC REGIMEN: * Novolog 70/30 - 25 units SC breakfast + 15 units SC supper * Metformin 1000 mg PO BID * A1c 7.8% (11/01/24) ASSESSMENT: 11/08: * A total of 90 units of insulin were given yesterday (36 were basal and 54 were bolus) * All BSGs have been above goal the previous 48 hours. AM Fasting BSG has only been slightly out of range (157mg/dL on 11/07 and 158mg/dL this morning) so will just increase AM Lantus for now by ~10%. * Will continue bolus insulin parameters as ordered or now. 11/06: * Randal received 68 units of insulin yesterday, 36 of which were basal. * Fasting BSG was at goal last two days, continue. * BG rising some with meals, will tighten CR only at this time. * Awaiting placement for discharge. 11/04: * Randal received 62 units of insulin yesterday, 30 of which were basal. BSGs were [phone] mg/dL. * Fasting BSG was 160 mg/dL this AM. Will increase basal dose again today to represent a total of ~30% increase. * Novolog also tightened to reflect weight/stress of 3. Antibiotics changed to cefdinir today. Tolerating T2DM diet. 11/03: * Fasting BSG above goal this morning, despite gradual increase in Lantus dose the past couple of days. Lantus dose increased again today. * BSG trends throughout the day indicate that carb coverage may be insufficient, so Novolog parameters tightened slightly. * Pharmacy will continue to follow and adjust regimen as indicated. 11/01: * LEE is a 84 YOM admitted for altered mental status. Pharmacy consulted to manage his T2DM. * Pt came in yesterday morning, unclear of amount of insulin received at home prior. Received 5 units glargine and 4 units of aspart last evening. Received 10 units glargine this AM and had tightened carb ratio this AM. BSGs high on arrival, slowly coming down but not within goal range. Increased glargine to 12 units BID and tightened correction factor and carb ratio again this afternoon to reflect weight based stress of 2 calculations. * Pt ordered diet and receiving ceftriaxone for SSTI. No steroids received at this time. PLAN FOR INPATIENT GLYCEMIC CONTROL: * Hold outpatient diabetes medications * Basal insulin * Lantus 20 units SC QAM and 18 units SC QHS * Bolus insulin * NovoLog per scale ACHS or Q6hrs while NPO * Goal Range: Low 110 mg/dL - High 140 mg/dL * Correction Factor: 15 mg/dL/unit * Nutritional / Prandial insulin per carb ratio of 1 unit per 4 grams CHO consumed
[2024-11-08 09:19] LABS: Lyme Screen Rflx Confirmation Equivocal (Negative)
[2024-11-08] MEDS: LANTUS PER UNIT CHARGE SQ SCH ×2 (09:19→20:26)
[2024-11-08] MEDS: CYANOCOBALAMIN (B-12) 500 MCG TABLET PO SCH (09:23)
[2024-11-08 09:53] LABS: Lyme Ab IgG 2nd Tier Confirm Positive (Negative); Lyme Ab IgM 2nd Tier Confirm Negative (Negative)
[2024-11-08 14:07] VITALS: RESP 18
--- NOTE | 2024-11-08 15:08 | Palliative Care Consultation ---
Date of Consultation November 08, 2024 Assessment & Plan (1) Weakness generalized: (2) Advanced care planning/counseling discussion: A 25min face to face ACP meeting was held with pt and at bedside. he reaffirms that he enjoys his current quality of life and is able to remain mobile. He feels he has made good gains and hopes to continue to recover some strength with another round of rehab therapy. He also wants time and opportunity to meet and visit grandchildren he has never seen who live across [facility] in [place] - there is a family reunion planned in [place] this March and he hopes to attend> Eboni Solano states he needs to be able to navigate the 2 steps to enter their home before returning home bc otherwise he will not be able to go anywhere. He identifies his top priorities this time with his and family. He wishes to remain in his home and wishes to remain as autonomous and as mobile as he is able for as long as he can. He does not wish to be in a prolonged state of dependence or requiring maximal care from others. This has been difficult for his to except that she views the surgery is the only way to make him "cancer free." He notes that while that may be true, the surgery itself carries tremendous risks and likelihood of great complications that ultimately would likely lead to lower performance status and perhaps even mortality. In the end this would not be the quality of life that he is seeking for himself nor would it allow him the opportunity to achieve some of the goals and desires he is set for himself. (3) Unsteady gait: (4) Palliative care by specialist: Abhishek crowe Thank you for allowing us to participate in the ongoing care of this patient. Please page with any additional concerns. Pennie Drake DNP Director, Palliative Medicine History of Present Illness Reason for Consultation: ongoing mgt Attending Physician: Cheo Andre MD History of Present Illness Parvez is well known to me from his OP clinic he is seen bedside with Eboni Solano. reports admission for AMS and found to have cellulitis BLE Parvez has colorectal cancer s/p resection with ostomy now with new rectal mass and possibly needing total abdominoperitoneal resection for which he is felt to be a very poor surgical candidate; he has poor PS-currently uses a rolling walker with seat, can ambulate about 25 to 30 feet before needing to stop and rest, has mod dyspnea with exertion, needs assistance with some of his activities of daily living including bathing and dressing. He has an ostomy. He is able to empty it himself but needs help for changing it. His is his primary caregiver. Overall, he is very high risk for surgery. 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 Vinson Oct 2021 and subsequently again by Dr Annabella Treviño in November 2022. He is currently followed for surveillance. Initial disease presentation was October 2021 with symptoms of a large bowel obstruction as well as a rectal polyp. At that time he underwent a transanal excision of the rectal polyp which was noted to be small foci of high-grade dysplasia. At that time it was excised completely in a piecemeal fashion and no invasive disease was noted at the time. He then underwent a hand-assisted left colectomy with stapled distal colonic segment at the level of the descending colon and the proximal transverse colostomy. He has been doing well with his colostomy. He finished 12 cycles of chemotherapy presumably FOLFOX and received his last cycle July 12. He underwent a repeat endoscopy August 2022 to evaluate the rectum for any recurrence of polypoid tissue and was found to have an infiltrating nonobstructive mass in the rectum. Biopsies at that time were again consistent with a villous adenoma with high-grade dysplasia but no invasive disease. A repeat excision via TA MIS in November 2022 was done and this showed a tubulovillous adenoma with multifocal high-grade dysplasia, negative margins after examining the additional margins obtained in surgery. He had a surveillance flex sigmoidoscopy in March 2023 which found a stricture in this area that they dilated and biopsies around the stricture were also consistent with a villous adenoma. He reports less bloody perianal drainage than previous. The residual villous adenoma noticed on the recent flexible sigmoidoscopy remains a concern and plans to initially have an EUS with hopeful EMR earlier this year had been rescheduled multiple times due to hospitalizations after a fall and illness. That was further complicated by a chronic wound on the left l ower extremity which has been able to heal finally.In discussion with his GI and surgical teams, the only intervention to offer at this time would be abdominoperineal resection which they note would be a rather large and difficult surgery in someone with a less than optimal functional status. On 06/27/2024 he underwent a lower EUS for pretreatment staging of anorectal carcinoma. His endoscopic findings revealed a frond-like villous and ulcerated nonobstructing large mass in the rectum. Mass was partially circumferential involving one third of the lumen circumference. The mass measured 3 cm in length. No bleeding was present. Biopsies were taken with cold forceps. Biopsies were taken. He was then followed up in outpatient colorectal clinic on 07/11/2024. At that time the results of the EUS and tumor board discussion were reviewed with patient and Eboni Solano. It was staged as a T3 but with residual scarring is difficult to interpret. Biopsies did reveal a villous adenoma. He has undergone multiple transanal resections of this none of which revealed a mass. Surgical teams noted they are currently unable to perform another transanal resection due to scarring. They reviewed that the tumor board recommendation was that even though no cancer is known to be in there the only way to know is to surgically remove it with an abdominal perineal resection however with his performance status this would be a very difficult and complex surgery to undertake because it would require at least 6 hours in the operating room with 2 to 3 weeks postoperatively of lying/unable to sit. This would be complex and challenging in a patient with already limited mobility. It was recommended that they have a follow-up with a local palliative medicine provider to discuss the benefits versus risks of undergoing such a surgery. It is noted that he has had overall multiple progression of his comorbidities and decreased performance status. Many appointments in the past with his colorectal team were rescheduled due to his falls and hospitalizations. They noted their visit from 07/11/2024 "this does make me concerned about offering him a big surgery." Randal and his , Eboni, shared that they have been informed the rectal mass for now is felt to be pre cancerous but has regrown despite two removal attempts. Because it keeps recurring, their surgical team advised the only other option would be a more intensive resection surgery however it is not without its potentials for great complication. The surgery is estimated to last for 5 to 6 hours, general anesthesia, prolonged bedrest for up to 2 to 3 weeks postoperatively, and he is at risk for increasing complications including blood clots, postoperative infections, postoperative respiratory failure, and worsening performance status. Randal tells me that he does not want surgery - feels he has good quality of life and he has worked hard to get back to the performance status he is currently at and is aware that surgery would be 5 to 6 hours, with general anesthesia, prolonged bedrest postoperatively, and he also knows that this will lead to setbacks in the gains he has accomplished to date. His offers the opinion that the surgery would be the opportunity to "be cancer free and not have to worry anymore." She feels that the risks of surgery are worth the benefits. At present time, Randal has what he feels to be a good quality of life. He is able to ambulate with his rolling walker and rest as needed. His appetite is stable. He does not have any issues with nausea, vomiting or dysphagia. His ostomy output is normal. He denies any abdominal pain. He is able to tolerate sitting and lying on his back. He feels that he is worked hard over the last year and a half to recover to his current level of functioning. He wants to spend more time with his family. When asked what he would identify some priorities, he indicates that time with his family especially his and children would be the most important and that he has a few grandchildren he has yet to meet although they are now several years old. He feels that these are important goals for him to try and reach. Allergies Allergy/AdvReac Type Severity Reaction Status Date / Time sitagliptin Allergy Intermediate Hives - Verified 10/31/24 13:07 Januvia cat dander Allergy Mild EYES WATER Verified 10/31/24 13:07 Koyldpu-MUI-VpF Reductase AdvReac Intermediate LEG CRAMPS Verified 10/31/24 13:07 Inhibitor [Beimevf-Nwl-Jaj Reductase Inhibitor] Home Medications Medication Instructions Recorded Confirmed Type multivitamin (Daily Multi-Vitamin 1 tab PO QAM 12/11/21 10/31/24 History tablet) miscellaneous medical supply #3,840 mL 12/12/21 10/30/24 Rx rosuvastatin 20 mg tablet (Crestor) 20 mg PO QAM #90 tabs 10/13/23 10/31/24 Rx metformin 500 mg tablet,extended 1,000 mg (2 x 500 mg) PO BID #360 11/15/23 10/31/24 Rx release 24 hr tabs pen needle, diabetic 32 gauge x #200 ea 11/18/23 10/30/24 Rx " (BD Donna 2nd Gen Pen Needle) blood sugar diagnostic (OneTouch #100 ea 12/23/23 10/30/24 Rx Ultra Test strips) blood-glucose meter (OneTouch #1 ea 12/23/23 10/30/24 Rx Ultra2 Meter) lancets 33 gauge (OneTouch Delica #100 ea 02/21/24 10/30/24 Rx Plus Lancet) ostomy supplies (Adhesive Remover #50 ea 05/11/24 10/30/24 Rx Wipes) ostomy supplies (SenSura Flex #2 Boxes 05/11/24 10/30/24 Rx Ostomy Pouch) insulin aspar prot-insulin aspart See Rx Instructions subcut BID #15 07/03/24 10/31/24 Rx 100 unit/mL (70-30) subcutaneous mL pen (Novolog Mix 70-30FlexPen U-100) FreeStyle Rachelle 3 Plus Sensor #2 ea 09/15/24 10/30/24 Rx (blood-glucose sensor) furosemide 20 mg tablet (Lasix) 20 mg PO DAILY #30 tabs 10/19/24 10/31/24 Rx enoxaparin 120 mg/0.8 mL 120 mg subcut QAM 10/30/24 10/31/24 History subcutaneous syringe warfarin 5 mg tablet See Rx Instructions PO UD 10/30/24 10/31/24 History ferrous sulfate 325 mg (65 mg 325 mg PO BID 10/31/24 10/31/24 History iron) tablet (Feosol) magnesium citrate 100 mg tablet 200 mg PO DAILY 10/31/24 10/31/24 History Patient History Medical History Advanced care planning/counseling discussion CHI (closed head injury) BPH (benign prostatic hyperplasia) Arthritis of knee, right History of pulmonary embolism Glaucoma Vitamin D deficiency Abscess of left lower extremity Hx of insect bite Lung granuloma Carotid artery calcification Coronary artery calcification Surgical History H/O colectomy History of incision and drainage (03/31/24) Hx of left cataract extraction History of removal of Port-a-Cath (10/19/23) Hx of tooth extraction History of transesophageal echocardiography (ASHLEY) History of colostomy History of colonoscopy Hx of lymph node biopsy H/O colectomy History of knee surgery History of elbow surgery History of dental surgery Family History Father Myocardial infarction Diabetes Aunt Breast cancer Mother Cancer Diabetes Denies family history of Ovarian cancer Prostate cancer Colorectal cancer Social History (Updated 10/24/24 @ 13:39 by Yumiko Sanders LPN) Smoking Status: Unknown if ever smoked Second Hand Exposure: No; Do You Dip or Chew Tobacco: No; Hx Alcohol Use: No Hx Substance Use: No Preferred Language: Italian Communication Ability: Effective Visual Impairment: Limited Hearing Ability: Normal Nursing Instructor Required: No Beliefs That Will Affect Care: None marital status: Current Living Situation: Spouse Current Living Situation Comment: lives with and daughter current occupational status: retired How many Children do You have: 3 Feels Safe at Home: Yes Safety Concerns: Feels Safe At This Time Childhood Exposure to Second-Hand Smoke: Yes Diet: diabetic and regular caffeine: Yes during the past year weight has: remained stable Dental Care, Regularly: Yes Physical Activity Frequency: Does not Exercise Seatbelt Use: always Sunscreen Use: Yes Do you think of yourself as: straight/heterosexual Sexual Activity: has been sexually active, but not for at least 12 months Gender Identity: Male Assistive Devices: Walker Review of Systems Review of Systems: All systems reviewed & are unremarkable except as noted in Subjective Physical Exam Physical Exam: Chronically ill-appearing elderly male, walks with a rolling walker with a seat. He is awake alert and oriented x 3. There is mild bitemporal wasting noted. Pupils are equal, round, reactive to light. Extraocular movements are intact. Neck is supple. There is no stridor. Oral mucosa are pink, no obvious thrush, dentition is fair. Respiratory effort is normal at rest. There is no use of accessory muscles or conversational dyspnea. There is some dyspnea noted with exertion. His gait is antalgic and cautious with walker. Heart tones are S1- S2. There is no gross JVD appreciated. Abdomen is soft, + ostomy, + dark brown soft stool. Generalized weakness with physical deconditioning noted. Hip extensor strength is diminished. There is a bilateral lower extremity edema. [employer] is intact. He is pleasant and cooperative with exam. There are eczematous pale yellow, crusting plaque like skin lesions concentrated on the scalp, along the hairline, and skin folds. Results & Data Vital Signs (Past 12 Hours) Vital Signs Temp Pulse Resp BP BP Pulse Ox O2 Del Method 11/08/24 14:04 36.4 C L 65 18 144/62 H 95 Room Air 11/08/24 07:45 36.5 C 63 20 149/76 H 94 Room Air 11/08/24 07:35 Room Air Laboratory Results 11/08/24 11/08/24 11/08/24 Range/Units 11:59 07:45 07:19 WBC 4.75 L (4.8-10.8) K/ul RBC 3.82 L (4.70-6.10) M/uL Hgb 11.7 L (14.0-18.0) g/dl Hct 34.9 L (42.0-52.0) % MCV 91.4 (80.0-100.0) fL MCH 30.6 (25.0-34.0) pg MCHC 33.5 (32.0-36.0) g/dL RDW Std Deviation 49.1 H (36.4-46.3) fL RDW Coeff of Cleo 14.7 H (11.5-14.5) % Plt Count 219 (130-400) K/uL MPV 9.0 L (9.4-12.4) fL Immature Gran % (Auto) % Neut % (Auto) % Lymph % (Auto) % [place] % (Auto) % Eos % (Auto) % Baso % (Auto) % Neut # (Auto) (1.40-6.50) K/uL Lymph # (Auto) (1.20-3.40) K/uL [place] # (Auto) (0.11-0.59) K/uL Eos # (Auto) (0.00-0.50) K/uL Baso # (Auto) (0.00-0.20) K/uL Immature Gran # (Auto) (0.01-0.20) K/uL ESR 54 H (0-20) mm/hr PT 10.8 (9.0-12.0) Seconds INR 1.0 (0.9-1.1) Sodium 141 (136-145) mmol/L Potassium 4.2 (3.5-5.1) mmol/L Chloride 109 H (98-107) mmol/L Carbon Dioxide 28 (21-32) mmol/L Anion Gap 4 (3-11) BUN 30 H (6-23) mg/dl Creatinine 0.89 (0.6-1.4) mg/dl Est Cr Clr Drug Dosing 85.9 ml/min eGFR 85.56 BUN/Creatinine Ratio 33.7 H (10-20) Glucose 162 H (70-99(Fasting)) mg/dl POC Glucose 189 H 158 H (70-99) mg/dl Calcium 10.0 (8.6-10.3) mg/dl Magnesium 2.0 (1.7-2.4) mg/dl Total Bilirubin 0.4 (0.2-1.0) mg/dl Direct Bilirubin 0.0 (0-0.2) mg/dl AST 22 (13-39) U/L ALT 29 (7-52) U/L Alkaline Phosphatase 72 (34-104) U/L C-Reactive Protein < 0.50 (0-0.5) mg/dl B-Natriuretic Peptide 32 (0-100) pg/ml Total Protein 6.3 (6.0-8.3) gm/dl Albumin 3.3 L (3.4-5.0) gm/dl Globulin (2.5-4.0) gm/dl Albumin/Globulin Ratio (0.9-2) Vitamin B12 (180-914) pg/ml 25-OH Vitamin D Total (30-100) ng/ml Urine Opiates Screen (Neg) Ur Methadone, Qual (Neg) Urine Fentanyl Screen (Neg) Urine Barbiturates (Neg) Ur Phencyclidine (PCP) (Neg) U Amphetamin/Meth Scrn (Neg) MDMA (Ecstasy) Screen (Neg) U Benzodiazepines Scrn (Neg) Ur Cocaine Metabolite (Neg) U Marijuana (THC) Screen (Neg) Lyme Disease Screen Equivocal H (Negative) Lyme Tier 2 IgG Confirm Positive H (Negative) Lyme Tier 2 IgM Confirm Negative (Negative) 11/07/24 11/07/24 11/07/24 Range/Units 20:16 16:36 11:29 WBC (4.8-10.8) K/ul RBC (4.70-6.10) M/uL Hgb (14.0-18.0) g/dl Hct (42.0-52.0) % MCV (80.0-100.0) fL MCH (25.0-34.0) pg MCHC (32.0-36.0) g/dL RDW Std Deviation (36.4-46.3) fL RDW Coeff of Cleo (11.5-14.5) % Plt Count (130-400) K/uL MPV (9.4-12.4) fL Immature Gran % (Auto) % Neut % (Auto) % Lymph % (Auto) % [place] % (Auto) % Eos % (Auto) % Baso % (Auto) % Neut # (Auto) (1.40-6.50) K/uL Lymph # (Auto) (1.20-3.40) K/uL [place] # (Auto) (0.11-0.59) K/uL Eos # (Auto) (0.00-0.50) K/uL Baso # (Auto) (0.00-0.20) K/uL Immature Gran # (Auto) (0.01-0.20) K/uL ESR (0-20) mm/hr PT (9.0-12.0) Seconds INR (0.9-1.1) Sodium (136-145) mmol/L Potassium (3.5-5.1) mmol/L Chloride (98-107) mmol/L Carbon Dioxide (21-32) mmol/L Anion Gap (3-11) BUN (6-23) mg/dl Creatinine (0.6-1.4) mg/dl Est Cr Clr Drug Dosing ml/min eGFR BUN/Creatinine Ratio (10-20) Glucose (70-99(Fasting)) mg/dl POC Glucose 249 H 169 H 203 H (70-99) mg/dl Calcium (8.6-10.3) mg/dl Magnesium (1.7-2.4) mg/dl Total Bilirubin (0.2-1.0) mg/dl Direct Bilirubin (0-0.2) mg/dl AST (13-39) U/L ALT (7-52) U/L Alkaline Phosphatase (34-104) U/L C-Reactive Protein (0-0.5) mg/dl B-Natriuretic Peptide (0-100) pg/ml Total Protein (6.0-8.3) gm/dl Albumin (3.4-5.0) gm/dl Globulin (2.5-4.0) gm/dl Albumin/Globulin Ratio (0.9-2) Vitamin B12 (180-914) pg/ml 25-OH Vitamin D Total (30-100) ng/ml Urine Opiates Screen (Neg) Ur Methadone, Qual (Neg) Urine Fentanyl Screen (Neg) Urine Barbiturates (Neg) Ur Phencyclidine (PCP) (Neg) U Amphetamin/Meth Scrn (Neg) MDMA (Ecstasy) Screen (Neg) U Benzodiazepines Scrn (Neg) Ur Cocaine Metabolite (Neg) U Marijuana (THC) Screen (Neg) Lyme Disease Screen (Negative) Lyme Tier 2 IgG Confirm (Negative) Lyme Tier 2 IgM Confirm (Negative) 11/07/24 11/07/24 11/07/24 Range/Units 09:15 07:30 07:14 WBC 4.74 L (4.8-10.8) K/ul RBC 3.98 L (4.70-6.10) M/uL Hgb 12.0 L (14.0-18.0) g/dl Hct 36.5 L (42.0-52.0) % MCV 91.7 (80.0-100.0) fL MCH 30.2 (25.0-34.0) pg MCHC 32.9 (32.0-36.0) g/dL RDW Std Deviation 49.6 H (36.4-46.3) fL RDW Coeff of Cleo 14.6 H (11.5-14.5) % Plt Count 203 (130-400) K/uL MPV 9.2 L (9.4-12.4) fL Immature Gran % (Auto) % Neut % (Auto) % Lymph % (Auto) % [place] % (Auto) % Eos % (Auto) % Baso % (Auto) % Neut # (Auto) (1.40-6.50) K/uL Lymph # (Auto) (1.20-3.40) K/uL [place] # (Auto) (0.11-0.59) K/uL Eos # (Auto) (0.00-0.50) K/uL Baso # (Auto) (0.00-0.20) K/uL Immature Gran # (Auto) (0.01-0.20) K/uL ESR (0-20) mm/hr PT 11.0 (9.0-12.0) Seconds INR 1.0 (0.9-1.1) Sodium 140 (136-145) mmol/L Potassium 4.4 (3.5-5.1) mmol/L Chloride 106 (98-107) mmol/L Carbon Dioxide 29 (21-32) mmol/L Anion Gap 5 (3-11) BUN 28 H (6-23) mg/dl Creatinine 1.05 1.02 (0.6-1.4) mg/dl Est Cr Clr Drug Dosing 72.8 74.9 ml/min eGFR 70.87 73.38 BUN/Creatinine Ratio 26.7 H (10-20) Glucose 202 H (70-99(Fasting)) mg/dl POC Glucose 157 H (70-99) mg/dl Calcium 10.1 (8.6-10.3) mg/dl Magnesium 2.0 (1.7-2.4) mg/dl Total Bilirubin (0.2-1.0) mg/dl Direct Bilirubin (0-0.2) mg/dl AST (13-39) U/L ALT (7-52) U/L Alkaline Phosphatase (34-104) U/L C-Reactive Protein (0-0.5) mg/dl B-Natriuretic Peptide (0-100) pg/ml Total Protein (6.0-8.3) gm/dl Albumin (3.4-5.0) gm/dl Globulin (2.5-4.0) gm/dl Albumin/Globulin Ratio (0.9-2) Vitamin B12 393 (180-914) pg/ml 25-OH Vitamin D Total 23.5 L (30-100) ng/ml Urine Opiates Screen (Neg) Ur Methadone, Qual (Neg) Urine Fentanyl Screen (Neg) Urine Barbiturates (Neg) Ur Phencyclidine (PCP) (Neg) U Amphetamin/Meth Scrn (Neg) MDMA (Ecstasy) Screen (Neg) U Benzodiazepines Scrn (Neg) Ur Cocaine Metabolite (Neg) U Marijuana (THC) Screen (Neg) Lyme Disease Screen (Negative) Lyme Tier 2 IgG Confirm (Negative) Lyme Tier 2 IgM Confirm (Negative) 11/06/24 11/06/24 11/06/24 Range/Units 20:14 16:34 11:28 WBC (4.8-10.8) K/ul RBC (4.70-6.10) M/uL Hgb (14.0-18.0) g/dl Hct (42.0-52.0) % MCV (80.0-100.0) fL MCH (25.0-34.0) pg MCHC (32.0-36.0) g/dL RDW Std Deviation (36.4-46.3) fL RDW Coeff of Cleo (11.5-14.5) % Plt Count (130-400) K/uL MPV (9.4-12.4) fL Immature Gran % (Auto) % Neut % (Auto) % Lymph % (Auto) % [place] % (Auto) % Eos % (Auto) % Baso % (Auto) % Neut # (Auto) (1.40-6.50) K/uL Lymph # (Auto) (1.20-3.40) K/uL [place] # (Auto) (0.11-0.59) K/uL Eos # (Auto) (0.00-0.50) K/uL Baso # (Auto) (0.00-0.20) K/uL Immature Gran # (Auto) (0.01-0.20) K/uL ESR (0-20) mm/hr PT (9.0-12.0) Seconds INR (0.9-1.1) Sodium (136-145) mmol/L Potassium (3.5-5.1) mmol/L Chloride (98-107) mmol/L Carbon Dioxide (21-32) mmol/L Anion Gap (3-11) BUN (6-23) mg/dl Creatinine (0.6-1.4) mg/dl Est Cr Clr Drug Dosing ml/min eGFR BUN/Creatinine Ratio (10-20) Glucose (70-99(Fasting)) mg/dl POC Glucose 189 H 206 H 225 H (70-99) mg/dl Calcium (8.6-10.3) mg/dl Magnesium (1.7-2.4) mg/dl Total Bilirubin (0.2-1.0) mg/dl Direct Bilirubin (0-0.2) mg/dl AST (13-39) U/L ALT (7-52) U/L Alkaline Phosphatase (34-104) U/L C-Reactive Protein (0-0.5) mg/dl B-Natriuretic Peptide (0-100) pg/ml Total Protein (6.0-8.3) gm/dl Albumin (3.4-5.0) gm/dl Globulin (2.5-4.0) gm/dl Albumin/Globulin Ratio (0.9-2) Vitamin B12 (180-914) pg/ml 25-OH Vitamin D Total (30-100) ng/ml Urine Opiates Screen (Neg) Ur Methadone, Qual (Neg) Urine Fentanyl Screen (Neg) Urine Barbiturates (Neg) Ur Phencyclidine (PCP) (Neg) U Amphetamin/Meth Scrn (Neg) MDMA (Ecstasy) Screen (Neg) U Benzodiazepines Scrn (Neg) Ur Cocaine Metabolite (Neg) U Marijuana (THC) Screen (Neg) Lyme Disease Screen (Negative) Lyme Tier 2 IgG Confirm (Negative) Lyme Tier 2 IgM Confirm (Negative) 11/06/24 11/05/24 11/05/24 Range/Units 07:53 20:22 16:27 WBC (4.8-10.8) K/ul RBC (4.70-6.10) M/uL Hgb (14.0-18.0) g/dl Hct (42.0-52.0) % MCV (80.0-100.0) fL MCH (25.0-34.0) pg MCHC (32.0-36.0) g/dL RDW Std Deviation (36.4-46.3) fL RDW Coeff of Cleo (11.5-14.5) % Plt Count (130-400) K/uL MPV (9.4-12.4) fL Immature Gran % (Auto) % Neut % (Auto) % Lymph % (Auto) % [place] % (Auto) % Eos % (Auto) % Baso % (Auto) % Neut # (Auto) (1.40-6.50) K/uL Lymph # (Auto) (1.20-3.40) K/uL [place] # (Auto) (0.11-0.59) K/uL Eos # (Auto) (0.00-0.50) K/uL Baso # (Auto) (0.00-0.20) K/uL Immature Gran # (Auto) (0.01-0.20) K/uL ESR (0-20) mm/hr PT (9.0-12.0) Seconds INR (0.9-1.1) Sodium (136-145) mmol/L Potassium (3.5-5.1) mmol/L Chloride (98-107) mmol/L Carbon Dioxide (21-32) mmol/L Anion Gap (3-11) BUN (6-23) mg/dl Creatinine (0.6-1.4) mg/dl Est Cr Clr Drug Dosing ml/min eGFR BUN/Creatinine Ratio (10-20) Glucose (70-99(Fasting)) mg/dl POC Glucose 165 H 165 H 156 H (70-99) mg/dl Calcium (8.6-10.3) mg/dl Magnesium (1.7-2.4) mg/dl Total Bilirubin (0.2-1.0) mg/dl Direct Bilirubin (0-0.2) mg/dl AST (13-39) U/L ALT (7-52) U/L Alkaline Phosphatase (34-104) U/L C-Reactive Protein (0-0.5) mg/dl B-Natriuretic Peptide (0-100) pg/ml Total Protein (6.0-8.3) gm/dl Albumin (3.4-5.0) gm/dl Globulin (2.5-4.0) gm/dl Albumin/Globulin Ratio (0.9-2) Vitamin B12 (180-914) pg/ml 25-OH Vitamin D Total (30-100) ng/ml Urine Opiates Screen (Neg) Ur Methadone, Qual (Neg) Urine Fentanyl Screen (Neg) Urine Barbiturates (Neg) Ur Phencyclidine (PCP) (Neg) U Amphetamin/Meth Scrn (Neg) MDMA (Ecstasy) Screen (Neg) U Benzodiazepines Scrn (Neg) Ur Cocaine Metabolite (Neg) U Marijuana (THC) Screen (Neg) Lyme Disease Screen (Negative) Lyme Tier 2 IgG Confirm (Negative) Lyme Tier 2 IgM Confirm (Negative) 11/05/24 11/05/24 11/04/24 Range/Units 11:35 07:27 20:05 WBC (4.8-10.8) K/ul RBC (4.70-6.10) M/uL Hgb (14.0-18.0) g/dl Hct (42.0-52.0) % MCV (80.0-100.0) fL MCH (25.0-34.0) pg MCHC (32.0-36.0) g/dL RDW Std Deviation (36.4-46.3) fL RDW Coeff of Cleo (11.5-14.5) % Plt Count (130-400) K/uL MPV (9.4-12.4) fL Immature Gran % (Auto) % Neut % (Auto) % Lymph % (Auto) % [place] % (Auto) % Eos % (Auto) % Baso % (Auto) % Neut # (Auto) (1.40-6.50) K/uL Lymph # (Auto) (1.20-3.40) K/uL [place] # (Auto) (0.11-0.59) K/uL Eos # (Auto) (0.00-0.50) K/uL Baso # (Auto) (0.00-0.20) K/uL Immature Gran # (Auto) (0.01-0.20) K/uL ESR (0-20) mm/hr PT (9.0-12.0) Seconds INR (0.9-1.1) Sodium (136-145) mmol/L Potassium (3.5-5.1) mmol/L Chloride (98-107) mmol/L Carbon Dioxide (21-32) mmol/L Anion Gap (3-11) BUN (6-23) mg/dl Creatinine (0.6-1.4) mg/dl Est Cr Clr Drug Dosing ml/min eGFR BUN/Creatinine Ratio (10-20) Glucose (70-99(Fasting)) mg/dl POC Glucose 179 H 148 H 179 H (70-99) mg/dl Calcium (8.6-10.3) mg/dl Magnesium (1.7-2.4) mg/dl Total Bilirubin (0.2-1.0) mg/dl Direct Bilirubin (0-0.2) mg/dl AST (13-39) U/L ALT (7-52) U/L Alkaline Phosphatase (34-104) U/L C-Reactive Protein (0-0.5) mg/dl B-Natriuretic Peptide (0-100) pg/ml Total Protein (6.0-8.3) gm/dl Albumin (3.4-5.0) gm/dl Globulin (2.5-4.0) gm/dl Albumin/Globulin Ratio (0.9-2) Vitamin B12 (180-914) pg/ml 25-OH Vitamin D Total (30-100) ng/ml Urine Opiates Screen (Neg) Ur Methadone, Qual (Neg) Urine Fentanyl Screen (Neg) Urine Barbiturates (Neg) Ur Phencyclidine (PCP) (Neg) U Amphetamin/Meth Scrn (Neg) MDMA (Ecstasy) Screen (Neg) U Benzodiazepines Scrn (Neg) Ur Cocaine Metabolite (Neg) U Marijuana (THC) Screen (Neg) Lyme Disease Screen (Negative) Lyme Tier 2 IgG Confirm (Negative) Lyme Tier 2 IgM Confirm (Negative) 11/04/24 11/04/24 11/04/24 Range/Units 16:24 11:28 07:53 WBC (4.8-10.8) K/ul RBC (4.70-6.10) M/uL Hgb (14.0-18.0) g/dl Hct (42.0-52.0) % MCV (80.0-100.0) fL MCH (25.0-34.0) pg MCHC (32.0-36.0) g/dL RDW Std Deviation (36.4-46.3) fL RDW Coeff of Cleo (11.5-14.5) % Plt Count (130-400) K/uL MPV (9.4-12.4) fL Immature Gran % (Auto) % Neut % (Auto) % Lymph % (Auto) % [place] % (Auto) % Eos % (Auto) % Baso % (Auto) % Neut # (Auto) (1.40-6.50) K/uL Lymph # (Auto) (1.20-3.40) K/uL [place] # (Auto) (0.11-0.59) K/uL Eos # (Auto) (0.00-0.50) K/uL Baso # (Auto) (0.00-0.20) K/uL Immature Gran # (Auto) (0.01-0.20) K/uL ESR (0-20) mm/hr PT (9.0-12.0) Seconds INR (0.9-1.1) Sodium (136-145) mmol/L Potassium (3.5-5.1) mmol/L Chloride (98-107) mmol/L Carbon Dioxide (21-32) mmol/L Anion Gap (3-11) BUN (6-23) mg/dl Creatinine (0.6-1.4) mg/dl Est Cr Clr Drug Dosing ml/min eGFR BUN/Creatinine Ratio (10-20) Glucose (70-99(Fasting)) mg/dl POC Glucose 189 H 182 H 160 H (70-99) mg/dl Calcium (8.6-10.3) mg/dl Magnesium (1.7-2.4) mg/dl Total Bilirubin (0.2-1.0) mg/dl Direct Bilirubin (0-0.2) mg/dl AST (13-39) U/L ALT (7-52) U/L Alkaline Phosphatase (34-104) U/L C-Reactive Protein (0-0.5) mg/dl B-Natriuretic Peptide (0-100) pg/ml Total Protein (6.0-8.3) gm/dl Albumin (3.4-5.0) gm/dl Globulin (2.5-4.0) gm/dl Albumin/Globulin Ratio (0.9-2) Vitamin B12 (180-914) pg/ml 25-OH Vitamin D Total (30-100) ng/ml Urine Opiates Screen (Neg) Ur Methadone, Qual (Neg) Urine Fentanyl Screen (Neg) Urine Barbiturates (Neg) Ur Phencyclidine (PCP) (Neg) U Amphetamin/Meth Scrn (Neg) MDMA (Ecstasy) Screen (Neg) U Benzodiazepines Scrn (Neg) Ur Cocaine Metabolite (Neg) U Marijuana (THC) Screen (Neg) Lyme Disease Screen (Negative) Lyme Tier 2 IgG Confirm (Negative) Lyme Tier 2 IgM Confirm (Negative) 11/04/24 11/03/24 11/03/24 Range/Units 06:11 20:20 17:05 WBC 4.70 L (4.8-10.8) K/ul RBC 3.69 L (4.70-6.10) M/uL Hgb 11.4 L (14.0-18.0) g/dl Hct 33.4 L (42.0-52.0) % MCV 90.5 (80.0-100.0) fL MCH 30.9 (25.0-34.0) pg MCHC 34.1 (32.0-36.0) g/dL RDW Std Deviation 47.1 H (36.4-46.3) fL RDW Coeff of Cleo 14.3 (11.5-14.5) % Plt Count 193 (130-400) K/uL MPV 9.5 (9.4-12.4) fL Immature Gran % (Auto) % Neut % (Auto) % Lymph % (Auto) % [place] % (Auto) % Eos % (Auto) % Baso % (Auto) % Neut # (Auto) (1.40-6.50) K/uL Lymph # (Auto) (1.20-3.40) K/uL [place] # (Auto) (0.11-0.59) K/uL Eos # (Auto) (0.00-0.50) K/uL Baso # (Auto) (0.00-0.20) K/uL Immature Gran # (Auto) (0.01-0.20) K/uL ESR (0-20) mm/hr PT (9.0-12.0) Seconds INR (0.9-1.1) Sodium (136-145) mmol/L Potassium (3.5-5.1) mmol/L Chloride (98-107) mmol/L Carbon Dioxide (21-32) mmol/L Anion Gap (3-11) BUN (6-23) mg/dl Creatinine 0.92 (0.6-1.4) mg/dl Est Cr Clr Drug Dosing 83.1 ml/min eGFR 83.05 BUN/Creatinine Ratio (10-20) Glucose (70-99(Fasting)) mg/dl POC Glucose 184 H 167 H (70-99) mg/dl Calcium (8.6-10.3) mg/dl Magnesium (1.7-2.4) mg/dl Total Bilirubin (0.2-1.0) mg/dl Direct Bilirubin (0-0.2) mg/dl AST (13-39) U/L ALT (7-52) U/L Alkaline Phosphatase (34-104) U/L C-Reactive Protein (0-0.5) mg/dl B-Natriuretic Peptide (0-100) pg/ml Total Protein (6.0-8.3) gm/dl Albumin (3.4-5.0) gm/dl Globulin (2.5-4.0) gm/dl Albumin/Globulin Ratio (0.9-2) Vitamin B12 (180-914) pg/ml 25-OH Vitamin D Total (30-100) ng/ml Urine Opiates Screen (Neg) Ur Methadone, Qual (Neg) Urine Fentanyl Screen (Neg) Urine Barbiturates (Neg) Ur Phencyclidine (PCP) (Neg) U Amphetamin/Meth Scrn (Neg) MDMA (Ecstasy) Screen (Neg) U Benzodiazepines Scrn (Neg) Ur Cocaine Metabolite (Neg) U Marijuana (THC) Screen (Neg) Lyme Disease Screen (Negative) Lyme Tier 2 IgG Confirm (Negative) Lyme Tier 2 IgM Confirm (Negative) 11/03/24 11/03/24 11/03/24 Range/Units 12:35 08:26 05:23 WBC 5.05 (4.8-10.8) K/ul RBC 3.59 L (4.70-6.10) M/uL Hgb 10.9 L (14.0-18.0) g/dl Hct 32.5 L (42.0-52.0) % MCV 90.5 (80.0-100.0) fL MCH 30.4 (25.0-34.0) pg MCHC 33.5 (32.0-36.0) g/dL RDW Std Deviation 46.0 (36.4-46.3) fL RDW Coeff of Cleo 14.1 (11.5-14.5) % Plt Count 167 (130-400) K/uL MPV 9.7 (9.4-12.4) fL Immature Gran % (Auto) % Neut % (Auto) % Lymph % (Auto) % [place] % (Auto) % Eos % (Auto) % Baso % (Auto) % Neut # (Auto) (1.40-6.50) K/uL Lymph # (Auto) (1.20-3.40) K/uL [place] # (Auto) (0.11-0.59) K/uL Eos # (Auto) (0.00-0.50) K/uL Baso # (Auto) (0.00-0.20) K/uL Immature Gran # (Auto) (0.01-0.20) K/uL ESR (0-20) mm/hr PT (9.0-12.0) Seconds INR (0.9-1.1) Sodium 139 (136-145) mmol/L Potassium 3.7 (3.5-5.1) mmol/L Chloride 105 (98-107) mmol/L Carbon Dioxide 27 (21-32) mmol/L Anion Gap 7 (3-11) BUN 21 (6-23) mg/dl Creatinine 0.99 (0.6-1.4) mg/dl Est Cr Clr Drug Dosing 77.2 ml/min eGFR 76.06 BUN/Creatinine Ratio 21.2 H (10-20) Glucose 156 H (70-99(Fasting)) mg/dl POC Glucose 191 H 184 H (70-99) mg/dl Calcium 9.2 (8.6-10.3) mg/dl Magnesium (1.7-2.4) mg/dl Total Bilirubin (0.2-1.0) mg/dl Direct Bilirubin (0-0.2) mg/dl AST (13-39) U/L ALT (7-52) U/L Alkaline Phosphatase (34-104) U/L C-Reactive Protein 1.98 H (0-0.5) mg/dl B-Natriuretic Peptide (0-100) pg/ml Total Protein (6.0-8.3) gm/dl Albumin (3.4-5.0) gm/dl Globulin (2.5-4.0) gm/dl Albumin/Globulin Ratio (0.9-2) Vitamin B12 (180-914) pg/ml 25-OH Vitamin D Total (30-100) ng/ml Urine Opiates Screen (Neg) Ur Methadone, Qual (Neg) Urine Fentanyl Screen (Neg) Urine Barbiturates (Neg) Ur Phencyclidine (PCP) (Neg) U Amphetamin/Meth Scrn (Neg) MDMA (Ecstasy) Screen (Neg) U Benzodiazepines Scrn (Neg) Ur Cocaine Metabolite (Neg) U Marijuana (THC) Screen (Neg) Lyme Disease Screen (Negative) Lyme Tier 2 IgG Confirm (Negative) Lyme Tier 2 IgM Confirm (Negative) 11/02/24 11/02/24 11/02/24 Range/Units 20:04 17:17 12:13 WBC (4.8-10.8) K/ul RBC (4.70-6.10) M/uL Hgb (14.0-18.0) g/dl Hct (42.0-52.0) % MCV (80.0-100.0) fL MCH (25.0-34.0) pg MCHC (32.0-36.0) g/dL RDW Std Deviation (36.4-46.3) fL RDW Coeff of Cleo (11.5-14.5) % Plt Count (130-400) K/uL MPV (9.4-12.4) fL Immature Gran % (Auto) % Neut % (Auto) % Lymph % (Auto) % [place] % (Auto) % Eos % (Auto) % Baso % (Auto) % Neut # (Auto) (1.40-6.50) K/uL Lymph # (Auto) (1.20-3.40) K/uL [place] # (Auto) (0.11-0.59) K/uL Eos # (Auto) (0.00-0.50) K/uL Baso # (Auto) (0.00-0.20) K/uL Immature Gran # (Auto) (0.01-0.20) K/uL ESR (0-20) mm/hr PT (9.0-12.0) Seconds INR (0.9-1.1) Sodium (136-145) mmol/L Potassium (3.5-5.1) mmol/L Chloride (98-107) mmol/L Carbon Dioxide (21-32) mmol/L Anion Gap (3-11) BUN (6-23) mg/dl Creatinine (0.6-1.4) mg/dl Est Cr Clr Drug Dosing ml/min eGFR BUN/Creatinine Ratio (10-20) Glucose (70-99(Fasting)) mg/dl POC Glucose 206 H 158 H 207 H (70-99) mg/dl Calcium (8.6-10.3) mg/dl Magnesium (1.7-2.4) mg/dl Total Bilirubin (0.2-1.0) mg/dl Direct Bilirubin (0-0.2) mg/dl AST (13-39) U/L ALT (7-52) U/L Alkaline Phosphatase (34-104) U/L C-Reactive Protein (0-0.5) mg/dl B-Natriuretic Peptide (0-100) pg/ml Total Protein (6.0-8.3) gm/dl Albumin (3.4-5.0) gm/dl Globulin (2.5-4.0) gm/dl Albumin/Globulin Ratio (0.9-2) Vitamin B12 (180-914) pg/ml 25-OH Vitamin D Total (30-100) ng/ml Urine Opiates Screen (Neg) Ur Methadone, Qual (Neg) Urine Fentanyl Screen (Neg) Urine Barbiturates (Neg) Ur Phencyclidine (PCP) (Neg) U Amphetamin/Meth Scrn (Neg) MDMA (Ecstasy) Screen (Neg) U Benzodiazepines Scrn (Neg) Ur Cocaine Metabolite (Neg) U Marijuana (THC) Screen (Neg) Lyme Disease Screen (Negative) Lyme Tier 2 IgG Confirm (Negative) Lyme Tier 2 IgM Confirm (Negative) 11/02/24 11/02/24 11/01/24 Range/Units 08:08 06:02 22:35 WBC 5.65 (4.8-10.8) K/ul RBC 3.55 L (4.70-6.10) M/uL Hgb 10.9 L (14.0-18.0) g/dl Hct 31.9 L (42.0-52.0) % MCV 89.9 (80.0-100.0) fL MCH 30.7 (25.0-34.0) pg MCHC 34.2 (32.0-36.0) g/dL RDW Std Deviation 46.5 H (36.4-46.3) fL RDW Coeff of Cleo 14.3 (11.5-14.5) % Plt Count 164 (130-400) K/uL MPV 9.8 (9.4-12.4) fL Immature Gran % (Auto) 0.2 % Neut % (Auto) 67.7 % Lymph % (Auto) 21.1 % [place] % (Auto) 9.4 % Eos % (Auto) 1.1 % Baso % (Auto) 0.5 % Neut # (Auto) 3.83 (1.40-6.50) K/uL Lymph # (Auto) 1.19 L (1.20-3.40) K/uL [place] # (Auto) 0.53 (0.11-0.59) K/uL Eos # (Auto) 0.06 (0.00-0.50) K/uL Baso # (Auto) 0.03 (0.00-0.20) K/uL Immature Gran # (Auto) 0.01 (0.01-0.20) K/uL ESR (0-20) mm/hr PT (9.0-12.0) Seconds INR (0.9-1.1) Sodium 138 (136-145) mmol/L Potassium 3.7 (3.5-5.1) mmol/L Chloride 104 (98-107) mmol/L Carbon Dioxide 28 (21-32) mmol/L Anion Gap 6 (3-11) BUN 15 (6-23) mg/dl Creatinine 0.87 (0.6-1.4) mg/dl Est Cr Clr Drug Dosing 88.1 ml/min eGFR 86.15 BUN/Creatinine Ratio 17.2 (10-20) Glucose 167 H (70-99(Fasting)) mg/dl POC Glucose 180 H (70-99) mg/dl Calcium 9.3 (8.6-10.3) mg/dl Magnesium (1.7-2.4) mg/dl Total Bilirubin 0.6 (0.2-1.0) mg/dl Direct Bilirubin (0-0.2) mg/dl AST 11 L (13-39) U/L ALT 14 (7-52) U/L Alkaline Phosphatase 64 (34-104) U/L C-Reactive Protein 2.13 H (0-0.5) mg/dl B-Natriuretic Peptide (0-100) pg/ml Total Protein 6.2 (6.0-8.3) gm/dl Albumin 3.4 (3.4-5.0) gm/dl Globulin 2.8 (2.5-4.0) gm/dl Albumin/Globulin Ratio 1.2 (0.9-2) Vitamin B12 (180-914) pg/ml 25-OH Vitamin D Total (30-100) ng/ml Urine Opiates Screen Neg (Neg) Ur Methadone, Qual Neg (Neg) Urine Fentanyl Screen Neg (Neg) Urine Barbiturates Neg (Neg) Ur Phencyclidine (PCP) Neg (Neg) U Amphetamin/Meth Scrn Neg (Neg) MDMA (Ecstasy) Screen Neg (Neg) U Benzodiazepines Scrn Neg (Neg) Ur Cocaine Metabolite Neg (Neg) U Marijuana (THC) Screen Neg (Neg) Lyme Disease Screen (Negative) Lyme Tier 2 IgG Confirm (Negative) Lyme Tier 2 IgM Confirm (Negative) 11/01/24 11/01/24 Range/Units 20:16 17:03 WBC (4.8-10.8) K/ul RBC (4.70-6.10) M/uL Hgb (14.0-18.0) g/dl Hct (42.0-52.0) % MCV (80.0-100.0) fL MCH (25.0-34.0) pg MCHC (32.0-36.0) g/dL RDW Std Deviation (36.4-46.3) fL RDW Coeff of Cleo (11.5-14.5) % Plt Count (130-400) K/uL MPV (9.4-12.4) fL Immature Gran % (Auto) % Neut % (Auto) % Lymph % (Auto) % [place] % (Auto) % Eos % (Auto) % Baso % (Auto) % Neut # (Auto) (1.40-6.50) K/uL Lymph # (Auto) (1.20-3.40) K/uL [place] # (Auto) (0.11-0.59) K/uL Eos # (Auto) (0.00-0.50) K/uL Baso # (Auto) (0.00-0.20) K/uL Immature Gran # (Auto) (0.01-0.20) K/uL ESR (0-20) mm/hr PT (9.0-12.0) Seconds INR (0.9-1.1) Sodium (136-145) mmol/L Potassium (3.5-5.1) mmol/L Chloride (98-107) mmol/L Carbon Dioxide (21-32) mmol/L Anion Gap (3-11) BUN (6-23) mg/dl Creatinine (0.6-1.4) mg/dl Est Cr Clr Drug Dosing ml/min eGFR BUN/Creatinine Ratio (10-20) Glucose (70-99(Fasting)) mg/dl POC Glucose 176 H 187 H (70-99) mg/dl Calcium (8.6-10.3) mg/dl Magnesium (1.7-2.4) mg/dl Total Bilirubin (0.2-1.0) mg/dl Direct Bilirubin (0-0.2) mg/dl AST (13-39) U/L ALT (7-52) U/L Alkaline Phosphatase (34-104) U/L C-Reactive Protein (0-0.5) mg/dl B-Natriuretic Peptide (0-100) pg/ml Total Protein (6.0-8.3) gm/dl Albumin (3.4-5.0) gm/dl Globulin (2.5-4.0) gm/dl Albumin/Globulin Ratio (0.9-2) Vitamin B12 (180-914) pg/ml 25-OH Vitamin D Total (30-100) ng/ml Urine Opiates Screen (Neg) Ur Methadone, Qual (Neg) Urine Fentanyl Screen (Neg) Urine Barbiturates (Neg) Ur Phencyclidine (PCP) (Neg) U Amphetamin/Meth Scrn (Neg) MDMA (Ecstasy) Screen (Neg) U Benzodiazepines Scrn (Neg) Ur Cocaine Metabolite (Neg) U Marijuana (THC) Screen (Neg) Lyme Disease Screen (Negative) Lyme Tier 2 IgG Confirm (Negative) Lyme Tier 2 IgM Confirm (Negative) Diagnostic Findings Chest X-Ray 10/31/24 09:40 XR chest 1V portable CLINICAL HISTORY: confusion COMPARISON STUDY: 04/21/2024 FINDINGS: Stable mild cardiomegaly without pulmonary vascular congestion. Inspiration is shallow. No effusion, consolidation, or pneumothorax. IMPRESSION: No acute findings. ACT 112: Negative or not required by law. Electronically signed by: Gilmer Mahmood M.D. 10/31/2024 10:[address] 10/31/24 09:41 CT head/brain wo con CLINICAL HISTORY: confusion. TECHNIQUE: Multiple axial CT images of the head were obtained without contrast. A dose lowering technique was utilized adhering to the principles of ALARA. CT DOSE: 625.8 mGy.cm COMPARISON: 04/21/2024 FINDINGS: There is stable prominence of the ventricles out of proportion to the sulci, cerebral atrophy versus mild normal pressure hydrocephalus. No intracranial hemorrhage seen. No mass effect or midline shift. Visualized para nasal sinuses and mastoid air cells are clear. No skull fracture. IMPRESSION: No acute findings. ACT 112: Negative or not required by law. The above report was generated using voice recognition software. It may contain grammatical, syntax or spelling errors. Electronically signed by: Gilmer Mahmood M.D. 10/31/2024 10:04 AM Head CTA 10/31/24 11:05 CT angio neck with con, CT angio head w con CLINICAL HISTORY: confusion. COMPARISON STUDY: 08/10/2022 TECHNIQUE: Following the IV administration of 112 of Optiray, CT angiogram of the neck and brain was performed from the aortic arch to the skull base. Images are reviewed in the axial, sagittal, and coronal planes. 3-D MIPS images are created and assessed. IV contrast was administered without complication. All measurements were calculated based on NASCET criteria. A dose lowering technique was utilized adhering to the principles of ALARA. CT DOSE: 628.14 mGy.cm FINDINGS: There is mild medication and spray artifact. The vertebral arteries are diminutive distally beyond PICA, anatomic variant. No significant narrowing or occlusion seen at the common or internal carotid or vertebral arteries bilaterally. Basilar artery is patent. The anterior, middle, and posterior cerebral arteries are patent bilaterally. No intracranial aneurysm seen. Cerebral venous sinuses opacify normally. IMPRESSION: No significant arterial narrowing or occlusion seen on CTA of the neck or brain. ACT 112: Negative or not required by law. The above report was generated using voice recognition software. It may contain grammatical, syntax or spelling errors. Electronically signed by: Gilmer Mahmood M.D. 10/31/2024 12:07 PM Neck CTA 10/31/24 11:05 CT angio neck with con, CT angio head w con CLINICAL HISTORY: confusion. COMPARISON STUDY: 08/10/2022 TECHNIQUE: Following the IV administration of 112 of Optiray, CT angiogram of the neck and brain was performed from the aortic arch to the skull base. Images are reviewed in the axial, sagittal, and coronal planes. 3-D MIPS images are created and assessed. IV contrast was administered without complication. All measurements were calculated based on NASCET criteria. A dose lowering technique was utilized adhering to the principles of ALARA. CT DOSE: 628.14 mGy.cm FINDINGS: There is mild medication and spray artifact. The vertebral arteries are diminutive distally beyond PICA, anatomic variant. No significant narrowing or occlusion seen at the common or internal carotid or vertebral arteries bilaterally. Basilar artery is patent. The anterior, middle, and posterior cerebral arteries are patent bilaterally. No intracranial aneurysm seen. Cerebral venous sinuses opacify normally. IMPRESSION: No significant arterial narrowing or occlusion seen on CTA of the neck or brain. ACT 112: Negative or not required by law. The above report was generated using voice recognition software. It may contain grammatical, syntax or spelling errors. Electronically signed by: Gilmer Mahmood M.D. 10/31/2024 12:07 PM Brain MRI 10/31/24 12:11 Clinical History: Headaches and confusion Technique: Multiple T1 and T2-weighted magnetic resonance images were obtained of the brain without gadolinium contrast Findings: There is no sign of acute or old infarction with normal-appearing diffusion weighted images. There is cerebral atrophy, within expected limits for the patient's age. There are small areas of increased T2 signal intensity within the periventricular white matter of the cerebral hemispheres bilaterally. This is most likely due to chronic small vessel ischemic disease. No definite mass lesion is seen on this noncontrast study. There is no intracranial hemorrhage or other fluid collection. No midline shift or other form of herniation is seen. There is no hydrocephalus. Normal flow-voids are seen within the arteries of the [id number]. The orbits and paranasal sinuses appear normal. The mastoid air cells appear clear. Impression: 1. Cerebral atrophy and mild chronic small vessel ischemic disease 2. Otherwise unremarkable noncontrast MRI of the brain Electronically signed by Lars Segal 10-31-2024 6:30 PM Brain MRI 11/01/24 11:50 Clinical History: Headaches and confusion Technique: Axial and coronal T1-weighted magnetic resonance images were obtained of the brain both after the administration of 11.5 cc of Gadavist intravenous gadolinium contrast Comparison is made to the noncontrast MRI obtained yesterday Findings: Cerebral atrophy is again seen. There is mild ventricular prominence that is likely due to the cerebral atrophy. There is no herniation or hydrocephalus. No mass lesion or other area of abnormal enhancement is identified. Impression: Unremarkable contrast-enhanced MRI of the brain. No mass lesion is seen Electronically signed by Lars Segal 11-01-2024 7:09 PM Gallbladder Ultrasound 11/01/24 17:32 US gallbladder CLINICAL HISTORY: recheck GB lesion seen on CT 09/04 COMPARISON STUDY: CT of the abdomen and pelvis dated 09/04/2024, 10/08/2022, and 08/10/2022 FINDINGS: The pancreas is largely obscured by bowel gas. There are no liver lesions depicted. There is no ascites. There is hepatopedal flow in the portal vein. The IVC is patent. The gallbladder lumen is contracted around a central sludge ball or a partially calcified stone. The gallbladder anne are thick. Sneed sign cannot be assessed due to prior administration of pain meds. The common bile duct is normal measuring 3 mm. The right kidney demonstrates no evidence of hydronephrosis. There are multiple right renal cysts. A 1.2 cm renal stone is identified. IMPRESSION: The gallbladder appearance has not changed on CT since 08/10/2022. Today's ultrasound findings which suggest an intraluminal partially calcified stone or sludge ball. Polyp is less likely but not excluded. Gallbladder wall thickening most likely indicative of chronic cholecystitis. Multiple right renal cysts and right nephrolithiasis without hydronephrosis. ACT 112: Negative or not required by law. Electronically signed by: Kathleen Shi M.D. 11/02/2024 8:53 AM PG Care Time/CCT Total # of Minutes Spent Total Time Spent: 75 Total Time Spent with Patient: Total time spent is greater than 50% in coordination of care (as documented) at patient's floor/unit and/or counseling patient: I spent 75 minutes overall addressing this case: 15 min in medical data review/discussion with referring provider(s) and/or preparation for the visit 15 min in direct interaction with the patient/exam 25 min in Advance Care Planning/Goals of Care discussions as detailed above in note (must be >16min) 10- min in subsequent review and synthesis of assessment and plan 10 min communicating with other providers regarding the patient's case: Advanced Care Planning 41268 Advanced Care Planning 30 [place] [address] IN/OBS CONSULT LVL 4,60M (25 - SIGNIFICANT, SEPARATELY IDENTIFIABLE ) Patient Type New Medical Decision Making High Complexity Diagnoses Weakness generalized R53.1 Advanced care planning/counseling discussion Z71.89 Unsteady gait R26.81 Palliative care by specialist Z51.5 Additional Codes Advanced Care Planning - 15837 Advanced Care Planning 30 Min: 83315 Advanced Care Planning 30 Min ([id number])
[2024-11-08 19:45] VITALS: O2SAT 95
[2024-11-09 06:33] VITALS: BP 164/71; PULSE 66; TEMP 97.7
[2024-11-09 07:58] LABS: Basophils # (auto) 0.04 K/uL (0.00-0.20); Basophils % (auto) 0.9 %; Eosinophils # (auto) 0.09 K/uL (0.00-0.50); Hematocrit (blood only) 35.9 % (42.0-52.0); Hemoglobin 11.9 g/dl (14.0-18.0); Immature Granulocytes # (auto) 0.01 K/uL (0.01-0.20); Immature Granulocytes % (auto) 0.2 %; Lymphocytes # (auto) 1.15 K/uL (1.20-3.40); Lymphocytes % (auto) 25.4 %; Mean Corpuscular Hemoglobin 30.5 pg (25.0-34.0); Mean Corpuscular Hgb Conc 33.1 g/dL (32.0-36.0); Mean Corpuscular Volume 92.1 fL (80.0-100.0); Mean Platelet Volume 9.2 fL (9.4-12.4); Monocytes # (auto) 0.39 K/uL (0.11-0.59); Monocytes % (auto) 8.6 %; Neutrophils # (auto) 2.84 K/uL (1.40-6.50); Neutrophils % (auto) 62.9 %; Platelet Count 223 K/uL (130-400); RDW Coefficient of Variation 14.7 % (11.5-14.5); RDW Standard Deviation 49.7 fL (36.4-46.3); White Blood Count 4.52 K/ul (4.8-10.8)
[2024-11-09 08:26] LABS: BUN Creatinine Ratio 31.6 (10-20); Calcium 10.1 mg/dl (8.6-10.3); Creatinine Clr Calc Pharmacy 79.8 ml/min; Potassium 4.3 mmol/L (3.5-5.1)
--- NOTE | 2024-11-09 08:34 | Hospitalist Progress Note ---
Date of Service November 09, 2024 Assessment & Plan (1) Acute confusion: Plan: #Confusion/AMS - source likely cellulitis metabolic encephalopathy due to cellulitis infection MRI brain negative for acute CVA Neurology consulted - encephalopathy possibly related to infection. Possible underlying dementia. Outpatient follow up. Could have NPH, but wouldn't present acutely. Plans for f/u outpt 2-3 wks Blood cultures: no growth 48 hours. CRP now downtrending Ceftriaxone --> Cefdinir. Completed course abx for cellulitis on 11/07 . Did have +Lyme IgM but negative IgG and per supervising provider no tx at this time Notable US GB notes sludge/stone, likely chronic cholecystitis. LFT wnl on admission. No abdominal pain reported AMS improving, stable, is alert/oriented to person/place/year on 11/08. B12 checked/borderline low 393-- 500mcg PO daily started/would continue at dc Vit D low @ 23.5, PO supplementation started/would continue at dc WBC 4.7K but afebrile. Coumadin resumed/continued and monitoring INR. Plan 15mg PO x 3 days, resume usual 10mg following/pending INR and will need [place] f[place]. Hgb stable 11.7. CRP normalized, ESR may be lagging behind Slightly dehydrated/lasix placed on hold for AM, BUN elevation but stable Cr RN bladder scan post void and ~450cc, st cath x 1 and monitor BS qshift/chavis if needing ongoing st cath. Is moving bowels/ostomy emptied for soft stool this morning. PT/OT consulted and rec rehab/SNF, CM following and [facility] w/ bed tomorrow but will have PT/OT see in Am given improvement and wishes for home and if they feel much improved could consider but otherwise will plan for [facility] prior to returning home. 11/09 -- ?worsened cellulitis appearance. -- also having urinary retention, req st cath afternoon 11/08, repeat overnight. refused chavis placement per nursing notes. lasix on hold for now. Had issues w/ orthostatic hypotension in the past w/ flomax so will defer on that for now. encourage chavis if needed/will plan to send for UA for eval ?imaging for leg, eval underlying osteo w/ his CRP/ESR on admission Discussed w/ supervising provider, will order CT tib/fib right leg for eval (2) Cellulitis: Plan: Cellulitis of bilateral legs, recently completed 10 days of Keflex outpatient Received ceftriaxone, transition to cefdinir for 11/04 to assure no reaction like on Keflex and completed course 11/07 as above No pain on exam, WBC not elevated. Continued elevation encouraged. Lasix placed on hold for AM Notable did have hx hematoma/I&D last year w/ surgery on the left leg (3) Diabetic nephropathy associated with type 2 diabetes mellitus: Plan: A1c 7.8 (prior 6.1) Home meds: metformin, NPH insulin --> HELD while inpatient Pharmacy on consult for glycemic management, BSGs have been acceptable Monitor/adjustment as needed Not on any meds for neuropathy, B12 low normal on check above and PO supp started/would continue w/ ongoing metformin use (4) Antiphospholipid syndrome: Plan: #Acute vs chronic popliteal DVT H/o antiphospholipid syndrome; Was on Lovenox BID but issues w/ bleeding from rectal polyp and was reduced to 1mg/kg/daily given prior venous doppler finding w/ popliteal thrombus not felt acute and more chronic finding but had planned to start coumadin 15mg PO daily x 3 days and monitor INR. His usual dose is 10mg PO daily Discussed w/ coag clininc provider, continues Lovenox SQ 120mg/daily, coumadin 15mg PO daily added 11/07 and will monitor INR in AM. Plan 3 days 15mg PO per coag clinic Will need ongoing monitoring INR/[place] Plan Disposition: continued inpatient stay, completed course abx. lasix PO on hold for AM/straight cath for urinary retention and monitor for need for chavis if ongoing issues. Is moving bowels/ostomy w/ adequate output. [facility] vs home w/ HH services 11/09 pending repeat therapy evals in AM. CM following Updated at bedside 11/08 Admission and Anticipated Discharge Date Admission Date: October 31, 2024 Subjective Eval this morning, up in bed. NAD. Warmth to legs but nontender, CT w/o fluid collection, venous stasis vs cellulitis vs lymphedema. Discussed supervising provider eval/no need for ongoing abx. PT saw this morning, plan for rehab. He would be grateful if able to go today, will call to discuss. Chavis placed, clear yellow urine draining. Results & Data Results & Data Vital Signs (Past 12 Hours) Vital Signs Temp Pulse Resp BP Pulse Ox O2 Del Method 11/09/24 06:33 36.5 C 66 18 164/71 H 95 Room Air 11/08/24 20:50 Room Air Laboratory Results 11/09/24 06:59 11/09/24 06:59 PG Care Time/CCT Total # of Minutes Spent Total Time Spent with Patient: Total time spent is greater than 50% in coordination of care (as documented) at patient's floor/unit and/or counseling patient: Coding Diagnoses Acute confusion R41.0 Cellulitis L03.90 Diabetic nephropathy associated with type 2 diabetes mellitus E11.21 Antiphospholipid syndrome D68.61
[2024-11-09] MEDS: OPTIRAY 320 100ml IV ONE (09:50)
[2024-11-09] MEDS: CEFEPIME 2000MG 2,000 MG/20 ML SYR IV SCH (10:38)
--- NOTE | 2024-11-09 11:01 | CT Scan Report ---
CT tib/fib RT w con HISTORY: 84 years-old Male cellulitis, recent DVT, eval underlying osteo/infx acute pain and swellin g of the right lower leg COMPARISON: Duplex venous Doppler study 10/19/2024 TECHNIQUE: Multiple axial CT images of the right tibia and fibula were obtained with IV contrast. A d ose lowering technique was used consistent with the principals of [place]. FINDINGS: Genu varum. Chondrocalcinosis of the knee. Tricompartmental osteoarthritis, severe within the medial compartment and moderate within the lateral and patellofemoral compartments. Benign bone island of th e medial femoral condyle. No acute fracture, dislocation or osseous erosion. Partially imaged small j oint effusion with synovial thickening. Arterial calcifications. Partially calcified superficial venous varicosities. Previously noted DVT of the popliteal vein is not definitively seen. Arterial calcifications. Posterior moderate dermal thic kening with subcutaneous edema, somewhat nodular within the medial ankle distribution. Muscle atrophy is at moderate to severe within the gastrocnemius musculature. Moderate thickening of the distal Ach illes tendon. IMPRESSION: 1. No acute osseous abnormality. 2. 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 3. Nonspecific dermal thickening with subcutaneous edema which is somewhat nodular within the medial ankle tissues. Findings may represent cellulitis, venous stasis or lymphedema. 4. No fluid collection to suggest abscess. 5. Distal Achilles tendinosis. ACT 112: Negative or not required by law. The above report was generated using voice recognition software. It may contain grammatical, syntax o r spelling errors. Electronically signed by: Moreno Nettles M.D. 11/09/2024 10:59 AM
--- NOTE | 2024-11-09 12:11 | Discharge Summary ---
Discharge Summary Date of Service November 09, 2024 Principal Dx & Hospital Course #1 = Principal Diagnosis (1) Acute confusion: #Confusion/AMS - source likely cellulitis --metabolic encephalopathy due to cellulitis infection 84yo male presented with new onset confusion 24hours prior to admission, complaints of headache without hx of headache and discomfort behind his left eye. Daughter reported had been confused, talking nonsensically and napping more frequently. Was on course Keflex for cellulitis for 10 days with 2 doses left at time of admission CT head negative on admission for acute finding, biofire negative, UA negative for infection. Ammonia not elevated, VBG w/o acute finding and blood cultures NGTD. TSH wnl US GB noted sludge/stone, wall thickening most likely chronic cholecystitis but no acute cholecystitis and LFTs wnl and no RUQ on exam but could be considered in follow up MRI brain obtained which noted no acute stroke or encephalitis and did have improvement in mentation w/ treatment of infection and deferred on EEG or LP at that time but rec f/u clinic in 2-3 weeks Was placed on Ceftriaxone for LE cellulitis with improvement and transition to Cefdnir to complete course 11/07. Legs warm/slightly red but nontender and afebr ile and CT leg obtained which did not note any abscess or fluid collection and seen by supervising provider who felt exam c/w chronic venous stasis changes Of note, did check B12/Vit D for completeness and B12 borderline 393 and PO supplementation started/continued. Vit D low 23.5 and PO supplementation started Did have some urinary retention 2/5 and straight cath x 2, chavis placed AM 2/6 for ongoing retention as discussed w/ patient prior and to have voiding trial in f/u. Ostomy w/ adequate output and did not tolerate flomax in the past. UA w/o bacteria. Of note, did have recent venous doppler noting R popliteal vein thrombosis and was following w/ coag clinic and on once daily Lovenox 120mg SQ daily given hx polyp bleeding and discussed w/ coag clinic and they felt was more chronic f inding however given report w/ acute planned for coumadin 15mg PO daily x 3 days and resume usual coumadin 10mg/adjustment in follow up but was not done on admission but was resumed 11/07 and to continue for 3rd dose and rec repeat INR next 1-2 days/reaching out to coag clinic for further instructions. If any worsening leg cellulitis, consider coverage for pseudomonas given his hx DM but could also consider ref for general surgery eval for likely chronic cholecystitis however again without RUQ pain on exam and normal LFTs. Also notable did check Lyme and +IgG but negative IgM and per discussion w/ supervising provider did not feel need to tx given negative IgM but could consider extended course pending ongoing status but was alert/oriented to person/place/year/answering questions appropriately at time of dc. Did hold lasix AM 2/6 for dehydration/elevated BUN but suspect was 2nd to retention. Again UA negative but rec repeating this in next 1-2 days to ensure normalizes. BNP was NOT elevated on check. F/u neuro 2-3 weeks PT/OT rec rehab, [facility] arranged. Voicemail for (2) Cellulitis: as above, completed course tx while inpatient. continue wound care/amlactin to soften, continue elevation. rec compression when appropriate in f/u Notable did have hx hematoma/I&D last year w/ surgery on the left leg. CT of RIGHT leg w/o fluid collection/abscess prior to dc (3) Diabetic nephropathy associated with type 2 diabetes mellitus: A1c 7.8 (prior 6.1) Home meds: metformin, NPH insulin HELD while inpatient. POC Glu 200s on admission. Pharmacy consulted while inpatient and BSGs acceptable and resumed home meds at dc (4) Antiphospholipid syndrome: #Acute vs chronic popliteal DVT H/o antiphospholipid syndrome; Was on Lovenox BID but issues w/ bleeding from rectal polyp and was reduced to 1mg/kg/daily given prior venous doppler finding w/ popliteal thrombus not felt acute and more chronic finding but had planned to start coumadin 15mg PO daily x 3 days and monitor INR. His usual dose is 10mg PO daily Discussed w/ coag clininc provider, continued Lovenox SQ 120mg/daily, coumadin 15mg PO daily added 2/4 and plan 3 days 15mg PO per coag clinic, rec repeat INR in am/reaching out to coag clinic for ongoing discussion/adjustment Notes For Next Care Provider Voiding trial for chavis placement for retention. UA did not appear infected, no bacteria. Notable did have Lasix held prior to dc/dehydrated on exam but improved through day CT leg w/o abscess or fluid collection, seen day of dc by supervising provider and suspected chronic venosis stasis changes, warm/perfused and nontender/no evidence for cellulitis recs continue elevation, compression as able Will need repeat INR next 1-2 days, decrease coumadin to 10mg following 3rd dose if in range however can reach out to coag clinic for ongoing instructions Neurology follow up for possible NPH on MRI Consider ref to general surgery for chronic adam as possible contributing factor however no RUQ pain on exam/LFT elevation at this time and mentation back to baseline. Consider tx for Lyme IgG if felt beneficial and never treated for such in the past. Medication Changes From Visit Vitamin D 10mcg PO daily B12 500mcg PO daily Coumadin 15mg PO x 1 more day , then decrease to 10mg daily if INR in goal. F/u Coag clinic Admission HPI Per Admitting Provider Randal is an 84-year-old male with PMH of HLD, antiphospholipid syndrome, DVT, adenocarcinoma, orthostatic hypotension, colostomy status, and T2DM. He presented on 10/31 for new onset confusion over the past 24 hours. Patient's (Eboni) is at the bedside and provides most the history, as the patient is a poor historian at this time. She reports that he was complaining of a headache that started yesterday morning. Patient does not normally get headaches; no prior history of migraines. Patient reports that the headache is behind his mainly left eye. Daughter at bedside also reports he has been confused, talking nonsensically, and has been napping more frequently. at bedside reports that his color was "poor" when they were at the anticoagulation clinic yesterday. Patient has not took any of his regular medicine over the past 24 hours (no morning medications or night medications last night); unsure if he did not want to take or just had difficulty swallowing. Patient recently completed a course of Keflex (10 days) for his lower extremity cellulitis bilaterally; reports only marginal improvement with the Keflex. No purulent drainage from the cellulitis, but notes occasional weeping. No prior history of MRSA infections, per . Both and daughter report this is an acute change in cognitive baseline. He does not have a past medical history of strokes to their knowledge, and they deny appreciating any strokelike symptoms such as slurred speech, facial droop, or unilateral deficits. While patient is a poor historian at this time, he does endorse having fever, chills, and sweating at home, as well as lightheadedness and headache. No recent falls or injuries to the head or neck within the past year. Patient denies smoking, tobacco use, recent alcohol use. Patient's denies any known allergies to antibiotics. Patient is hypertensive at 179/90 at time of admission; vitals otherwise stable. ED course: Magnesium sulfate 1 g IV NSS 1000 mL IV ROS obtained by patient at bedside, with the help of his : Patient endorses confusion, generalized fatigue, fever, chills, sweating, headache behind the left eye, shaking, or lightheadedness when standing. Patient denies slurred speech, facial droop, unilateral deficits, neck stiffness/pain, photophobia, chest pain, SOB, abdominal pain, nausea, or vomiting. Admission Exam Per Admitting Provider General: no acute distress; lethargic; confused; and daughter at bedside; non-toxic appearing; well-nourished; cooperative; SpO2 93% on RA HEENT: normocephalic, atraumatic; no scleral icterus; PERRLA; vision and hearing grossly intact; patient has difficulty sticking out his tongue; no meningeal signs appreciated on exam; negative Brudzinski sign Neck: supple; no lymphadenopathy; trachea midline Skin: warm, dry without signs of tenting; no cyanosis; no rashes, bruising, lesions, or erythema noted CV: chest wall NTP; RRR; S1/S2 normal; no murmurs/rubs/gallops; pulses intact and symmetric at radial, DP, and PT Lungs: no acute respiratory distress; symmetrical chest wall expansion; clear breath sounds across all lung cardoso w/o adventitious sounds; no wheezing ABD: Soft; mildly TTP around bruising site in the RLQ; colostomy intact without signs of erythema or infection; BS present; no rebound/guarding; moderate distention secondary to body habitus MSK: Left hand tremor appreciated on exam; +2 pitting edema to lower extremity bilaterally; lower extremities are warm to touch and erythematous extending from ankle to the mid kumar (see photos below); 5/5 cloth shrinker strength bilaterally Neuro: Patient is not alert and oriented to date of , month of the year, or location; he responds inappropriately to questioning, for instance when asked if it feels the same or different on both sides, he responds "yes"; he also res ponds "2116" when asked what his birthday is, and then responds with the same answer when asked where he currently is; incoherent thought processes; ? expressive aphasia; no facial droop appreciated; negative pronator drift; difficult to assess sensation, but he does report that sensation is intact and symmetric in the face/UEs/LEs bilaterally assessed via light touch See pictures in chart Discharge Exam GENERAL: 84 yo male sitting up in bed, alert to person/place/month, initially reported year 2025 but otherwise calm/cooperative with care, NAD HEENT: +facial hair, head atraumatic, normocephalic, mmm, trachea midline Resp: even/unlabored, slightly diminished to the bases, no wheezing/rales, 94% on RA CV: RRR, no significant m/r/g, stable b/l LE edema, trace-1+ bilateral, pulses present, calves nontender, cellulitis much improved/resolved, chronic venous stasis noted GI: +BS, soft/NT, ostomy functioning/intact : no chavis MSK/Neuro: nonfocal, moves all extremities, strength equal bilaterally Psych: alert to person/place/month, intermittent to year but cooperative with exam Discharge Plan Discharge Items Patient Disposition: Transfer [facility] Fac Reason For Visit: AMS, CELLULITIS Discharge Diagnosis: Cellulitis, Altered mental status Goals: You have been hospitalized for an acute medical problem. During your stay at [facility], we have made an effort to correct the problem that brought you to the hospital while keeping you as comfortable as possible. Medications were used to bring your condition under control and your discharge instructions will include directions for any medications you should take after leaving the hospital. Please make sure you see your Primary Care Provider as part of your follow up plan. Activity: As commented below Non-emergency contact: Primary Care Provider Call non-emergency contact if: you have any medication questions, your symptoms worsen, your pain is not controlled, your pain is worsening, your pain is unusual for you and you have a fever Follow-up/Referrals: Elizabeth Alvarenga CRNP [Primary Care Provider] - Diet: Carb Consistent or DM2 and Heart Healthy Addtl Attending Provider Instructions: You have been hospitalized for cellulitis and confusion. Neurology was consulted and suspected related to acute infection but should have follow up as outpatient in 2-3 weeks which should be arranged at discharge. You completed course of antibiotics in the hospital. You were also found to have low B12 and Vitamin D levels and have been started on replacement and continued at discharge. These should help with bone health as well as balance issues. Therapy consults were undertaken and arrangements for [facility] at discharge. Please continue wound care/elevation of legs. Coumadin has been restarted and you have another day of 15mg to take and then will continue 10mg daily and should have INR repeated in the next 1-2 days and follow up with Dr Morrell/anti-coagulation clinic. You did have some urinary retention and Chavis has been placed to prevent issues. You can have voiding trial in next 2-3 days when up/moving around a little better. Please follow up with primary care to monitor your progress after discharge. Please follow up with your specialists/neurology. Please return to the ER with any fever/chills, worsening redness/pain or swelling, confusion, or for any symptoms concerning for you. It has been a pleasure being a part of the medical team providing for you while you have been in the hospital. Take care! Pending Studies at Discharge: Yes Studies:: UA Stand-Alone Forms: My [facility] Skilled Items Patient informed of condition?: Yes DNR: Yes Discharge Level of Care: Skilled Communicable Disease: No Discharge Prognosis: Stable Lines: None Urinary Catheter: Yes Medications and DC Order Prescriptions: New cyanocobalamin (vitamin B-12) 500 mcg Tablet 500 mcg PO QAM Qty: 30 0RF cholecalciferol (vitamin D3) [Vitamin D3] 10 mcg (400 unit) Tablet 10 mcg PO QAM Qty: 30 0RF Continued enoxaparin 120 mg/0.8 mL syringe 120 mg subcut QAM Rx Instructions: Per [facility]. Start Date 10/20/24 x15 day supply rosuvastatin [Crestor] 20 mg tablet 20 mg PO QAM Qty: 90 3RF metformin 500 mg tablet extended release 24 hr 1,000 mg PO BID Qty: 360 3RF insulin asp prt-insulin aspart [Novolog Mix 70-30FlexPen U-100] 100 unit/mL (70-30) insulin pen See Rx Instructions subcut BID Qty: 15 3RF Rx Instructions: subcutaneously twice a day; Inject 25 units first thing in the morning before breakfast and 15 units in the evening before the last meal of the day. multivitamin [Daily Multi-Vitamin] Tablet 1 tab PO QAM furosemide [Lasix] 20 mg tablet 20 mg PO DAILY Qty: 30 2RF magnesium citrate 100 mg Tablet 200 mg PO DAILY ferrous sulfate [Feosol] 325 mg (65 mg iron) tablet 325 mg PO BID Changed warfarin 5 mg tablet See Rx Instructions .ROUTE .COMPLEX Qty: 14 0RF Rx Instructions: take 15mg for 2/6, then decrease to 10mg daily. follow up [facility] No Action (DME) miscellaneous medical supply Liquid See Rx Instructions .Route Qty: 3840 0RF Rx Instructions: Ca 600 mg, Mag 300 mg, D3 500- 1 teaspoon daily (DME) pen needle, diabetic [BD Donna 2nd Gen Pen Needle] 32 gauge x 5/32" needle See Dose Instructions .ROUTE .MEDSUPPLY Qty: 200 3RF Dose Instruction: As directed Rx Instructions: use 2 daily (DME) lancets [OneTouch Delica Plus Lancet] 33 gauge misc See Rx Instructions .Route Qty: 100 8RF Rx Instructions: test 2-3 times a day (DME) SenSura Flex Ostomy Pouch Misc See Rx Instructions .Route Qty: 2 0RF Rx Instructions: 10 IN EACH BOX (DME) Adhesive Remover Wipes Swab See Rx Instructions .Route Qty: 50 0RF Rx Instructions: As directed use with ostomy (DME) FreeStyle Rachelle 3 Plus Sensor Device See Rx Instructions .Route Qty: 2 11RF Rx Instructions: Change sensor every 15 days (DME) OneTouch Ultra Test Strip See Rx Instructions .Route Qty: 100 8RF Rx Instructions: test 2-3 times a day (DME) blood-glucose meter [OneTouch Ultra2 Meter] Misc See Rx Instructions .Route Qty: 1 0RF Rx Instructions: As directed Discharge Orders: Discharge Order (Routine); Ordered 11/09/24 Ordered By: Kasey Prabhakar Admission Data Admit Date/Time: 10/31/24 13:37 Attending Provider: Cheo Andre Admit Provider: Elijah Brooks Primary Care Provider: Elizabeth Alvarenga Other Providers: Elijah Brooks; Pepito Wilson; [facility] [place]; [facility]; Sarah Drake Other Interventions: Discharge Summary Assessment (RN) Last Done: 11/09/24 13:31 Hospital Stay Data Consultations 10/31/24 12:13 ED Decision to Admit Stat 10/31/24 22:28 Consult Neurology Routine 11/08/24 07:54 Consult Palliative Care Routine Diagnostic Imagining Performed Chest X-Ray 10/31/24 09:40 XR chest 1V portable CLINICAL HISTORY: confusion COMPARISON STUDY: 04/21/2024 FINDINGS: Stable mild cardiomegaly without pulmonary vascular congestion. Inspiration is shallow. No effusion, consolidation, or pneumothorax. IMPRESSION: No acute findings. ACT 112: Negative or not required by law. Electronically signed by: Gilmer Mahmood M.D. 10/31/2024 10:[address] 10/31/24 09:41 CT head/brain wo con CLINICAL HISTORY: confusion. TECHNIQUE: Multiple axial CT images of the head were obtained without contrast. A dose lowering technique was utilized adhering to the principles of ALARA. CT DOSE: 625.8 mGy.cm COMPARISON: 04/21/2024 FINDINGS: There is stable prominence of the ventricles out of proportion to the sulci, cerebral atrophy versus mild normal pressure hydrocephalus. No intracranial hemorrhage seen. No mass effect or midline shift. Visualized paranasal sinuses and mastoid air cells are clear. No skull fracture. IMPRESSION: No acute findings. ACT 112: Negative or not required by law. The above report was generated using voice recognition software. It may contain grammatical, syntax or spelling errors. Electronically signed by: Gilmer Mahmood M.D. 10/31/2024 10:04 AM Head CTA 10/31/24 11:05 CT angio neck with con, CT angio head w con CLINICAL HISTORY: confusion. COMPARISON STUDY: 08/10/2022 TECHNIQUE: Following the IV administration of 112 of Optiray, CT angiogram of the neck and brain was performed from the aortic arch to the skull base. Images are reviewed in the axial, sagittal, and coronal planes. 3-D MIPS images are created and assessed. IV contrast was administered without complication. All measurements were calculated based on NASCET criteria. A dose lowering technique was utilized adhering to the principles of ALARA. CT DOSE: 628.14 mGy.cm FINDINGS: There is mild medication and spray artifact. The vertebral arteries are diminutive distally beyond PICA, anatomic variant. No significant narrowing or occlusion seen at the common or internal carotid or vertebral arteries bilaterally. Basilar artery is patent. The anterior, middle, and posterior cerebral arteries are patent bilaterally. No intracranial aneurysm seen. Cerebral venous sinuses opacify normally. IMPRESSION: No significant arterial narrowing or occlusion seen on CTA of the neck or brain. ACT 112: Negative or not required by law. The above report was generated using voice recognition software. It may contain grammatical, syntax or spelling errors. Electronically signed by: Gilmer Mahmood M.D. 10/31/2024 12:07 PM Neck CTA 10/31/24 11:05 CT angio neck with con, CT angio head w con CLINICAL HISTORY: confusion. COMPARISON STUDY: 08/10/2022 TECHNIQUE: Following the IV administration of 112 of Optiray, CT angiogram of the neck and brain was performed from the aortic arch to the skull base. Images are reviewed in the axial, sagittal, and coronal planes. 3-D MIPS images are created and assessed. IV contrast was administered without complication. All measurements were calculated based on NASCET criteria. A dose lowering technique was utilized adhering to the principles of ALARA. CT DOSE: 628.14 mGy.cm FINDINGS: There is mild medication and spray artifact. The vertebral arteries are diminutive distally beyond PICA, anatomic variant. No significant narrowing or occlusion seen at the common or internal carotid or vertebral arteries bilaterally. Basilar artery is patent. The anterior, middle, and posterior cerebral arteries are patent bilaterally. No intracranial aneurysm seen. Cerebral venous sinuses opacify normally. IMPRESSION: No significant arterial narrowing or occlusion seen on CTA of the neck or brain. ACT 112: Negative or not required by law. The above report was generated using voice recognition software. It may contain grammatical, syntax or spelling errors. Electronically signed by: Gilmer Mahmood M.D. 10/31/2024 12:07 PM Brain MRI 10/31/24 12:11 Clinical History: Headaches and confusion Technique: Multiple T1 and T2-weighted magnetic resonance images were obtained of the brain without gadolinium contrast Findings: There is no sign of acute or old infarction with normal-appearing diffusion weighted images. There is cerebral atrophy, within expected limits for the patient's age. There are small areas of increased T2 signal intensity within the periventricular white matter of the cerebral hemispheres bilaterally. This is most likely due to chronic small vessel ischemic disease. No definite mass lesion is seen on this noncontrast study. There is no intracranial hemorrhage or other fluid collection. No midline shift or other form of herniation is seen. There is no hydrocephalus. Normal flow-voids are seen within the arteries of the [id number]. The orbits and paranasal sinuses appear normal. The mastoid air cells appear clear. Impression: 1. Cerebral atrophy and mild chronic small vessel ischemic disease 2. Otherwise unremarkable noncontrast MRI of the brain Electronically signed by Lars Segal 10-31-2024 6:30 PM Brain MRI 11/01/24 11:50 Clinical History: Headaches and confusion Technique: Axial and coronal T1-weighted magnetic resonance images were obtained of the brain both after the administration of 11.5 cc of Gadavist intravenous gadolinium contrast Comparison is made to the noncontrast MRI obtained yesterday Findings: Cerebral atrophy is again seen. There is mild ventricular prominence that is likely due to the cerebral atrophy. There is no herniation or hydrocephalus. No mass lesion or other area of abnormal enhancement is identified. Impression: Unremarkable contrast-enhanced MRI of the brain. No mass lesion is seen Electronically signed by Lars Segal 11-01-2024 7:09 PM Gallbladder Ultrasound 11/01/24 17:32 US gallbladder CLINICAL HISTORY: recheck GB lesion seen on CT 09/04 COMPARISON STUDY: CT of the abdomen and pelvis dated 09/04/2024, 10/08/2022, and 08/10/2022 FINDINGS: The pancreas is largely obscured by bowel gas. There are no liver lesions depicted. There is no ascites. There is hepatopedal flow in the portal vein. The IVC is patent. The gallbladder lumen is contracted around a central sludge ball or a partially calcified stone. The gallbladder anne are thick. Sneed sign cannot be assessed due to prior administration of pain meds. The common bile duct is normal measuring 3 mm. The right kidney demonstrates no evidence of hydronephrosis. There are multiple right renal cysts. A 1.2 cm renal stone is identified. IMPRESSION: The gallbladder appearance has not changed on CT since 08/10/2022. Today's ultrasound findings which suggest an intraluminal partially calcified stone or sludge ball. Polyp is less likely but not excluded. Gallbladder wall thickening most likely indicative of chronic cholecystitis. Multiple right renal cysts and right nephrolithiasis without hydronephrosis. ACT 112: Negative or not required by law. Electronically signed by: Kathleen Shi M.D. 11/02/2024 8:[address] 11/09/24 08:40 CT tib/fib RT w con HISTORY: 84 years-old Male cellulitis, recent DVT, eval underlying osteo/infx acute pain and swelling of the right lower leg COMPARISON: Duplex venous Doppler study 10/19/2024 TECHNIQUE: Multiple axial CT images of the right tibia and fibula were obtained with IV contrast. A dose lowering technique was used consistent with the principals of [place]. FINDINGS: Genu varum. Chondrocalcinosis of the knee. Tricompartmental osteoarthritis, severe within the medial compartment and moderate within the lateral and patellofemoral compartments. Benign bone island of the medial femoral condyle. No acute fracture, dislocation or osseous erosion. Partially imaged small joint effusion with synovial thickening. Arterial calcifications. Partially calcified superficial venous varicosities. Previously noted DVT of the popliteal vein is not definitively seen. Arterial calcifications. Posterior moderate dermal thickening with subcutaneous edema, somewhat nodular within the medial ankle distribution. Muscle atrophy is at m oderate to severe within the gastrocnemius musculature. Moderate thickening of the distal Achilles tendon. IMPRESSION: 1. No acute osseous abnormality. 2. 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 3. Nonspecific dermal thickening with subcutaneous edema which is somewhat nodular within the medial ankle tissues. Findings may represent cellulitis, venous stasis or lymphedema. 4. No fluid collection to suggest abscess. 5. Distal Achilles tendinosis. ACT 112: Negative or not required by law. The above report was generated using voice recognition software. It may contain grammatical, syntax or spelling errors. Electronically signed by: Moreno Nettles M.D. 11/09/2024 10:59 AM Pending Results Patient Have Any Pending Studies at Discharge: Yes Discharge Instructions Given to Patient (Per Discharging Provider) You have been hospitalized for cellulitis and confusion. Neurology was consulted and suspected related to acute infection but should have follow up as outpatient in 2-3 weeks which should be arranged at discharge. You completed course of antibiotics in the hospital. You were also found to have low B12 and Vitamin D levels and have been started on replacement and continued at discharge. These should help with bone health as well as balance issues. Therapy consults were undertaken and arrangements for [facility] at discharge. Please continue wound care/elevation of legs. Coumadin has been restarted and you have another day of 15mg to take and then will continue 10mg daily and should have INR repeated in the next 1-2 days and follow up with Dr Morrell/anti-coagulation clinic. You did have some urinary retention and Chavis has been placed to prevent issues. You can have voiding trial in next 2-3 days when up/moving around a little better. Please follow up with primary care to monitor your progress after discharge. Please follow up with your specialists/neurology. Please return to the ER with any fever/chills, worsening redness/pain or swelling, confusion, or for any symptoms concerning for you. It has been a pleasure being a part of the medical team providing for you while you have been in the hospital. Take care! Supervising Physician Co-Signing Physician Notes The patient was not seen by me. The chart was reviewed. Case discussed with GIGI Drake. 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
[2024-11-09 12:12] LABS: Appearance Urine Clear (Clear); Bacteria Urine Automated None Seen (None Seen); Bilirubin Urine Negative (Negative); Blood Urine 1+ (Negative); Color Urine Yellow; Glucose Urine UA Negative (Negative); Ketones Urine Negative (Negative); Leukocyte Esterase Urine Trace (Negative); Nitrite Urine Negative (Negative); Protein Urine 1+ (Negative); RBC Urine Automated >20 /hpf (0-2); Specific Gravity Urine 1.043 (1.000-1.030); Urobilinogen Urine Negative (Negative)
== END 2024-11-09 14:37 | DRG 602 ==
LOC: ED 09:29 → 2N 13:37 → SUATTDRO 13:37 → 2N 14:47 → 3N 11-03 23:07